=== PATIENT | female | born 1950 | race Caucasian/White ===

== ENCOUNTER 2020-12-02 18:45 | Emergency (ER) | payer MEDICARE, OTHER, SELFPAY ==
--- NOTE | 2020-12-02 18:49 | ED.MALEGU ---
HPI - Male Genitourinary General Chief complaint: Urogenital-Female Stated complaint: POS UTI/back pain Time Seen by Provider: 12/02/20 19:00 Source: patient and RN notes reviewed Mode of arrival: ambulatory Limitations: no limitations History of Present Illness HPI Narrative: 70-year-old female with history of breast cancer, pelvic reconstructive surgery, diverticulitis presents with concern for urinary tract infection. She reports since yesterday she has had left flank discomfort, left low groin/abdominal discomfort. She reports chronic pelvic discomfort from a past pelvic surgery, reports the discomfort has become more significant in the last 2 days. She denies fever, other abdominal pain, nausea, vomiting, body aches, chills, sweats, hematuria. Reports this week she has been dealing with a yeast infection for which she took Diflucan prescribed by her old primary care provider. Reports history of diverticulitis, reports history of nephrolithiasis. Reports symptoms with nephrolithiasis were different, more severe pain. Reports symptoms for diverticulitis were similar to her symptoms today, also reports symptoms of past urinary tract infections were similar to her symptoms today. MD Complaint: dysuria Related Data Home Medications Medication Instructions Recorded Confirmed Aspir-81 12/02/20 Benicar 12/02/20 Breo Ellipta 12/02/20 Janumet 12/02/20 Ventolin HFA 12/02/20 amlodipine [Norvasc] 12/02/20 glipizide 5 mg PO DAILY 12/02/20 12/02/20 rosuvastatin [Crestor] mg 12/02/20 Allergies Allergy/AdvReac Type Severity Reaction Status Date / Time erythromycin base Allergy Unknown ABD PAIN Verified 02/11/18 09:35 lidocaine Allergy Unknown Verified 12/02/20 18:58 Review of Systems Review of Systems: CONSTITUTIONAL: Denies malaise, chills, sweats, or fever. CARDIOVASCULAR: Denies chest pain, palpitations, or edema. RESPIRATORY: Denies cough or dyspnea. GASTROINTESTINAL: Reports left lower groin/abdominal pain. Denies nausea, vomiting, diarrhea, bloody, or mucous stools. GENITOURINARY: Denies dysuria or hematuria. Reports left flank pain SKIN: Reports general itching MUSCULOSKELETAL: Denies back pain or myalgia. All systems reviewed & are unremarkable except as noted in HPI and below PMFSH Comments At time of signature, agree with nursing past medical, surgical, social and family history. There is no relevant family history pertinent to the presenting complaint Exam Narrative: GENERAL: Well-appearing, well-nourished, and in no acute distress. HEAD: Normocephalic. EYES: PERRLA, conjunctivae clear. NECK: Supple. No lymphadenopathy CHEST: Clear to auscultation. No respiratory distress. HEART: Regular rate and rhythm. ABDOMEN: Soft, nontender upon palpation, nondistended, normal active bowel sounds, no palpable or pulsatile masses, no guarding. No CVA tenderness SKIN: Warm, dry, no rash. NEURO: Alert and oriented x3. PSYCH: Normal mood and affect Course Course Emergency Course: Dorie with patient possibility of symptoms not being caused by urinary tract infection, rather diverticulitis. Discussed inability to definitively diagnose diverticulitis in the setting. Patient just moved to the state and does not have a primary care provider that she is able to call for an appointment. Resources will be provided for patient to find a primary care provider. Was discussed with patient that Augmentin may also treat symptoms of diverticulitis, however she should follow-up with urine culture results to know how to further proceed with follow-up. Patient was given reasons to go the emergency room if symptoms worsen or do not improve. Patient is aware of diagnosis, understands and agrees to treatment plan. Anticipatory guidance given. Patient agrees to follow-up as directed and is aware of reasons to seek care at the emergency department. Portions of this record may have been created with voice recognition software [employer]
[2020-12-02 18:54] VITALS: BP 167/88; PULSE 78; RESP 16; TEMP 36.6; O2SAT 100
[2020-12-02 19:02] VITALS: BP 167/88; PULSE 78; RESP 16; TEMP 36.6; O2SAT 100
== END 2020-12-02 19:32 | disposition home or self-care (01) ==
PROVIDERS: Emergency Provider Nurse Practitioner
DX: R10.9 Unspecified abdominal pain (principal); R10.32 Left lower quadrant pain; I10 Essential (primary) hypertension; J45.909 Unspecified asthma, uncomplicated; E11.9 Type 2 diabetes mellitus without complications
CPT/HCPCS: 81003; 87086; 87088; 99213; G0463

== ENCOUNTER 2021-03-21 15:28 | Emergency (ER) | payer MEDICARE, OTHER, SELFPAY ==
[2021-03-21 15:38] VITALS: BP 178/83; PULSE 81; RESP 18; TEMP 36.9; O2SAT 98
--- NOTE | 2021-03-21 15:52 | ED.URI ---
HPI - URI/Sore Throat General Chief Complaint: Upper Respiratory Infection Stated Complaint: Fever,Congestion,Cough Source: patient and RN notes reviewed Limitations: no limitations History of Present Illness HPI Narrative: The boost vaccinated patient, a non-smoker/nondrinker with RAD, presents with 2-day history of cough, p.o. fever 101, associated scratchy throat. Symptoms are mild, unrelieved til she took Mucinex associated with possible wheezing. No loss of taste/smell, vomiting/diarrhea, CP, calf pain/edema, S OB; vital signs remarkable for BP 178/83 [she just took her blood pressure pills before arrival]. Related Data Home Medications Medication Instructions Recorded Confirmed albuterol sulfate 90 mcg/actuation 1 puff INHALATION Q4H PRN 01/02/21 03/21/21 aerosol inhaler amlodipine 10 mg tablet 10 mg PO DAILY 01/02/21 03/21/21 aspirin 81 mg chewable tablet 81 mg PO DAILY 01/02/21 03/21/21 fluticasone furoate 200 1 inh INHALATION DAILY PRN 01/02/21 03/21/21 mcg-vilanterol 25 mcg/dose inhalation powder fluticasone propionate 50 1 spray INTRANASAL DAILY PRN 01/02/21 03/21/21 mcg/actuation nasal spray,suspension glipizide 5 mg tablet, extended 5 mg PO DAILY 01/02/21 03/21/21 release 24 hr olmesartan 40 1 tablet PO DAILY 01/02/21 03/21/21 mg-hydrochlorothiazide 12.5 mg tablet rosuvastatin 20 mg tablet 20 mg PO DAILY 01/02/21 03/21/21 sitagliptin 50 mg-metformin 500 mg 1 tablet PO DAILY tablet 01/02/21 03/21/21 tablet Allergies Allergy/AdvReac Type Severity Reaction Status Date / Time acetaminophen [From Vicodin] Allergy Intermediate Hives or Verified 03/21/21 15:39 throat swelling after 4-6 days of use hydrocodone [From Vicodin] Allergy Intermediate Hives or Verified 03/21/21 15:39 throat swelling after 4-6 days of use loracarbef [From Lorabid] Allergy Intermediate Hives or Verified 03/21/21 15:39 throat swelling after 4-6 days of use cigarette smoke Allergy Unknown unknown Verified 03/21/21 15:39 diltiazem [From Cardizem] Allergy Unknown Hives, Verified 03/21/21 15:39 stomach ache doxycycline [From Doryx] Allergy Unknown Hives, Verified 03/21/21 15:39 stomach ache erythromycin base Allergy Unknown ABD PAIN Verified 03/21/21 15:39 formaldehyde Allergy Unknown unknown Verified 03/21/21 15:39 house dust mite Allergy Unknown unknown Verified 03/21/21 15:39 minocycline [From Dynacin] Allergy Unknown Hives, Verified 03/21/21 15:39 Stomach ache phenol Allergy Unknown unknown Verified 03/21/21 15:39 lidocaine Allergy Unknown Verified 03/21/21 15:39 acrylic Allergy Unknown unknown Uncoded 03/21/21 15:39 zara Allergy Unknown unknown Uncoded 03/21/21 15:39 chlorine Allergy Unknown unknown Uncoded 03/21/21 15:39 dust Allergy Unknown unknown Uncoded 03/21/21 15:39 ethanol Allergy Unknown unknown Uncoded 03/21/21 15:39 fireplace smoke Allergy Unknown unknown Uncoded 03/21/21 15:39 mountain cedar Allergy Unknown unknown Uncoded 03/21/21 15:39 msg Allergy Unknown unknown Uncoded 03/21/21 15:39 orris root Allergy Unknown unknown Uncoded 03/21/21 15:39 unleaded gas Allergy Unknown unknown Uncoded 03/21/21 15:39 Review of Systems Review of Systems: General/Constitutional: No weight loss, REPORTS fever Eyes: N0: Redness,discharge Ears/Nose/Throat: No: Epistaxis,ear discharge Respiratory: Denies: Hemoptysis Gastrointestinal: No Vomiting, Bleeding-rectal Skin: No Lumps, eruption Neurologic: No Focal Weakness,Sz Hematologic: Denies: Petechiae/Purpura Psychiatric: No: Suicida ideationl All Other Systems: Reviewed and Negative [facility] Past Medical History Medical History (Updated 03/21/21 @ 17:12 by Jarvis Barreto MD) Acid reflux Arthritis Asthma Breast cancer Endometriosis H/O nephrolithotomy with removal of calculi 1998 Pre-diabetes Vaginal delivery x2 Surgical History Surgical History
== END 2021-03-21 16:15 | disposition home or self-care (01) ==
PROVIDERS: Emergency Provider Emergency Medicine; PCP Internal Medicine
DX: J98.01 Acute bronchospasm (principal); J06.9 Acute upper respiratory infection, unspecified; Z20.822 Contact with and (suspected) exposure to COVID-19; K21.9 Gastro-esophageal reflux disease without esophagitis; M19.90 Unspecified osteoarthritis, unspecified site; J45.909 Unspecified asthma, uncomplicated; N80.9 Endometriosis, unspecified; Z85.3 Personal history of malignant neoplasm of breast; R73.03 Prediabetes; Z90.13 Acquired absence of bilateral breasts and nipples
CPT/HCPCS: 87426; 87804; 99213; C9803; G0463

== ENCOUNTER → 2021-05-11 12:29 | Outpatient (CLI) | payer MEDICARE, SELFPAY ==
--- NOTE | ~2021-05-11 | US_ITS ---
US soft tissue chest DATE: 05/11/2021 12:54 INDICATION: Chest wall lump inferior to left breast; status post bilateral mastectomy, saline implant s TECHNIQUE: Real-time imaging and color flow imaging targeted to area of clinical complaint and inferi or aspect of left breast COMPARISON: None FINDINGS: There is a parallel circumscribed mildly heterogeneous lesion in the lower mid breast subcu taneous tissues measuring 1.2 x 0.7 x 1.4 cm, with through transmission posterior enhancement. The so nographic features are suggestive but not pathognomonic a benign process such as complicated sebaceou s cyst versus fibroadenoma. Malignant breast mass or metastatic lymph node are considered less likely . Ultrasound-guided biopsy is recommended. IMPRESSION: BI-RADS Category 4A: Suspicious abnormality; biopsy should be considered Recommendation: Ultrasound-guided biopsy Reviewed, dictated and finalized at [facility] Reviewed, dictated and finalized at [facility] IMPRESSION: BI-RADS Category 4A: Suspicious abnormality; biopsy should be consi dered Recommendation: Ultrasound-guided biopsy
== END ==
DX: N63.0 Unspecified lump in unspecified breast (principal); R92.8 Other abnormal and inconclusive findings on diagnostic imaging of breast
CPT/HCPCS: 76604

== ENCOUNTER 2021-08-12 19:10 | Emergency (ER) | payer MEDICARE, SELFPAY ==
--- NOTE | 2021-08-12 19:15 | ED.EXTPRO ---
HPI - Extremity Problem General Chief complaint: Extremity Problem,Nontraumatic Stated complaint: Rt Foot Irritation and Pain Time Seen by Provider: 08/12/21 19:20 Source: patient Mode of arrival: ambulatory Limitations: no limitations History of Present Illness HPI Narrative: 71-year-old female presented for complaints of concern for numbness to the right great toe and second toe for a few hours prior to arrival today. Endorses a significant medical history, she has been taking gabapentin for urinary nerve pain, which caused her legs to swell. She discontinued the medication and notes she had been walking around [facility] today and did not have any issues with pain or numbness. However when she arrived home she endorses the bottom of her toes felt numb. Endorses this is slightly improving. Denies redness, swelling, pain, weakness or tingling of the foot. Related Data Home Medications Medication Instructions Recorded Confirmed albuterol sulfate 90 mcg/actuation 1 puff INHALATION Q4H PRN 01/02/21 03/21/21 aerosol inhaler amlodipine 10 mg tablet 10 mg PO DAILY 01/02/21 08/12/21 aspirin 81 mg chewable tablet 81 mg PO DAILY 01/02/21 08/12/21 fluticasone propionate 50 1 spray INTRANASAL DAILY PRN 01/02/21 03/21/21 mcg/actuation nasal spray,suspension glipizide 5 mg tablet, extended 5 mg PO DAILY 01/02/21 08/12/21 release 24 hr olmesartan 40 1 tablet PO DAILY 01/02/21 08/12/21 mg-hydrochlorothiazide 12.5 mg tablet rosuvastatin 20 mg tablet 20 mg PO DAILY 01/02/21 08/12/21 sitagliptin 50 mg-metformin 500 mg 1 tablet PO DAILY tablet 01/02/21 08/12/21 tablet gabapentin 100 mg PO TID 08/12/21 08/12/21 Allergies Allergy/AdvReac Type Severity Reaction Status Date / Time acetaminophen [From Vicodin] Allergy Intermediate Hives or Verified 08/12/21 19:13 throat swelling after 4-6 days of use hydrocodone [From Vicodin] Allergy Intermediate Hives or Verified 08/12/21 19:13 throat swelling after 4-6 days of use loracarbef [From Lorabid] Allergy Intermediate Hives or Verified 08/12/21 19:13 throat swelling after 4-6 days of use cigarette smoke Allergy Unknown unknown Verified 08/12/21 19:13 diltiazem [From Cardizem] Allergy Unknown Hives, Verified 08/12/21 19:13 stomach ache doxycycline [From Doryx] Allergy Unknown Hives, Verified 08/12/21 19:13 stomach ache erythromycin base Allergy Unknown ABD PAIN Verified 08/12/21 19:13 formaldehyde Allergy Unknown unknown Verified 08/12/21 19:13 house dust mite Allergy Unknown unknown Verified 08/12/21 19:13 minocycline [From Dynacin] Allergy Unknown Hives, Verified 08/12/21 19:13 Stomach ache phenol Allergy Unknown unknown Verified 08/12/21 19:13 lidocaine Allergy Unknown Verified 08/12/21 19:13 acrylic Allergy Unknown unknown Uncoded 08/12/21 19:13 zara Allergy Unknown unknown Uncoded 08/12/21 19:13 chlorine Allergy Unknown unknown Uncoded 08/12/21 19:13 dust Allergy Unknown unknown Uncoded 08/12/21 19:13 ethanol Allergy Unknown unknown Uncoded 08/12/21 19:13 fireplace smoke Allergy Unknown unknown Uncoded 08/12/21 19:13 mountain cedar Allergy Unknown unknown Uncoded 08/12/21 19:13 msg Allergy Unknown unknown Uncoded 08/12/21 19:13 orris root Allergy Unknown unknown Uncoded 08/12/21 19:13 unleaded gas Allergy Unknown unknown Uncoded 08/12/21 19:13 Review of Systems Review of Systems: CONSTITUTIONAL: Denies body aches, fever, chills, or sweats. EYES: Denies visual changes, redness, or discharge. ENT: Denies rhinorrhea, congestion, sore throat, or otalgia. CARDIOVASCULAR: Denies chest pain, palpitations, or edema. RESPIRATORY: Denies cough or dyspnea. GASTROINTESTINAL: Denies abdominal pain, nausea, vomiting, or diarrhea. GENITOURINARY: Denies dysuria or hematuria. SKIN: Denies rash, itching, or wounds. MUSCULOSKELETAL: Denies back pain, joint pain, or myalgia. NEUROLOGIC: Denies headac
[2021-08-12 19:22] VITALS: BP 171/81; PULSE 85; RESP 18; TEMP 36.7; O2SAT 98
[2021-08-12 19:40] VITALS: BP 146/97
== END 2021-08-12 19:40 | disposition home or self-care (01) ==
PROVIDERS: Emergency Provider Nurse Practitioner Family; PCP Internal Medicine
DX: R20.9 Unspecified disturbances of skin sensation (principal); K21.9 Gastro-esophageal reflux disease without esophagitis; M19.90 Unspecified osteoarthritis, unspecified site; J45.909 Unspecified asthma, uncomplicated; R73.03 Prediabetes; Z85.3 Personal history of malignant neoplasm of breast; Z90.13 Acquired absence of bilateral breasts and nipples
CPT/HCPCS: 99212; G0463

== ENCOUNTER 2021-09-18 08:19 | Inpatient (IN) | payer MEDICARE, SELFPAY ==
--- NOTE | ~2021-09-18 | CT_ITS ---
EXAMINATION: CT abdomen pelvis wo con DATE: 09/18/2021 09:15 INDICATION: Left flank pain. TECHNIQUE: Computed tomography (CT) of the abdomen and pelvis was performed without intravenous contr ast. Automated exposure control and iterative reconstruction technique were employed. The dose-length product was 1374.57 mGy-cm. COMPARISON: ultrasound 05/11/21 FINDINGS: The visualized portions of the lung bases demonstrate mild atelectasis on the left. No pleu ral effusion. There are bilateral breast implants. There is a 1.6 cm mass in the lower inner left génesis ast. The heart size is normal. No pericardial effusion. There is a 4.7 x 2.0 cm pericardial cyst on t he right. There is diffuse hepatic steatosis. The gallbladder, spleen, pancreas, and adrenal glands a re normal. There is cortical thinning of the kidneys. There are 5 stones in right kidney measuring up to 8 mm. There is a 1 mm stone in left kidney. There are multiple masses in left kidney measuring so ft tissue attenuation measuring up to 2.0 cm. There are scattered diverticula in the sigmoid colon. T here is fat stranding around sigmoid colon, consistent with diverticulitis. There are no dilated loop s of bowel. The appendix is normal. There is an umbilical hernia containing fat. There is a 3.0 cm gongora bcutaneous mass on the right posteriorly. There are no pathologically enlarged lymph nodes. There is no free intraperitoneal fluid. There is severe lumbar spondylosis. There is a hemangioma in L4 verte bral body. IMPRESSION: 1. Mild sigmoid diverticulitis. No perforation or abscess. 2. Bilateral nonobstructing kidney stones. 3. Left kidney masses measuring up to 2.0 cm, which may be benign or less likely malignant. Abdomen M RI without and with contrast is recommended. 4. 3.0 cm subcutaneous mass on the right posteriorly which may be benign or malignant. Ultrasound-ilia ded core needle biopsy is recommended. 5. 1.6 cm left breast mass. Ultrasound-guided core needle biopsy is recommended if not already perfor med as recommended on the ultrasound from 05/11/21. Reviewed, dictated and finalized at [facility]. IMPRESSION: 1. Mild sigmoid diverticulitis. No perforation or abscess. 2. Bilateral nonobstructing kidney stones. 3. Left kidney masses measuring up to 2.0 cm, which may be benign or less likel y malignant. Abdomen MRI without and with contrast is recommended. 4. 3.0 cm subcutaneous mass on the right posteriorly which may be benign or mal ignant. Ultrasound-guided core needle biopsy is recommended. 5. 1.6 cm left breast mass. Ultrasound-guided core needle biopsy is recommended if not already performed as recommended on the ultrasound from 05/11/21.
--- NOTE | ~2021-09-18 | XR_ITS ---
EXAMINATION: XR abdomen/kub 1V DATE: 09/18/2021 16:39 INDICATION: Kidney stones. TECHNIQUE: A supine view of the abdomen on 2 radiographs was obtained. COMPARISON: CT abdomen and pelvis 09/18/2021 FINDINGS: There are no dilated loops of bowel. There are 5 mm and 9 mm stones in right kidney. There are phleboliths in the pelvis. IMPRESSION: 1. Right kidney stones. Reviewed, dictated and finalized at location B. IMPRESSION: 1. Right kidney stones.
--- NOTE | ~2021-09-18 | CT_ITS ---
EXAMINATION: CT thoracic lumbar wo con DATE: 09/20/2021 12:12 INDICATION: Back pain . TECHNIQUE: Computed tomography (CT) of the thoracic spine was performed without intravenous contrast. Automated exposure control and iterative reconstruction technique were employed. The dose-length pro duct was 1973.44 mGy-cm. COMPARISON: None FINDINGS: Thoracic scoliosis. Vertebral bodies are aligned. Vertebral body heights are maintained. Pe dicles are intact. No acute fracture or traumatic malalignment. No lytic or blastic lesion. Severe le ft neural foraminal narrowing at T8-9. Multilevel moderate neural foraminal narrowing in the midthora cic spine. Multilevel disc space narrowing and marginal osteophytosis, with prominent right-sided andrea dging osteophytes at multiple levels. No severe central canal narrowing. Mild to moderate sclerosis a nd hypertrophy bilaterally at multiple levels. IMPRESSION: No acute finding in the thoracic spine. Severe bilateral neural foraminal narrowing at T8-9 with mode rate neural foraminal narrowing at multiple additional levels. No significant central canal narrowing . Multilevel degenerative disc and facet changes, described above. Reviewed, dictated and finalized at location K. IMPRESSION: No acute finding in the thoracic spine. Severe bilateral neural foraminal narro wing at T8-9 with moderate neural foraminal narrowing at multiple additional le vels. No significant central canal narrowing. Multilevel degenerative disc and facet changes, described above.
--- NOTE | ~2021-09-18 | MR_ITS ---
EXAMINATION: MR lumbar spine wo con DATE: 09/21/2021 12:19 INDICATION: Low back pain. TECHNIQUE: Magnetic resonance imaging (MRI) of the lumbar spine was performed without intravenous con trast. Sequences included sagittal T2-weighted FSE, sagittal T2-weighted FS FSE, sagittal T1-weighted FSE, and axial T2-weighted FSE. COMPARISON: CT 09/20/2021 FINDINGS: There is 20 degrees levoscoliosis of thoracolumbar spine. Vertebral body heights are normal . There is mildly decreased disc height at L3-L4 and severely decreased disc height at L4-L5 and L5-S 1. The distal spinal cord signal intensity is normal. The conus medullaris is at L1. There is a Tarlo v cysts at S2. The following disc levels are specifically discussed: L1-L2: The disc is bulging. There is mild bilateral facet joint osteoarthritis. There is mild bilater al neural foraminal stenosis. There is no central canal stenosis. L2-L3: The disc is bulging. There is moderate bilateral facet joint osteoarthritis. There is mild mehrdad ateral neural foraminal stenosis. There is mild central canal stenosis. L3-L4: The disc is bulging and has an annular fissure. There is severe right and moderate left facet joint osteoarthritis. There is mild bilateral neural foraminal stenosis. There is mild central canal stenosis. L4-L5: The disc is bulging and has an annular fissure. There is moderate bilateral facet joint osteoa rthritis. There is mild right and moderate left neural foraminal stenosis. There is mild central amber l stenosis. There is moderate stenosis of left lateral recess. L5-S1: The disc is bulging and has an annular fissure. There is mild bilateral facet joint osteoarthr itis. There is mild bilateral neural foraminal stenosis. There is mild central canal stenosis. IMPRESSION: 1. Severe lumbar spondylosis. 2. Thoracolumbar levoscoliosis. Reviewed, dictated and finalized at location A.
--- NOTE | ~2021-09-18 | CT_ITS ---
EXAMINATION: CT cervical spine wo con DATE: 09/20/2021 12:12 INDICATION: Back pain TECHNIQUE: Computed tomography (CT) of the cervical spine was performed without intravenous contrast. Automated exposure control and iterative reconstruction technique were employed. The dose-length pro duct was 510.10 mGy-cm. COMPARISON: None FINDINGS: Vertebral Body Alignment: Intact. Craniocervical and atlantoaxial alignment: Moderate degenerative change. Alignment intact. Osseous structures/fracture: No evidence of a lytic or blastic process in the visualized spine. No e vidence of acute fracture. Cervical soft tissues: The paraspinal soft tissues planes are maintained. Degenerative changes: Multilevel moderate degenerative disc disease. Severe bilateral neural foramina l narrowing at C3-4 and on the right at C4-5. Severe central canal narrowing at C5-6 and C6-7. Multil evel facet arthropathy. IMPRESSION: No acute fracture or traumatic malalignment in the cervical spine. Severe central canal narrowing at C5-6 and C6/7. Severe bilateral neural foraminal narrowing at C3-4 and on the right at C4-5. Reviewed, dictated and finalized at location K. IMPRESSION: No acute fracture or traumatic malalignment in the cervical spine. Severe centr al canal narrowing at C5-6 and C6/7. Severe bilateral neural foraminal narrowin g at C3-4 and on the right at C4-5.
--- NOTE | ~2021-09-18 | MR_ITS ---
EXAMINATION: MR thoracic spine wo con DATE: 09/21/2021 12:19 INDICATION: Thoracic back pain. TECHNIQUE: Magnetic resonance imaging (MRI) of the thoracic spine was performed without intravenous c ontrast. Sagittal localizer T1-weighted FSE of the cervical spine was obtained. Thoracic spine sequen donna included sagittal T2-weighted FSE, sagittal T1-weighted FSE, sagittal STIR FSE, and axial T2-weig hted FSE. COMPARISON: CT thoracic spine 09/20/2021 FINDINGS: There is 20 degrees dextroscoliosis of thoracic spine. Vertebral body heights are normal. T here is mildly decreased disc height at T1-T2 and moderately decreased disc height at T2-T3. There is mildly decreased disc height from T6-T7 through T9-T10. At T1-T2, disc is bulging with mild central canal stenosis and ventral indentation of the spinal cord. At T2-T3, the disc is bulging with mild ce ntral canal stenosis. At T6-T7, there is a central extrusion with mild central canal stenosis. At T7- T8, there is a left central extrusion with mild central canal stenosis. There is multilevel facet luis antonio nt osteoarthritis, severe at multiple levels bilaterally. On the right, there is mild neural foramina l stenosis at T1-T2, moderate neural foraminal stenosis at T2-T3, mild neural foraminal stenosis at T 3-T4 and T4-T5, moderate neural foraminal stenosis at T8-T9, and mild neural foraminal stenosis at T9 -T10. On the left, there is mild neural foraminal stenosis at T1-T2, moderate neural foraminal stenos is at T2-T3, and mild neural foraminal stenosis from T4-T5 through T10-T11. The spinal cord signal in tensity is normal. IMPRESSION: 1. Moderate thoracic spondylosis. 2. Thoracic dextroscoliosis. Reviewed, dictated and finalized at location A.
--- NOTE | ~2021-09-18 | MR_ITS ---
EXAMINATION: MR cervical spine wo con DATE: 09/21/2021 12:18 INDICATION: Central canal narrowing. TECHNIQUE: Magnetic resonance imaging (MRI) of the cervical spine was performed without intravenous c ontrast. Sequences included sagittal T2-weighted FSE, sagittal T2-weighted FS FSE, sagittal T1-weight ed FSE, axial MERGE, and axial T2-weighted FSE. COMPARISON: CT cervical spine 09/20/2021 FINDINGS: There is mild kyphosis of lower cervical spine. Vertebral body heights are normal. There is moderately decreased disc height at C4-C5 and C5-C6 and mildly decreased disc height at C6-C7. The s arnoldo cord signal intensity is normal. The following disc levels are specifically discussed: C2-C3: The disc does not extend beyond the endplate margin. There is no uncovertebral joint osteoarth ritis. There is severe bilateral facet joint osteoarthritis. There is mild right neural foraminal kiki nosis. There is no central canal stenosis. C3-C4: There is a central protrusion. There is mild right and moderate left uncovertebral joint osteo arthritis. There is severe bilateral facet joint osteoarthritis. There is mild bilateral neural della inal stenosis. There is no central canal stenosis. C4-C5: The disc is bulging. There is severe bilateral uncovertebral joint osteoarthritis. There is se kelley right and mild left facet joint osteoarthritis. There is moderate right and mild left neural for aminal stenosis. There is moderate central canal stenosis with ventral and dorsal indentation of the spinal cord. C5-C6: The disc is bulging. There is severe bilateral uncovertebral joint osteoarthritis. There is no facet joint osteoarthritis. There is mild bilateral neural foraminal stenosis. There is severe centr al canal stenosis with ventral and dorsal indentation of the spinal cord. C6-C7: The disc is bulging. There is moderate bilateral uncovertebral joint osteoarthritis. There is mild bilateral facet joint osteoarthritis. There is mild bilateral neural foraminal stenosis. There i s mild central canal stenosis. C7-T1: The disc does not extend beyond the endplate margin. There is no uncovertebral joint osteoarth ritis. There is mild bilateral facet joint osteoarthritis. There is no neural foraminal stenosis. The re is no central canal stenosis. IMPRESSION: 1. Severe cervical spondylosis. Reviewed, dictated and finalized at location A.
--- NOTE | ~2021-09-18 | MR_ITS ---
EXAMINATION: MR abdomen wo/w con DATE: 09/21/2021 12:57 INDICATION: Kidney mass on prior CT. TECHNIQUE: Magnetic resonance imaging (MRI) of the abdomen was performed without and with 20 mL Multi kody intravenous contrast. Sequences included coronal T2-weighted SS-FSE, coronal and axial FS 2D-F IESTA, axial STIR FSE, axial T2-weighted SS-FSE, axial T2-weighted FS SS-FSE, axial diffusion-weighte d SE, axial dual-echo T1-weighted FSPGR, and axial and coronal T1-weighted LAVA. Postcontrast axial T 1-weighted LAVA images were obtained in a time course. Postcontrast coronal T1-weighted LAVA images w ere obtained. COMPARISON: 09/18/2021 FINDINGS: Heart size is normal. No pericardial or pleural effusion. Bilateral breast implants. Diffuse hepatic steatosis. Gallbladder is distended to 4.6 cm maximal diameter but without evident wall thickening, p ericholecystic inflammatory stranding or cholelithiasis. No intrahepatic biliary ductal dilation. The common bile duct measures 5 mm in maximal diameter which is normal. Spleen, pancreas and bilateral a drenal glands are normal. There are multiple simple appearing bilateral T2 hyperintense renal cysts. At the lower pole of the left kidney there are also 4 complex T2 hypointense, T1 hyperintense nonenha ncing proteinaceous/hemorrhagic cysts, the largest measuring 1.8 cm maximal diameter visualized porti on of the bowels are normal. In the mid right kidney there is a 9 mm T1 hyperintense, saturating macr oscopic fat containing lesion consistent with an angiomyolipoma. No abnormally enhancing renal lesion s identified. Small region of cortical scarring at the lower pole of the left kidney. Small fat-conta ining umbilical hernia. No pathologically enlarged abdominal lymphadenopathy. 2.9 cm likely benign se ptated T2 hyperintense subdermal mass the right flank with no evident enhancing solid soft tissue com ponent postcontrast imaging. Similar 1.5 cm similar nonenhancing cystic subcutaneous mass at the inne r inferior left breast. IMPRESSION: 1. 9 mm right renal angiomyolipoma and multiple bilateral renal cysts including several complex nonen hancing proteinaceous/hemorrhagic cyst at the lower pole of the left kidney including the lesions of concern identified on prior CT. No concerning enhancing renal lesions identified. 2. Nonenhancing cystic subcutaneous lesions at the inferior medial left breast measuring 1.5 cm and a t the right flank measuring 2.9 cm most likely representing sebaceous/epidermoid cysts. 3. Small fat-containing umbilical hernia. Reviewed, dictated and finalized at location B. IMPRESSION: 1. 9 mm right renal angiomyolipoma and multiple bilateral renal cysts including several complex nonenhancing proteinaceous/hemorrhagic cyst at the lower pole of the left kidney including the lesions of concern identified on prior CT. No concerning enhancing renal lesions identified. 2. Nonenhancing cystic subcutaneous lesions at the inferior medial left breast measuring 1.5 cm and at the right flank measuring 2.9 cm most likely representi ng sebaceous/epidermoid cysts. 3. Small fat-containing umbilical hernia.
[2021-09-18 08:28] VITALS: PULSE 72; RESP 20; TEMP 36.3; O2SAT 100
--- NOTE | 2021-09-18 08:34 | ED.GENADULT ---
HPI - General Adult General Chief complaint: Back Pain/Injury Stated complaint: Possible Kidney Stone Time Seen by Provider: 09/18/21 08:28 Source: RN notes reviewed History of Present Illness HPI narrative: Patient presents emergency department from home for left flank pain. Patient states pain began suddenly approximately 7 AM this morning. The pain is located in the left flank radiates around the left side of the abdomen described as sharp and stabbing. States is associated with nausea. She denies any fevers or chills, chest pain, shortness of breath vomiting diarrhea or any other history. States she does have a history of kidney stones. States she took ibuprofen at home for the pain with minimal relief Related Data Home Medications Medication Instructions Recorded Confirmed albuterol sulfate 90 mcg/actuation 1 puff inhalation Q4H PRN 01/02/21 09/18/21 aerosol inhaler (Ventolin HFA) Shortness Of Breath Or Wheezing amlodipine 10 mg tablet (Norvasc) 10 mg PO DAILY 01/02/21 09/18/21 aspirin 81 mg chewable tablet 81 mg PO DAILY 01/02/21 09/18/21 fluticasone propionate 50 1 spray intranasal DAILY PRN 01/02/21 09/18/21 mcg/actuation nasal Shortness Of Breath Or Wheezing spray,suspension (Allergy Relief (fluticasone)) glipizide 5 mg tablet, extended 5 mg PO DAILY 01/02/21 09/18/21 release 24 hr olmesartan 40 1 tablet PO DAILY 01/02/21 09/18/21 mg-hydrochlorothiazide 12.5 mg tablet (Benicar HCT) rosuvastatin 20 mg tablet (Crestor) 20 mg PO DAILY 01/02/21 09/18/21 sitagliptin 50 mg-metformin 500 mg 1 tablet PO DAILY 01/02/21 09/18/21 tablet (Janumet) fluticasone furoate 200 1 inh inhalation DAILY PRN sob 09/18/21 09/18/21 mcg-vilanterol 25 mcg/dose inhalation powder (Breo Ellipta) Allergies Allergy/AdvReac Type Severity Reaction Status Date / Time acetaminophen [From Vicodin] Allergy Intermediate Hives or Verified 09/18/21 12:15 throat swelling after 4-6 days of use hydrocodone [From Vicodin] Allergy Intermediate Hives or Verified 09/18/21 12:15 throat swelling after 4-6 days of use loracarbef [From Lorabid] Allergy Intermediate Hives or Verified 09/18/21 12:15 throat swelling after 4-6 days of use cigarette smoke Allergy Unknown unknown Verified 09/18/21 12:15 diltiazem [From Cardizem] Allergy Unknown Hives, Verified 09/18/21 12:15 stomach ache doxycycline [From Doryx] Allergy Unknown Hives, Verified 09/18/21 12:15 stomach ache erythromycin base Allergy Unknown ABD PAIN Verified 09/18/21 12:15 formaldehyde Allergy Unknown unknown Verified 09/18/21 12:15 house dust mite Allergy Unknown unknown Verified 09/18/21 12:15 minocycline [From Dynacin] Allergy Unknown Hives, Verified 09/18/21 12:15 Stomach ache phenol Allergy Unknown unknown Verified 09/18/21 12:15 gabapentin Allergy Unknown Verified 09/18/21 12:41 lidocaine Allergy Unknown Verified 09/18/21 12:15 acrylic Allergy Unknown unknown Uncoded 08/12/21 19:13 zara Allergy Unknown unknown Uncoded 08/12/21 19:13 chlorine Allergy Unknown unknown Uncoded 08/12/21 19:13 dust Allergy Unknown unknown Uncoded 08/12/21 19:13 ethanol Allergy Unknown unknown Uncoded 08/12/21 19:13 fireplace smoke Allergy Unknown unknown Uncoded 08/12/21 19:13 mountain cedar Allergy Unknown unknown Uncoded 08/12/21 19:13 msg Allergy Unknown unknown Uncoded 08/12/21 19:13 orris root Allergy Unknown unknown Uncoded 08/12/21 19:13 unleaded gas Allergy Unknown unknown Uncoded 08/12/21 19:13 Review of Systems Review of Systems: Gen.: Denies fevers or chills ENT: Denies congestion Respiratory: Denies shortness of breath or cough CV: Denies chest pain or palpitations GI: See HPI denies burning, urgency, frequency or hematuria Musculoskeletal: Denies back pain or muscle pain Neuro: Denies numbness, tingling, weakness or focal weakness Skin: Denies rash Except as documented, all o
[2021-09-18] MEDS: MORPHINE SULFATE (*CRX) 4 MG/ML INJ IV PUSH ×2 (08:40→12:07)
[2021-09-18] MEDS: ONDANSETRON INJ 4 MG/2 ML VIAL IV PUSH ×3 (08:40→22:15)
[2021-09-18] MEDS: SODIUM CHLORIDE 0.9% IV 1,000 ML 999 ML IV CONT (08:43)
[2021-09-18 08:55] LABS: Basophils Absolute Auto 0.1 K/mm3 (0.0-0.1); Basophils Percent Auto 1.1 % (0.2-1.2); Eosinophils Absolute Auto 0.2 K/mm3 (0-0.3); Eosinophils Percent Auto 3.8 % (0-4.4); Hematocrit 44.8 % (37.0-47.0); Hemoglobin 14.5 g/dL (12.0-15.0); Immature Granulocyte Absolute 0.04 K/mm3 (0.00-0.031); Immature Granulocyte Percent A 0.6 % (0-0.5); Lymphocytes Absolute Auto 2.33 K/mm3 (0.9-3.2); Lymphocytes Percent Auto 37.1 % (18.3-44.2); Mean Corpuscular HGB Conc 32.4 g/dl (32-36); Mean Corpuscular Hemoglobin 30.3 pg (26-34); Mean Corpuscular Volume 93.7 fl (80-100); Mean Platelet Volume 9.7 fl (7.4-10.4); Monocytes Absolute Auto 0.6 K/mm3 (0.1-0.6); Monocytes Percent Auto 8.9 % (2.6-8.5); Neutrophils Percent Auto 48.5 % (45.5-73.1); Platelet Count Result 231 k/mm3 (150-375); Red Blood Count 4.78 M/mm3 (4.2-5.4); Red Cell Distribution Width 14.6 % (11.5-14.5); White Blood Count 6.3 K/mm3 (4.5-10.0)
[2021-09-18 09:08] LABS: Lactic Acid Reflex 2.7 mmol/L (0.7-2.0)
[2021-09-18 09:09] LABS: Alanine Aminotransferase 28 U/L (6-35); Albumin Level 4.5 g/dL (3.5-5.1); Alkaline Phosphatase 126 U/L (38-126); Anion Gap 8 mmol/L (8-16); Aspartate Amino Transferase 27 U/L (14-36); Bilirubin,Total 0.6 mg/dL (0.2-1.3); Blood Urea Nitrogen 11 mg/dL (7-17); Calcium 8.9 mg/dL (8.4-10.2); Carbon Dioxide 28 mmol/L (22-30); Chloride 103 mmol/L (98-107); Estimated Glomerular Filt Rate > 60; Glucose 192 mg/dL (65-110); Lipase 53 U/L (23-300); Potassium 3.7 mmol/L (3.4-5.0); Sodium 139 mmol/L (137-145)
[2021-09-18] MEDS: MORPHINE SULFATE (*CRX) 2 MG/ML INJ IV PUSH (09:38)
[2021-09-18 10:03] LABS: Add Urine Microscopic? NO; Appearance Urine Clear (Clear); Bilirubin Urine Negative (Negative); Blood Urine Negative (Negative); Color Urine Yellow (Yellow); Glucose Urine UA Negative (Negative); Ketones Urine Negative (Negative); Leukocyte Esterase Ur Negative LEU/UL (Negative); Nitrate Urine Negative (Negative); Protein Urine Negative (Negative); Urobilinogen Urine 0.2 mg/dL (<2.0); pH Urine 8.5 (5.0-9.0)
--- NOTE | 2021-09-18 10:08 | PC.NURSE ---
Patient continues to moan out loud in pain. Institutional Nutrition Consultant assisted patient onto bedpan, patient able to roll to her side and assist health technical writer with bedpan placement. Patient urinated in bedpan and health technical writer cleaned patient up and emptied bedpan.
[2021-09-18 10:10] LABS: Bacteria Urine Trace /hpf; RBC Urine 0-2 /hpf (0-2); Squamous Epithelial Cell Urine Rare /hpf (Few)
[2021-09-18 11:53] LABS: Reflex Lactic Acid Yes or No Add Lactic
[2021-09-18] MEDS: SODIUM CHLORIDE 0.9% IV 1,000 ML 100 ML IV CONT ×2 (12:07→22:16)
[2021-09-18 12:21] VITALS: BMI 40.9
--- NOTE | 2021-09-18 12:24 | ADMGEN ---
This patient, Erna Nance, was admitted to Medical Room 248-01. Patient/family oriented to hospital policies and general routines including ID bracelet, bed and alarms, visiting hours, pain management, procedures, bathroom and other care routines, personal items, smoking policy, room service/diet, and visiting hours. Information on how to activate the Rapid Response Team has been discussed. Patient/Family are encouraged to report perceived risks to care and to ask questions if they do not understand what they are told or what they should do.
[2021-09-18 12:28] LABS: Lactic Acid 1.4 mmol/L (0.7-2.0)
[2021-09-18 12:36] VITALS: BP 162/84; PULSE 77; RESP 20; TEMP 36.9; O2SAT 100
[2021-09-18 12:40] VITALS: BP 162/84; PULSE 77; TEMP 36.9
[2021-09-18] MEDS: HYDROmorphone HCL INJ (*CRX) 1 MG/ML SYR IV PUSH (13:17)
[2021-09-18 14:00] VITALS: BP 159/91; PULSE 93; RESP 20; TEMP 36.7; O2SAT 98
--- NOTE | 2021-09-18 14:58 | PM.IMHP ---
H&P: HPI History of Present Illness Date/Time: 09/18/21 14:58 Chief Complaint: Back pain radiating to the front of the left abdomen Narrative: Patient is a 71 year old female with a past medical history of asthma, acid reflux, pre-diabetes, and nephrolithotomy that presented to the ED with complaints of back pain. She stated that she started to have pain in the left part of the back that started at 0300. She stated that she figured that things were going wrong after she went for her bladder treatment. She stated that the treatment consisted of a tens unit that was placed on the right side of the abdomen. Since then she has been experiencing swelling of the that started on the right abdomen, for the last 3 days. It was so severe that it continued to progress up to her breast. After that she has been having some problems. She stated that the pain has been so severe that she needed to come in. She has been very nauseated, and has had about 5 episodes of vomiting. She stated that she really thought that this was a kidney stone, however, she stated that the ED told her that this is diverticulitis. She also stated that it is in the classic spot of when she had this before. She denies chest pain, shortness of breath, weakness, fatigue, dizziness, vision changes. She also is having problems with sweats, and fevers to the point that she has ice packs all over her body to help with temperature control. Currently her pain is a 7-8/10, and is located in the LLQ. Review of Systems Review of Systems: All systems reviewed & are unremarkable except as noted in HPI and below PMFSH Past Medical History Medical History Acid reflux Arthritis Asthma Breast cancer Endometriosis H/O nephrolithotomy with removal of calculi 1998 Pre-diabetes Vaginal delivery x2 Surgical History Surgical History History of back surgery 1988 History of breast reconstruction 1997, mehrdad saline inserts with nipple areola reconstruction History of breast surgery 11/2007, removal of lymph node in lt breast History of hysterectomy 1989 History of left mastectomy 03/1996 History of pelvic surgery 09/22/2000, reconstructive History of pelvic surgery 06/2005, cystocele repair History of pelvic surgery 02/15/11, posterior repair, e merocele repair, mehrdad uterosacral ligament suspension, synthetic pubovaginal sling, cysto-suprapubic catheter placement, ligament suspension History of right mastectomy 06/1996 History of thoracic surgery 06/2000, excision of benign lesion on chest wall History of tonsillectomy 09/1996 Previous back surgery 2010, cyst removal from back Family History Family History Father Asthma Diabetes mellitus Hypertension Heart problem Mother Hypertension Grandparent Brain cancer Social History Social History (Updated 09/18/21 @ 15:14 by BULMARO Ambrosio) Social History: Patient lives by herself, and she has a dog. Her daughter Meaghan Trevino is her surrogate. She wishes to be a full code at this time. 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
[2021-09-18] MEDS: METOCLOPRAMIDE HCL INJ 10 MG/2 ML VIAL IV PUSH (16:21)
[2021-09-18 17:41] LABS: Glucose Point of Care 190 mg/dl (65-105)
[2021-09-18 19:42] VITALS: BP 170/95; PULSE 99; RESP 20; TEMP 36.3; O2SAT 98
[2021-09-18] MEDS: KETOROLAC 15 MG/ML VIAL (*BKC) IV PUSH (22:29)
[2021-09-18 23:41] LABS: Glucose Point of Care 173 mg/dl (65-105)
[2021-09-19 04:46] LABS: Basophils Absolute Auto 0.1 K/mm3 (0.0-0.1); Basophils Percent Auto 0.6 % (0.2-1.2); Eosinophils Absolute Auto 0.1 K/mm3 (0-0.3); Eosinophils Percent Auto 1.2 % (0-4.4); Hematocrit 41.9 % (37.0-47.0); Immature Granulocyte Absolute 0.03 K/mm3 (0.00-0.031); Immature Granulocyte Percent A 0.3 % (0-0.5); Lymphocytes Absolute Auto 2.45 K/mm3 (0.9-3.2); Lymphocytes Percent Auto 27.7 % (18.3-44.2); Mean Corpuscular HGB Conc 33.4 g/dl (32-36); Mean Corpuscular Hemoglobin 30.5 pg (26-34); Mean Corpuscular Volume 91.3 fl (80-100); Mean Platelet Volume 9.2 fl (7.4-10.4); Monocytes Absolute Auto 0.7 K/mm3 (0.1-0.6); Neutrophils Absolute Auto 5.5 K/mm3 (1.3-6.7); Neutrophils Percent Auto 62.2 % (45.5-73.1); Platelet Count Result 235 k/mm3 (150-375); Red Blood Count 4.59 M/mm3 (4.2-5.4); Red Cell Distribution Width 14.4 % (11.5-14.5); White Blood Count 8.9 K/mm3 (4.5-10.0)
[2021-09-19] MEDS: KETOROLAC 30 MG/ML VIAL (*BKC) IV PUSH ×2 (04:49→20:40)
[2021-09-19] MEDS: ONDANSETRON INJ 4 MG/2 ML VIAL IV PUSH ×2 (04:52→10:50)
[2021-09-19 05:05] VITALS: BP 168/70; PULSE 87; RESP 20; TEMP 36.8; O2SAT 96
[2021-09-19 05:06] LABS: Alanine Aminotransferase 23 U/L (6-35); Albumin Level 3.7 g/dL (3.5-5.1); Alkaline Phosphatase 86 U/L (38-126); Anion Gap 6 mmol/L (8-16); Aspartate Amino Transferase 29 U/L (14-36); Bilirubin,Total 0.5 mg/dL (0.2-1.3); Blood Urea Nitrogen 7 mg/dL (7-17); Calcium 8.5 mg/dL (8.4-10.2); Carbon Dioxide 24 mmol/L (22-30); Chloride 106 mmol/L (98-107); Estimated CRCL calculation 112 ml/min; Estimated Glomerular Filt Rate > 60; Glucose 136 mg/dL (65-110); Potassium 3.5 mmol/L (3.4-5.0); Sodium 136 mmol/L (137-145)
[2021-09-19] MEDS: hydrALAZINE HCL 20 MG/ML VIAL 10 MG IV PUSH (05:19)
[2021-09-19 05:27] LABS: Glucose Point of Care 138 mg/dl (65-105)
[2021-09-19 06:27] VITALS: BP 164/71
[2021-09-19] MEDS: DOCUSATE SODIUM 100 MG CAPSULE PO (08:33)
[2021-09-19] MEDS: ENOXAPARIN 40 MG/0.4 ML SYRINGE SUB-Q (08:34)
[2021-09-19 08:42] LABS: Glucose Point of Care 143 mg/dl (65-105)
--- NOTE | 2021-09-19 09:45 | P.PNIM_ITS ---
Progress Note: A&P Assessment and Plan (1) Diverticulitis: Code(s): K57.92 - Diverticulitis of intestine, part unspecified, without perforation or abscess without bleeding Status: Acute Assessment and Plan: * Found on the CT mild sigmoid diverticulitis * IV antibiotics Zosyn day 2 * IV fluids 100ml/hr * Increase to clear liquids * Zofran and pain medications on board * Increase diet as indicated * Follow labs * Consider adding GI (2) Nephrolithiasis: Code(s): N20.0 - Calculus of kidney Status: Acute Assessment and Plan: * CT of the abdomen showed multiple kidney stones bilaterally * Talked with urology and will have her follow up with them outpatient * stone are not obstructing * Trend urine output * Pain medication on board * MRI ordered to further evaluate * Will have her strain her urine (3) Hypertension: Code(s): I10 - Essential (primary) hypertension Status: Acute Assessment and Plan: * Current blood pressure 164/71 * Hold oral medications while she is NPO * Restart home medications as indicated * Trend blood pressure * Hydralazine p.r.n. with parameters * Adjust therapy as indicated (4) Diabetes: Code(s): E11.9 - Type 2 diabetes mellitus without complications Status: Acute Assessment and Plan: * Accu-Cheks AC and HS * Current glucose 136 * Trend labs * Hypoglycemic protocol * High sliding scale * Adjust therapy as indicated (5) Asthma: Code(s): J45.909 - Unspecified asthma, uncomplicated Status: Acute Assessment and Plan: * Continue home Breo Ellipta and albuterol * Respiratory status seems stable * Trend respiratory status (6) Left kidney mass: Code(s): N28.89 - Other specified disorders of kidney and ureter Status: Acute Assessment and Plan: * Pt is aware * Will follow up outpatient with urology * MRI recommended and ordered (7) Left breast mass: Code(s): N63.20 - Unspecified lump in the left breast, unspecified quadrant Status: Acute Assessment and Plan: * Will need biopsy * Will have patient follow up outpatient * Seems to almost be a cyst that is on the very lower part of her breast * She stated that she has had this looked at in the past (8) Subcutaneous mass: Code(s): R22.9 - Localized swelling, mass and lump, unspecified Status: Acute Assessment and Plan: * Will need biopsy * Will have patient follow up outpatient * Looks to also be a cyst that she has had evaluated in the past as well Time Spent With Patient Time with patient: Greater than 35 minutes Subjective Date/time seen: 09/19/21 09:45 Interval history: 09/19/21944 Patient is doing better today. Talked to her about the CT findings. She stated that her pain is getting better but her back is getting sore, and overall rates her pain a 5 to 6/10. Patient stated that she feels like her kidneys been hurting all night however her pain does come across her ribs and comes almost her belly button. She did have some nausea vomiting yesterday however it has resolved after she took a pain pill with his nausea medicine. Patient also stated that she got nauseous with little bit of water and a medication today. However she
--- NOTE | 2021-09-19 09:45 | PM.IMPN ---
Progress Note: A&P Assessment and Plan (1) Diverticulitis: Code(s): K57.92 - Diverticulitis of intestine, part unspecified, without perforation or abscess without bleeding Status: Acute Assessment and Plan: Found on the CT mild sigmoid diverticulitis IV antibiotics Zosyn day 2 IV fluids 100ml/hr Increase to clear liquids Zofran and pain medications on board Increase diet as indicated Follow labs Consider adding GI (2) Nephrolithiasis: Code(s): N20.0 - Calculus of kidney Status: Acute Assessment and Plan: CT of the abdomen showed multiple kidney stones bilaterally Talked with urology and will have her follow up with them outpatient stone are not obstructing Trend urine output Pain medication on board MRI ordered to further evaluate Will have her strain her urine (3) Hypertension: Code(s): I10 - Essential (primary) hypertension Status: Acute Assessment and Plan: Current blood pressure 164/71 Hold oral medications while she is NPO Restart home medications as indicated Trend blood pressure Hydralazine p.r.n. with parameters Adjust therapy as indicated (4) Diabetes: Code(s): E11.9 - Type 2 diabetes mellitus without complications Status: Acute Assessment and Plan: Accu-Cheks AC and HS Current glucose 136 Trend labs Hypoglycemic protocol High sliding scale Adjust therapy as indicated (5) Asthma: Code(s): J45.909 - Unspecified asthma, uncomplicated Status: Acute Assessment and Plan: Continue home Breo Ellipta and albuterol Respiratory status seems stable Trend respiratory status (6) Left kidney mass: Code(s): N28.89 - Other specified disorders of kidney and ureter Status: Acute Assessment and Plan: Pt is aware Will follow up outpatient with urology MRI recommended and ordered (7) Left breast mass: Code(s): N63.20 - Unspecified lump in the left breast, unspecified quadrant Status: Acute Assessment and Plan: Will need biopsy Will have patient follow up outpatient Seems to almost be a cyst that is on the very lower part of her breast She stated that she has had this looked at in the past (8) Subcutaneous mass: Code(s): R22.9 - Localized swelling, mass and lump, unspecified Status: Acute Assessment and Plan: Will need biopsy Will have patient follow up outpatient Looks to also be a cyst that she has had evaluated in the past as well Time Spent With Patient Time with patient: Greater than 35 minutes Subjective Date/time seen: 09/19/21 09:45 Interval history: 09/19/2145 Patient is doing better today. Talked to her about the CT findings. She stated that her pain is getting better but her back is getting sore, and overall rates her pain a 5 to 6/10. Patient stated that she feels like her kidneys been hurting all night however her pain does come across her ribs and comes almost her belly button. She did have some nausea vomiting yesterday however it has resolved after she took a pain pill with his nausea medicine. Patient also stated that she got nauseous with little bit of water and a medication today. However she said it dissipated quite quickly. Will advance patient's diet to clear liquids. Explained patient that she does need to get up and move around she stated that she has been walking to the bathroom. 09/18/21? 14:58 Patient is a 71 year old female with a past medical history of asthma, acid reflux, pre-diabetes, and nephrolithotomy that presented to the ED with complaints of back pain.? She stated that she started to have pain in the left part of the back that started at 0300.? She stated that she figured that things were going wrong after she went for her bladder treatment.? She stated that the treatment consi
[2021-09-19] MEDS: SODIUM CHLORIDE 0.9% IV 1,000 ML 100 ML IV CONT ×2 (10:50→20:49)
[2021-09-19] MEDS: KETOROLAC 15 MG/ML VIAL (*BKC) IV PUSH (10:50)
[2021-09-19 12:12] LABS: Glucose Point of Care 133 mg/dl (65-105)
[2021-09-19 13:15] VITALS: BP 165/72; PULSE 75; RESP 16; TEMP 36.7; O2SAT 98
[2021-09-19] MEDS: ROSUVASTATIN 10 MG TABLET 20 MG PO (13:18)
[2021-09-19] MEDS: hydroCHLOROthiazide 12.5 MG CAPSULE PO (13:18)
[2021-09-19] MEDS: OLMESARTAN MEDOXOMIL 20 MG TABLET 40 MG PO (13:18)
[2021-09-19] MEDS: ASPIRIN 81 MG CHEWABLE TABLET PO (13:18)
[2021-09-19] MEDS: amLODIPine BESYLATE 5 MG TABLET 10 MG PO (13:18)
[2021-09-19] MEDS: TIZANIDINE HCL 2 MG TABLET PO ×2 (15:58→20:14)
[2021-09-19 16:36] LABS: Glucose Point of Care 166 mg/dl (65-105)
[2021-09-19 19:49] VITALS: BP 136/71; PULSE 63; RESP 20; TEMP 36.8; O2SAT 95
[2021-09-19 21:18] LABS: Glucose Point of Care 128 mg/dl (65-105)
[2021-09-19 22:10] VITALS: O2SAT 98
[2021-09-20] MEDS: KETOROLAC 30 MG/ML VIAL (*BKC) IV PUSH (04:12)
[2021-09-20 04:18] VITALS: BP 163/81; PULSE 79; RESP 20; TEMP 36.3; O2SAT 98
[2021-09-20] MEDS: TIZANIDINE HCL 2 MG TABLET PO ×2 (05:00→16:41)
[2021-09-20 05:22] LABS: Basophils Absolute Auto 0.1 K/mm3 (0.0-0.1); Basophils Percent Auto 0.9 % (0.2-1.2); Eosinophils Absolute Auto 0.2 K/mm3 (0-0.3); Eosinophils Percent Auto 2.2 % (0-4.4); Hematocrit 40.6 % (37.0-47.0); Hemoglobin 12.9 g/dL (12.0-15.0); Immature Granulocyte Absolute 0.01 K/mm3 (0.00-0.031); Immature Granulocyte Percent A 0.1 % (0-0.5); Lymphocytes Percent Auto 33.9 % (18.3-44.2); Mean Corpuscular HGB Conc 31.8 g/dl (32-36); Mean Corpuscular Hemoglobin 29.7 pg (26-34); Mean Corpuscular Volume 93.5 fl (80-100); Mean Platelet Volume 9.5 fl (7.4-10.4); Monocytes Absolute Auto 0.6 K/mm3 (0.1-0.6); Monocytes Percent Auto 9.4 % (2.6-8.5); Neutrophils Absolute Auto 3.6 K/mm3 (1.3-6.7); Neutrophils Percent Auto 53.5 % (45.5-73.1); Platelet Count Result 213 k/mm3 (150-375); Red Blood Count 4.34 M/mm3 (4.2-5.4); Red Cell Distribution Width 14.3 % (11.5-14.5); White Blood Count 6.8 K/mm3 (4.5-10.0)
[2021-09-20 05:28] LABS: Alanine Aminotransferase 24 U/L (6-35); Albumin Level 3.8 g/dL (3.5-5.1); Alkaline Phosphatase 84 U/L (38-126); Anion Gap 3 mmol/L (8-16); Aspartate Amino Transferase 29 U/L (14-36); Bilirubin,Total 0.7 mg/dL (0.2-1.3); Blood Urea Nitrogen 7 mg/dL (7-17); Calcium 8.3 mg/dL (8.4-10.2); Carbon Dioxide 26 mmol/L (22-30); Chloride 108 mmol/L (98-107); Estimated CRCL calculation 95 ml/min; Estimated Glomerular Filt Rate > 60; Glucose 133 mg/dL (65-110); Potassium 3.2 mmol/L (3.4-5.0); Sodium 137 mmol/L (137-145)
[2021-09-20 07:59] LABS: Glucose Point of Care 141 mg/dl (65-105)
[2021-09-20] MEDS: SODIUM CHLORIDE 0.9% IV 1,000 ML 100 ML IV CONT ×2 (09:35→22:37)
[2021-09-20 10:15] VITALS: BP 162/81
--- NOTE | 2021-09-20 10:30 | P.PNIM_ITS ---
Progress Note: A&P Assessment and Plan (1) Diverticulitis: Code(s): K57.92 - Diverticulitis of intestine, part unspecified, without perforation or abscess without bleeding Status: Acute Assessment and Plan: * Found on the CT mild sigmoid diverticulitis * IV antibiotics Zosyn day 3 * IV fluids 100ml/hr * Increase to full liquids * Zofran and pain medications on board * Increase diet as indicated * Follow labs * Consider adding GI (2) Nephrolithiasis: Code(s): N20.0 - Calculus of kidney Status: Acute Assessment and Plan: * CT of the abdomen showed multiple kidney stones bilaterally * Talked with urology and will have her follow up with them outpatient * stone are not obstructing * Trend urine output * Pain medication on board * MRI ordered and pending * Will have her strain her urine (3) Hypertension: Code(s): I10 - Essential (primary) hypertension Status: Acute Assessment and Plan: * Current blood pressure 163/81 * Hold oral medications while she is NPO * Restart home medications as indicated * Trend blood pressure * Hydralazine p.r.n. with parameters * Adjust therapy as indicated (4) Uncontrolled pain: Code(s): R52 - Pain, unspecified Status: Acute Assessment and Plan: * Reports abdominal and back pain * Dilaudid on the MAR * Oxycodone scheduled since allergic to hydrocodone * She is very particular of some medications * IV tylenol added * Toradol given * Tizanidine 2mg PO TID added * Continue to trend pain * Mobility could help this * PT/OT ordered (5) Diabetes: Code(s): E11.9 - Type 2 diabetes mellitus without complications Status: Acute Assessment and Plan: * Accu-Cheks AC and HS * Current glucose 133 * Trend labs * Hypoglycemic protocol * High sliding scale * Adjust therapy as indicated (6) Asthma: Code(s): J45.909 - Unspecified asthma, uncomplicated Status: Acute Assessment and Plan: * Continue home Breo Ellipta and albuterol * Respiratory status seems stable * Trend respiratory status (7) Left kidney mass: Code(s): N28.89 - Other specified disorders of kidney and ureter Status: Acute Assessment and Plan: * Pt is aware * Will follow up outpatient with urology * MRI recommended and ordered (8) Left breast mass: Code(s): N63.20 - Unspecified lump in the left breast, unspecified quadrant Status: Acute Assessment and Plan: * Will need biopsy * Will have patient follow up outpatient * Seems to almost be a cyst that is on the very lower part of her breast * She stated that she has had this looked at in the past (9) Subcutaneous mass: Code(s): R22.9 - Localized swelling, mass and lump, unspecified Status: Acute Assessment and Plan: * Will need biopsy * Will have patient follow up outpatient * Looks to also be a cyst that she has had evaluated in the past as well (10) Back pain: Code(s): M54.9 - Dorsalgia, unspecified Status: Acute Assessment and Plan: * Severe pain in the lumbar region * Pain medications adjusted * CT of the spine ordered * Consider MRI * PT/OT on board
--- NOTE | 2021-09-20 10:30 | PM.IMPN ---
Progress Note: A&P Assessment and Plan (1) Diverticulitis: Code(s): K57.92 - Diverticulitis of intestine, part unspecified, without perforation or abscess without bleeding Status: Acute Assessment and Plan: Found on the CT mild sigmoid diverticulitis IV antibiotics Zosyn day 3 IV fluids 100ml/hr Increase to full liquids Zofran and pain medications on board Increase diet as indicated Follow labs Consider adding GI (2) Nephrolithiasis: Code(s): N20.0 - Calculus of kidney Status: Acute Assessment and Plan: CT of the abdomen showed multiple kidney stones bilaterally Talked with urology and will have her follow up with them outpatient stone are not obstructing Trend urine output Pain medication on board MRI ordered and pending Will have her strain her urine (3) Hypertension: Code(s): I10 - Essential (primary) hypertension Status: Acute Assessment and Plan: Current blood pressure 163/81 Hold oral medications while she is NPO Restart home medications as indicated Trend blood pressure Hydralazine p.r.n. with parameters Adjust therapy as indicated (4) Uncontrolled pain: Code(s): R52 - Pain, unspecified Status: Acute Assessment and Plan: Reports abdominal and back pain Dilaudid on the MAR Oxycodone scheduled since allergic to hydrocodone She is very particular of some medications IV tylenol added Toradol given Tizanidine 2mg PO TID added Continue to trend pain Mobility could help this PT/OT ordered (5) Diabetes: Code(s): E11.9 - Type 2 diabetes mellitus without complications Status: Acute Assessment and Plan: Accu-Cheks AC and HS Current glucose 133 Trend labs Hypoglycemic protocol High sliding scale Adjust therapy as indicated (6) Asthma: Code(s): J45.909 - Unspecified asthma, uncomplicated Status: Acute Assessment and Plan: Continue home Breo Ellipta and albuterol Respiratory status seems stable Trend respiratory status (7) Left kidney mass: Code(s): N28.89 - Other specified disorders of kidney and ureter Status: Acute Assessment and Plan: Pt is aware Will follow up outpatient with urology MRI recommended and ordered (8) Left breast mass: Code(s): N63.20 - Unspecified lump in the left breast, unspecified quadrant Status: Acute Assessment and Plan: Will need biopsy Will have patient follow up outpatient Seems to almost be a cyst that is on the very lower part of her breast She stated that she has had this looked at in the past (9) Subcutaneous mass: Code(s): R22.9 - Localized swelling, mass and lump, unspecified Status: Acute Assessment and Plan: Will need biopsy Will have patient follow up outpatient Looks to also be a cyst that she has had evaluated in the past as well (10) Back pain: Code(s): M54.9 - Dorsalgia, unspecified Status: Acute Assessment and Plan: Severe pain in the lumbar region Pain medications adjusted CT of the spine ordered Consider MRI PT/OT on board (11) SHIRA (obstructive sleep apnea): Code(s): G47.33 - Obstructive sleep apnea (adult) (pediatric) Status: Acute Assessment and Plan: Daughter notes that patient has SHIRA, however does not wear a CPAP Apnea Link is ordered and pending at this time. Time Spent With Patient Time with patient: Greater than 35 minutes Subjective Date/time seen: 09/20/21 1030 Interval history: 09/20/21 1030 Patient is having excruciating pain. Patient stated that most of her pain comes from her left flank and wraps around. She is currently rating her pain an 8/10 however she is little reluctant to take some medications. Her daughter did come in and
[2021-09-20 11:25] LABS: Glucose Point of Care 119 mg/dl (65-105)
[2021-09-20] MEDS: amLODIPine BESYLATE 5 MG TABLET 10 MG PO (11:34)
[2021-09-20] MEDS: ASPIRIN 81 MG CHEWABLE TABLET PO (11:35)
[2021-09-20] MEDS: ROSUVASTATIN 10 MG TABLET 20 MG PO (11:35)
[2021-09-20] MEDS: OLMESARTAN MEDOXOMIL 20 MG TABLET 40 MG PO (11:35)
[2021-09-20] MEDS: hydroCHLOROthiazide 12.5 MG CAPSULE PO (11:35)
[2021-09-20] MEDS: DOCUSATE SODIUM 100 MG CAPSULE PO (11:35)
[2021-09-20] MEDS: POTASSIUM CHLORIDE 20 MEQ PACKET (FOR LIQUID) 40 MEQ PO (11:36)
[2021-09-20] MEDS: oxyCODONE HCL (*CRX) 5 MG TAB IR PO ×3 (11:43→23:07)
--- NOTE | 2021-09-20 12:48 | PC.NURSE ---
patient refused pain/nausea medications before CT scan because she wanted to get the scans over with. explained to patient that scan may be slightly uncomfortable due to already existing back/abdominal pain.
[2021-09-20] MEDS: ONDANSETRON INJ 4 MG/2 ML VIAL IV PUSH ×3 (13:02→23:09)
[2021-09-20 14:00] VITALS: BP 150/79; PULSE 83; RESP 20; TEMP 36.1; O2SAT 94
[2021-09-20 16:47] LABS: Glucose Point of Care 134 mg/dl (65-105)
[2021-09-20 19:51] VITALS: BP 173/70; PULSE 75; RESP 20; TEMP 36.6; O2SAT 95
[2021-09-20 20:00] VITALS: PULSE 75; RESP 20; O2SAT 96
[2021-09-20] MEDS: FLUTICASONE/SALMETEROL 230-21 MCG INHALER 1 PUFF 2 PUFF INHALATION (20:19)
[2021-09-20 20:20] VITALS: O2SAT 96
[2021-09-20 20:42] LABS: Glucose Point of Care 144 mg/dl (65-105)
--- NOTE | 2021-09-20 21:20 | PC.NURSE ---
PT STATES KCL POWDER IS MAKING HER NAUSEOUS THAT IS WHY SHE IS NOT DRINKING IT. PT STATES SHE DRANK ABOUT 3 SIPS BUT WAS AFRAID IT WOULD MAKE HER THROW UP AGAIN SO SHE COULD NOT FINISH IT. PT HAS HAD DRINK MIXTURE IN ROOM SINCE DAY SHIFT
[2021-09-21] VITALS (7 sets, daily range): BP systolic 121–167; BP diastolic 56–83; PULSE 73–79; RESP 16–20; TEMP 36.3–37.5; O2SAT 97–99
[2021-09-21] MEDS: ONDANSETRON INJ 4 MG/2 ML VIAL IV PUSH ×2 (05:55→13:00)
[2021-09-21] MEDS: oxyCODONE HCL (*CRX) 5 MG TAB IR PO ×4 (06:42→23:56)
[2021-09-21 07:43] LABS: Glucose Point of Care 129 mg/dl (65-105)
[2021-09-21 07:50] LABS: Basophils Absolute Auto 0.1 K/mm3 (0.0-0.1); Basophils Percent Auto 0.9 % (0.2-1.2); Eosinophils Absolute Auto 0.2 K/mm3 (0-0.3); Eosinophils Percent Auto 2.8 % (0-4.4); Hematocrit 39.3 % (37.0-47.0); Hemoglobin 13.2 g/dL (12.0-15.0); Immature Granulocyte Absolute 0.02 K/mm3 (0.00-0.031); Immature Granulocyte Percent A 0.3 % (0-0.5); Lymphocytes Absolute Auto 1.88 K/mm3 (0.9-3.2); Lymphocytes Percent Auto 29.3 % (18.3-44.2); Mean Corpuscular HGB Conc 33.6 g/dl (32-36); Mean Corpuscular Hemoglobin 30.4 pg (26-34); Mean Corpuscular Volume 90.6 fl (80-100); Mean Platelet Volume 9.2 fl (7.4-10.4); Monocytes Absolute Auto 0.5 K/mm3 (0.1-0.6); Monocytes Percent Auto 8.1 % (2.6-8.5); Neutrophils Absolute Auto 3.8 K/mm3 (1.3-6.7); Neutrophils Percent Auto 58.6 % (45.5-73.1); Platelet Count Result 208 k/mm3 (150-375); Red Blood Count 4.34 M/mm3 (4.2-5.4); Red Cell Distribution Width 14.2 % (11.5-14.5); White Blood Count 6.4 K/mm3 (4.5-10.0)
[2021-09-21] MEDS: FLUTICASONE/SALMETEROL 230-21 MCG INHALER 1 PUFF 2 PUFF INHALATION ×2 (07:58→20:22)
[2021-09-21 08:00] LABS: Alanine Aminotransferase 28 U/L (6-35); Alkaline Phosphatase 84 U/L (38-126); Anion Gap 5 mmol/L (8-16); Aspartate Amino Transferase 31 U/L (14-36); Bilirubin,Total 0.6 mg/dL (0.2-1.3); Blood Urea Nitrogen 5 mg/dL (7-17); Calcium 8.3 mg/dL (8.4-10.2); Carbon Dioxide 27 mmol/L (22-30); Chloride 105 mmol/L (98-107); Estimated CRCL calculation 95 ml/min; Estimated Glomerular Filt Rate > 60; Glucose 124 mg/dL (65-110); Potassium 3.3 mmol/L (3.4-5.0); Sodium 137 mmol/L (137-145)
[2021-09-21] MEDS: ASPIRIN 81 MG CHEWABLE TABLET PO (08:19)
[2021-09-21] MEDS: amLODIPine BESYLATE 5 MG TABLET 10 MG PO (08:19)
[2021-09-21] MEDS: ROSUVASTATIN 10 MG TABLET 20 MG PO (08:20)
[2021-09-21] MEDS: OLMESARTAN MEDOXOMIL 20 MG TABLET 40 MG PO (08:20)
[2021-09-21] MEDS: hydroCHLOROthiazide 12.5 MG CAPSULE PO (08:20)
[2021-09-21] MEDS: ENOXAPARIN 40 MG/0.4 ML SYRINGE SUB-Q (08:22)
[2021-09-21] MEDS: POTASSIUM CHLORIDE 20 MEQ TABLET 40 MEQ PO (10:11)
[2021-09-21] MEDS: SODIUM CHLORIDE 0.9% IV 1,000 ML 100 ML IV CONT (10:11)
--- NOTE | 2021-09-21 11:00 | PM.IMPN ---
Progress Note: A&P Assessment and Plan (1) Diverticulitis: Code(s): K57.92 - Diverticulitis of intestine, part unspecified, without perforation or abscess without bleeding Status: Acute Assessment and Plan: Found on the CT mild sigmoid diverticulitis IV antibiotics Zosyn day 4 IV fluids 100ml/hr, can probably be DCd at this time Increase to low fiber Zofran and pain medications on board Increase diet as indicated Follow labs (2) Nephrolithiasis: Code(s): N20.0 - Calculus of kidney Status: Acute Assessment and Plan: CT of the abdomen showed multiple kidney stones bilaterally Talked with urology and will have her follow up with them outpatient stone are not obstructing Trend urine output Pain medication on board MRI ordered and pending Will have her strain her urine (3) Back pain: Code(s): M54.9 - Dorsalgia, unspecified Status: Acute Assessment and Plan: Severe pain in the lumbar region Pain medications adjusted CT of the spine shows areas of narrowing MRI ordered PT/OT on board Concern for spinal cord compression (4) Hypertension: Code(s): I10 - Essential (primary) hypertension Status: Acute Assessment and Plan: Current blood pressure 156/80 Oral medications restarted Olmesartan 40mg PO daily, amlodipine 10mg PO Daily Trend blood pressure Hydralazine p.r.n. with parameters Adjust therapy as indicated (5) Uncontrolled pain: Code(s): R52 - Pain, unspecified Status: Acute Assessment and Plan: Reports abdominal and back pain Dilaudid on the MAR Oxycodone scheduled since allergic to hydrocodone She is very particular of some medications IV tylenol PRN Toradol PRN Tizanidine 2mg PO TID added Continue to trend pain Mobility could help this PT/OT ordered (6) Diabetes: Code(s): E11.9 - Type 2 diabetes mellitus without complications Status: Acute Assessment and Plan: Accu-Cheks AC and HS Current glucose Trend labs Hypoglycemic protocol High sliding scale Adjust therapy as indicated (7) Asthma: Code(s): J45.909 - Unspecified asthma, uncomplicated Status: Acute Assessment and Plan: Continue home Breo Ellipta and albuterol Respiratory status seems stable Trend respiratory status (8) Left kidney mass: Code(s): N28.89 - Other specified disorders of kidney and ureter Status: Acute Assessment and Plan: Pt is aware Will follow up outpatient with urology MRI recommended and ordered (9) Left breast mass: Code(s): N63.20 - Unspecified lump in the left breast, unspecified quadrant Status: Acute Assessment and Plan: Will need biopsy Will have patient follow up outpatient Seems to almost be a cyst that is on the very lower part of her breast She stated that she has had this looked at in the past (10) Subcutaneous mass: Code(s): R22.9 - Localized swelling, mass and lump, unspecified Status: Acute Assessment and Plan: Will need biopsy Will have patient follow up outpatient Looks to also be a cyst that she has had evaluated in the past as well (11) SHIRA (obstructive sleep apnea): Code(s): G47.33 - Obstructive sleep apnea (adult) (pediatric) Status: Acute Assessment and Plan: Daughter notes that patient has SHIRA, however does not wear a CPAP Apnea Link is ordered and pending at this time. Time Spent With Patient Time with patient: Greater than 35 minutes Subjective Date/time seen: 09/21/21 11:00 Interval history: 09/21/21 11:00 Patient is feeling better today. She stated that she would like to advance her diet again. She did state that her pain is better and is at a 3/10. She also stated that she would pref
--- NOTE | 2021-09-21 11:00 | P.PNIM_ITS ---
Progress Note: A&P Assessment and Plan (1) Diverticulitis: Code(s): K57.92 - Diverticulitis of intestine, part unspecified, without perforation or abscess without bleeding Status: Acute Assessment and Plan: * Found on the CT mild sigmoid diverticulitis * IV antibiotics Zosyn day 4 * IV fluids 100ml/hr, can probably be DCd at this time * Increase to low fiber * Zofran and pain medications on board * Increase diet as indicated * Follow labs (2) Nephrolithiasis: Code(s): N20.0 - Calculus of kidney Status: Acute Assessment and Plan: * CT of the abdomen showed multiple kidney stones bilaterally * Talked with urology and will have her follow up with them outpatient * stone are not obstructing * Trend urine output * Pain medication on board * MRI ordered and pending * Will have her strain her urine (3) Back pain: Code(s): M54.9 - Dorsalgia, unspecified Status: Acute Assessment and Plan: * Severe pain in the lumbar region * Pain medications adjusted * CT of the spine shows areas of narrowing * MRI ordered * PT/OT on board * Concern for spinal cord compression (4) Hypertension: Code(s): I10 - Essential (primary) hypertension Status: Acute Assessment and Plan: * Current blood pressure 156/80 * Oral medications restarted Olmesartan 40mg PO daily, amlodipine 10mg PO Daily * Trend blood pressure * Hydralazine p.r.n. with parameters * Adjust therapy as indicated (5) Uncontrolled pain: Code(s): R52 - Pain, unspecified Status: Acute Assessment and Plan: * Reports abdominal and back pain * Dilaudid on the MAR * Oxycodone scheduled since allergic to hydrocodone * She is very particular of some medications * IV tylenol PRN * Toradol PRN * Tizanidine 2mg PO TID added * Continue to trend pain * Mobility could help this * PT/OT ordered (6) Diabetes: Code(s): E11.9 - Type 2 diabetes mellitus without complications Status: Acute Assessment and Plan: * Accu-Cheks AC and HS * Current glucose * Trend labs * Hypoglycemic protocol * High sliding scale * Adjust therapy as indicated (7) Asthma: Code(s): J45.909 - Unspecified asthma, uncomplicated Status: Acute Assessment and Plan: * Continue home Breo Ellipta and albuterol * Respiratory status seems stable * Trend respiratory status (8) Left kidney mass: Code(s): N28.89 - Other specified disorders of kidney and ureter Status: Acute Assessment and Plan: * Pt is aware * Will follow up outpatient with urology * MRI recommended and ordered (9) Left breast mass: Code(s): N63.20 - Unspecified lump in the left breast, unspecified quadrant Status: Acute Assessment and Plan: * Will need biopsy * Will have patient follow up outpatient * Seems to almost be a cyst that is on the very lower part of her breast * She stated that she has had this looked at in the past (10) Subcutaneous mass: Code(s): R22.9 - Localized swelling, mass and lump, unspecified Status: Acute Assessment and Plan: * Will need biopsy * Will have patient follow up outpatient * Looks to
[2021-09-21] MEDS: TIZANIDINE HCL 2 MG TABLET PO (11:09)
[2021-09-21 13:02] LABS: Glucose Point of Care 143 mg/dl (65-105)
[2021-09-21 16:21] LABS: Glucose Point of Care 194 mg/dl (65-105)
[2021-09-21] MEDS: SENNOSIDES 8.6 MG TABLET PO (20:15)
[2021-09-21] MEDS: ACETAMINOPHEN 500 MG TABLET 1000 MG PO (20:16)
[2021-09-21 20:50] LABS: Glucose Point of Care 203 mg/dl (65-105)
[2021-09-22] MEDS: ACETAMINOPHEN 500 MG TABLET 1000 MG PO ×2 (02:55→22:17)
[2021-09-22 03:45] VITALS: BP 165/84; PULSE 74; RESP 16; TEMP 36.9; O2SAT 95
[2021-09-22] MEDS: oxyCODONE HCL (*CRX) 5 MG TAB IR PO ×2 (05:08→11:13)
[2021-09-22 05:13] LABS: Basophils Absolute Auto 0.1 K/mm3 (0.0-0.1); Basophils Percent Auto 0.8 % (0.2-1.2); Eosinophils Absolute Auto 0.2 K/mm3 (0-0.3); Eosinophils Percent Auto 2.9 % (0-4.4); Hematocrit 38.3 % (37.0-47.0); Hemoglobin 12.7 g/dL (12.0-15.0); Immature Granulocyte Absolute 0.01 K/mm3 (0.00-0.031); Immature Granulocyte Percent A 0.2 % (0-0.5); Lymphocytes Absolute Auto 2.16 K/mm3 (0.9-3.2); Mean Corpuscular HGB Conc 33.2 g/dl (32-36); Mean Corpuscular Hemoglobin 30.4 pg (26-34); Mean Corpuscular Volume 91.6 fl (80-100); Mean Platelet Volume 9.4 fl (7.4-10.4); Monocytes Absolute Auto 0.7 K/mm3 (0.1-0.6); Neutrophils Absolute Auto 3.1 K/mm3 (1.3-6.7); Neutrophils Percent Auto 50.1 % (45.5-73.1); Platelet Count Result 209 k/mm3 (150-375); Red Blood Count 4.18 M/mm3 (4.2-5.4); Red Cell Distribution Width 14.2 % (11.5-14.5); White Blood Count 6.2 K/mm3 (4.5-10.0)
[2021-09-22 05:24] LABS: Alanine Aminotransferase 25 U/L (6-35); Albumin Level 3.5 g/dL (3.5-5.1); Alkaline Phosphatase 75 U/L (38-126); Anion Gap 4 mmol/L (8-16); Aspartate Amino Transferase 26 U/L (14-36); Bilirubin,Total 0.4 mg/dL (0.2-1.3); Blood Urea Nitrogen 8 mg/dL (7-17); Calcium 8.5 mg/dL (8.4-10.2); Carbon Dioxide 29 mmol/L (22-30); Chloride 103 mmol/L (98-107); Estimated CRCL calculation 95 ml/min; Estimated Glomerular Filt Rate > 60; Glucose 191 mg/dL (65-110); Magnesium 2.1 mg/dL (1.6-2.3); Potassium 3.4 mmol/L (3.4-5.0); Sodium 136 mmol/L (137-145)
[2021-09-22 07:44] VITALS: BP 172/86; PULSE 76
[2021-09-22 07:48] LABS: Glucose Point of Care 153 mg/dl (65-105)
[2021-09-22 08:39] VITALS: O2SAT 96
[2021-09-22] MEDS: ENOXAPARIN 40 MG/0.4 ML SYRINGE SUB-Q (08:40)
[2021-09-22] MEDS: FLUTICASONE/SALMETEROL 230-21 MCG INHALER 1 PUFF 2 PUFF INHALATION ×2 (08:40→20:30)
[2021-09-22] MEDS: ROSUVASTATIN 10 MG TABLET 20 MG PO (08:41)
[2021-09-22] MEDS: OLMESARTAN MEDOXOMIL 20 MG TABLET 40 MG PO (08:41)
[2021-09-22] MEDS: hydroCHLOROthiazide 12.5 MG CAPSULE PO (08:41)
[2021-09-22] MEDS: ASPIRIN 81 MG CHEWABLE TABLET PO (08:41)
[2021-09-22] MEDS: amLODIPine BESYLATE 5 MG TABLET 10 MG PO (08:41)
[2021-09-22] MEDS: ONDANSETRON INJ 4 MG/2 ML VIAL IV PUSH (11:13)
[2021-09-22 11:32] LABS: Glucose Point of Care 197 mg/dl (65-105)
[2021-09-22] MEDS: TIZANIDINE HCL 2 MG TABLET PO (12:18)
--- NOTE | 2021-09-22 12:40 | PM.IMPN ---
Progress Note: A&P Assessment and Plan (1) Diverticulitis: Code(s): K57.92 - Diverticulitis of intestine, part unspecified, without perforation or abscess without bleeding Status: Acute Assessment and Plan: Seems to be resolved Found on the CT mild sigmoid diverticulitis IV antibiotics Zosyn day 5, DC'd at this time. IV fluids 100ml/hr, can probably be DCd at this time Increase to low fiber Zofran and pain medications on board Increase diet as indicated Follow labs (2) Nephrolithiasis: Code(s): N20.0 - Calculus of kidney Status: Acute Assessment and Plan: CT of the abdomen showed multiple kidney stones bilaterally Urology will have patient follow up, and has seen the patient stone are not obstructing Trend urine output Pain medication on board MRI found multiple cysts Will have her strain her urine (3) Back pain: Code(s): M54.9 - Dorsalgia, unspecified Status: Acute Assessment and Plan: Severe pain in the lumbar region Pain medications adjusted CT of the spine shows areas of narrowing MRI showed chronic findings PT/OT on board Concern for spinal cord compression Looks to be muscle pain (4) Hypertension: Code(s): I10 - Essential (primary) hypertension Status: Acute Assessment and Plan: Current blood pressure 122/56 Oral medications restarted Olmesartan 40mg PO daily, amlodipine 10mg PO Daily Trend blood pressure Hydralazine p.r.n. with parameters Adjust therapy as indicated (5) Uncontrolled pain: Code(s): R52 - Pain, unspecified Status: Acute Assessment and Plan: Reports abdominal and back pain Dilaudid on the MAR Oxycodone scheduled since allergic to hydrocodone She is very particular of some medications IV tylenol PRN Toradol PRN Tizanidine 2mg PO TID added, increase to 3mg Continue to trend pain Mobility could help this PT/OT ordered Seems to be more controlled medications have been adjusted (6) Diabetes: Code(s): E11.9 - Type 2 diabetes mellitus without complications Status: Acute Assessment and Plan: Accu-Cheks AC and HS Current glucose Trend labs Hypoglycemic protocol High sliding scale Adjust therapy as indicated (7) Asthma: Code(s): J45.909 - Unspecified asthma, uncomplicated Status: Acute Assessment and Plan: Continue home Breo Ellipta and albuterol Respiratory status seems stable Trend respiratory status (8) Left kidney mass: Code(s): N28.89 - Other specified disorders of kidney and ureter Status: Acute Assessment and Plan: Pt is aware Will follow up outpatient with urology MRI showed cysts and some other findings. Patient will follow up outpatient (9) Left breast mass: Code(s): N63.20 - Unspecified lump in the left breast, unspecified quadrant Status: Acute Assessment and Plan: Will need biopsy Will have patient follow up outpatient Seems to almost be a cyst that is on the very lower part of her breast She stated that she has had this looked at in the past (10) Subcutaneous mass: Code(s): R22.9 - Localized swelling, mass and lump, unspecified Status: Acute Assessment and Plan: Will need biopsy Will have patient follow up outpatient Looks to also be a cyst that she has had evaluated in the past as well (11) SHIRA (obstructive sleep apnea): Code(s): G47.33 - Obstructive sleep apnea (adult) (pediatric) Status: Acute Assessment and Plan: Daughter notes that patient has SHIRA, however does not wear a CPAP Apnea Link is ordered and pending at this time. Time Spent With Patient Time with patient: Greater than 35 minutes Subjective Date/time seen: 09/22/21 12:40 Interval histo
--- NOTE | 2021-09-22 12:40 | P.PNIM_ITS ---
Progress Note: A&P Assessment and Plan (1) Diverticulitis: Code(s): K57.92 - Diverticulitis of intestine, part unspecified, without perforation or abscess without bleeding Status: Acute Assessment and Plan: * Seems to be resolved * Found on the CT mild sigmoid diverticulitis * IV antibiotics Zosyn day 5, DC'd at this time. * IV fluids 100ml/hr, can probably be DCd at this time * Increase to low fiber * Zofran and pain medications on board * Increase diet as indicated * Follow labs (2) Nephrolithiasis: Code(s): N20.0 - Calculus of kidney Status: Acute Assessment and Plan: * CT of the abdomen showed multiple kidney stones bilaterally * Urology will have patient follow up, and has seen the patient * stone are not obstructing * Trend urine output * Pain medication on board * MRI found multiple cysts * Will have her strain her urine (3) Back pain: Code(s): M54.9 - Dorsalgia, unspecified Status: Acute Assessment and Plan: * Severe pain in the lumbar region * Pain medications adjusted * CT of the spine shows areas of narrowing * MRI showed chronic findings * PT/OT on board * Concern for spinal cord compression * Looks to be muscle pain (4) Hypertension: Code(s): I10 - Essential (primary) hypertension Status: Acute Assessment and Plan: * Current blood pressure 122/56 * Oral medications restarted Olmesartan 40mg PO daily, amlodipine 10mg PO Daily * Trend blood pressure * Hydralazine p.r.n. with parameters * Adjust therapy as indicated (5) Uncontrolled pain: Code(s): R52 - Pain, unspecified Status: Acute Assessment and Plan: * Reports abdominal and back pain * Dilaudid on the MAR * Oxycodone scheduled since allergic to hydrocodone * She is very particular of some medications * IV tylenol PRN * Toradol PRN * Tizanidine 2mg PO TID added, increase to 3mg * Continue to trend pain * Mobility could help this * PT/OT ordered * Seems to be more controlled medications have been adjusted (6) Diabetes: Code(s): E11.9 - Type 2 diabetes mellitus without complications Status: Acute Assessment and Plan: * Accu-Cheks AC and HS * Current glucose * Trend labs * Hypoglycemic protocol * High sliding scale * Adjust therapy as indicated (7) Asthma: Code(s): J45.909 - Unspecified asthma, uncomplicated Status: Acute Assessment and Plan: * Continue home Breo Ellipta and albuterol * Respiratory status seems stable * Trend respiratory status (8) Left kidney mass: Code(s): N28.89 - Other specified disorders of kidney and ureter Status: Acute Assessment and Plan: * Pt is aware * Will follow up outpatient with urology * MRI showed cysts and some other findings. Patient will follow up outpatient (9) Left breast mass: Code(s): N63.20 - Unspecified lump in the left breast, unspecified quadrant Status: Acute Assessment and Plan: * Will need biopsy * Will have patient follow up outpatient * Seems to almost be a cyst that is on the very lower part of her breast * She stated that she has had this looked at in the past (10) Subcutaneous mass:
[2021-09-22 14:00] VITALS: BP 122/56; PULSE 64; RESP 14; TEMP 36.8; O2SAT 94
--- NOTE | 2021-09-22 15:34 | WPDURCON ---
Assessment and Plan Assessment and plan (1) Back pain: Code(s): M54.9 - Dorsalgia, unspecified Status: Acute Assessment and Plan: Unrelated to any Urologic source. 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 No concerning enhancing renal lesions identified. Will plan to f/u with Dr. Reilly for a Cystoscopy and right ESWL. Will need a repeat MRI in 4 months. (3) Nephrolithiasis: Code(s): N20.0 - Calculus of kidney Status: Acute Assessment and Plan: Bilateral stones on CT, only right stones are present on KUB. 5 right renal stones measuring up to 8mm and 1-1mm stone in the left kidney. She wishes to f/u as an outpatient for a cystoscopy, right ESWL. (4) Hematuria: Code(s): R31.9 - Hematuria, unspecified Status: Acute Assessment and Plan: Unlikely that the stones are causing gross hematuria and her left renal masses are benign. Follow up for a cystoscopy as an outpatient. Urology Consult Note HPI Date Seen: 09/22/21 Time Seen: 12:30 Requesting Physician: Larry Osborn MD Primary Care Provider: Laura WatermanMD Consult Narrative Reason for consult: Left Flank Pain/Kidney Stones/Renal Cyst Narrative: Erna Nance is a 71 year old female who presented to the ER with left flank pain that radiates to the abdomen and she describes it as sharp, stabbing pain. She was found incidentally on CT scan to have bilateral renal stones, 5 stones in the right kidney measuring up to 8mm and a 1mm stone in the left kidney which are non obstructive. The CT also shows a left renal mass that was further examined by an MRI. The MRI determined that the mass was a cyst. She denies a history of chronic UTI's, but has had a urethral sling placed and she states that the mesh is exposed which causes gross hematuria intermittently which has been present for a year. She is from [place], [place] and had a Urologist there that did her Urogyn surgery. She states the flank pain has been present for almost two years off and on and is positional. Her creatinine is 0.60, WBC is normal at 6.4 and UA is negative. Review of Systems Cardiovascular: Cardiovascular: Denies chest pain Respiratory: Respiratory: Denies dyspnea Gastrointestinal: Gastrointestinal: Reports abdominal pain, Denies nausea and Denies vomiting Genitourinary: Genitourinary: Reports hematuria, Denies nocturia, Denies dysuria, Reports flank pain, Denies urinary hesitancy and Denies urinary urgency [facility] Past Medical History Medical History Acid reflux Arthritis Asthma Breast cancer Endometriosis H/O nephrolithotomy with removal of calculi 1998 Pre-diabetes Vaginal delivery x2 Surgical History Surgical History History of back surgery 1988 History of breast reconstruction 1997, mehrdad saline inserts with nipple areola reconstruction History of breast surgery 11/2007, removal of lymph node in lt breast History of hysterectomy 1989 History of left mastectomy 03/1996 History of pelvic surgery 09/22/2000, reconstructive History of pelvic surgery 06/2005, cystocele repair History of pelvic surgery 02/15/11, posterior repair, e merocele repair, mehrdad uterosacral ligament suspension, synthetic pubovaginal sling, cysto-suprapubic catheter placement, ligament suspension History of right mastectomy 06/1996 History of thoracic surgery 06/2000, excision of benign lesion on chest wall History of tonsillectomy 09/1996 Previous back surgery 2010, cyst removal from back Fa
[2021-09-22 16:31] LABS: Glucose Point of Care 153 mg/dl (65-105)
[2021-09-22] MEDS: IBUPROFEN 400 MG TABLET 800 MG PO (16:39)
[2021-09-22 20:35] VITALS: O2SAT 96
[2021-09-22 20:38] VITALS: BP 166/75; PULSE 70; RESP 16; TEMP 36.7; O2SAT 96
[2021-09-23] MEDS: TIZANIDINE HCL 2 MG TABLET PO ×2 (03:25→11:35)
[2021-09-23] MEDS: TIZANIDINE HCL 1 MG TABLET PO ×2 (03:25→11:35)
[2021-09-23] MEDS: IBUPROFEN 400 MG TABLET 800 MG PO (03:47)
[2021-09-23 04:22] VITALS: BP 152/65; PULSE 59; RESP 20; TEMP 36.4; O2SAT 98
[2021-09-23 05:09] LABS: Basophils Absolute Auto 0.1 K/mm3 (0.0-0.1); Basophils Percent Auto 0.9 % (0.2-1.2); Eosinophils Absolute Auto 0.2 K/mm3 (0-0.3); Eosinophils Percent Auto 4.1 % (0-4.4); Hematocrit 41.7 % (37.0-47.0); Hemoglobin 13.4 g/dL (12.0-15.0); Immature Granulocyte Absolute 0.01 K/mm3 (0.00-0.031); Immature Granulocyte Percent A 0.2 % (0-0.5); Lymphocytes Absolute Auto 2.07 K/mm3 (0.9-3.2); Lymphocytes Percent Auto 36.9 % (18.3-44.2); Mean Corpuscular HGB Conc 32.1 g/dl (32-36); Mean Corpuscular Hemoglobin 29.6 pg (26-34); Mean Corpuscular Volume 92.3 fl (80-100); Mean Platelet Volume 9.4 fl (7.4-10.4); Monocytes Absolute Auto 0.5 K/mm3 (0.1-0.6); Monocytes Percent Auto 9.3 % (2.6-8.5); Neutrophils Absolute Auto 2.7 K/mm3 (1.3-6.7); Neutrophils Percent Auto 48.6 % (45.5-73.1); Platelet Count Result 215 k/mm3 (150-375); Red Blood Count 4.52 M/mm3 (4.2-5.4); Red Cell Distribution Width 14.2 % (11.5-14.5); White Blood Count 5.6 K/mm3 (4.5-10.0)
[2021-09-23 05:24] LABS: Alanine Aminotransferase 27 U/L (6-35); Albumin Level 3.9 g/dL (3.5-5.1); Alkaline Phosphatase 98 U/L (38-126); Anion Gap 5 mmol/L (8-16); Aspartate Amino Transferase 26 U/L (14-36); Bilirubin,Total 0.6 mg/dL (0.2-1.3); Blood Urea Nitrogen 10 mg/dL (7-17); Calcium 8.8 mg/dL (8.4-10.2); Carbon Dioxide 27 mmol/L (22-30); Chloride 105 mmol/L (98-107); Estimated CRCL calculation 112 ml/min; Estimated Glomerular Filt Rate > 60; Glucose 190 mg/dL (65-110); Potassium 3.5 mmol/L (3.4-5.0); Sodium 137 mmol/L (137-145)
[2021-09-23 07:40] VITALS: BP 148/63; PULSE 60
[2021-09-23 07:42] LABS: Glucose Point of Care 187 mg/dl (65-105)
[2021-09-23] MEDS: FLUTICASONE/SALMETEROL 230-21 MCG INHALER 1 PUFF 2 PUFF INHALATION (07:47)
[2021-09-23 07:48] VITALS: O2SAT 96
[2021-09-23] MEDS: oxyCODONE HCL (*CRX) 5 MG TAB IR PO (07:51)
[2021-09-23] MEDS: ENOXAPARIN 40 MG/0.4 ML SYRINGE SUB-Q (07:55)
[2021-09-23] MEDS: OLMESARTAN MEDOXOMIL 20 MG TABLET 40 MG PO (07:55)
[2021-09-23] MEDS: amLODIPine BESYLATE 5 MG TABLET 10 MG PO (07:55)
[2021-09-23] MEDS: hydroCHLOROthiazide 12.5 MG CAPSULE PO (07:56)
[2021-09-23] MEDS: ASPIRIN 81 MG CHEWABLE TABLET PO (07:56)
[2021-09-23] MEDS: ROSUVASTATIN 10 MG TABLET 20 MG PO (07:56)
[2021-09-23 11:48] LABS: Glucose Point of Care 136 mg/dl (65-105)
--- NOTE | 2021-09-23 13:00 | P.DS_ITS ---
DS: Admitting Diagnosis Discharge Date 09/23/21 1300 Admitting Diagnosis diverticulitis, kidney stones, musculoskeletal pain DS: Discharge Diagnosis Discharge Diagnosis (1) Diverticulitis: Code(s): K57.92 - Diverticulitis of intestine, part unspecified, without perforation or abscess without bleeding Status: Acute Assessment and Plan: * Seems to be resolved * Found on the CT mild sigmoid diverticulitis * IV antibiotics Zosyn day 5, DC'd at this time. * IV fluids 100ml/hr, can probably be DCd at this time * Increase to low fiber * Zofran and pain medications on board * Increase diet as indicated * Follow labs (2) Nephrolithiasis: Code(s): N20.0 - Calculus of kidney Status: Acute Assessment and Plan: * CT of the abdomen showed multiple kidney stones bilaterally * Urology will have patient follow up, and has seen the patient * stone are not obstructing * Trend urine output * Pain medication on board * MRI found multiple cysts * Will have her strain her urine (3) Back pain: Code(s): M54.9 - Dorsalgia, unspecified Status: Acute Assessment and Plan: * Severe pain in the lumbar region * Pain medications adjusted * CT of the spine shows areas of narrowing * MRI showed chronic findings * PT/OT on board * Concern for spinal cord compression * Looks to be muscle pain (4) Hypertension: Code(s): I10 - Essential (primary) hypertension Status: Acute Assessment and Plan: * Current blood pressure 148/63 * Oral medications restarted Olmesartan 40mg PO daily, amlodipine 10mg PO Daily * Trend blood pressure * Hydralazine p.r.n. with parameters * Adjust therapy as indicated (5) Uncontrolled pain: Code(s): R52 - Pain, unspecified Status: Acute Assessment and Plan: * Reports abdominal and back pain * Dilaudid on the MAR * Oxycodone scheduled since allergic to hydrocodone * She is very particular of some medications * IV tylenol PRN * Toradol PRN * Tizanidine 2mg PO TID added, increase to 3mg * Continue to trend pain * Mobility could help this * PT/OT ordered * Seems to be more controlled medications have been adjusted (6) Diabetes: Code(s): E11.9 - Type 2 diabetes mellitus without complications Status: Acute Assessment and Plan: * Accu-Cheks AC and HS * Current glucose * Trend labs * Hypoglycemic protocol * High sliding scale * Adjust therapy as indicated (7) Asthma: Code(s): J45.909 - Unspecified asthma, uncomplicated Status: Acute Assessment and Plan: * Continue home Breo Ellipta and albuterol * Respiratory status seems stable * Trend respiratory status (8) Left kidney mass: Code(s): N28.89 - Other specified disorders of kidney and ureter Status: Acute Assessment and Plan: * Pt is aware * Will follow up outpatient with urology * MRI showed cysts and some other findings. Patient will follow up outpatient (9) Left breast mass: Code(s): N63.20 - Unspecified lump in the left breast, unspecified quadrant Status: Acute Assessment and Plan: * Will need biopsy * Will have patient follow up outpatient * Seems to almost be a cyst that is
--- NOTE | 2021-09-23 13:00 | PM.DS ---
DS: Admitting Diagnosis Discharge Date 09/23/21 1300 Admitting Diagnosis diverticulitis, kidney stones, musculoskeletal pain DS: Discharge Diagnosis Discharge Diagnosis (1) Diverticulitis: Code(s): K57.92 - Diverticulitis of intestine, part unspecified, without perforation or abscess without bleeding Status: Acute Assessment and Plan: Seems to be resolved Found on the CT mild sigmoid diverticulitis IV antibiotics Zosyn day 5, DC'd at this time. IV fluids 100ml/hr, can probably be DCd at this time Increase to low fiber Zofran and pain medications on board Increase diet as indicated Follow labs (2) Nephrolithiasis: Code(s): N20.0 - Calculus of kidney Status: Acute Assessment and Plan: CT of the abdomen showed multiple kidney stones bilaterally Urology will have patient follow up, and has seen the patient stone are not obstructing Trend urine output Pain medication on board MRI found multiple cysts Will have her strain her urine (3) Back pain: Code(s): M54.9 - Dorsalgia, unspecified Status: Acute Assessment and Plan: Severe pain in the lumbar region Pain medications adjusted CT of the spine shows areas of narrowing MRI showed chronic findings PT/OT on board Concern for spinal cord compression Looks to be muscle pain (4) Hypertension: Code(s): I10 - Essential (primary) hypertension Status: Acute Assessment and Plan: Current blood pressure 148/63 Oral medications restarted Olmesartan 40mg PO daily, amlodipine 10mg PO Daily Trend blood pressure Hydralazine p.r.n. with parameters Adjust therapy as indicated (5) Uncontrolled pain: Code(s): R52 - Pain, unspecified Status: Acute Assessment and Plan: Reports abdominal and back pain Dilaudid on the MAR Oxycodone scheduled since allergic to hydrocodone She is very particular of some medications IV tylenol PRN Toradol PRN Tizanidine 2mg PO TID added, increase to 3mg Continue to trend pain Mobility could help this PT/OT ordered Seems to be more controlled medications have been adjusted (6) Diabetes: Code(s): E11.9 - Type 2 diabetes mellitus without complications Status: Acute Assessment and Plan: Accu-Cheks AC and HS Current glucose Trend labs Hypoglycemic protocol High sliding scale Adjust therapy as indicated (7) Asthma: Code(s): J45.909 - Unspecified asthma, uncomplicated Status: Acute Assessment and Plan: Continue home Breo Ellipta and albuterol Respiratory status seems stable Trend respiratory status (8) Left kidney mass: Code(s): N28.89 - Other specified disorders of kidney and ureter Status: Acute Assessment and Plan: Pt is aware Will follow up outpatient with urology MRI showed cysts and some other findings. Patient will follow up outpatient (9) Left breast mass: Code(s): N63.20 - Unspecified lump in the left breast, unspecified quadrant Status: Acute Assessment and Plan: Will need biopsy Will have patient follow up outpatient Seems to almost be a cyst that is on the very lower part of her breast She stated that she has had this looked at in the past (10) Subcutaneous mass: Code(s): R22.9 - Localized swelling, mass and lump, unspecified Status: Acute Assessment and Plan: Will need biopsy Will have patient follow up outpatient Looks to also be a cyst that she has had evaluated in the past as well (11) SHIRA (obstructive sleep apnea): Code(s): G47.33 - Obstructive sleep apnea (adult) (pediatric) Status: Acute Assessment and Plan: Daughter notes that patient has SHIRA, however does not wear a CPAP Apnea Link is ordered and pending at this time.
--- NOTE | 2021-09-23 13:43 | PC.NURSE ---
Outpatient referral for initial DSMT and [facility].
--- NOTE | 2021-09-23 15:17 | PCNSR ---
On 09/23/21, the student, Tea Bee, provided care and completed [facility] documentation on this patient. I have reviewed the student's documentation and agree with the findings.
== END 2021-09-23 14:20 | disposition home or self-care (01) | DRG 392 ==
LOC: ANHED 09:04 → ANH2MED 10:38
PROVIDERS: Admitting Provider Internal Medicine; Emergency Provider Emergency Medicine; PCP Internal Medicine; Visit Provider Nurse Practitioner
DX: K57.32 Diverticulitis of large intestine without perforation or abscess without bleeding (principal); N20.0 Calculus of kidney; M79.18 Myalgia, other site; M43.00 Spondylolysis, site unspecified; M43.9 Deforming dorsopathy, unspecified; E11.9 Type 2 diabetes mellitus without complications; J45.909 Unspecified asthma, uncomplicated; N28.1 Cyst of kidney, acquired; N28.89 Other specified disorders of kidney and ureter; N63.20 Unspecified lump in the left breast, unspecified quadrant; R22.9 Localized swelling, mass and lump, unspecified; K21.9 Gastro-esophageal reflux disease without esophagitis; I10 Essential (primary) hypertension; G47.33 Obstructive sleep apnea (adult) (pediatric); R31.0 Gross hematuria; Z79.82 Long term (current) use of aspirin; Z79.84 Long term (current) use of oral hypoglycemic drugs; Z79.899 Other long term (current) drug therapy; Z85.3 Personal history of malignant neoplasm of breast; Z88.6 Allergy status to analgesic agent
CPT/HCPCS: 36415; 72125; 72128; 72131; 72141; 72146; 72148; 74018; 74176; 74183; 80053; 81003; 82948; 83605; 83690; 83735; 85025; 87040; 94640; 94762; 96361; 96365; 96366; 96375; 96376; 97162; 97165; 97535; 99285; A9270; A9577; G0378; J0131; J0360; J1170; J1650; J1885; J2270; J2405; J2543; J2765; J7030

== ENCOUNTER 2021-10-15 14:40 | Outpatient (CLI) | payer MEDICARE, SELFPAY ==
--- NOTE | ~2021-10-15 | XR_ITS ---
XR abdomen/kub 1V 10/15/2021 14:53 Indication: Kidney stones Procedure: KUB Comparison: 09/18/2021 Findings: Bowel gas pattern is nonobstructive. Bowel content obscures the kidneys limiting evaluation for renal stones. There are stones in the lower pole of the right kidney, largest measuring 11 mm. N o definite left renal stones. There is levoscoliosis. Impression: 1: Right nephrolithiasis. Reviewed, dictated and finalized at location A. Impression: 1: Right nephrolithiasis.
== END 2021-10-15 14:41 | disposition home or self-care (01) ==
LOC: ANHIMG 14:41
PROVIDERS: PCP Family Medicine; Visit Provider Nurse Practitioner Adult Health
DX: N20.0 Calculus of kidney (principal)
CPT/HCPCS: 74018

== ENCOUNTER 2021-10-19 13:34 | Outpatient (CLI) | payer MEDICARE, SELFPAY ==
--- NOTE | 2021-10-19 13:42 | ECG_ITS ---
Measurements Intervals [place] Rate: 72 P: 42 MT: 216 QRS: 59 QRSD: 144 T: 33 QT: 424 QTc: 465 Interpretive Statements SINUS RHYTHM WITH FIRST DEGREE AV BLOCK POSSIBLE LEFT ATRIAL ENLARGEMENT RIGHT BUNDLE BRANCH BLOCK MINIMAL Q WAVES- INFERIOR LEADS BASELINE ARTIFACT- I, II, III, AVR, AVL, AVF ABNORMAL ECG Electronically Signed On 10-19-2021 18:43:53 CDT by Blayne Aguero D.O.
== END 2021-10-19 13:35 | disposition home or self-care (01) ==
PROVIDERS: PCP Family Medicine; Visit Provider Urology
DX: N20.0 Calculus of kidney (principal); E11.9 Type 2 diabetes mellitus without complications; Z01.818 Encounter for other preprocedural examination; I44.0 Atrioventricular block, first degree; I45.10 Unspecified right bundle-branch block
CPT/HCPCS: 36415; 87086; 93005

== ENCOUNTER 2021-10-23 00:35 | Day surgery (SDC) | payer MEDICARE, SELFPAY ==
--- NOTE | 2021-10-19 07:21 | PM.HPGS ---
History of Present Illness History of Present Illness Consent: Risks, benefits, and alternatives have been discussed and questions answered. Patient agrees to proceed with procedure. Chief complaint: bilateral kidney stones Narrative: Erna Nance is a 71 year old female, who we were consulted to see during an inpatient admission in September 2021. At that time a CT scan demonstrated renal stones. Recent KUB imaging stones the propensity of stones in her right kidney with the largest measuring 11 mm. She continues to have intermittent right flank pain and after discussion she has elected for right ESWL. She is aware the risk including, but not limited to, perinephric hematoma, persistent stone fragments and need for additional procedures. Review of Systems Cardiovascular: Cardiovascular: Denies chest pain, Denies lightheadedness, Denies palpitations and Denies dyspnea Respiratory: Respiratory: Denies dyspnea Gastrointestinal: Gastrointestinal: Denies diarrhea, Denies nausea and Denies vomiting Genitourinary: Genitourinary: Denies hematuria and Denies dysuria Endocrine: Endocrine: Denies palpitations PMFSH Past Medical History Medical History Acid reflux Allergies Arthritis Asthma Benign skin lesion of multiple sites 2000- Excision lesion, single chest wall mass Breast cancer Chemical exposure 1991 Cystocele 2005 Endometriosis Fatty tumor Removed from chest/under arm 1997 H/O nephrolithotomy with removal of calculi 1998 Lymph node disorder Removed 2007 Pre-diabetes Vaginal delivery x2 Surgical History Surgical History History of back surgery 1988 History of breast reconstruction 1997, mehrdad saline inserts with nipple areola reconstruction History of breast surgery 11/2007, removal of lymph node in lt breast History of hysterectomy 1989 History of kidney surgery Kidney Stone Surgery 1996 History of left mastectomy 03/1996 History of pelvic surgery 09/22/2000, reconstructive History of pelvic surgery 06/2005, cystocele repair History of pelvic surgery 02/15/11, posterior repair, e merocele repair, mehrdad uterosacral ligament suspension, synthetic pubovaginal sling, cysto-suprapubic catheter placement, ligament suspension History of right mastectomy 06/1996 History of thoracic surgery 06/2000, excision of benign lesion on chest wall History of tonsillectomy 09/1996 Previous back surgery 2010, cyst removal from back Family History Family History Father Asthma Diabetes mellitus Hypertension Heart problem Mother Hypertension Grandparent Brain cancer Sibling Alcoholism Son Asthma Social History Social History Social History: Patient lives by herself, and she has a dog. Her daughter Meaghan Trevino is her surrogate. She wishes to be a full code at this time. 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 Gender identity (if verbalized by the patient): Female Sexual Orientation (if Verbalized by the Patient): Straight or Heterosexual Spiritual care concerns: No Agree to blood products: Yes Meds Home Medications and Allergies Home Medications Medication Instructions Recorded Confirmed Type albuterol sulfate 90 mcg/actuation 1 puff inhalation Q4H PRN 01/02/21 10/18/21 History aerosol inhaler (Ventolin HFA) Shortness Of Breath Or Wheezing amlodipine 10 mg tablet (Norvasc) 10 mg PO DAILY 01/02/21 10/18/21 History aspirin 81 mg chewable tablet 81 mg PO DAILY 01/02/21 10/18/21 History fluticasone propionate 50 1 spray intranasal DAILY PRN 01/02/21 10/18/21 History mcg/actuation nasal Shortness Of Breath Or Wheezing spr
[2021-10-19 12:20] VITALS: BMI 40.0
--- NOTE | 2021-10-19 12:46 | PC.NURSE ---
Report to the Outpatient Waiting Room, entrance under the green pavilion located off [facility], at time _0630_ on date _10/23/21_. OR Time: _0830_. - You and your visitor will be asked a series of questions to screen for COVID 19 for your protection. - Only one visitor is allowed at this time. - The patient visitor is requested to leave or wait in car when not with patient. - A mask is required within the hospital. Patients may have clear liquids (water, carbonated beverages, clear teas, apple juice) until 3 hours prior to surgery (0530 AM) with a maximum of 20 ounces. - No food from midnight until time of surgery Take the following medications with a SIP of water the morning of surgery: _AMLODIPINE, INHALERS AND PAIN MED IF NEEDED_ Medications to discontinue _ASPIRIN AND IBUPROFEN PER DR GUAJARDO'S INSTRUCTIONS_ Please no make-up, nail [place], hairspray, perfume, deodorant, or body powder the day of surgery. No jewelry (including any body piercings) or valuables the day of surgery, leave them at home. Please take a shower or bath the night before, or the morning of, surgery with an antibacterial soap. Wear comfortable, loose fitting clothing. - Jewelry must be removed prior to entering the operating room. Rings and piercings that are not removed may be cut off. - The hospital will not accept responsibility for valuables. - Please leave all valuables, including medications, at home the day of surgery. If you are going home after surgery, a licensed electric pile driver operator must drive you home. - NO public transportation without another adult. - We recommend that an adult stay with you for 24 hours following discharge. - We also recommend that you do not drive, make important decision, drink alcoholic beverages, or take any drugs that were not prescribed by your health care provider for at least 24 hours after your discharge time. Follow any additional instructions given to you from your surgeon. If you or anyone in your household have experienced Covid symptoms in the past week, please notify your surgeon or the nurse liaison at the phone number below for possible testing. Telephone instructions given to ____PT and asked if any additional questions and then verbalized understanding. Patient advised to call surgeon office or pre surgery nurse liaison [phone] if any additional questions.
--- NOTE | 2021-10-22 10:46 | WPDANESEPPF ---
Anes - Initial Pre Proc Eval Procedure: Operation Date: 10/23/21 08:30 Proposed Procedures p Right Extracorporeal Shock Wave Lithotripsy - Inocencio Reilly MD <Jesus Craven MD - Last Filed: 10/22/21 10:47> Date/Time: 10/22/21 10:46 <Jesus Craven MD - Last Filed: 10/22/21 10:47> Surgeon: Inocencio Reilly MD <Jesus Craven MD - Last Filed: 10/22/21 10:47> Pre Op Diagnosis: bilateral kidney stones <Jesus Craven MD - Last Filed: 10/22/21 10:47> Patient Data Age: 71 Gender: F Height: 1.66 m Weight: 110.9 kg <Jesus Craven MD - Last Filed: 10/22/21 10:47> Allergies Allergy/AdvReac Type Severity Reaction Status Date / Time acetaminophen [From Vicodin] Allergy Intermediate Hives or Verified 10/23/21 07:58 throat swelling after 4-6 days of use coffee (Coffea arabica) Allergy Intermediate Hives Verified 10/23/21 07:58 hydrocodone [From Vicodin] Allergy Intermediate Hives or Verified 10/23/21 07:58 throat swelling after 4-6 days of use loracarbef [From Lorabid] Allergy Intermediate Hives or Verified 10/23/21 07:58 throat swelling after 4-6 days of use cigarette smoke Allergy Unknown Hives Verified 10/23/21 07:58 diltiazem [From Cardizem] Allergy Unknown Hives, Verified 10/23/21 07:58 stomach ache doxycycline [From Doryx] Allergy Unknown Hives, Verified 10/23/21 07:58 stomach ache erythromycin base Allergy Unknown ABD PAIN Verified 10/23/21 07:58 formaldehyde Allergy Unknown Difficulty Verified 10/23/21 07:58 Breathing house dust mite Allergy Unknown Difficulty Verified 10/23/21 07:58 Breathing minocycline [From Dynacin] Allergy Unknown Hives, Verified 10/23/21 07:58 Stomach ache phenol Allergy Unknown STOMACH Verified 10/23/21 07:58 UPSET, SWELLING gabapentin Allergy STOMACH Verified 10/23/21 07:58 UPSET, SWELLING lidocaine Allergy DENTAL - Verified 10/23/21 07:58 DOESN'T WORK acrylic Allergy Unknown Difficulty Uncoded 10/23/21 07:58 Breathing zara Allergy Unknown Difficulty Uncoded 10/23/21 07:58 Breathing chlorine Allergy Unknown Difficulty Uncoded 10/23/21 07:58 Breathing dust Allergy Unknown Difficulty Uncoded 10/23/21 07:58 Breathing ethanol Allergy Unknown Difficulty Uncoded 10/23/21 07:58 Breathing fireplace smoke Allergy Unknown Difficulty Uncoded 10/23/21 07:58 Breathing mountain cedar Allergy Unknown Difficulty Uncoded 10/23/21 07:58 Breathing msg Allergy Unknown SKIN BREAK Uncoded 10/23/21 07:58 OUT TO WRISTS orris root Allergy Unknown Difficulty Uncoded 10/23/21 07:58 Breathing unleaded gas Allergy Unknown Difficulty Uncoded 10/23/21 07:58 Breathing <Wells Karla Craven MD - Last Filed: 10/22/21 10:47> Home Medications Medication Instructions Recorded Confirmed Type albuterol sulfate 90 mcg/actuation 1 puff inhalation Q4H PRN 01/02/21 10/23/21 History aerosol inhaler (Ventolin HFA) Shortness Of Breath Or Wheezing amlodipine 10 mg tablet (Norvasc) 10 mg PO QAM 01/02/21 10/23/21 History aspirin 81 mg chewable tablet 81 mg PO DAILY 01/02/21 10/23/21 History fluticasone propionate 50 1 spray intranasal DAILY PRN 01/02/21 10/23/21 History mcg/actuation nasal Shortness Of Breath Or Wheezing spray,suspension (Allergy Relief (fluticasone)) glipizide 5 mg tablet, extended 5 mg PO DAILY 01/02/21 10/23/21 History release 24 hr olmesartan 40 1 tablet PO DAILY 01/02/21 10/23/21 History mg-hydrochlorothiazide 12.5 mg tablet (Benicar HCT) rosuvastatin 20 mg tablet (Crestor) 20 mg PO DAILY 01/02/21 10/23/21 History sitagliptin 50 mg-metformin 500 mg 1 tablet PO DAILY 01/02/21 10/23/21 History tablet (Janumet) fluticasone furoate 200 1 inh inhalation DAILY PRN sob 09/18/21 10/23/21 History mcg-vilanterol 25 mcg/dose inhalatio
[2021-10-23] VITALS (8 sets, daily range): BP systolic 134–157; BP diastolic 66–89; PULSE 54–78; RESP 11–20; TEMP 36.6–36.9; O2SAT 97–100
--- NOTE | ~2021-10-23 | XR_ITS ---
EXAMINATION: XR abdomen/kub 1V DATE: 10/23/2021 06:56 INDICATION: Nephrolithiasis for planned shockwave lithotripsy. TECHNIQUE: A supine view of the abdomen on 3 radiographs was obtained. COMPARISON: 10/15/2021 FINDINGS: Unchanged 11 mm and 7 mm stones at the lower pole of the right kidney. No other urolithiasis. Normal bowel gas pattern. Lung bases are clear. Heart size is normal. Lumbar levoscoliosis with moderate spo ndylosis. IMPRESSION: 1. Unchanged right nephrolithiasis. Reviewed, dictated and finalized at location A.
[2021-10-23] MEDS: LACTATED RINGERS 1,000 ML 30 ML IV CONT (07:00)
--- NOTE | 2021-10-23 07:00 | WPDHPUPDATE1 ---
History and Physical Update Update Date/Time: 10/23/21 07:00 History and Physical has been reviewed, including an updated exam of the patient. There are NO changes in the patient's condition. Risks, benefits, and alternatives have been discussed and questions answered. Patient agrees to proceed with procedure.
[2021-10-23 07:53] LABS: Glucose Point of Care 158 mg/dl (65-105)
[2021-10-23 07:59] LABS: Prothrombin Time 13.1 Seconds (11.1-14.7)
[2021-10-23 08:00] LABS: Partial Thromboplastin Time 26.5 SECONDS (22.3-36.8)
[2021-10-23] MEDS: ceFAZolin 2 GM/D5W 50 ML 2 GM/50 ML BAG IVPB (08:43)
--- NOTE | 2021-10-23 08:56 | W.PM.PROC2 ---
Procedure Note - Detailed Date of Procedure 10/23/21 Pre-op Diagnosis Right kidney stones Post-op Diagnosis Same Procedure Performed Right ESWL Surgeon Inocencio Reilly MD Description of Procedure The patient was brought to the operative suite where she was placed in the supine position on the Dornier lithotripsy table. The focal point of the lithotripter was placed at a 10-11mm right lower pole calculus and a smaller contiguous calculus calculus. A total of 2500 shocks were delivered at a power setting of 4. There appeared to be good fragmentation of the stone. The patient tolerated the procedure well and was taken to the recovery room in good condition. Drains No Packing No Pathology None sent Complications No immediate complications
[2021-10-23 09:42] LABS: Glucose Point of Care 133 mg/dl (65-105)
[2021-10-23] MEDS: fentaNYL CITRATE INJ (*CRX) 100 MCG/2 ML VIAL 25 MCG IV PUSH ×4 (09:43→10:12)
[2021-10-23] MEDS: oxyCODONE HCL (*CRX) 5 MG TAB IR PO (10:48)
--- NOTE | 2021-10-23 11:37 | SUR.PHASEII ---
PER DR GUAJARDO PT CAN CONTINUE HER CIPRO IF SHE HAS ENOUGH FOR 3 DAYS PT SAID SHE DOES. IF NOT THEN SHE CAN TAKE THE ABX HE PRESCRIBED FOR 3 DAYS.
== END 2021-10-23 11:20 | disposition home or self-care (01) ==
PROVIDERS: PCP Family Medicine; Visit Provider Urology
PROC: (CPT 50590; principal; 2021-10-23 08:30)
DX: N20.0 Calculus of kidney (principal); J45.909 Unspecified asthma, uncomplicated; K21.9 Gastro-esophageal reflux disease without esophagitis; R73.03 Prediabetes; Z85.3 Personal history of malignant neoplasm of breast; Z79.51 Long term (current) use of inhaled steroids; Z79.82 Long term (current) use of aspirin; Z79.84 Long term (current) use of oral hypoglycemic drugs; Z79.1 Long term (current) use of non-steroidal anti-inflammatories (NSAID)
CPT/HCPCS: 50590; 36415; 74018; 82948; 85610; 85730; A9270; J0690; J1100; J2405; J2704; J3010; J7120

== ENCOUNTER 2021-11-09 13:53 | Outpatient (CLI) | payer MEDICARE, SELFPAY ==
--- NOTE | ~2021-11-09 | XR_ITS ---
EXAM: XR abdomen/kub 1V DATE: 11/09/2021 14:16 HISTORY: N20.0 - Calculus of kidney, RT SIDE. FOLLOW UP . COMPARISON: None available. FINDINGS: Clear lung bases. Normal bowel gas pattern. No organomegaly. No abnormal abdominal calcifi cation. Lumbar scoliosis and degenerative change. IMPRESSION: No radiographic evidence of urolithiasis. Reviewed, dictated and finalized at location K.
== END 2021-11-09 13:54 | disposition home or self-care (01) ==
PROVIDERS: PCP Family Medicine; Visit Provider Urology
DX: N20.0 Calculus of kidney (principal)
CPT/HCPCS: 74018

== ENCOUNTER 2022-01-10 18:49 | Emergency (ER) | payer MEDICARE, SELFPAY ==
--- NOTE | ~2022-01-10 | CT_ITS ---
EXAMINATION: CT diagnostic chest w con DATE: 01/10/2022 20:05 INDICATION: L breast abscess and pain, eval for implant involvement TECHNIQUE: Computed tomography (CT) of the chest was performed with 100 mL Omnipaque-350 intravenous contrast. Automated exposure control and iterative reconstruction technique were employed. The dose-l ength product was 494.15 mGy-cm. COMPARISON: CT abdomen and pelvis 09/18/2021. Breast ultrasound 05/11/2021. FINDINGS: CHEST: Thoracic aorta: No significant dilation or calcification. Lung parenchyma and airways: Lungs and airways are clear. Thoracic inlet, axillae and chest wall: No thyroid mass. No axillary lymphadenopathy. Bilateral breas t augmentation. 3.6 x 2.8 x 1.7 cm rim-enhancing fluid in the lower inner quadrant of the left breast , closely associated with the implant, increased in size. Small volume small volume fluid adjacent to the implant on the left, unchanged. Mediastinum: No mass or lymphadenopathy. Heart and pericardium: Normal heart size. No pericardial effusion. Coronary artery calcifications: Mild. Pleura: No effusion or mass. Upper abdomen: Steatosis. Thoracic bones: No acute osseous finding in the chest. IMPRESSION: 3.6 cm likely infected or inflamed subcutaneous cyst in the lower inner quadrant of the left breast. Implant involvement and/or malignancy cannot be excluded by this examination. Prior recommendation fo r ultrasound-guided biopsy following appropriate therapy is unchanged. Reviewed, dictated and finalized at location K. IMPRESSION: 3.6 cm likely infected or inflamed subcutaneous cyst in the lower inner quadran t of the left breast. Implant involvement and/or malignancy cannot be excluded by this examination. Prior recommendation for ultrasound-guided biopsy followin g appropriate therapy is unchanged.
[2022-01-10 18:52] VITALS: BP 175/82; PULSE 97; RESP 18; TEMP 36.8; O2SAT 99
--- NOTE | 2022-01-10 19:15 | ED.SKABFB ---
HPI - Skin/Abscess/Foreign Bdy General Chief complaint: Skin/Abscess/Foreign Body Stated complaint: spot on left breast Time Seen by Provider: 01/10/22 18:58 History of Present Illness HPI narrative: This is a 71-year-old female past medical history of breast cancer status post bilateral mastectomy, presenting the emergency department with a painful mass under the left breast now draining pus. She states the mass has been present for several months, though over the last week has become inflamed, and painful described as sharp, 8 out of 10 not radiating or associated with fevers or chills. She is tearful and fearful that the infection could potentially involve her implant. Related Data Home Medications Medication Instructions Recorded Confirmed albuterol sulfate 90 mcg/actuation 1 puff inhalation Q4H PRN 01/02/21 10/23/21 aerosol inhaler (Ventolin HFA) Shortness Of Breath Or Wheezing amlodipine 10 mg tablet (Norvasc) 10 mg PO QAM 01/02/21 10/23/21 aspirin 81 mg chewable tablet 81 mg PO DAILY 01/02/21 10/23/21 fluticasone propionate 50 1 spray intranasal DAILY PRN 01/02/21 10/23/21 mcg/actuation nasal Shortness Of Breath Or Wheezing spray,suspension (Allergy Relief (fluticasone)) glipizide 5 mg tablet, extended 5 mg PO DAILY 01/02/21 10/23/21 release 24 hr olmesartan 40 1 tablet PO DAILY 01/02/21 10/23/21 mg-hydrochlorothiazide 12.5 mg tablet (Benicar HCT) rosuvastatin 20 mg tablet (Crestor) 20 mg PO DAILY 01/02/21 10/23/21 fluticasone furoate 200 1 inh inhalation DAILY PRN sob 09/18/21 10/23/21 mcg-vilanterol 25 mcg/dose inhalation powder (Breo Ellipta) propylene glycol 0.6 % eye drops 1 drp EACH EYE TID PRN 01/06/22 (Systane Balance) Allergies Allergy/AdvReac Type Severity Reaction Status Date / Time acetaminophen [From Vicodin] Allergy Intermediate Hives or Verified 01/06/22 11:14 throat swelling after 4-6 days of use coffee (Coffea arabica) Allergy Intermediate Hives Verified 01/06/22 11:14 hydrocodone [From Vicodin] Allergy Intermediate Hives or Verified 01/06/22 11:14 throat swelling after 4-6 days of use loracarbef [From Lorabid] Allergy Intermediate Hives or Verified 01/06/22 11:14 throat swelling after 4-6 days of use milk Allergy Mild stomach Verified 01/06/22 11:14 upset cigarette smoke Allergy Unknown Hives Verified 01/06/22 11:14 diltiazem [From Cardizem] Allergy Unknown Hives, Verified 01/06/22 11:14 stomach ache doxycycline [From Doryx] Allergy Unknown Hives, Verified 01/06/22 11:14 stomach ache erythromycin base Allergy Unknown ABD PAIN Verified 01/06/22 11:14 formaldehyde Allergy Unknown Difficulty Verified 01/06/22 11:14 Breathing house dust mite Allergy Unknown Difficulty Verified 01/06/22 11:14 Breathing minocycline [From Dynacin] Allergy Unknown Hives, Verified 01/06/22 11:14 Stomach ache phenol Allergy Unknown STOMACH Verified 01/06/22 11:14 UPSET, SWELLING gabapentin Allergy STOMACH Verified 01/06/22 11:14 UPSET, SWELLING lidocaine Allergy DENTAL - Verified 01/06/22 11:14 DOESN'T WORK acrylic Allergy Unknown Difficulty Uncoded 01/06/22 11:14 Breathing zara Allergy Unknown Difficulty Uncoded 01/06/22 11:14 Breathing chlorine Allergy Unknown Difficulty Uncoded 01/06/22 11:14 Breathing dust Allergy Unknown Difficulty Uncoded 01/06/22 11:14 Breathing ethanol Allergy Unknown Difficulty Uncoded 01/06/22 11:14 Breathing fireplace smoke Allergy Unknown Difficulty Uncoded 01/06/22 11:14 Breathing mountain cedar Allergy Unknown Difficulty Uncoded 01/06/22 11:14 Breathing msg Allergy Unknown SKIN BREAK Uncoded 01/06/22 11:14 OUT TO WRISTS orris root Allergy Unknown Difficulty Uncoded 01/06/22 11:14 Breathing unleaded gas Allergy Unknown Difficulty Uncoded 01/06/22 11:14 Breathing
[2022-01-10] MEDS: KETOROLAC 15 MG/ML VIAL (*BKC) IV PUSH (19:24)
[2022-01-10 19:31] LABS: Basophils Absolute Auto 0.1 K/mm3 (0.0-0.1); Basophils Percent Auto 0.5 % (0.2-1.2); Eosinophils Absolute Auto 0.3 K/mm3 (0-0.3); Eosinophils Percent Auto 2.7 % (0-4.4); Hematocrit 41.4 % (37.0-47.0); Hemoglobin 13.6 g/dL (12.0-15.0); Immature Granulocyte Absolute 0.02 K/mm3 (0.00-0.031); Immature Granulocyte Percent A 0.2 % (0-0.5); Lymphocytes Absolute Auto 2.41 K/mm3 (0.9-3.2); Lymphocytes Percent Auto 25.8 % (18.3-44.2); Mean Corpuscular HGB Conc 32.9 g/dl (32-36); Mean Corpuscular Hemoglobin 31.3 pg (26-34); Mean Corpuscular Volume 95.4 fl (80-100); Mean Platelet Volume 8.9 fl (7.4-10.4); Monocytes Absolute Auto 0.7 K/mm3 (0.1-0.6); Monocytes Percent Auto 7.3 % (2.6-8.5); Neutrophils Absolute Auto 5.9 K/mm3 (1.3-6.7); Neutrophils Percent Auto 63.5 % (45.5-73.1); Platelet Count Result 245 k/mm3 (150-375); Red Blood Count 4.34 M/mm3 (4.2-5.4); Red Cell Distribution Width 17.7 % (11.5-14.5); White Blood Count 9.3 K/mm3 (4.5-10.0)
[2022-01-10 19:40] LABS: Alanine Aminotransferase 33 U/L (6-35); Albumin Level 4.5 g/dL (3.5-5.1); Alkaline Phosphatase 112 U/L (38-126); Anion Gap 12 mmol/L (8-16); Aspartate Amino Transferase 33 U/L (14-36); Bilirubin,Total 0.6 mg/dL (0.2-1.3); Blood Urea Nitrogen 21 mg/dL (7-17); Calcium 9.1 mg/dL (8.4-10.2); Carbon Dioxide 26 mmol/L (22-30); Chloride 100 mmol/L (98-107); Estimated CRCL calculation 52 ml/min; Estimated Glomerular Filt Rate 49; Glucose 132 mg/dL (65-110); Potassium 4.1 mmol/L (3.4-5.0); Sodium 138 mmol/L (137-145)
[2022-01-10] MEDS: SODIUM CHLORIDE 0.9% IV 500 ML 999 ML IV CONT (20:05)
[2022-01-10 20:23] VITALS: BP 157/80; PULSE 84; O2SAT 98
[2022-01-10] MEDS: CLINDAMYCIN 900 MG/D5W 50 ML 900 MG/50 ML PIGGYBACK 50 MG IVPB (21:18)
[2022-01-10 21:32] VITALS: BP 151/81; PULSE 90; RESP 16; O2SAT 99
== END 2022-01-10 22:20 | disposition home or self-care (01) ==
PROVIDERS: Emergency Provider Preventive Medicine Aerospace Medicine; PCP Family Medicine
DX: N61.1 Abscess of the breast and nipple (principal); J45.909 Unspecified asthma, uncomplicated; N80.9 Endometriosis, unspecified; R73.03 Prediabetes; K21.9 Gastro-esophageal reflux disease without esophagitis; M19.90 Unspecified osteoarthritis, unspecified site; Z90.710 Acquired absence of both cervix and uterus; Z90.13 Acquired absence of bilateral breasts and nipples; Z85.3 Personal history of malignant neoplasm of breast; Z87.442 Personal history of urinary calculi; Z79.82 Long term (current) use of aspirin; Z79.84 Long term (current) use of oral hypoglycemic drugs
CPT/HCPCS: 36415; 71260; 80053; 85025; 96361; 96365; 96375; 99284; J1885; J7040; Q9967

== ENCOUNTER 2022-01-18 08:02 | Outpatient (CLI) | payer MEDICARE, SELFPAY ==
--- NOTE | 2022-01-31 16:40 | WPDSLEEPSTUD ---
Sleep Study Date of Study: 01/18/22 Ordering Provider: Radha Jeffery DO Interpreting Physician: Meka Zhang MD Sleep Study Type: Split Polysomnogram Height: 1.65 m Weight: 109.769 kg Body Mass Index: 40.2 Neck Circumference (inches): 18 [place]: 0 Reason for Sleep Study Excessive daytime sleepiness, Recently having episodes of waking up trying to catch her breath. Sleep History Erna Nance is a 71-year-old woman who has a history of excessive daytime sleepiness. She was tested years ago and was on the border of having sleep apnea. In the last year she has had increased difficulty with mouth and eye dryness. 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 She states that she has never needed a lot of sleep and it runs in her family. She says that in the past she is going to on 3-4 hours a night for up to 6 months at a time. This has changed and at 1 point she needed 4-5 hours a night. She says she has never been a deep sleeper. She awakens easily with noises and smells. She has recently woken up the was not able to breathe. She felt that she could take a deep breath in. There is a history of difficult sleep in her family. Her father said that it was a good night of sleep if he can get 3-4 hours of sleep. She rarely awakens from sleep feeling short of breath, twice recently. She does not usually awaken with heartburn belching or coughing. This was a problem 5-6 years ago. She occasionally snores according to her children. She frequently has trouble sleeping in the recent past. She rarely wakes up gasping for breath at night. She does not have breathing problems at night reported to her by others. She occasionally sweats excessively at night. She does not notice her heart pounding or beating irregularly at night. She does not fall asleep during the day, does not fall asleep involuntarily or while driving. She does not have loss of muscle tone with strong emotion. She does not have daytime difficulties due to excessive sleepiness. She does not feel paralyzed on waking or falling asleep. She does not have vivid dreamlike scenes on waking or falling asleep. She does not feel afraid to go to sleep. She denies having nightmares. She rarely remembers her dreams. She occasionally has racing thoughts while she is trying to fall asleep and this makes it difficult for her to fall asleep. She does not feel sad, depressed or anxious. She denies having muscular tension. She does not notice parts of her body jerking. She does not kick at night. She does not have crawling and aching feelings in her legs. She does not have any kind of leg pain at night. She does not have morning jaw pain. She frequently grinds her teeth in the day as well as at night. She constantly is bothered by pain during the day. She has a mesh problem. She has an open wound under the left breast. She frequently is awakened by pain at night. She does not wake up feeling stiff in the morning with sore achy muscles. She rarely wakes up with pain in the neck and spine. she reports a weight loss of 7-8 lb in the last year. Normal bedtime is around 9:00 p.m. to 10:00 p.m.. She watches television at this time. Some days it takes her 30 minutes to fall asleep other times up to an hour. Occasionally it may take 3 or 4 hours for her to fall asleep. She wakes up during the night at least 3 or 4 times to use the bathroom, reposition herself. If she is not able to return to sleep within 30 minutes she gets up out of the bed. Her normal wake up time is between 3:00 a.m. and 4:00 a.m.. She estimates getting between 3 and 5 hours of sleep most nights. She is retired. Her weekend schedule is the same as for week day schedule. She never takes naps. She always wakes up refreshed and ready to go. She has noticed over the last 6 months that around 4 or 5:00 p.m. she feels like she is ready to slow
[2022-01-31 16:59] VITALS: BMI 40.2
--- NOTE | 2022-09-13 09:33 | SLEEP ---
PT DCD PAP THERAPY
== END 2022-01-19 05:33 | disposition home or self-care (01) ==
LOC: ANHCSM 08:03
PROVIDERS: PCP Family Medicine; Visit Provider Family Medicine
DX: G47.9 Sleep disorder, unspecified (principal); G47.33 Obstructive sleep apnea (adult) (pediatric)
CPT/HCPCS: 95811

== ENCOUNTER 2022-01-25 09:00 | Outpatient (RCR) | payer MEDICARE, SELFPAY | END 2022-03-05 14:31 | disposition home or self-care (01) | LOC: ANHDMC 09:00 | PROVIDERS: PCP Family Medicine; Visit Provider Family Medicine | DX: E11.65 Type 2 diabetes mellitus with hyperglycemia (principal); Z71.89 Other specified counseling | CPT/HCPCS: 99199; G0108 ==

== ENCOUNTER 2022-02-01 14:48 | Emergency (ER) | payer MEDICARE, SELFPAY ==
--- NOTE | ~2022-02-01 | US_ITS ---
EXAMINATION: US breast LT complete DATE: 02/01/2022 18:32 INDICATION: pain, swelling, wound . TECHNIQUE: Grayscale and Doppler ultrasound images of the left breast were obtained. COMPARISON: CT chest 01/10/2022. FINDINGS: At 6:00, 9 cm from the nipple and in the area of the superficial wound is an irregular hypo echoic area extending from the implant capsule into the dermis, with increased surrounding vascular f low. Learning Support Specialist reports tenderness in this area to transducer pressure. Simple cyst measuring 4 mm i n maximum diameter at 12:00, 9 cm from the nipple. IMPRESSION: Persistent but smaller dermal and subcutaneous fluid and/or phlegmonous collection in the area of the skin wound. Persistent or recurrent abscess and persistent or recurrent dermal cyst infection or inf lammation still remain possible. As previously noted, malignancy and implant involvement cannot be ex cluded. Multiple prior recommendations for ultrasound-guided biopsy remain unchanged. Breast MR may a lso be helpful for additional evaluation. Reviewed, dictated and finalized at location K. IMPRESSION: Persistent but smaller dermal and subcutaneous fluid and/or phlegmonous collect ion in the area of the skin wound. Persistent or recurrent abscess and persiste nt or recurrent dermal cyst infection or inflammation still remain possible. As previously noted, malignancy and implant involvement cannot be excluded. Multi ple prior recommendations for ultrasound-guided biopsy remain unchanged. Breast MR may also be helpful for additional evaluation.
--- NOTE | ~2022-02-01 | CT_ITS ---
EXAMINATION: CT abdomen pelvis w con DATE: 02/01/2022 19:31 INDICATION: low abd pain, fever TECHNIQUE: Computed tomography (CT) of the abdomen and pelvis was performed with 100 mL Omnipaque-350 intravenous contrast. Automated exposure control and iterative reconstruction technique were employe d. The dose-length product was 1354.79 mGy-cm. COMPARISON: 09/18/2021, MR abdomen 09/21/2021, CT chest 01/10/2022. FINDINGS: Lower thorax: Inflammatory change at the inferior left breast, please refer to the report on the [facility] breast [facility] for additional details. Bilateral breast augmentation. Pericardial cyst. Liver: Enlarged. Diffusely fatty infiltrated. Biliary/Gallbladder: Gallbladder is normal. No bile duct dilation. Pancreas: No mass or duct dilation. Spleen: Normal. Adrenals:No mass. Kidneys: Bilateral nonobstructing calculi. Right midpole angiomyolipoma. Multiple indeterminate densi ty left renal lesions, most likely represent proteinaceous or hemorrhagic cysts per findings in the p rior MRI. Multiple additional bilateral subcentimeter hypodensities that are too small to characteriz e. GI tract: No small or large bowel dilation. Normal appendix. Short segment distal sigmoid wall thicke day and surrounding inflammatory change, and background of diverticulosis. Mesentery/Peritoneum: No ascites, mass, or free air. Retroperitoneum: No mass. Pelvis: Absent uterus, remaining pelvic organs are within normal limits. Soft Tissues: Stable right posterior subcutaneous mass. Bones: No acute osseous finding. IMPRESSION: Acute uncomplicated sigmoid diverticulitis. Multiple chronic and incidental findings detailed above. Reviewed, dictated and finalized at location K. IMPRESSION: Acute uncomplicated sigmoid diverticulitis. Multiple chronic and incidental fin dings detailed above.
[2022-02-01 15:09] VITALS: BP 169/108; PULSE 91; RESP 18; TEMP 36.8; O2SAT 97
[2022-02-01 16:18] LABS: Basophils Absolute Auto 0.1 K/mm3 (0.0-0.1); Basophils Percent Auto 0.6 % (0.2-1.2); Eosinophils Absolute Auto 0.1 K/mm3 (0-0.3); Eosinophils Percent Auto 0.9 % (0-4.4); Hematocrit 43.3 % (37.0-47.0); Hemoglobin 14.4 g/dL (12.0-15.0); Immature Granulocyte Absolute 0.03 K/mm3 (0.00-0.031); Immature Granulocyte Percent A 0.2 % (0-0.5); Lymphocytes Absolute Auto 2.18 K/mm3 (0.9-3.2); Lymphocytes Percent Auto 17.6 % (18.3-44.2); Mean Corpuscular HGB Conc 33.3 g/dl (32-36); Mean Corpuscular Hemoglobin 31.7 pg (26-34); Mean Corpuscular Volume 95.4 fl (80-100); Mean Platelet Volume 8.9 fl (7.4-10.4); Monocytes Percent Auto 7.9 % (2.6-8.5); Neutrophils Percent Auto 72.8 % (45.5-73.1); Platelet Count Result 238 k/mm3 (150-375); Red Blood Count 4.54 M/mm3 (4.2-5.4); White Blood Count 12.4 K/mm3 (4.5-10.0)
[2022-02-01 16:28] LABS: Alanine Aminotransferase 33 U/L (6-35); Albumin Level 4.6 g/dL (3.5-5.1); Alkaline Phosphatase 109 U/L (38-126); Anion Gap 14 mmol/L (8-16); Aspartate Amino Transferase 33 U/L (14-36); Blood Urea Nitrogen 12 mg/dL (7-17); Calcium 8.9 mg/dL (8.4-10.2); Carbon Dioxide 27 mmol/L (22-30); Chloride 99 mmol/L (98-107); Estimated CRCL calculation 93 ml/min; Estimated Glomerular Filt Rate > 60; Glucose 161 mg/dL (65-110); Lipase 31 U/L (23-300); Sodium 140 mmol/L (137-145)
--- NOTE | 2022-02-01 17:47 | ED.GENADULT ---
HPI - General Adult General Chief complaint: Abdominal Pain Stated complaint: abd pain Time Seen by Provider: 02/01/22 17:35 Source: patient Mode of arrival: ambulatory Limitations: no limitations History of Present Illness HPI narrative: This is a 71 year old female that presents to the ER for low abdominal pain. Ongoing since last night. Reports fever. Also reports a wound on the left breast that is painful. Reports it was drained by Dermatology and she was supposed to have an US, but did not go because she was in pain. She is also supposed to follow up with a breast surgeon for this. Denies vomiting or diarrhea. Related Data Home Medications Medication Instructions Recorded Confirmed albuterol sulfate 90 mcg/actuation 1 puff inhalation Q4H PRN 01/02/21 02/01/22 aerosol inhaler (Ventolin HFA) Shortness Of Breath Or Wheezing amlodipine 10 mg tablet (Norvasc) 10 mg PO QAM 01/02/21 02/01/22 aspirin 81 mg chewable tablet 81 mg PO DAILY 01/02/21 02/01/22 fluticasone propionate 50 1 spray intranasal DAILY PRN 01/02/21 02/01/22 mcg/actuation nasal Shortness Of Breath Or Wheezing spray,suspension (Allergy Relief (fluticasone)) glipizide 5 mg tablet, extended 5 mg PO DAILY 01/02/21 02/01/22 release 24 hr olmesartan 40 1 tablet PO DAILY 01/02/21 02/01/22 mg-hydrochlorothiazide 12.5 mg tablet (Benicar HCT) rosuvastatin 20 mg tablet (Crestor) 20 mg PO DAILY 01/02/21 02/01/22 fluticasone furoate 200 1 inh inhalation DAILY PRN sob 09/18/21 02/01/22 mcg-vilanterol 25 mcg/dose inhalation powder (Breo Ellipta) propylene glycol 0.6 % eye drops 1 drp EACH EYE TID PRN 01/06/22 02/01/22 (Systane Balance) Allergies Allergy/AdvReac Type Severity Reaction Status Date / Time acetaminophen [From Vicodin] Allergy Intermediate Hives or Verified 02/01/22 13:49 throat swelling after 4-6 days of use coffee (Coffea arabica) Allergy Intermediate Hives Verified 02/01/22 13:49 hydrocodone [From Vicodin] Allergy Intermediate Hives or Verified 02/01/22 13:49 throat swelling after 4-6 days of use loracarbef [From Lorabid] Allergy Intermediate Hives or Verified 02/01/22 13:49 throat swelling after 4-6 days of use milk Allergy Mild stomach Verified 02/01/22 13:49 upset cigarette smoke Allergy Unknown Hives Verified 02/01/22 13:49 diltiazem [From Cardizem] Allergy Unknown Hives, Verified 02/01/22 13:49 stomach ache doxycycline [From Doryx] Allergy Unknown Hives, Verified 02/01/22 13:49 stomach ache erythromycin base Allergy Unknown ABD PAIN Verified 02/01/22 13:49 formaldehyde Allergy Unknown Difficulty Verified 02/01/22 13:49 Breathing house dust mite Allergy Unknown Difficulty Verified 02/01/22 13:49 Breathing minocycline [From Dynacin] Allergy Unknown Hives, Verified 02/01/22 13:49 Stomach ache phenol Allergy Unknown STOMACH Verified 02/01/22 13:49 UPSET, SWELLING gabapentin Allergy STOMACH Verified 02/01/22 13:49 UPSET, SWELLING lidocaine Allergy DENTAL - Verified 02/01/22 13:49 DOESN'T WORK acrylic Allergy Unknown Difficulty Uncoded 02/01/22 13:49 Breathing zara Allergy Unknown Difficulty Uncoded 02/01/22 13:49 Breathing chlorine Allergy Unknown Difficulty Uncoded 02/01/22 13:49 Breathing dust Allergy Unknown Difficulty Uncoded 02/01/22 13:49 Breathing ethanol Allergy Unknown Difficulty Uncoded 02/01/22 13:49 Breathing fireplace smoke Allergy Unknown Difficulty Uncoded 02/01/22 13:49 Breathing mountain cedar Allergy Unknown Difficulty Uncoded 02/01/22 13:49 Breathing msg Allergy Unknown SKIN BREAK Uncoded 02/01/22 13:49 OUT TO WRISTS orris root Allergy Unknown Difficulty Uncoded 02/01/22 13:49 Breathing unleaded gas Allergy Unknown Difficulty Uncoded 02/01/22 13:49 Breathing Review of Systems Review of Systems: CONSTITU
[2022-02-01 18:18] LABS: Erythrocyte Sedimentation Rate 48 mm/hr (0-20)
[2022-02-01 18:28] LABS: CRP 1.8 mg/dL (<1.0)
[2022-02-01 19:06] VITALS: PULSE 86; RESP 18; O2SAT 98
[2022-02-01 20:10] LABS: Appearance Urine Clear (Clear); Bilirubin Urine 1+ (Negative); Blood Urine Negative (Negative); Color Urine Yellow (Yellow); Glucose Urine UA Negative (Negative); Ketones Urine Negative (Negative); Leukocyte Esterase Ur Negative LEU/UL (Negative); Nitrate Urine Negative (Negative); Protein Urine Negative (Negative); Specific Grav Ur 1.015 (1.001-1.035); Urobilinogen Urine 0.2 mg/dL (<2.0)
[2022-02-01 20:23] LABS: Mucus Urine Rare /lpf; Squamous Epithelial Cell Urine Rare /hpf (Few)
[2022-02-01 20:27] LABS: Add Urine Microscopic? YES
[2022-02-01 21:08] VITALS: BP 162/85; PULSE 79; RESP 16; O2SAT 98
== END 2022-02-01 21:28 | disposition home or self-care (01) ==
PROVIDERS: Emergency Medicine; Physician Assistant; Emergency Provider Emergency Medicine; PCP Family Medicine
DX: K57.32 Diverticulitis of large intestine without perforation or abscess without bleeding (principal); N60.02 Solitary cyst of left breast; J45.909 Unspecified asthma, uncomplicated; R73.03 Prediabetes; M19.90 Unspecified osteoarthritis, unspecified site; Z85.3 Personal history of malignant neoplasm of breast; Z87.442 Personal history of urinary calculi; Z90.710 Acquired absence of both cervix and uterus; Z90.13 Acquired absence of bilateral breasts and nipples; Z79.82 Long term (current) use of aspirin; N20.0 Calculus of kidney; K76.0 Fatty (change of) liver, not elsewhere classified; Z79.84 Long term (current) use of oral hypoglycemic drugs
CPT/HCPCS: 36415; 74177; 76641; 80053; 81001; 83690; 85025; 85652; 86140; 96374; 99284; J0131; Q9967

== ENCOUNTER → 2022-03-01 13:40 | Outpatient (CLI) | payer MEDICARE, SELFPAY ==
--- NOTE | ~2022-03-01 | XR_ITS ---
XR chest 2V 03/01/2022 13:58 Indication: Shortness of breath Procedure: 2 view chest Comparison: No prior studies for comparison. Findings: There is left basilar atelectasis/scarring. Heart size normal. No focal pneumonia, edema or effusion. No acute osseous abnormality. Impression: 1: Left basilar atelectasis/scarring. Reviewed, dictated and finalized at location A. NDARY ENGLISH TEACHER Impression: 1: Left basilar atelectasis/scarring.
== END ==
PROVIDERS: PCP Clinical Nurse Specialist; Visit Provider Clinical Nurse Specialist
DX: R09.89 Other specified symptoms and signs involving the circulatory and respiratory systems (principal); R06.02 Shortness of breath; R91.8 Other nonspecific abnormal finding of lung field
CPT/HCPCS: 71046

== ENCOUNTER 2022-03-01 15:57 | Emergency (ER) | payer MEDICARE, SELFPAY ==
--- NOTE | 2022-03-01 17:23 | PC.NURSE ---
1ST CALL FOR TRIAGE [id number] 2ND CALL FOR TRIAGE [id number] NO ANSWER EITHER TIME
== END 2022-03-01 17:36 | disposition left against medical advice (07) ==
LOC: ANHED 17:29
PROVIDERS: PCP Clinical Nurse Specialist
DX: Z53.21 Procedure and treatment not carried out due to patient leaving prior to being seen by health care provider (principal)
CPT/HCPCS: 99199

== ENCOUNTER 2022-03-11 12:41 | Outpatient (CLI) | payer MEDICARE, SELFPAY ==
[2022-03-11 19:18] LABS: Basophils Absolute Auto 0.1 K/mm3 (0.0-0.1); Basophils Percent Auto 0.8 % (0.2-1.2); Eosinophils Absolute Auto 0.3 K/mm3 (0-0.3); Hematocrit 44.8 % (37.0-47.0); Hemoglobin 14.6 g/dL (12.0-15.0); Immature Granulocyte Absolute 0.03 K/mm3 (0.00-0.031); Immature Granulocyte Percent A 0.3 % (0-0.5); Lymphocytes Absolute Auto 2.83 K/mm3 (0.9-3.2); Lymphocytes Percent Auto 31.4 % (18.3-44.2); Mean Corpuscular HGB Conc 32.6 g/dl (32-36); Mean Corpuscular Volume 98.2 fl (80-100); Monocytes Absolute Auto 0.8 K/mm3 (0.1-0.6); Monocytes Percent Auto 8.6 % (2.6-8.5); Neutrophils Percent Auto 55.9 % (45.5-73.1); Platelet Count Result 311 k/mm3 (150-375); Red Blood Count 4.56 M/mm3 (4.2-5.4); Red Cell Distribution Width 14.3 % (11.5-14.5)
[2022-03-11 19:21] LABS: Alanine Aminotransferase 44 U/L (6-35); Albumin Level 4.4 g/dL (3.5-5.1); Alkaline Phosphatase 108 U/L (38-126); Anion Gap 8 mmol/L (8-16); Aspartate Amino Transferase 83 U/L (14-36); Bilirubin,Total 0.5 mg/dL (0.2-1.3); Blood Urea Nitrogen 14 mg/dL (7-17); Calcium 8.9 mg/dL (8.4-10.2); Carbon Dioxide 30 mmol/L (22-30); Chloride 99 mmol/L (98-107); Estimated Glomerular Filt Rate > 60; Glucose 99 mg/dL (65-110); Potassium 3.8 mmol/L (3.4-5.0); Sodium 137 mmol/L (137-145)
[2022-03-11 19:40] LABS: Appearance Urine Clear (Clear); Bilirubin Urine Negative (Negative); Blood Urine Negative (Negative); Color Urine Yellow (Yellow); Glucose Urine UA Negative (Negative); Ketones Urine Trace mg/dL (Negative); Leukocyte Esterase Ur Trace LEU/UL (NEGATIVE); Nitrate Urine Negative (Negative); Protein Urine Trace mg/dL (Negative); Specific Grav Ur >= 1.030 (1.001-1.035); Urobilinogen Urine 0.2 mg/dL (<2.0)
[2022-03-11 19:44] LABS: Bacteria Urine 2+ /hpf; Mucus Urine Moderate /lpf; Squamous Epithelial Cell Urine Moderate /hpf (Few)
[2022-03-11 19:45] LABS: Add Urine Microscopic? YES
== END 2022-03-11 12:42 | disposition home or self-care (01) ==
LOC: ANHGOSHLAB 12:43
PROVIDERS: PCP Family Medicine; Visit Provider Family Medicine
DX: R50.9 Fever, unspecified (principal)
CPT/HCPCS: 36415; 80053; 81001; 85025

== ENCOUNTER 2022-03-21 08:50 | Inpatient (IN) | payer MEDICARE, SELFPAY ==
[2022-03-21] VITALS (7 sets, daily range): BP systolic 123–195; BP diastolic 80–99; PULSE 71–96; RESP 17–26; TEMP 36.3–37.2; O2SAT 96–99
--- NOTE | ~2022-03-21 | CT_ITS ---
EXAMINATION: CT abdomen pelvis wo con DATE: 03/21/2022 09:32 INDICATION: Left flank pain TECHNIQUE: Computed tomography (CT) of the abdomen and pelvis was performed without intravenous contr ast. The dose-length product (DLP) was 1358.39 mGy-cm. Automated exposure control and iterative recon struction technique were employed. COMPARISON: 02/01/2022; MRI, 09/21/2021 FINDINGS: Minimal dependent atelectasis is present in the lung bases. The heart size is normal. Bilat eral breast implants are noted. The liver, spleen, pancreas, gallbladder, and adrenal glands are norm al. There are seven nonobstructing stones of the right kidney which measure up to 3 mm. There is a pu nctate nonobstructing stone of the left mid kidney. There is a 9 mm angiomyolipoma of the right mid k idney. Again noted are multiple soft tissue attenuation masses of the left kidney, characterized as h emorrhagic and proteinaceous cysts by MRI. There is a 3.0 x 2.3 cm subcutaneous mass of the right fla nk, suspected sebaceous/epidermoid cyst by MRI. There is calcified atherosclerosis of the aorta and m any of the other arteries. No pathologically enlarged abdominal or pelvic lymph nodes are identified. There is no free intraperitoneal gas or evidence of bowel obstruction. There is a fat-containing umb ilical hernia. Colonic diverticulosis is noted. There is subtle inflammatory change adjacent to the s igmoid colon. There is severe lumbar spondylosis. IMPRESSION: 1. Mild sigmoid diverticulitis. 2. Bilateral nonobstructing nephrolithiasis. Reviewed, dictated and finalized at location A. GER SERVICE DESK
[2022-03-21 08:58] LABS: Basophils Absolute Auto 0.1 K/mm3 (0.0-0.1); Eosinophils Absolute Auto 0.2 K/mm3 (0-0.3); Eosinophils Percent Auto 2.4 % (0-4.4); Hematocrit 41.9 % (37.0-47.0); Immature Granulocyte Absolute 0.02 K/mm3 (0.00-0.031); Immature Granulocyte Percent A 0.3 % (0-0.5); Lymphocytes Absolute Auto 1.49 K/mm3 (0.9-3.2); Lymphocytes Percent Auto 23.9 % (18.3-44.2); Mean Corpuscular HGB Conc 33.4 g/dl (32-36); Mean Corpuscular Hemoglobin 31.8 pg (26-34); Mean Corpuscular Volume 95.2 fl (80-100); Mean Platelet Volume 9.3 fl (7.4-10.4); Monocytes Absolute Auto 0.3 K/mm3 (0.1-0.6); Monocytes Percent Auto 5.1 % (2.6-8.5); Neutrophils Absolute Auto 4.2 K/mm3 (1.3-6.7); Neutrophils Percent Auto 67.3 % (45.5-73.1); Platelet Count Result 216 k/mm3 (150-375); Red Cell Distribution Width 13.8 % (11.5-14.5); White Blood Count 6.2 K/mm3 (4.5-10.0)
--- NOTE | 2022-03-21 09:04 | ED.GENADULT ---
HPI - General Adult General Chief complaint: Abdominal Pain Stated complaint: L flank pain Time Seen by Provider: 03/21/22 08:56 History of Present Illness HPI narrative: Patient is a 71-year-old female here via EMS with a history of kidney stones here for evaluation of left flank pain over the past day. Patient lists patient states the pain started as a soreness and she attributed to a pulled muscle. She states that since yesterday the pain is gotten more severe in nature and is now sharp and stabbing. Reports identical pain with previous kidney stones, and she had an ESWL with Dr. Reilly 6 months ago. Also notes 2 episodes of vomiting nonbloody/nonbilious emesis today. She denies any dysuria, hematuria, urgency, frequency, chest pain, shortness of breath. Patient received 4 of morphine and 4 of Zofran in route without relief of her pain but with relief of her nausea. Related Data Home Medications Medication Instructions Recorded Confirmed albuterol sulfate 90 mcg/actuation 1 puff inhalation Q4H PRN 01/02/21 03/11/22 aerosol inhaler (Ventolin HFA) Shortness Of Breath Or Wheezing aspirin 81 mg chewable tablet 81 mg PO DAILY 01/02/21 03/11/22 fluticasone propionate 50 1 spray intranasal DAILY PRN 01/02/21 03/11/22 mcg/actuation nasal Shortness Of Breath Or Wheezing spray,suspension (Allergy Relief (fluticasone)) propylene glycol 0.6 % eye drops 1 drp EACH EYE TID PRN 01/06/22 03/11/22 (Systane Balance) Allergies Allergy/AdvReac Type Severity Reaction Status Date / Time acetaminophen [From Vicodin] Allergy Intermediate Hives or Verified 03/11/22 12:09 throat swelling after 4-6 days of use coffee (Coffea arabica) Allergy Intermediate Hives Verified 03/11/22 12:09 hydrocodone [From Vicodin] Allergy Intermediate Hives or Verified 03/11/22 12:09 throat swelling after 4-6 days of use loracarbef [From Lorabid] Allergy Intermediate Hives or Verified 03/11/22 12:09 throat swelling after 4-6 days of use milk Allergy Mild stomach Verified 03/11/22 12:09 upset cigarette smoke Allergy Unknown Hives Verified 03/11/22 12:09 diltiazem [From Cardizem] Allergy Unknown Hives, Verified 03/11/22 12:09 stomach ache doxycycline [From Doryx] Allergy Unknown Hives, Verified 03/11/22 12:09 stomach ache erythromycin base Allergy Unknown ABD PAIN Verified 03/11/22 12:09 formaldehyde Allergy Unknown Difficulty Verified 03/11/22 12:09 Breathing house dust mite Allergy Unknown Difficulty Verified 03/11/22 12:09 Breathing minocycline [From Dynacin] Allergy Unknown Hives, Verified 03/11/22 12:09 Stomach ache phenol Allergy Unknown STOMACH Verified 03/11/22 12:09 UPSET, SWELLING gabapentin Allergy STOMACH Verified 03/11/22 12:09 UPSET, SWELLING lidocaine Allergy DENTAL - Verified 03/11/22 12:09 DOESN'T WORK acrylic Allergy Unknown Difficulty Uncoded 03/11/22 12:09 Breathing zara Allergy Unknown Difficulty Uncoded 03/11/22 12:09 Breathing chlorine Allergy Unknown Difficulty Uncoded 03/11/22 12:09 Breathing dust Allergy Unknown Difficulty Uncoded 03/11/22 12:09 Breathing ethanol Allergy Unknown Difficulty Uncoded 03/11/22 12:09 Breathing fireplace smoke Allergy Unknown Difficulty Uncoded 03/11/22 12:09 Breathing mountain cedar Allergy Unknown Difficulty Uncoded 03/11/22 12:09 Breathing msg Allergy Unknown SKIN BREAK Uncoded 03/11/22 12:09 OUT TO WRISTS orris root Allergy Unknown Difficulty Uncoded 03/11/22 12:09 Breathing unleaded gas Allergy Unknown Difficulty Uncoded 03/11/22 12:09 Breathing Review of Systems Review of Systems: Gen: Denies fevers or chills Eyes: Denies eye pain or visual change ENT: Denies congestion Respiratory: Denies shortness of breath or cough CV: Denies chest pain or palpitations GI: Reports nausea and vomiting.
[2022-03-21 09:08] LABS: Alanine Aminotransferase 41 U/L (6-35); Albumin Level 4.3 g/dL (3.5-5.1); Alkaline Phosphatase 109 U/L (38-126); Anion Gap 7 mmol/L (8-16); Aspartate Amino Transferase 44 U/L (14-36); Bilirubin,Total 0.9 mg/dL (0.2-1.3); Blood Urea Nitrogen 8 mg/dL (7-17); Calcium 8.5 mg/dL (8.4-10.2); Carbon Dioxide 24 mmol/L (22-30); Chloride 102 mmol/L (98-107); Estimated CRCL calculation 107 ml/min; Estimated Glomerular Filt Rate > 60; Glucose 161 mg/dL (65-110); Lipase 66 U/L (23-300); Potassium 3.6 mmol/L (3.4-5.0); Sodium 133 mmol/L (137-145)
--- NOTE | 2022-03-21 09:10 | PC.NURSE ---
Pt to CT scan via stretcher at this time.
[2022-03-21] MEDS: HYDROmorphone HCL INJ (*CRX) 1 MG/ML SYR 0.5 MG IV PUSH ×2 (09:26→10:28)
[2022-03-21 10:06] LABS: Add Urine Microscopic? NO; Appearance Urine Clear (Clear); Bilirubin Urine Negative (Negative); Blood Urine Negative (Negative); Color Urine Light Yellow (Yellow); Glucose Urine UA Negative (Negative); Ketones Urine Negative (Negative); Leukocyte Esterase Ur Negative LEU/UL (Negative); Nitrate Urine Negative (Negative); Protein Urine Negative (Negative); Urobilinogen Urine 0.2 mg/dL (<2.0)
[2022-03-21] MEDS: SODIUM CHLORIDE 0.9% IV 1,000 ML 999 ML IV CONT (10:29)
[2022-03-21 11:03] LABS: Influenza A QL RT-PCR Negative (Negative); Influenza B QL RT-PCR Negative (Negative); SARS-CoV-2 RNA PCR Negative
[2022-03-21 11:14] LABS: Erythrocyte Sedimentation Rate 16 mm/hr (0-20)
[2022-03-21] MEDS: ONDANSETRON INJ 4 MG/2 ML VIAL IV PUSH ×2 (11:14→19:47)
[2022-03-21] MEDS: metroNIDAZOLE 500 MG/ISO 100ML 500 MG/100 ML BAG 100 MG IVPB ×2 (11:15→22:37)
[2022-03-21 11:41] LABS: CRP < 0.5 mg/dL (<1.0)
[2022-03-21] MEDS: METOCLOPRAMIDE HCL INJ 10 MG/2 ML VIAL IV PUSH (12:44)
[2022-03-21] MEDS: SODIUM CHLORIDE 0.9% IV 1,000 ML 125 ML IV CONT ×2 (13:39→22:16)
--- NOTE | 2022-03-21 13:50 | PM.IMHP ---
H&P: HPI History of Present Illness Date/Time: 03/21/22 13:50 Chief Complaint: Left flank pain. Narrative: This is a 71-year-old female with history of diverticulitis, kidney stones, hypertension, diabetes, hyperlipidemia, and asthma who presented to the emergency department via EMS from home for evaluation of left flank pain. She noticed a mild soreness in the left mid to lower back and flank area last evening which she initially attributed to muscle pain. The pain intensified however and is now sharp and stabbing in nature without significant radiation. When the pain is especially bad she will have nausea and reports a couple of episodes of nonbloody, nonbilious emesis. Symptoms are similar to when she has had kidney stones in the past and she came in today for evaluation. She has not had a fever the last couple of days and denies cold and flu symptoms, chest pain, cough, shortness of breath, diarrhea, dysuria, and hematuria. She was afebrile on arrival to the ED with stable vital signs. White blood cell count was normal her urinalysis was unremarkable. CT of the abdomen/pelvis showed mild sigmoid diverticulitis and bilateral nonobstructing nephrolithiasis. Due to continued pain which has been difficult to control, she is being admitted for IV antibiotics and pain control. She is requesting oxycodone for the pain which she takes at home intermittently however she has Vicodin listed on her allergy list though she assures me that was many years ago and she has not had issues with oxycodone. Review of Systems Review of Systems: Twelve systems were reviewed and are negative except for as per HPI. 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 Obstructive sleep apnea Mild sleep apnea on sleep study in January 2022. Type 2 diabetes mellitus Vaginal delivery x2 Surgical History Surgical History (Updated 03/21/22 @ 15:32 by Ivana Gan PA-C) History of bilateral mastectomy For lobular carcinoma in-situ. History of breast reconstruction (1997) History of cervical spinal surgery History of hysterectomy (1989) For benign disease (endometriosis). History of lithotripsy History of nephrolithotomy with removal of calculi (1996) History of pelvic surgery Cystocele repair in June 2005. Posterior repair with pubovaginal sling with mesh in February 2011. History of removal of cyst Removal of benign cyst and lipoma from numerous sites. History of tonsillectomy (09/1996) Status post excision of lipoma Family History Family History (Updated 03/21/22 @ 15:32 by Ivana Gan PA-C) Father Asthma Diabetes mellitus Hypertension Heart problem Alzheimer's dementia Mother Hypertension Grandparent Brain cancer Sibling Alcoholism Son Asthma Social History Social History (Updated 03/21/22 @ 15:34 by Ivana Gan PA-C) Social History: The patient lives in her own home in [place] with a dog. 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 Lifelong nonsmoker. No alcohol or illicit substance abuse. Surrogate medical decision maker: Meaghan Trevnio, daughter. Code status: Full code. Lack of Transportation: No Lack of Food: Never True Current Housing: I Have Housing Concerned About Future Housing: No Difficulty Paying Gas/Electric Bills: No Difficulty Paying for Meds: No Currently Unemployed: No Education: Master's Degree or Higher Spiritual care concerns: No Agree to blood products: Yes Meds Home Medications and Allergies Home Medications Medication Instructions Recorded Confirmed Type albuterol sulfate 90 mcg/actuation 1 puff inhalation Q4H PRN 01/02/21 03/11/22 History aerosol inhaler (Ventolin HFA) Shortness
[2022-03-21] MEDS: oxyCODONE/ACETAMINOPHEN (*CRX) 5-325 MG TABLET 1 TABLET PO (15:58)
[2022-03-21 16:06] LABS: Glucose Point of Care 161 mg/dl (65-105)
[2022-03-21 17:54] LABS: Glucose Point of Care 159 mg/dl (65-105)
[2022-03-22] MEDS: ONDANSETRON INJ 4 MG/2 ML VIAL IV PUSH ×4 (00:45→23:02)
[2022-03-22] MEDS: oxyCODONE HCL (*CRX) 5 MG TAB IR PO ×3 (00:45→16:51)
[2022-03-22 06:00] VITALS: BP 175/94; PULSE 72; RESP 18; TEMP 36.7; O2SAT 99
[2022-03-22] MEDS: metroNIDAZOLE 500 MG/ISO 100ML 500 MG/100 ML BAG 100 MG IVPB ×3 (06:26→22:56)
[2022-03-22 06:41] LABS: Basophils Percent Auto 0.6 % (0.2-1.2); Eosinophils Absolute Auto 0.1 K/mm3 (0-0.3); Eosinophils Percent Auto 0.9 % (0-4.4); Hematocrit 40.2 % (37.0-47.0); Hemoglobin 13.6 g/dL (12.0-15.0); Immature Granulocyte Absolute 0.02 K/mm3 (0.00-0.031); Immature Granulocyte Percent A 0.3 % (0-0.5); Lymphocytes Absolute Auto 1.59 K/mm3 (0.9-3.2); Lymphocytes Percent Auto 22.9 % (18.3-44.2); Mean Corpuscular HGB Conc 33.8 g/dl (32-36); Mean Corpuscular Hemoglobin 31.3 pg (26-34); Mean Corpuscular Volume 92.6 fl (80-100); Mean Platelet Volume 9.3 fl (7.4-10.4); Monocytes Absolute Auto 0.5 K/mm3 (0.1-0.6); Monocytes Percent Auto 6.9 % (2.6-8.5); Neutrophils Absolute Auto 4.8 K/mm3 (1.3-6.7); Neutrophils Percent Auto 68.4 % (45.5-73.1); Platelet Count Result 208 k/mm3 (150-375); Red Blood Count 4.34 M/mm3 (4.2-5.4); Red Cell Distribution Width 13.5 % (11.5-14.5)
[2022-03-22 06:45] LABS: Alanine Aminotransferase 36 U/L (6-35); Albumin Level 4.1 g/dL (3.5-5.1); Alkaline Phosphatase 85 U/L (38-126); Anion Gap 6 mmol/L (8-16); Aspartate Amino Transferase 30 U/L (14-36); Bilirubin,Total 0.7 mg/dL (0.2-1.3); Blood Urea Nitrogen 6 mg/dL (7-17); Calcium 8.2 mg/dL (8.4-10.2); Carbon Dioxide 26 mmol/L (22-30); Chloride 101 mmol/L (98-107); Estimated CRCL calculation 107 ml/min; Estimated Glomerular Filt Rate > 60; Glucose 137 mg/dL (65-110); Potassium 3.2 mmol/L (3.4-5.0); Sodium 133 mmol/L (137-145)
[2022-03-22 07:21] LABS: Glucose Point of Care 141 mg/dl (65-105)
[2022-03-22] MEDS: ENOXAPARIN 40 MG/0.4 ML SYRINGE SUB-Q (09:22)
[2022-03-22] MEDS: ASPIRIN 81 MG CHEWABLE TABLET PO (09:22)
[2022-03-22] MEDS: amLODIPine BESYLATE 5 MG TABLET 10 MG PO (09:23)
[2022-03-22] MEDS: OLMESARTAN MEDOXOMIL 20 MG TABLET 40 MG PO (09:24)
[2022-03-22] MEDS: hydroCHLOROthiazide 12.5 MG CAPSULE PO (09:24)
[2022-03-22 09:27] LABS: Glucose Point of Care 147 mg/dl (65-105)
[2022-03-22 09:41] VITALS: PULSE 72; RESP 20
[2022-03-22 09:50] VITALS: PULSE 76; RESP 18
--- NOTE | 2022-03-22 11:10 | PM.IMPN ---
Progress Note: A&P Assessment and Plan (1) Diverticulitis: Code(s): K57.92 - Diverticulitis of intestine, part unspecified, without perforation or abscess without bleeding Status: Acute Assessment and Plan: Patient reports improvement of lower abdominal quadrant intake pain. She continues to have pain situated in the left flank which has not responded well to IV narcotics. Given her ongoing pain (8) she is being admitted for pain control and IV antibiotics. Patient will be allowed ice chips but will be NPO for bowel rest. Patient appears to display atypical pain syndromes, he may benefit from pain management as an outpatient. She has been evaluated by Pain Management previously with some success. She has not been evaluated by a neurologist. She was told that she had bulging discs in her spine. (2) Bilateral kidney stones: Code(s): N20.0 - Calculus of kidney Status: Acute Assessment and Plan: Bilateral nonobstructing stones noted on CT, not the cause of her pain. (3) Elevated LFTs: Code(s): R79.89 - Other specified abnormal findings of blood chemistry Status: Acute Assessment and Plan: Mild elevation in AST and ALT, down from previous labs. Can be monitored as an outpatient. (4) Hyponatremia: Code(s): E87.1 - Hypo-osmolality and hyponatremia Status: Acute Assessment and Plan: She has mild hyponatremia and will be given a liter of normal saline overnight. Hold hydrochlorothiazide. (5) Hypertension: Code(s): I10 - Essential (primary) hypertension Status: Acute Assessment and Plan: Uncomfortable hypertension likely secondary to pain. Current BP 166/86. Optimize pain management. B (6) Asthma: Code(s): J45.909 - Unspecified asthma, uncomplicated Status: Acute Assessment and Plan: No acute issues. Continue maintenance inhalers. (7) Type 2 diabetes mellitus: Code(s): E11.9 - Type 2 diabetes mellitus without complications Status: Acute Assessment and Plan: Recent hemoglobin was 7.4%. Initiate sliding scale insulin, Accu-Cheks, and hypoglycemic protocol. Time Spent With Patient Time with patient: 15 - 25 minutes Subjective Date/time seen: 03/22/22 11:10 Interval history: S: Patient was seen examined at the bedside. She reports improvement of midline lower abdominal pain. Left flank pain, without radiation persists. Review of Systems Review of Systems: Twelve systems were reviewed and are negative except for as per HPI. Exam Narrative: GENERAL: The patient is alert and oriented, in no apparent distress. She is pleasant and conversant in full sentences. HEENT: Pupils are equally round and reactive to light. Extraoccular muscles are intact. Oral mucous membranes are moist without lesions. NECK: The patient has no noted JVD. No cervical palpable lymphadenopathy. CHEST/LUNGS: Lungs are clear bilaterally without rhonchi, rales, or wheezes. There is no subcutaneous air appreciated. There is no tenderness to the chest wall. HEART: The patient has a regular rate and rhythm. No murmurs, rubs, or gallops are appreciated. Distal pulses are 2+. No carotid bruits appreciated. ABDOMEN: The patient?s abdomen is obese, soft, tender on the midline of the lower quadrants, and nondistended. Bowel sounds are positive. No organomegaly is appreciated. No masses are appreciated. There are no peritoneal signs. There is no Peters?s sign. EXTREMITIES: The patient has no peripheral edema. There is no focal long bone tenderness or deformity. Left flank pain increases with palpation. SKIN: The patient?s skin is warm and dry, without rashes or lesions. PSYCHIATRIC: The patient has normal mental status and has an appropriate affect. NEUROLOGIC: The patient has 5/5 strength to the upper and lower extremities bilaterally. Sensation is intact throughout. Gait is within normal limits. Deep tendon reflexe
[2022-03-22 11:30] LABS: Glucose Point of Care 138 mg/dl (65-105)
[2022-03-22 14:00] VITALS: BP 166/86; PULSE 91; RESP 16; TEMP 37.4; O2SAT 97
[2022-03-22 17:37] LABS: Glucose Point of Care 131 mg/dl (65-105)
[2022-03-22 21:02] VITALS: BP 170/76; PULSE 76; RESP 16; TEMP 36.3; O2SAT 96
[2022-03-22 21:28] LABS: Glucose Point of Care 124 mg/dl (65-105)
--- NOTE | 2022-03-22 23:35 | PCRCNOTE ---
not given called away missed tx ... pt was checked on but also sleeping
[2022-03-23] MEDS: metroNIDAZOLE 500 MG/ISO 100ML 500 MG/100 ML BAG 100 MG IVPB ×3 (05:22→20:28)
[2022-03-23] MEDS: oxyCODONE HCL (*CRX) 5 MG TAB IR PO ×2 (05:34→13:42)
[2022-03-23 05:41] VITALS: BP 152/77; PULSE 79; RESP 16; TEMP 36.2; O2SAT 98
[2022-03-23 08:09] LABS: Glucose Point of Care 123 mg/dl (65-105)
[2022-03-23] MEDS: OLMESARTAN MEDOXOMIL 20 MG TABLET 40 MG PO (09:31)
[2022-03-23] MEDS: ASPIRIN 81 MG CHEWABLE TABLET PO (09:31)
[2022-03-23] MEDS: hydroCHLOROthiazide 12.5 MG CAPSULE PO (09:31)
[2022-03-23] MEDS: amLODIPine BESYLATE 5 MG TABLET 10 MG PO (09:31)
[2022-03-23] MEDS: ENOXAPARIN 40 MG/0.4 ML SYRINGE SUB-Q (09:31)
[2022-03-23] MEDS: metFORMIN HCL 500 MG TABLET PO (09:31)
[2022-03-23] MEDS: glipiZIDE XL 5 MG TABCR PO (09:31)
[2022-03-23] MEDS: ROSUVASTATIN 10 MG TABLET 20 MG PO (09:32)
[2022-03-23] MEDS: FLUTICASONE/SALMETEROL 230-21 MCG INHALER 1 PUFF 2 PUFF INHALATION ×2 (10:09→20:39)
[2022-03-23 10:11] VITALS: PULSE 78; O2SAT 98
[2022-03-23] MEDS: traMADol HCL (*CRX) 50 MG TABLET PO ×2 (10:56→20:23)
--- NOTE | 2022-03-23 12:15 | PM.IMPN ---
Progress Note: A&P Assessment and Plan (1) Diverticulitis: Code(s): K57.92 - Diverticulitis of intestine, part unspecified, without perforation or abscess without bleeding Status: Acute Assessment and Plan: Patient reports improvement of lower abdominal quadrant intake pain. She continues to have pain situated in the left flank which has not responded well to IV narcotics. Given her ongoing pain (8) she is being admitted for pain control and IV antibiotics. Patient will be allowed ice chips but will be NPO for bowel rest. Patient appears to display atypical pain syndromes, he may benefit from pain management as an outpatient. She has been evaluated by Pain Management previously with some success. I think most of her pain is related to her back pain. (2) Bilateral kidney stones: Code(s): N20.0 - Calculus of kidney Status: Acute Assessment and Plan: Bilateral nonobstructing stones noted on CT, not the cause of her pain. (3) Elevated LFTs: Code(s): R79.89 - Other specified abnormal findings of blood chemistry Status: Acute Assessment and Plan: Mild elevation in AST and ALT, down from previous labs. Can be monitored as an outpatient. (4) Hyponatremia: Code(s): E87.1 - Hypo-osmolality and hyponatremia Status: Acute Assessment and Plan: She has mild hyponatremia and will be given a liter of normal saline overnight. Hold hydrochlorothiazide. (5) Hypertension: Code(s): I10 - Essential (primary) hypertension Status: Acute Assessment and Plan: Uncomfortable hypertension likely secondary to pain. Current BP 166/86. Optimize pain management. B (6) Asthma: Code(s): J45.909 - Unspecified asthma, uncomplicated Status: Acute Assessment and Plan: No acute issues. Continue maintenance inhalers. (7) Type 2 diabetes mellitus: Code(s): E11.9 - Type 2 diabetes mellitus without complications Status: Acute Assessment and Plan: Recent hemoglobin was 7.4%. Initiate sliding scale insulin, Accu-Cheks, and hypoglycemic protocol. Subjective Date/time seen: 03/23/22 12:15 Abdominal pain is improved. Still having some left-sided flank and back pain. Tolerating diet. Exam Narrative: GENERAL: The patient is alert and oriented, in no apparent distress. She is pleasant and conversant in full sentences. HEENT: Pupils are equally round and reactive to light. Extraoccular muscles are intact. Oral mucous membranes are moist without lesions. NECK: The patient has no noted JVD. No cervical palpable lymphadenopathy. CHEST/LUNGS: Lungs are clear bilaterally without rhonchi, rales, or wheezes. There is no subcutaneous air appreciated. There is no tenderness to the chest wall. HEART: The patient has a regular rate and rhythm. No murmurs, rubs, or gallops are appreciated. Distal pulses are 2+. No carotid bruits appreciated. ABDOMEN: The patient?s abdomen is obese, soft, tender on the midline of the lower quadrants, and nondistended. Bowel sounds are positive. No organomegaly is appreciated. No masses are appreciated. There are no peritoneal signs. There is no Peters?s sign. EXTREMITIES: The patient has no peripheral edema. There is no focal long bone tenderness or deformity. Left flank pain increases with palpation. SKIN: The patient?s skin is warm and dry, without rashes or lesions. PSYCHIATRIC: The patient has normal mental status and has an appropriate affect. NEUROLOGIC: The patient has 5/5 strength to the upper and lower extremities bilaterally. Sensation is intact throughout. Gait is within normal limits. Deep tendon reflexes are 2+ in all four extremities. There are no gross deficits to the cranial nerves. Objective Data Vital Signs Vital Signs: Vital Signs - 24 hr 03/22/22 14:00 03/22/22 21:02 03/22/22 20:00 Temperature 99.4 F 97.4 F L Pulse Rate 91 76 Respiratory Rate 16 16
[2022-03-23 12:47] LABS: Glucose Point of Care 125 mg/dl (65-105)
[2022-03-23 14:00] VITALS: BP 166/109; PULSE 82; RESP 18; TEMP 36.7; O2SAT 99
[2022-03-23 16:52] LABS: Glucose Point of Care 77 mg/dl (65-105)
[2022-03-23] MEDS: DOCUSATE SODIUM 100 MG CAPSULE PO (18:11)
[2022-03-23 20:42] VITALS: O2SAT 97
[2022-03-23 21:15] VITALS: BP 151/76; PULSE 84; RESP 16; TEMP 36.4; O2SAT 97
[2022-03-23 21:38] LABS: Glucose Point of Care 126 mg/dl (65-105)
[2022-03-24] MEDS: ACETAMINOPHEN 325 MG TABLET 650 MG PO ×2 (01:28→10:49)
[2022-03-24 05:32] VITALS: BP 149/74; PULSE 77; RESP 18; TEMP 36.6; O2SAT 99
[2022-03-24] MEDS: metroNIDAZOLE 500 MG/ISO 100ML 500 MG/100 ML BAG 100 MG IVPB ×2 (05:57→15:09)
[2022-03-24] MEDS: traMADol HCL (*CRX) 50 MG TABLET PO ×2 (07:52→15:15)
[2022-03-24] MEDS: DOCUSATE SODIUM 100 MG CAPSULE PO (07:52)
[2022-03-24] MEDS: ONDANSETRON INJ 4 MG/2 ML VIAL IV PUSH (08:28)
[2022-03-24 08:54] LABS: Glucose Point of Care 120 mg/dl (65-105)
[2022-03-24 09:18] VITALS: O2SAT 96
[2022-03-24 10:11] LABS: Anion Gap 6 mmol/L (8-16); Blood Urea Nitrogen 9 mg/dL (7-17); Calcium 8.5 mg/dL (8.4-10.2); Carbon Dioxide 28 mmol/L (22-30); Chloride 99 mmol/L (98-107); Estimated CRCL calculation 82 ml/min; Estimated Glomerular Filt Rate > 60; Glucose 117 mg/dL (65-110); Potassium 3.1 mmol/L (3.4-5.0); Sodium 133 mmol/L (137-145)
[2022-03-24] MEDS: FLUTICASONE/SALMETEROL 230-21 MCG INHALER 1 PUFF 2 PUFF INHALATION (10:27)
[2022-03-24] MEDS: amLODIPine BESYLATE 5 MG TABLET 10 MG PO (10:44)
[2022-03-24] MEDS: ASPIRIN 81 MG CHEWABLE TABLET PO (10:44)
[2022-03-24] MEDS: glipiZIDE XL 5 MG TABCR PO (10:45)
[2022-03-24] MEDS: ENOXAPARIN 40 MG/0.4 ML SYRINGE SUB-Q (10:45)
[2022-03-24] MEDS: ROSUVASTATIN 10 MG TABLET 20 MG PO (10:45)
[2022-03-24] MEDS: metFORMIN HCL 500 MG TABLET PO (10:45)
[2022-03-24] MEDS: OLMESARTAN MEDOXOMIL 20 MG TABLET 40 MG PO (10:45)
[2022-03-24] MEDS: hydroCHLOROthiazide 12.5 MG CAPSULE PO (10:45)
[2022-03-24 12:18] LABS: Glucose Point of Care 139 mg/dl (65-105)
[2022-03-24] MEDS: POTASSIUM CHLORIDE 20 MEQ TABLET 40 MEQ PO (12:52)
[2022-03-24 14:00] VITALS: BP 138/68; PULSE 80; RESP 18; TEMP 36.3; O2SAT 97
--- NOTE | 2022-03-24 15:04 | PM.DS ---
DS: Admitting Diagnosis Discharge Date 03/24/22 Admitting Diagnosis Abdominal pain DS: Discharge Diagnosis Discharge Diagnosis (1) Diverticulitis: Code(s): K57.92 - Diverticulitis of intestine, part unspecified, without perforation or abscess without bleeding Status: Acute (2) Bilateral kidney stones: Code(s): N20.0 - Calculus of kidney Status: Acute (3) Elevated LFTs: Code(s): R79.89 - Other specified abnormal findings of blood chemistry Status: Acute (4) Hyponatremia: Code(s): E87.1 - Hypo-osmolality and hyponatremia Status: Acute (5) Hypertension: Code(s): I10 - Essential (primary) hypertension Status: Acute (6) Asthma: Code(s): J45.909 - Unspecified asthma, uncomplicated Status: Acute (7) Type 2 diabetes mellitus: Code(s): E11.9 - Type 2 diabetes mellitus without complications Status: Acute DS: Summary Hospital Course Reason for hospitalization: Abdominal pain Hospital Course: patient presents with abdominal pain. CT the abdomen pelvis showing diverticulitis. It also showed nonobstructing kidney stones. She had intractable pain was admitted for this reason. She was started on IV antibiotics. LFTs are mildly elevated but are improved. She had some mild hyponatremia but this has been stable. This is probably related to hydrochlorothiazide. She had clinical improvement. Pain improved. She overall did well and was able to be discharged home on 03/24/2022. Status at Discharge Cognitive/behavioral status at discharge: stable Time Spent with Patient Time attestation: Total time spent providing and/or coordinating discharge services: 32 minutes Time spent: Greater than 30 minutes Exam Narrative: AF 97.9 149/74 77 18 99% ra Gen - NARD Chest - CTA bilaterally, nml RR CV - RRR S1/S2 Abd - minimal LLQ pain. Ext - No pedal edema Neuro - Alert and oriented. Nonfocal exam. Psych - Nml mood and affect Skin - Warm and dry DS: Data Data Completed and Pending Labs on day of discharge: Labs from last 24 hours 03/24/22 03/24/22 03/24/22 12:12 09:44 08:28 Sodium 133 L Potassium 3.1 L Chloride 99 Carbon Dioxide 28 Anion Gap 6 L BUN 9 Creatinine 0.60 L Estim Creat Clear Calc 82 Estimated GFR > 60 Glucose 117 H POC Capillary Glucose 139 H 120 H Calcium 8.5 03/23/22 03/23/22 21:16 16:42 Sodium Potassium Chloride Carbon Dioxide Anion Gap BUN Creatinine Estim Creat Clear Calc Estimated GFR Glucose POC Capillary Glucose 126 H 77 Calcium Discharge Plan Discharge Attending physician on discharge: Jeff Castaneda Discharging Clinician: Jeff Castaneda Anticipated Discharge Date/Time: 03/24/22 15:08 Patient Disposition: Home, Self-Care Activity: as tolerated Diet: diabetic Discharge Instructions: Please complete your antibiotic course even if you are starting to feel well. Take precautions to avoid falls. Rise slowly from a lying or sitting position. Pause before standing or walking. Contact your doctor or call 911 and come to the Emergency Room if you have increasing abdominal pain, fever or other worrisome symptoms. Follow-up with your primary care provider in 1-2 weeks. Please call for appointment. Thank you for using [facility] for your health care needs. Patient Instructions: Antibiotic Form Stand Alone Forms: General Discharge Information Follow-up/Referrals: Radha Jeffery DO [Primary Care Provider] - Call for Appointment Discharge Medications: New levofloxacin 750 mg tablet 750 mg PO DAILY Qty: 5 0RF metronidazole 500 mg tablet 500 mg PO Q8H Qty: 10 0RF Continued Janumet 50-500 mg tablet 1 tablet PO .qday Qty: 90 1RF aspirin 81 mg tablet,chewable 81 mg PO DAILY Hold Instructions: Resume on 10/26/21. fluticasone propionat
== END 2022-03-24 17:30 | disposition home or self-care (01) | DRG 392 ==
LOC: ANHED 11:04 → ANH3MEDSUR 16:15
PROVIDERS: Internal Medicine; Physician Assistant; Admitting Provider Internal Medicine; Emergency Provider Emergency Medicine; PCP Family Medicine; Visit Provider Internal Medicine
DX: K57.92 Diverticulitis of intestine, part unspecified, without perforation or abscess without bleeding (principal); E87.1 Hypo-osmolality and hyponatremia; K21.9 Gastro-esophageal reflux disease without esophagitis; I10 Essential (primary) hypertension; E11.9 Type 2 diabetes mellitus without complications; E78.5 Hyperlipidemia, unspecified; J45.909 Unspecified asthma, uncomplicated; M19.90 Unspecified osteoarthritis, unspecified site; N20.0 Calculus of kidney; R79.89 Other specified abnormal findings of blood chemistry; Z20.822 Contact with and (suspected) exposure to COVID-19; Z87.442 Personal history of urinary calculi; Z85.3 Personal history of malignant neoplasm of breast; Z79.82 Long term (current) use of aspirin; Z90.710 Acquired absence of both cervix and uterus
CPT/HCPCS: 36415; 74176; 80048; 80053; 81003; 82948; 83605; 83690; 83735; 85025; 85652; 86140; 87636; 94640; 96361; 96365; 96375; 96376; 99285; A9270; J0131; J1170; J1650; J1956; J2405; J2765; J7030

== ENCOUNTER 2022-04-07 13:53 | Outpatient (CLI) | payer MEDICARE, SELFPAY ==
[2022-04-07 18:21] LABS: Chloride 98 mmol/L (98-107)
[2022-04-07 18:36] LABS: Alanine Aminotransferase 35 U/L (6-35); Albumin Level 4.2 g/dL (3.5-5.1); Alkaline Phosphatase 104 U/L (38-126); Anion Gap 6 mmol/L (8-16); Aspartate Amino Transferase 39 U/L (14-36); Bilirubin,Total 0.5 mg/dL (0.2-1.3); Blood Urea Nitrogen 15 mg/dL (7-17); Calcium 9.3 mg/dL (8.4-10.2); Carbon Dioxide 32 mmol/L (22-30); Estimated Glomerular Filt Rate > 60; Glucose 126 mg/dL (65-110); Potassium 3.5 mmol/L (3.4-5.0); Sodium 136 mmol/L (137-145)
[2022-04-07 19:48] LABS: Basophils Absolute Auto 0.1 K/mm3 (0.0-0.1); Eosinophils Absolute Auto 0.3 K/mm3 (0-0.3); Eosinophils Percent Auto 3.2 % (0-4.4); Hematocrit 43.5 % (37.0-47.0); Hemoglobin 14.2 g/dL (12.0-15.0); Immature Granulocyte Absolute 0.03 K/mm3 (0.00-0.031); Immature Granulocyte Percent A 0.4 % (0-0.5); Lymphocytes Absolute Auto 2.37 K/mm3 (0.9-3.2); Lymphocytes Percent Auto 30.1 % (18.3-44.2); Mean Corpuscular HGB Conc 32.6 g/dl (32-36); Mean Corpuscular Hemoglobin 30.9 pg (26-34); Mean Corpuscular Volume 94.6 fl (80-100); Mean Platelet Volume 9.6 fl (7.4-10.4); Monocytes Absolute Auto 0.6 K/mm3 (0.1-0.6); Neutrophils Absolute Auto 4.5 K/mm3 (1.3-6.7); Neutrophils Percent Auto 57.3 % (45.5-73.1); Platelet Count Result 305 k/mm3 (150-375); Red Cell Distribution Width 14.1 % (11.5-14.5); White Blood Count 7.9 K/mm3 (4.5-10.0)
== END 2022-04-07 13:54 | disposition home or self-care (01) ==
LOC: ANHGOSHLAB 13:55
PROVIDERS: PCP Family Medicine; Visit Provider Nurse Practitioner
DX: E87.1 Hypo-osmolality and hyponatremia (principal); R79.89 Other specified abnormal findings of blood chemistry; Z13.29 Encounter for screening for other suspected endocrine disorder
CPT/HCPCS: 36415; 80053; 85025

== ENCOUNTER 2022-09-16 13:51 | Outpatient (CLI) | payer MEDICARE, SELFPAY ==
[2022-09-16 14:15] LABS: Basophils Absolute Auto 0.1 K/mm3 (0.0-0.1); Basophils Percent Auto 1.2 % (0.2-1.2); Eosinophils Absolute Auto 0.5 K/mm3 (0-0.3); Eosinophils Percent Auto 6.1 % (0-4.4); Hematocrit 39.8 % (37.0-47.0); Hemoglobin 13.1 g/dL (12.0-15.0); Immature Granulocyte Absolute 0.02 K/mm3 (0.00-0.031); Immature Granulocyte Percent A 0.3 % (0-0.5); Lymphocytes Absolute Auto 2.44 K/mm3 (0.9-3.2); Lymphocytes Percent Auto 32.1 % (18.3-44.2); Mean Corpuscular HGB Conc 32.9 g/dl (32-36); Mean Corpuscular Hemoglobin 34.6 pg (26-34); Monocytes Absolute Auto 0.6 K/mm3 (0.1-0.6); Monocytes Percent Auto 7.4 % (2.6-8.5); Neutrophils Percent Auto 52.9 % (45.5-73.1); Platelet Count Result 231 k/mm3 (150-375); Red Blood Count 3.79 M/mm3 (4.2-5.4); Red Cell Distribution Width 15.4 % (11.5-14.5); White Blood Count 7.6 K/mm3 (4.5-10.0)
[2022-09-19 17:00] LABS: ANA Cascade Screen Negative (Negative)
[2022-09-20 21:19] LABS: Immunoglobulin E 91 kU/L (<=114)
== END 2022-09-16 13:52 | disposition home or self-care (01) ==
LOC: ANHLAB 13:54
PROVIDERS: PCP Family Medicine; Visit Provider Internal Medicine Critical Care Medicine
DX: M35.9 Systemic involvement of connective tissue, unspecified (principal); J45.909 Unspecified asthma, uncomplicated
CPT/HCPCS: 36415; 82785; 85025; 86038

== ENCOUNTER 2022-09-27 09:00 | Outpatient (CLI) | payer MEDICARE, SELFPAY ==
--- NOTE | 2022-09-27 12:56 | WPDPFTINT ---
PFT Procedure Performed PFT Procedure Performed Spirometry with Pre/Post Bronchodilator Plethysmography (Lung Vol) Diffusing Cap (DLCO) Flow Vol Loop PFT Interpretation This is a pulmonary function test with pre and post-bronchodilator spirometry, plethysmography and diffusing capacity. The test was performed and results interpreted in accordance with the 2019 and 2005 ATS/ERS Task Force guidelines respectively using the Global Lung Function Initiative-2012 reference equations. Patient demonstrated good effort and cooperation. Reproducibility criteria were met. The quality of the pre bronchodilator spirometry maneuver was Grade A and post bronchodilator spirometry maneuver was Grade A. Findings: Spirometry: There is decreased maximal expiratory airflow at all lung volumes with concave expiratory flow tracing. The contour the inspiratory flow tracing is normal. The pre bronchodilator FVC is 2.55 L, 84% predicted. The pre bronchodilator FEV1 is 1.64 L, 70% predicted. The pre bronchodilator FEV1: FVC ratio 64%. The post bronchodilator FVC is 2.91 L, representing a 14% increase. The post bronchodilator FEV1 is 1.92 L, representing a 17% increase. The post bronchodilator FEV1: FVC ratio 66%. Plethysmography: The total lung capacity is 5.29 L, 98% predicted. The functional residual capacity is 2.95 L, 96% predicted. The residual volume is 2.50 L, 108% predicted. Diffusing capacity: The diffusing capacity unadjusted for hemoglobin and carboxyhemoglobin is 20.2, 95% predicted. The diffusing capacity adjusted for alveolar volume is 4.33, 104% predicted. Impression: There is a mild obstructive abnormality with significant improvement after inhaling a single dose of albuterol. The lung volumes are normal. The diffusing capacity is normal. There are no prior studies for comparison
== END 2022-09-27 09:01 | disposition home or self-care (01) ==
LOC: ANHPFT 09:01
PROVIDERS: PCP Family Medicine; Visit Provider Internal Medicine Critical Care Medicine
DX: J45.909 Unspecified asthma, uncomplicated (principal); R94.2 Abnormal results of pulmonary function studies
CPT/HCPCS: 94060; 94726; 94729

== ENCOUNTER → 2022-10-07 10:33 | Outpatient (CLI) | payer MEDICARE, SELFPAY ==
--- NOTE | ~2022-10-07 | XR_ITS ---
Bilateral Hands Technique: Bilateral PA, oblique, and lateral views, and ball-catcher's view were obtained. Clinical History: Pain Findings: No acute fracture or dislocation is seen. Osseous alignment is anatomic. Joint spaces are p reserved. Soft tissues are unremarkable. Impression: Unremarkable bilateral hand radiographs. Reviewed, dictated and finalized at location . Impression: Unremarkable bilateral hand radiographs.
--- NOTE | ~2022-10-07 | XR_ITS ---
Left wrist Technique: PA, oblique, lateral, and ulnar deviation views were obtained. Clinical History: Pain Findings: No acute fracture or dislocation is seen. Osseous alignment is anatomic. Joint spaces are p reserved. Soft tissues are unremarkable. Impression: Unremarkable left wrist radiographs. Reviewed, dictated and finalized at location . Impression: Unremarkable left wrist radiographs.
== END ==
PROVIDERS: PCP Family Medicine; Visit Provider Family Medicine
DX: M25.532 Pain in left wrist (principal)
CPT/HCPCS: 73110; 73130

== ENCOUNTER 2022-11-24 15:12 | Outpatient (CLI) | payer MEDICARE, SELFPAY ==
--- NOTE | ~2022-11-24 | XR_ITS ---
EXAMINATION: XR abdomen/kub 1V DATE: 11/24/2022 15:49 INDICATION: Bilateral nephrolithiasis with 2 weeks of right flank pain. TECHNIQUE: A supine view of the abdomen on 2 radiographs was obtained. COMPARISON: CT dated 03/21/2022 FINDINGS: No evident urolithiasis. No dilated gas-filled bowel to suggest obstruction. Lung bases are clear. He art size is normal. 15 degrees upper lumbar levoscoliosis. Mild to moderate thoracic and moderate to severe lower lumbar spondylosis. IMPRESSION: 1. No evident urolithiasis Reviewed, dictated and finalized at location A. IMPRESSION: 1. No evident urolithiasis
== END 2022-11-24 15:13 | disposition home or self-care (01) ==
PROVIDERS: PCP Family Medicine; Visit Provider Urology
DX: N20.0 Calculus of kidney (principal)
CPT/HCPCS: 74018

== ENCOUNTER 2022-11-25 11:59 | Outpatient (CLI) | payer MEDICARE, SELFPAY ==
--- NOTE | ~2022-11-25 | CT_ITS ---
EXAMINATION: CT abdomen pelvis wo con DATE: 11/25/2022 12:40 INDICATION: Right flank pain TECHNIQUE: Computed tomography (CT) of the abdomen and pelvis was performed without intravenous contr ast. The dose-length product (DLP) was 753.43 mGy-cm. Automated exposure control and iterative recons truction technique were employed. COMPARISON: 03/21/2024; MRI, 09/21/2021 FINDINGS: Minimal dependent atelectasis is present in the lung bases. The heart size is normal. Bilat eral breast implants are noted. The liver, spleen, pancreas, gallbladder, and adrenal glands are norm al. Nonobstructing stones of the right kidney measure up to 5 mm. There is a 2 mm nonobstructing ston e of the left kidney. 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 Cysts of the left kidney ar e again noted, previously characterized as hemorrhagic and proteinaceous cysts by MRI. No stones are identified in the ureters or bladder. No hydronephrosis or hydroureter. No pathologically enlarged ab dominal or pelvic lymph nodes are identified. No free intraperitoneal gas or evidence of bowel obstru ction. There is calcified atherosclerosis of the aorta and many of the other arteries. There is sever e lumbar spondylosis. Colonic diverticulosis is present without evidence of diverticulitis. There is been interval removal of the previously described subcutaneous mass of the right flank. IMPRESSION: 1. Bilateral nonobstructing nephrolithiasis. Reviewed, dictated and finalized at location A.
== END 2022-11-25 12:00 | disposition home or self-care (01) ==
PROVIDERS: PCP Family Medicine; Visit Provider Nurse Practitioner Adult Health
DX: N20.0 Calculus of kidney (principal); R10.9 Unspecified abdominal pain
CPT/HCPCS: 74176

== ENCOUNTER 2022-12-07 09:25 | Outpatient (CLI) | payer MEDICARE, SELFPAY ==
--- NOTE | 2022-12-07 10:00 | ECG_ITS ---
Measurements Intervals [place] Rate: 76 P: 37 UT: 211 QRS: 65 QRSD: 153 T: 37 QT: 437 QTc: 494 Interpretive Statements SINUS RHYTHM WITH FIRST DEGREE AV BLOCK POSSIBLE LEFT ATRIAL ENLARGEMENT RIGHT BUNDLE BRANCH BLOCK MINIMAL Q WAVES- INFERIOR LEADS BASELINE ARTIFACT- I, II, III, AVL, AVF ABNORMAL ECG COMPARED TO ECG 10/19/2021 14:03:28 NO SIGNIFICANT CHANGES Electronically Signed On 12-07-2022 10:07:58 CDT by Blayne Aguero D.O.
== END 2022-12-07 09:26 | disposition home or self-care (01) ==
PROVIDERS: PCP Family Medicine; Visit Provider Urology
DX: I10 Essential (primary) hypertension (principal); Z01.818 Encounter for other preprocedural examination; I44.0 Atrioventricular block, first degree; I45.10 Unspecified right bundle-branch block
CPT/HCPCS: 93005

== ENCOUNTER 2022-12-09 03:31 | Day surgery (SDC) | payer MEDICARE, SELFPAY ==
[2022-12-03 15:23] VITALS: BMI 39.4
--- NOTE | 2022-12-03 15:53 | PC.NURSE ---
Report to the Outpatient Waiting Room, entrance under the green pavilion located off [facility], at time __8:30am on date __12/09/22 . Planned Procedure Time: __10:30am . Time changes happen often and if your time is changed the preop area will call you the afternoon before. - You and your visitor will be asked to self-screen and do not enter if you have any COVID symptoms. - A mask is optional within the hospital at this time. Patients may have clear liquids (water, carbonated beverages, clear teas, apple juice) until 3 hours prior to surgery with a maximum of 20 ounces. - No food from midnight until time of surgery Take the following medications with a SIP of water the morning of surgery: ___AMLODIPINE, BREO ELLIPTA, ALBUTEROL INHALER NEEDED, HYDROCODONE NEEDED DO NOT STOP ANY OF YOUR OTHER PRESCRIPTION MEDICATIONS PRIOR TO SURGERY ?EXCEPT THE FOLLOWING Medications to discontinue per physician ___HOLD ASPIRIN 7 DAYS PRE-OP PER DR GUAJARDO(PER PATIENT)- LAST DOSE 12/02/22 HOLD ALL VITAMINS/SUPPLEMENTS 3 DAYS PRE-OP- LAST DOSE 12/05/22 Please no make-up, nail indonesian, hairspray, perfume, deodorant, or body powder the day of surgery. No jewelry (including any body piercings) or valuables the day of surgery, leave them at home. Please take a shower or bath the night before, or the morning of, surgery with an antibacterial soap. Wear comfortable, loose fitting clothing. Children are encouraged to wear pajamas. - Jewelry must be removed prior to entering the operating room. Rings and piercings that are not removed may be cut off. - The hospital will not accept responsibility for valuables. - Please leave all valuables, including medications, at home the day of surgery. If you are going home after surgery, a licensed buggy driver must drive you home. - NO public transportation without another adult if you receive anesthesia. - We recommend that an adult stay with you for 24 hours following discharge. - We also recommend that you do not drive, make important decision, drink alcoholic beverages, or take any drugs that were not prescribed by your health care provider for at least 24 hours after your discharge time. Follow any additional instructions given to you from your surgeon. If you or anyone in your household have experienced Covid symptoms in the past week, please notify your surgeon or the nurse liaison at the phone number below for possible testing. Telephone instructions given to _PATIENT and asked if any additional questions and then verbalized understanding. Patient advised to call surgeon office or pre surgery nurse liaison [phone] if any additional questions.
[2022-12-09] VITALS (10 sets, daily range): BP systolic 112–167; BP diastolic 59–130; PULSE 67–78; RESP 15–18; TEMP 36.2–36.4; O2SAT 94–100
--- NOTE | ~2022-12-09 | XR_ITS ---
EXAMINATION: XR retrograde pyelogram BI DATE: 12/09/2022 09:46 INDICATION: Right-sided ureteral stone extraction and bilateral retrograde milligrams. TECHNIQUE: 181 fluoroscopic images of the abdomen and pelvis were obtained during procedure performed by Dr. Reilly. Radiologist was not present for the imaging or procedure. The amount of fluoroscopy t bipin used during this procedure was 0.7 minutes. COMPARISON: CT dated 11/25/2022 FINDINGS: Manager Lan fluoroscopic image demonstrate no discernible urolithiasis. Retrograde contrast injection into the first the right ureter and subsequently the left ureter demonstrates normal bilateral renal colle cting systems and ureters with no hydronephrosis, strictures, filling defects or urothelial irregular ities. At the beginning of the right ureteral injection prior to opacification of the right renal col lecting system a small stone can be seen at the lower pole of the right kidney. Final images demonstr ate cannulation of the right ureter and retrograde advancement of a catheter into the right renal col lecting system. IMPRESSION: 1. Small stone at a lower pole calyx of the right kidney. Otherwise normal bilateral retrograde pyelo grams with no ureteral stones or strictures. See procedure note for further detail. Reviewed, dictated and finalized at location A. IMPRESSION: 1. Small stone at a lower pole calyx of the right kidney. Otherwise normal bila teral retrograde pyelograms with no ureteral stones or strictures. See procedur e note for further detail.
--- NOTE | 2022-12-09 06:51 | WPDHPUPDATE1 ---
History and Physical Update Update Date/Time: 12/09/22 06:51 History and Physical has been reviewed, including an updated exam of the patient. There are NO changes in the patient's condition. Risks, benefits, and alternatives have been discussed and questions answered. Patient agrees to proceed with procedure.
[2022-12-09 08:07] LABS: Glucose Point of Care 143 mg/dl (65-105)
--- NOTE | 2022-12-09 08:19 | WPDANESEPPF ---
Anes - Initial Pre Proc Eval Procedure: Operation Date: 12/09/22 09:30 Proposed Procedures p Cystoscopy, Right Ureteroscopy, Right Retrograde Pyelogram, Right Stone Extraction, Possible Right Stent Placement, Possible Holmium Laser - Inocencio Reilly MD Date/Time: 12/09/22 08:19 Surgeon: Inocencio Reilly MD Pre Op Diagnosis: Rt Kidney Stone Patient Data Age: 72 Gender: F Height: 1.68 m Weight: 110.8 kg Last Vital Signs Temp 36.2 C L 12/09/22 07:45 Pulse 77 12/09/22 07:45 Resp 18 12/09/22 07:45 BP 155/88 H 12/09/22 08:17 Pulse Ox 96 12/09/22 07:45 O2 Del Method Room Air 12/09/22 07:45 Allergies Allergy/AdvReac Type Severity Reaction Status Date / Time coffee (Coffea arabica) Allergy Intermediate SMELLING Verified 12/09/22 08:10 IT CAUSES Hives & VOMITING diltiazem [From Cardizem] Allergy Unknown Hives, Verified 12/09/22 08:10 stomach ache gabapentin Allergy STOMACH Verified 12/09/22 08:10 UPSET, RASH, CONFUSION meloxicam Allergy ITCHING, Verified 12/09/22 08:10 CONFUSION, NAUSEA montelukast Allergy Confusion Verified 12/09/22 08:10 erythromycin base AdvReac Unknown ABD PAIN, Verified 12/09/22 08:10 NAUSEA minocycline [From Dynacin] AdvReac Unknown Stomach Verified 12/09/22 08:10 ache scopolamine AdvReac N/V Verified 12/09/22 08:10 msg Allergy Unknown SKIN BREAK Uncoded 12/09/22 08:10 OUT AT WRISTS Home Medications Medication Instructions Recorded Confirmed Type propylene glycol 0.6 % eye drops 1 drp EACH EYE TID PRN Eye 01/06/22 12/09/22 History (Systane Balance) Irritation amlodipine 10 mg tablet (Norvasc) 10 mg PO QAM #90 tabs 05/31/22 12/09/22 Rx fluticasone propionate 50 1 spray intranasal DAILY PRN 05/31/22 12/09/22 Rx mcg/actuation nasal Shortness Of Breath Or Wheezing spray,suspension (Allergy Relief #16 grams (fluticasone)) rosuvastatin 20 mg tablet 20 mg PO DAILY #90 tabs 05/31/22 12/09/22 Rx CPAP Equipment #1 ea 06/02/22 12/09/22 Rx albuterol sulfate 1.25 mg/3 mL 1.25 mg (3 mL) inhalation Q4-6H 06/09/22 12/09/22 Rx solution for nebulization PRN shortness of breath or wheezing #90 mL hydrocodone 5 mg-acetaminophen 325 1 tablet PO Q6H PRN pain #30 tabs 11/30/22 12/09/22 Rx mg tablet albuterol sulfate 90 mcg/actuation 1 inh inhalation Q4H PRN Shortness 12/03/22 12/09/22 History aerosol inhaler (Ventolin HFA) Of Breath Or Wheezing aspirin 81 mg tablet,delayed 81 mg PO DAILY 12/03/22 12/09/22 History release fluticasone furoate 200 1 inh inhalation DAILY 12/03/22 12/09/22 History mcg-vilanterol 25 mcg/dose inhalation powder (Breo Ellipta) furosemide 20 mg tablet 20 mg PO QAM PRN SWELLING 12/03/22 12/09/22 History glipizide 5 mg tablet, extended 5 mg PO QAM 12/03/22 12/09/22 History release 24 hr zoyufkcp-flcile-ryyrc extract 5 1 cap PO DAILY 12/03/22 12/09/22 History mg-6 mg-150 mg capsule (Fruit and Vegetable Daily) multivitamin 1 tablet PO DAILY 12/03/22 12/09/22 History olmesartan 40 1 tablet PO QAM 12/03/22 12/09/22 History mg-hydrochlorothiazide 12.5 mg tablet sitagliptin phosphate 50 1 tablet PO QAM 12/03/22 12/09/22 History mg-metformin 500 mg tablet (Janumet) tizanidine 2 mg capsule 2 mg PO Q6-8H PRN Muscle Spasm 12/03/22 12/09/22 History Laboratory Tests 12/09/22 08:01 POC Capillary Glucose 143 H mg/dl (65-105) Patient hx anesthesia problems: post op nausea/vomiting Family hx anesthesia problems: other (early awakening) Results Review: All pre-operative results and documents have been reviewed as part of the pre-operative evaluation. [facility] Past Medical History Medical History Allergies Arthritis Asthma Degenerative disc disease Endometriosis Gastroesophageal reflux disease Hypertension Lobular carcinoma in situ of breast (1995) Status p
[2022-12-09] MEDS: ceFAZolin 2 GM/D5W 50 ML 2 GM/50 ML BAG IVPB (09:17)
[2022-12-09] MEDS: LACTATED RINGERS 1,000 ML 30 ML IV CONT ×2 (09:49→11:50)
[2022-12-09 10:15] LABS: Glucose Point of Care 116 mg/dl (65-105)
--- NOTE | 2022-12-09 10:25 | W.PM.PROC2 ---
Procedure Note - Detailed Date of Procedure 12/09/22 Pre-op Diagnosis Rt Kidney Stone Post-op Diagnosis Same Procedure Performed Cystoscopy, bilateral retrograde pyelography, right ureteroscopy with stone extraction Surgeon Inocencio Reilly MD Anesthesia General Findings 3 mm right renal stone in the lower pole calyx that may have been flushed from her ureter with irrigation Description of Procedure Patient is brought to the operative suite where she was prepped and draped in routine sterile fashion while in dorsal lithotomy position after the uneventful induction of a general anesthetic. Cystoscopy is undertaken with a 19 F rigid cystoscope. Bladder neck and urethra endoscopically normal. Bladder was normal without intravesical foreign body or neoplasm. Mucosa is without hyperemia. She has a single orthotopic ureteral orifice with clear efflux bilaterally. Using an 8 F bulb-tipped catheter obtain bilateral retrograde pyelograms. There were no obvious points of obstruction or filling defects. I did place a 0.035 in glidewire into her right pelvis under fluoroscopy. The distal ureter was dilated with an 8 F 10 F dilator and ureteroscopy was taken with a 7.5 F flexible ureteral scope. I saw no ureteral stones but this 3 mm calculus in her right lower pole calyx that may have been flushed from the ureter. There were no other significant stones in her kidney although there were some small Khoa's plaques that I did identify. I extracted the stone in the lower pole with a Zero tip basket with ease. Because of the ease of this procedure opted not to place ureteral stent. Scopes and wires were removed and she was taken to the recovery room in good condition Pathology Yes Condition Stable Disposition PACU
[2022-12-09] MEDS: oxyCODONE HCL (*CRX) 5 MG TAB IR PO (10:41)
[2022-12-09] MEDS: fentaNYL CITRATE INJ (*CRX) 100 MCG/2 ML VIAL 25 MCG IV PUSH ×2 (11:01→11:05)
[2022-12-09] MEDS: diazePAM INJ (*CRX) 10 MG/2 ML SYRINGE 2.5 MG IV PUSH (11:50)
[2022-12-09] MEDS: HYOSCYAMINE SULFATE 0.125 MG TABLET PO (11:50)
--- NOTE | 2022-12-09 12:09 | SUR.PHASEII ---
1205 - MD Reilly called. Pt. requests script for bladder spasms to d/c home with. See orders.
== END 2022-12-09 12:42 | disposition home or self-care (01) ==
PROVIDERS: PCP Family Medicine; Visit Provider Urology
PROC: (CPT 52352; principal; 2022-12-09 09:30)
DX: N20.0 Calculus of kidney (principal); N28.89 Other specified disorders of kidney and ureter; I10 Essential (primary) hypertension; K21.9 Gastro-esophageal reflux disease without esophagitis; J45.909 Unspecified asthma, uncomplicated; G47.33 Obstructive sleep apnea (adult) (pediatric); E11.9 Type 2 diabetes mellitus without complications; E66.9 Obesity, unspecified; Z68.39 Body mass index [BMI] 39.0-39.9, adult; Z79.82 Long term (current) use of aspirin; Z79.51 Long term (current) use of inhaled steroids; Z79.891 Long term (current) use of opiate analgesic; Z79.84 Long term (current) use of oral hypoglycemic drugs
CPT/HCPCS: 52352; 74420; 82365; 82948; 88300; A9270; C1758; C1769; J0690; J3010; J3360; J7120; Q9966

== ENCOUNTER 2023-02-03 08:22 | Outpatient (CLI) | payer MEDICARE, SELFPAY ==
--- NOTE | ~2023-02-03 | NM_ITS ---
EXAMINATION: NM gabino stress w perfusion DATE: 02/03/2023 12:44 INDICATION: Chest pain. TECHNIQUE: Rest images were obtained following intravenous administration of 10.8 mCi Tc99m tetrofosm in (Myoview). The patient was infused intravenously with Lexiscan (regadenoson). Then, 34.3 mCi Tc99m tetrofosmin (Myoview) was administered intravenously, and stress images were obtained. Data was leon nstructed into short axis and horizontal and vertical long axis SPECT images. Gated SPECT images were also obtained. COMPARISON: CT abdomen and pelvis 11/25/2022 FINDINGS: Breast attenuation artifact is noted. There is no definite reversible or fixed perfusion ab normality to suggest ischemia or infarction. There is no segmental wall motion abnormality. Left ve ntricular ejection fraction measures > 70%. IMPRESSION: 1. No definite ischemia or infarct. Breast attenuation artifact decreases sensitivity and specificity in the anterior wall. 2. Normal left ventricular ejection fraction measuring >70%. Reviewed, dictated and finalized at location E. IMPRESSION: 1. No definite ischemia or infarct. Breast attenuation artifact decreases sensi tivity and specificity in the anterior wall. 2. Normal left ventricular ejection fraction measuring >70%.
--- NOTE | 2023-02-03 08:46 | ECHO_ITS ---
Patient Info Name: Erna Nance Age: 72 years : 1950 Gender: Female Ht: 67 in Wt: 238 lbs BSA: 2.31 m2 HR: 76 bpm BP: 157 / 93 mmHg Heart Rhythm: Sinus Rhythm Technical Quality: Good Exam Date: 02/03/2023 8:56 AM Exam Location: Echo Lab Patient Status: Outpatient Admit Date: 02/03/2023 Staff Ordering Physician: Blayne Aguero DO Police [employer] Dispatcher: Marcin Morgan RDCS Attending Provider: Blayne Aguero DO Referring Physician: Laci RANDHAWA; Exam Type: CA echo doppler color flow Study Info Indications - PEPPER Complete two-dimensional, color flow and Doppler transthoracic echocardiogram is performed. Summary 1. Complete two-dimensional, color flow and Doppler transthoracic echocardiogram is performed. 2. Left ventricular chamber dimension is normal. 3. Basal inferior wall is thin and hypokinetic. 4. Left ventricular systolic function is normal, estimated at 60-65%. 5. The left ventricular diastolic function is grade I diastolic dysfunction. 6. E/e' 8 is minimally elevated. 7. There is mild aortic valve sclerosis. 8. The mitral valve has mildly calcified annulus. 9. There is trace mitral valve regurgitation. 10. There is trace tricuspid valve regurgitation. 11. No pulmonary hypertension, estimated pulmonary arterial systolic pressure is 13 mmHg. 12. There is trace pulmonic regurgitation. 13. The aortic root size at the sinus of Valsalva is borderline dilated at 4.0 cm. Left Ventricle E/e' 8 is minimally elevated. Basal inferior wall is thin and hypokinetic. Left ventricular chamber dimension is normal. Left ventricular systolic function is normal, estimated at 60-65%. The left ventricular diastolic function is grade I diastolic dysfunction. Right Ventricle Right ventricular systolic function is normal and with normal TAPSE 2.2 cm. Right ventricular chamber dimension is normal. Left Atria Left atrial chamber dimension is normal. Right Atria Right atrial chamber dimension is normal. Aortic Valve The aortic valve is trileaflet. There is mild aortic valve sclerosis. There is no aortic valve stenosis. There is no aortic valve regurgitation. Pulmonic Valve There is trace pulmonic regurgitation. Mitral Valve The mitral valve has mildly calcified annulus. There is no mitral valve stenosis. There is trace mitral valve regurgitation. Tricuspid Valve There is trace tricuspid valve regurgitation. No pulmonary hypertension, estimated pulmonary arterial systolic pressure is 13 mmHg. Pericardium/Pleural There is no pericardial effusion. Inferior Vena Cava Normal inferior vena cava with >50% collapse upon inspiration consistent with normal right atrial pressure, 5 mmHg. Aorta The aortic root size at the sinus of Valsalva is borderline dilated at 4.0 cm. Left Ventricular Outflow Tract Name Value Normal LVOT 2D LVOT Diameter 2.1 cm LVOT Doppler LVOT Peak Gradient 3 mmHg LVOT Mean Gradient 2 mmHg LVOT VTI 25 cm LVOT VTI/AV VTI Ratio 0.7 LVOT Stroke Volume 91 ml LVOT CO 5.4 l/min LVOT C
--- NOTE | 2023-02-03 10:24 | EST_ITS ---
Patient Info Name: Erna Nance Age: 72 years : 1950 Gender: Female Ht: 68 in Wt: 240 lbs BSA: 2.33 m2 HR: 68 bpm BP: 148 / 70 mmHg Heart Rhythm: Sinus Rhythm Exam Date: 02/03/2023 10:37 AM Exam Location: Echo Lab Patient Status: Outpatient Admit Date: 02/03/2023 Staff Ordering Physician: Blayne Aguero DO Attending Provider: Blayne Aguero DO Exercise Technologist: Shonna Albarran CT Exercise Physician: Blayne Aguero DO Exam Type: CA stress gabino w NM Study Info Indications R06.09 - Other forms of dyspnea A regadenoson stress test was performed. Summary 1. 1. Negative lexiscan stress test for ischemic ST changes by ECG criteria. 2. 2. Baseline hypertension. 3. 3. Nuclear scan to follow and will be reported separately. Please correlate with it. 4. 4. Patient informed of the above results. Protocol: Lexiscan Stress ECG Details Stage: REST Duration (min): 1 min : 0 sec HR (bpm): 68 SBP (mmHg): 148 DBP (mmHg): 78 Stage: REST Duration (min): 10 min : 24 sec HR (bpm): 65 SBP (mmHg): 148 DBP (mmHg): 78 Stage: STAGE 1 Duration (min): 0 min : 59 sec HR (bpm): 82 SBP (mmHg): 147 DBP (mmHg): 65 Stage: RECOVERY Duration (min): 1 min : 0 sec HR (bpm): 87 SBP (mmHg): 147 DBP (mmHg): 65 Stage: RECOVERY Duration (min): 2 min : 0 sec HR (bpm): 86 SBP (mmHg): 147 DBP (mmHg): 65 Stage: RECOVERY Duration (min): 3 min : 0 sec HR (bpm): 84 SBP (mmHg): 130 DBP (mmHg): 65 Stage: RECOVERY Duration (min): 4 min : 0 sec HR (bpm): 83 SBP (mmHg): 130 DBP (mmHg): 65 Stage: RECOVERY Duration (min): 4 min : 22 sec HR (bpm): 83 SBP (mmHg): 130 DBP (mmHg): 65 Rest HR: 65 bpm Peak HR: 87 bpm Rest Sys BP: 148 mmHg Peak Sys BP: 147 mmHg Max Pred HR: 149 bpm % Max Pred HR: 58 % Target HR: 127 bpm Max RPP: 12,789 bpm*mmHg Termination Reason: Completed protocol Cardiac Symptoms: Shortness of breath, Chest discomfort, Nausea Total Time: 1 min : 0 sec Rest Gama BP: 78 mmHg Peak Gama BP: 65 mmHg Total Dose: 0.4 mg Resting ECG Sinus rhythm, RBBB. Stress ECG No ST changes. Arrhythmias None. Report Signatures
== END 2023-02-03 08:23 | disposition home or self-care (01) ==
LOC: ANHCARD 08:24
PROVIDERS: PCP Family Medicine; Visit Provider Internal Medicine Cardiovascular Disease
DX: R07.9 Chest pain, unspecified (principal)
CPT/HCPCS: 78452; 93017; 93306; A9502; J2785

== ENCOUNTER 2023-07-29 13:39 | Outpatient (CLI) | payer MEDICARE, SELFPAY ==
--- NOTE | ~2023-07-29 | CT_ITS ---
EXAMINATION: CT abdomen pelvis wo con DATE: 07/29/2023 14:10 INDICATION: Bilateral flank pain. TECHNIQUE: Computed tomography (CT) of the abdomen and pelvis was performed without intravenous contr ast. Automated exposure control and iterative reconstruction technique were employed. The dose-length product was 1528.53 mGy-cm. COMPARISON: 11/25/2022 and MRI dated 09/21/2021 FINDINGS: Mild discoid atelectasis at the lingula. Heart size is normal. Atherosclerotic coronary artery calcif ication is. No pericardial effusion. Chronic 4.5 x 1.8 cm cyst abutting the right anterior pericardiu m which could represent either a pericardial cyst or foregut duplication cyst. Bilateral breast impla nts. Liver, gallbladder, spleen, pancreas and bilateral adrenal glands are normal. 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 Bilateral nonobstructing nephrolithiasis with 4 stones measur ing up to 2-3 mm the right kidney and 2 mm stone in the left kidney. There are multiple left renal cy sts several of which demonstrate typical fluid attenuation and a couple measuring up to 2.0 cm extens ric soft tissue density but are confirmed to be proteinaceous/hemorrhagic cysts on prior MRI dated . No ureteral stones or hydronephrosis. Small bowel and appendix are normal. Moderate diverticulosis with sigmoid predominance. There is wall thickening at the mid sigmoid colon with some associated inflammatory stranding suggestive of divert iculitis although differential would include malignancy. There are few mildly prominent but still sub centimeter round lymph nodes along the sigmoid mesentery as well as a mildly enlarged 16 x 12 mm lymp h node along the inferior mesenteric chain which could be either reactive or metastatic. Bladder is n ormal. The uterus is not identified and has likely been surgically resected. No free intraperitoneal gas or fluid. Thoracolumbar levoscoliosis with mild to moderate thoracic and upper lumbar and severe lower lumbar spondylosis. IMPRESSION: 1. Wall thickening and inflammatory stranding along the sigmoid colon where there are multiple divert icula suspicious for diverticulitis with some associated likely reactive lymphadenopathy along the si gmoid and inferior mesenteric lymph node chains. Differential would however include colon cancer with metastatic disease and would recommend further evaluation with colonoscopy when clinically appropria te. 2. Bilateral nonobstructing nephrolithiasis. Reviewed, dictated and finalized at location A. IMPRESSION: 1. Wall thickening and inflammatory stranding along the sigmoid colon where the re are multiple diverticula suspicious for diverticulitis with some associated likely reactive lymphadenopathy along the sigmoid and inferior mesenteric lymph node chains. Differential would however include colon cancer with metastatic d isease and would recommend further evaluation with colonoscopy when clinically appropriate. 2. Bilateral nonobstructing nephrolithiasis.
== END 2023-07-29 13:40 | disposition home or self-care (01) ==
PROVIDERS: PCP Internal Medicine; Visit Provider Physician Assistant
DX: N20.0 Calculus of kidney (principal)
CPT/HCPCS: 74176

== ENCOUNTER 2024-07-21 09:25 | Emergency (ER) | payer MEDICARE, SELFPAY ==
--- OUTSIDE RECORDS SUMMARY | 2024-07-21 09:26 | XMS_ITS | Clinical Summary ---
Author Organization [facility] Address [address] [place] [address] Phone Care Team Providers Care Electron Microprobe Operator Name Role Phone Tyler Larson MD Primary Care Provider [phone] Ryan Hurt MD Unavailable Aleksander Gonzales DO Unavailable [phone] Allergies Active Allergy Reactions Criticality Noted Date Comments Acrylate Copolymer Rash,Unknown Low 02/13/2021 Chlorine Rash,Unknown Low 08/07/2013 Coffee Flavoring Agent (Non-Screening) Other (see Comments) 09/03/2023 Diltiazem Hives,Other (see Comments) High 11/27/2008 DILTIAZEM HCL: HIVES/STOMACH ACHE ONLY IF SHE'S BEEN ON IT FOR MORE THAN 2 WKS - Converted from [employer] With prolonged use Doxycycline Hives,Other (see Comments) Medium 06/01/2013 With prolonged use Erythromycin Other (see Comments),Hives,Ra sh High 08/03/2007 ERYTHROMYCIN: - Converted from [employer] ERYTHROMYCIN: - Converted from [employer] ERYTHROMYCIN: - Converted from [employer] Ethanol Rash,Unknown Low 07/02/2021 Formaldehyde Hives,Rash,Unknown Medium 02/13/2021 Gabapentin Nausea,Vomiting,Ot her (see Comments),Rash,Unk nown High 08/06/2021 Difficulty breathing, confusion, vertigo, shaking , cold , feeling foggy Difficulty breathing, confusion, vertigo, shaking , cold , feeling foggy Difficulty breathing, confusion, vertigo, shaking , cold , feeling foggy Difficulty breathing, confusion, vertigo, shaking , cold , feeling foggy Lactose Other (see Comments) 09/03/2023 Lidocaine Rash,Unknown High 05/14/2013 In Dental applications, patient can not take Lidocaine LIDOCAINE: - Converted from [employer] Dental injection route only, other applications ok In Dental applications, patient can not take Lidocaine LIDOCAINE: - Converted from [employer] Meloxicam Nausea Low 02/19/2019 Metronidazole Hives Medium 08/08/2023 Morphine Other (see Comments) Low 04/01/2022 Pt states does NOT work Orris Rash,Unknown High 02/13/2021 In perfumes & lotions Phenol Rash,Unknown Medium 02/13/2021 Medications amLODIPine (NORVASC) 10 MG Tablet Take 1 Tablet by mouth daily. 1 Active rosuvastatin (CRESTOR) 20 MG Tablet Take 1 Tablet by mouth daily. 7 Active aspirin EC 81 MG Tablet Delayed Response Take 1 Tablet by mouth daily. Active glipiZIDE (GLUCOTROL) 5 MG Tablet Take 1 Tablet by mouth daily. 2 Active Janumet 50-500 MG Tablet Take 1 Tablet by mouth daily. 8 Active Restasis 0.05 % Emulsion Place 1 Drop in affected eye(s). 4 Active albuterol 108 (90 Base) MCG/ACT Aerosol Solution take 2 Puffs by inhalation. Active Cholecalcifero l (Vitamin D3) 125 mcg Capsule Take 125 mcg by mouth. Active Cyanocobalamin (VITAMIN B-12) 100 MCG Tablet Take 50 mcg by mouth. Active Fluticasone Furoate-Vilant cesia (BREO ELLIPTA) 200-25 MCG/ACT AEROSOL POWDER, BREATH ACTIVATED take 1 Puff by inhalation. 1 Active azelastine (ASTELIN) 0.1 % Solution 2 Sprays by Nasal route. 3 Active Multi Vitamin/Minera ls Tablet Take 1 Tablet by mouth daily. Active acetaminophen (TYLENOL) 500 MG Tablet Take 1,000 mg by mouth. 3 Active nystatin (MYCOSTATIN) 204407 UNIT/GM Ointment Use with the Triamcinolone ointment 0.1% to the vulvar skin 2-3 times a week, 4 Active triamcinolone (KENALOG) 0.1 % Ointment Use with the nystatin ointment to vulvar skin 2-3 times a week 4 Active lisinopril (PRINIVIL, ZESTRIL) 20 MG Tablet Take 20 mg by mouth daily. Active lisinopril-hyd roCHLOROthiazi de (PRINZIDE, ZESTORETIC) 20-12.5 MG Tablet Take 1 Tablet by mouth daily. Active Active Problems No known active problems Immunizations Immunization Administration Dates Next Due Covid-19, Mrna, Lnp-s, Pf, 1 00 Mcg Or 50 Mcg Dose (MODERNA) 09/04/2021,05/26/2020,04/24/2020 Influenza, Recombinant, Quadrivalent,injectable, Pf 12/24/2020 Influenza, high-dose, trivalent, PF 12/25/2019 Family History Medical History Relation Name Comments Cancer Brother 1 Asthma Brother 2 Alzheimer's Disease Father Dementia Father Diabetes Father Heart Attack Father Relation Name Status Comments Brother 1 Brother 2 Father Social History Tobacco Use Types Packs/Day Years Used Date Smoking Tobacco: Never Smokeless Tobacco: Never Tobacco Cessation:Counseling Given: Not Answered Alcohol Use Standard Drinks/Week Comments Not Currently 0 (1 standard drink = 0.6 oz pur e alcohol) Comments Unknown Sex and Gender Information Value Date Recorded Sex Assigned at Not on file Legal Sex Female 2:16 PM CDT Gender Identity Not on file Sexual Orientation Not on file Last Filed Vital Signs Vital Sign Reading Time Taken Comments Blood Pressure 120/76 03/13/2024 10:08 AM RPG PROGRAMMER Pulse 82 03/13/2024 10:08 AM RPG PROGRAMMER Temperature 36.7 C (98 F) 03/13/2024 10:08 AM RPG PROGRAMMER Respiratory Rate 18 03/13/2024 10:08 AM RPG PROGRAMMER Oxygen Saturation 97% 03/13/2024 10:08 AM RPG PROGRAMMER Inhaled Oxygen Concentration - - Weight 107 kg (236 lb) 03/13/2024 10:08 AM RPG PROGRAMMER Height 165.1 cm (5' 5 ) 03/13/2024 10:08 AM RPG PROGRAMMER Body Mass Index 39.27 03/13/2024 10:08 AM RPG PROGRAMMER Plan of Treatment Upcoming Encounters Date Type Department Care Team (Late st Contact Info) Description 09/04/2024 10:15 AM CDT Lab [facility] [address] [id number] Lab, Cc [facility] 09/04/2024 11:00 AM CDT Ancillary Procedure [facility] [address] [id number] 09/11/2024 10:30 AM CDT Office Visit [facility] [address] [phone] Aleksander Gonzales, DO [address] [place] [phone] Health Maintenance Due Date Last Done Comments Mammogram Unilateral 1950 TdaP Immunization 1950 Cologuard 2001 Immunochemical Fecal Occult Blood 2001 Zoster Immunization (1 of 2) 2001 Influenza Immunization (#1) 2023 092 05/2020, 12/25/2019, 12/19/2018, Additional history exists SARS-COV-2 Immunization ( season) 2023 09/04/2021, 03/12/2021, 05/26/2020, Additional history exists DEXA Bone Density 06/12/2025 06/13/2023, , 01/05/2019 Colonoscopy 11/23/2033 11/24/2023, 09/05/2023 Colorectal Cancer Screening 11/23/2033 11/24/2023, 09/05/2023 Hepatitis C Virus (HCV) Screening Completed 12/27/2017 Pneumococcal Immunization (50+ years) Completed 02/14/2024, 01/18/2018, 01/14/2018, Additional history exists Respiratory Syncytial Virus (RSV) Immunization (Adult) Completed 02/14/2024 Hepatitis B Immunization Aged Out No longer eligible based on patient's age to complete this topic Meningococcal Immunization (ACWY) Aged Out No longer eligible based on patient's age to complete this topic Rotavirus Immunization Aged Out No lo nger eligible based on patient's age to complete this topic Insurance MEDICARE [id number] MEDICARE Care Teams Electron Microprobe Operator Relationship Specialty Start Date End Date Tyler Larson MD [address] [place] [address] [address] [place] [address] PCP - General Internal Medicine 10/17/23 Ryan Hurt MD [address] [address] Referring Provider Internal Medicine 10/17/23 Aleksander Gonzales DO [address] [place] [phone] Consulting Physician Oncology 10/17/23
--- OUTSIDE RECORDS SUMMARY | 2024-07-21 09:26 | XMS_ITS ---
Author Organization [employer] [place] ([address]) Address [address] [place] [address] Care Team Providers Care Cytotechnologist/Cytology Supervisor Name Role Phone Radha Jeffery Primary Care Provider Unavaila Adore Andrea Unavailable [phone] [employer], Provider Unavailable Unavailab le Allergies Allergen (clinical drug ingredient) Drug/Non Drug Allergy documented on EMR Reaction Allergy Type Onset Date Status PHENOL TOPICAL (uncoded) other reaction Allergy Active erythromycin Erythromycin other reaction Drug Allergy [facility] Encounter Medications Medication SIG (Take, Route, Frequency, Duration) Notes Start Date End Date Status amLODIPine Besylate 10 MG 1 tab(s) orally once a day Active ALBUTEROL (EQV-PROVENTIL HFA) 90 MCG/INH 2 PUFF(S) INHALED Q4-6 HOURS, PRN AND PER THE ASTHMA ACTION PLAN for 30 DAY(S) *Please review for potential replacement for e-prescription and drug interaction check* Active Crestor 20 MG 1 tab(s) orally once a day Active Aspirin 81 MG 1 tab(s) orally once a day Active Janumet 50-500 MG 1 tab(s) orally 2 times a day Active Breo Ellipta 200 MCG-25 MCG/INH 1 PUFF(S) INHALED ONCE A DAY prn *Please review and pick correct strength-formulatio n from Median options. If intended option is not shown, discontinue and re-order from Quick Search* Active ASTELIN 137 MCG/INH 2 SPRAY(S), EACH NOSTRIL INTRANASALLY BID for 30 DAY(S) *Please review for potential replacement for e-prescription and drug interaction check* Active Olmesartan Medoxomil 40 MG 1 tab(s) orally once a day Active glipiZIDE 5 MG 1 tab(s) orally once a day Active Encounters Encounter Location Date Provider Diagnosis [address] [address] 09/17/2023 Provider Kobi Moderate persistent asthma, uncomplicated J45.40 Assessments Encounter Date Diagnosis (ICD Code) Assessment Notes Treatment Notes Treatment Clinical Notes Section Notes 09/17/2023 Moderate persistent asthma, uncomplicated (ICD-10 - J45.40) Plan Of Treatment Medication Medication Name Sig Start Date Stop Date Notes ALBUTEROL (EQV-PROVENTIL HFA) 90 MCG/INH 2 PUFF(S) INHALED Q4-6 HOURS, PRN AND PER THE ASTHMA ACTION PLAN for 30 DAY(S) *Please review for potential replacement for e-prescription and drug interaction check* Breo Ellipta 200 MCG-25 MCG/INH 1 PUFF(S) INHALED ONCE A DAY prn *Please review and pick correct [facility]. If intended option is not shown, discontinue and re-order from Quick Search* ASTELIN 137 MCG/INH 2 SPRAY(S), EACH NOSTRIL INTRANASALLY BID for 30 DAY(S) *Please review for potential replacement for e-prescription and drug interaction check* Progress Notes * Jose ManuelErna WDOB:1950 (74 yo F)Acc No.[id number]:09/17/2023 Patient: Erna TREVIZO W Provider: Marcia Epperson :1950 A ge:73 Y S ex:Female Date:09/17/2023 Address:[address] [place], [place] [address] Pcp:Radha Jeffery Subjective: * Chief Complaints: * 1 . [facility]. * Medical History: * Medications: T aking glipiZIDE 5 MG Tablet 1 tab(s) orally once a day , Taking Olmesartan Medoxomil 40 MG Tablet 1 tab(s) orally once a day , Taking Janumet 50-500 MG Tablet 1 tab(s) orally 2 times a day , Taking Aspirin 81 MG Tablet Delayed Release 1 tab(s) orally once a day , Taking Crestor 20 MG Tablet 1 tab(s) orally once a day , Taking amLODIPine Besylate 10 MG Tablet 1 tab(s) orally once a day * Allergies: P HENOL TOPICAL: other reaction, Erythromycin: other reaction. Objective: * Vitals: Assessment: * Assessment: 1. M oderate persistent asthma, uncomplicated - J45.40 (Primary) Plan: * Treatment: 2. O thers Continue ASTELIN SPRAY, 137 MCG/INH, 2 SPRAY(S), EACH NOSTRIL, INTRANASALLY, BID, 30 DAY(S), 1, Refills 3, Notes to Pharmacist: *Please review for potential replacement for e-prescription and drug interaction check*. * Billing Information: * Visit Code: * Procedure Codes: * Electronic signature of Mary MONTOYA-Migration on 07/21/2024 at 09:26 AM CDT Sign off status: Pending * Provider: Marcia mao Migration Date: 09/17/2023 Generated for Stephenie quezada/Ruby/Vladimir on: 07/21/2024 09:26 AM CDT
--- OUTSIDE RECORDS SUMMARY | 2024-07-21 09:26 | XMS_ITS | Encounter Summary ---
Author Organization [facility] Address [address] [facility] [place] [address] Care Team Providers Care Glove Former Name Role Phone Laura Waterman MD Primary Care Provider [phone] Tyler Larson MD Primary Care Provider [phone] Encounter Details Date Type Department Care Team (Late st Contact Info) Description 10/19/2022 Lab Requisition [facility] [address] [facility] [place] [address] Chata Gonzalez MD [address] [facility] [address] [place] [address] Social History Tobacco Use Types Packs/Day Years Used Date Smoking Tobacco: Never Smokeless Tobacco: Never Alcohol Use Standard Drinks/Week Comments Not Currently 0 (1 standard drink = 0.6 oz pur e alcohol) Comments No Sex and Gender Information Value Date Recorded Sex Assigned at Female 07/29/2021 10:25 AM CDT Legal Sex Female 2:27 PM SAP SD ANALYST Gender Identity Female 07/29/2021 10:25 AM CDT Sexual Orientation Straight 07/29/2021 10 :25 AM CDT documented as of this encounter Plan of Treatment Not on file documented as of this encounter Procedures Procedure Name Priority Date/Time Associated Diagnosis Comments DERMATOPATHOLOGY Routine 10/19/2022 1:33 PM CDT documented in this encounter Results * DERMATOPATHOLOGY (10/19/2022 1:33 PM CDT) Case Report Dermatopathology Report Case: [id number] Authorizing Provider: Chata Gonzalez MD Collected: 10/19/2022 01:33 PM Ordering Location: [facility] Received: 10/19/2022 04:15 PM Pathologist: Ty Bautista MD Specimen: Skin, left forehead 3 2:11 PM CDT DERMATOPATHOLOGY LABORATORY Final Diagnosis Specimen A. SKIN, left forehead: PIGMENTED SEBORRHEIC KERATOSIS (L82.1) 3 2:11 PM CDT DERMATOPATHOLOGY LABORATORY Clinical History BROWN MACULE R/O AK VS LENTIGO VS MM, IRREGULAR COLOR 3 2:11 PM CDT DERMATOPATHOLOGY LABORATORY Gross Description Specimen A: Received is one formalin filled container labeled with the patient's name and designated left forehead. The specimen consists of a shave biopsy measuring 3x2x1 mm. Jar 0. 3 2:11 PM CDT DERMATOPATHOLOGY LABORATORY Microscopic Description Specimen A. SKIN, left forehead: Sections show an acanthotic lesion composed of relatively uniform keratinocytes. There is hyperkeratosis and pseudo horn cysts. Pigment is present in the keratinocytes composing this tumor. 3 2:11 PM CDT DERMATOPATHOLOGY LABORATORY Disclaimer An external and internal positive and negative controls are appropriate for the histochemical, immunohistochemical and immunofluorescence stain(s) in this case (if any), except where stated explicitly. The performance characteristics of the stain(s) cited in this report were developed and its performance characteristic determined by the Dermatopathology Laboratory at [facility], directed by Dr. Zakia Bautista. These tests need not be, and therefore are not, approved by the [place] Food and Drug Administration. The tests are used for clinical purposes. Billing Codes Specimen Charges Stain Charges 45136 1 3 2:11 PM CDT DERMATOPATHOLOGY LABORATORY Embedded Images 3 2:11 PM CDT DERMATOPATHOLOGY LABORATORY Pathology/Cytolo gy TISSUE SPECIMEN FROM SKIN / Unknown 10/19/2022 1:33 PM CDT 10/19/2022 4:15 PM CDT Chata Gonzalez MD LAB - PATHOLOGY/CYTOLOGY ORD ERABLES Final Result DERMATOPATHOLOGY LABORATORY [facility] - Department of Dermatology [facility] [address] [place] [address], [address] [phone] documented in this encounter Visit Diagnoses Not on filedocumented in this encounter Care Teams Glove Former Relationship Specialty Start Date End Date Laura Waterman MD [address] [place] [phone] PCP - General Internal Medicine 07/02/21 08/07/23 Tyler Larson MD [address] [facility] [address] [place] [address] PCP - General Internal Medicine 08/08/23 documented as of this encounter
--- OUTSIDE RECORDS SUMMARY | 2024-07-21 09:27 | XMS_ITS | Patient Health Record ---
Author Organization [facility] [employer] ([address]) Address [address] [place] [address] Care Team Providers Care Supervisor Of Way Name Role Phone Radha Jeffery Primary Care Provider Unavaila Adore Andrea Unavailable [phone] [employer], Provider Unavailable Unavailab le Allergies Allergen (clinical drug ingredient) Drug/Non Drug Allergy documented on EMR Reaction Allergy Type Onset Date Status PHENOL TOPICAL (uncoded) other reaction Allergy Active erythromycin Erythromycin other reaction Drug Allergy Active Reason For Referral No Information Medications Medication SIG (Take, Route, Frequency, Duration) Notes Start Date End Date Status BREO ELLIPTA 200 mcg-25 mcg/inh 1 puff(s) inhaled once a day prn Active AMLODIPINE 10 mg 1 tab(s) orally once a day Active GLIPIZIDE 5 mg 1 tab(s) orally once a day Active ASTELIN 137 MCG/INH 2 SPRAY(S), EACH NOSTRIL INTRANASALLY BID for 30 DAY(S) *Please review for potential replacement for e-prescription and drug interaction check* Active amLODIPine Besylate 10 MG 1 tab(s) orally once a day Active ALBUTEROL (EQV-PROVENTIL HFA) 90 MCG/INH 2 PUFF(S) INHALED Q4-6 HOURS, PRN AND PER THE ASTHMA ACTION PLAN for 30 DAY(S) *Please review for potential replacement for e-prescription and drug interaction check* Active Crestor 20 MG 1 tab(s) orally once a day Active Breo Ellipta 200 MCG-25 MCG/INH 1 PUFF(S) INHALED ONCE A DAY prn *Please review and pick correct strength-formulatio n from [employer] options. If intended option is not shown, discontinue and re-order from Quick Search* Active Aspirin 81 MG 1 tab(s) orally once a day Active Janumet 50-500 MG 1 tab(s) orally 2 times a day Active ASPIRIN 81 mg 1 tab(s) orally once a day Active Olmesartan Medoxomil 40 MG 1 tab(s) orally once a day Active CRESTOR 20 mg 1 tab(s) orally once a day Active glipiZIDE 5 MG 1 tab(s) orally once a day Active OLMESARTAN 40 mg 1 tab(s) orally once a day Active JANUMET 500 mg-50 mg 1 tab(s) orally 2 times a day Active Social History Tobacco Use: Social History Observation Description Date Details (start date - stop date) Never Smoker NA - NA Smoking Smart Form: Question Answer Notes Are you a: never smoker Section Notes: recently moved to [facility] recently moved to [facility] recently moved to [facility] Problems Problem Type SNOMED Code ICD Code Onset Dates Problem Status W/U Status Risk Notes Problem Hyperlipidemia (81256328) Hyperlipidemia, unspecified (E78.5) Active confirmed Problem Chronic allergic conjunctivitis (66611719) Other chronic allergic conjunctivitis (H10.45) Active confirmed Problem Allergic rhinitis caused by pollen (disorder) (99544893) Allergic rhinitis due to pollen (J30.1) Active confirmed Problem Allergic rhinitis (58467610) Other allergic rhinitis (J30.89) Active confirmed Problem Chronic rhinitis (09988933) Chronic rhinitis (J31.0) Active confirmed Problem Uncomplicated mild persistent asthma (004140639) Mild persistent asthma, uncomplicated (J45.30) Active confirmed Problem Uncomplicated moderate persistent asthma (364401544) Moderate persistent asthma, uncomplicated (J45.40) Active confirmed Problem Uncomplicated severe persistent asthma (700462711) Severe persistent asthma, uncomplicated (J45.50) Active confirmed Problem Allergic rhinitis caused by animal hair and dander (205169244771661) Allergic rhinitis due to animal (cat) (dog) hair and dander (J30.81) Active confirmed Problem Obstructive sleep apnea syndrome (disorder) (41927440) Obstructive sleep apnea (adult) (pediatric) (G47.33) Active confirmed Problem Essential hypertension (30929368) Essential (primary) hypertension (I10) Active confirmed Problem COVID-19 (224242386) COVID-19 (U07.1) Active confirmed Encounters Encounter Location Date Provider Diagnosis [address] [place] [address] 09/17/2023 Provider Kobi Moderate persistent asthma, uncomplicated J45.40 Assessments Encounter Date Diagnosis (ICD Code) Assessment Notes Treatment Notes Treatment Clinical Notes Section Notes 09/17/2023 Moderate persistent asthma, uncomplicated (ICD-10 - J45.40) Plan Of Treatment No Information Insurance Providers Payer Name Payer Address Payer Phone Subscriber Number Group Number Insured Name Patient Relationship to Insured Coverage Start Date Coverage End Date [employer] (Medicare) Attention Claims [address] [place] [address] [id number] Erna Nance Self - patient is the insured [facility] [address] [place] [address] [id number] Erna Nance Self - patient is the insured Medical (General) History Medical History History ICD Code chemical exposure-hives Essential (primary) hypertension I10 Hyperlipidemia, unspecified E78.5 Surgical History Surgery Date(Month/Year) back surgery hysterectomy kidney stone reconstructive pelvic surgery cyctocele lymph node removal Left breast colonoscopy endoscopy Hospitalization History Reason Date(Month/Year) Kidney stones 03/2022 Diverticulitis 05/2022
--- OUTSIDE RECORDS SUMMARY | 2024-07-21 09:27 | XMS_ITS | Encounter Summary ---
Author Organization [facility] Address [address] [facility] [place] [address] Care Team Providers Care Wafer Line Worker Name Role Phone Tyler Larson MD Primary Care Provider [phone] Reason for Visit * Reason Onset Date Comments Med Question 03/22/2024 Encounter Details Date Type Department Care Team (Late st Contact Info) Description 03/22/2024 Telephone [facility] [address] [facility] [address] [place] [address] Ria Walton MD [address] [facility] [address] [place] [address] Med Question Social History Tobacco Use Types Packs/Day Years Used Date Smoking Tobacco: Never Passive Smoke Exposure: Never Smokeless Tobacco: Never Alcohol Use Standard Drinks/Week Comments Not Currently 0 (1 standard drink = 0.6 oz pur e alcohol) PHQ-2 Answer Date Recorded Patient Health Questionnaire-2 Score 0 10/26/2023 Comments No Sex and Gender Information Value Date Recorded Sex Assigned at Female 07/29/2021 10:25 AM CDT Legal Sex Female 2:27 PM MANAGER ANALYSIS Gender Identity Female 07/29/2021 10:25 AM CDT Sexual Orientation Straight 07/29/2021 10 :25 AM CDT documented as of this encounter Miscellaneous Notes * Telephone Encounter - Olivia Wallace RN - 03/22/2024 3:55 PM CST Returned patient's call. No answer. Left a message with return call back number. GER ANALYSIS * Telephone Encounter - Karoline Jospeh - 03/22/2024 3:50 PM CST Patient states she is experiencing vaginal pain and is going to the bathroom frequently and states this is unusual for her. Please call back at [phone] GER ANALYSIS documented in this encounter Plan of Treatment Not on file documented as of this encounter Visit Diagnoses Not on filedocumented in this encounter Care Teams Wafer Line Worker Relationship Specialty Start Date End Date Tyler Larson MD [address] [address] PCP - General Internal Medicine 08/08/23 documented as of this encounter
--- OUTSIDE RECORDS SUMMARY | 2024-07-21 09:27 | XMS_ITS | CCD ---
Author Name Interface, [address] Address [place] [address] [facility] Address [place] [address] Reason for Visit Functional Status Medications Social History
--- OUTSIDE RECORDS SUMMARY | 2024-07-21 09:27 | XMS_ITS | Clinical Summary ---
Author Organization [facility] Address [address] [place] [address] Care Team Providers Care Underwriter Mortgage Loan Name Role Phone Tyler Larson MD Primary Care Provider [phone] [facility],non-owned Affiliates and Associated Physician Practices is amultiple site organization consisting of ambulatory clinics and hospital sitesin [place], [place], [place] and [place]. This disclosure is being madepursuant to the Care Everywhere program and may not contain all information available regarding this patient. Last updated 17.[facility] Allergies Active Allergy Reactions Criticality Noted Date Comments Acrylate Copolymer Other,Rash,Unknown Medium Carbomer Unknown 07/02/2021 Diane Albicans Extract Unknown 07/02/2021 Diltiazem Urticaria Medium 07/02/2021 Chlorine Unknown 07/02/2021 Cigarette Smoke [Other] Unknown 02/13/2021 Received name: Cigarette Smoke Coffee Flavor Nausea and/or Vomiting,Other Low 09/03/2023 diesel [Other] Unknown 07/02/2021 Doxycycline Urticaria Medium 07/02/2021 Dust Mite Extract Unknown 07/02/2021 Minocycline Urticaria Medium 07/02/2021 Erythromycin GI Discomfort,Rash High 08/03/2007 ERYTHROMYCIN: - Converted from [facility] Ethanol Unknown 07/02/2021 Formaldehyde Rash,Unknown Medium 02/13/2021 Gabapentin Other High 08/06/2021 Difficulty breathing, confusion, vertigo, shaking , cold , feeling foggy [place] GI Discomfort 03/18/2014 Lidocaine Rash,Unknown High 05/14/2013 In Dental applications, patient can not take Lidocaine LIDOCAINE: - Converted from [facility] Metronidazole Urticaria Medium 08/08/2023 Plegisol GI Discomfort 07/02/2021 Molds & Smuts Unknown 07/02/2021 Orris Rash,Unknown Medium 02/13/2021 Phenol Rash,Unknown Medium 02/13/2021 Medications * Be aware that medications may not be up to date on this document. Alwaysverify current medications with the patient. amLODIPine (NORVASC) 10 MG tablet Take 1 (one) tablet by mouth once daily 2 Active rosuvastatin (CRESTOR) 20 MG tablet Take 1 (one) tablet by mouth once daily 2 Active aspirin EC (ECOTRIN) 81 MG tablet Take 1 (one) tablet by mouth once daily Active JANUMET 50-500 MG tablet Take 1 (one) tablet by mouth once daily 1 Active olmesartan-hyd roCHLOROthiazi de (BENICAR HCT) 40-12.5 MG tablet Take 1 (one) tablet by mouth once daily 1 Active glipiZIDE (GLUCOTROL) 5 MG tablet Take 1 (one) tablet by mouth once daily Active Multiple Vitamins-Hairspring Cutter als (WOMENS 50+ MULTI VITAMIN/MIN PO) Take 1 tablet by mouth once daily Active Zinc 50 MG tablet Take 1 (one) tablet by mouth once daily Active oxyCODONE, immediate release, (Roxicodone) 5 MG tablet Take 1 (one) tablet by mouth every 8 hours as needed 2 Active acetaminophen (Tylenol) 500 MG tablet Take 2 (two) tablets by mouth every 6 hours as needed 3 Active azelastine (Astelin) 0.1 % nasal spray [place] 2 (two) sprays into each nostril once daily as needed 3 Active triamcinolone acetonide (Kenalog) 0.1 % ointmentIndica tions:LSC (lichen simplex chronicus) Use with the nystatin ointment to vulvar skin 2-3 times a week 30 g 4 4 Active Additional Information Patient not taking.Reported on 06/06/2024 nystatin (Mycostatin) [id number] UNIT/GM ointmentIndica tions:History of candidiasis,LS C (lichen simplex chronicus),Fun gal infection Use with the Triamcinolone ointment 0.1% to the vulvar skin 2-3 times a week, 30 g 4 4 Active Additional Information Patient not taking.Reported on 06/06/2024 nystatin (Mycostatin) [id number] UNIT/GM powderIndicati ons:History of candidiasis,LS C (lichen simplex chronicus) Use to skin folds 2 times a day as needed 60 g 3 4 Active Additional Information Patient not taking.Reported on 06/06/2024 cyanocobalamin 100 MCG tablet Take 1 (one) tablet by mouth once daily Active fluticasone-vi lanterol (Breo Ellipta) 200-25 MCG/ACT inhaler 1 PUFF(S) INHALED ONCE A DAY Active lisinopril (Prinivil; Zestril) 20 MG tablet Take 1 (one) tablet by mouth once daily 4 Active Active Problems Problem Noted Date Diagnosed Date Asymptomatic menopausal state 02/09/2023 Fatigue 02/09/2023 02/09/2023 Nail abnormality 02/09/2023 02/09/2023 Chronic pain of both knees 02/09/202302/09 Pain in left knee 02/09/2023 02/09/2023 Right wrist pain 02/09/2023 02/09/2023 Mass of subcutaneous tissue of back 03/15/2022 02/09/2023 Overview (02/09/2023): Added automatically from request for surgery [id number] Bilateral breast cysts 03/14/2022 Diverticular disease 10/29/2021 02/09/2023 Essential (primary) hypertension 07/07/2021 Overview (07/07/2021): Converted from [facility]: Description - HYPERTENSION Fatty liver disease, nonalcoholic 07/07/2021 Gastro-esophageal reflux disease without esophag itis 07/07/2021 Overview (07/07/2021): Converted from [facility]: Description - GASTROESPOHAGEAL REFLUX DISEASE Mixed hyperlipidemia 07/07/2021 Overview (07/07/2021): Converted from [facility]: Description - DYSLIPIDEMIA Personal history of malignant neoplasm of breast 07/07/2021 Overview (07/07/2021): Converted from [employer] - Informáticacity: Description - BREAST CANCER Dyslipidemia 03/11/2021 02/09/2023 COPD (chronic obstructive pulmonary disease) 03/2021 Diverticulitis of intestine with abscess 021 Abdominal wall pain 01/24/2019 Overview (07/07/2021): Added automatically from request for surgery [id number] Obesity 12/25/2018 Mild intermittent asthma 03/14/2018 Complications due to genitou rinary device, implant, and graft 12/05/2017 02/09/2023 Menopausal syndrome 12/05/2017 02/09/2023 Type 2 diabetes mellitus without complications 0 12/02/2014 Overview (07/04/2024): Converted from [facility]: Description - DIABETES MELLITUS, TYPE II IMO 07/04/2024 Abnormal results of liver function studies 11/27 Overview (07/07/2021): Converted from [facility]: Description - LIVER FUNCTION TESTS, ABNORMAL Female genital symptoms 07/30/2013 Foreign body in vagina 07/30/2013 Other difficulties with micturition 01/24/2013 Overview (07/07/2021): Converted from [facility]: Description - SLOWING OF URINARY STREAM Urinary incontinence without sensory awareness 1 Overview (07/07/2021): Converted from [facility]: Description - INCONTINENCE WITHOUT SENSORY AWARENESS Pelvic and perineal pain 09/01/2012 Overview (07/07/2021): Converted from [facility]: Description - UNSPEC SYMPTOM ASSOC W/FEMALE GENITAL ORGANS Vitamin D deficiency 06/09/2009 Overview (07/07/2021): Converted from [facility]: Description - UNSPECIFIED VITAMIN D DEFICIENCY Encounters Date Type Department Care Team Description 06/27/2024 11:30 AM CDT Office Visit [facility] - GROUND OPERATIONS SUPERVISOR [address] [facility] [address] [place] [address] Ria Walton MD Abdominal wall pain (Primary Dx); 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 Travel 06/06/2024 10:30 AM MAINTENANCE TEAM MEMBER Office Visit [facility] - Plastic Surgery [address] [place] [id number] Valerio Jett MD Neuroma (Primary Dx); Abdominal wall pain 06/06/2024 Travel from Last 3 Months Family History Medical History Relation Name Comments CAD (Coronary Artery Disease) Father Dementia Father Diabetes - Type 2 Father Hyperlipidemia Father Hyperlipidemia Mother Hypertension Mother Relation Name Status Comments Father (Age 93) Maternal Grandfather Maternal Grandmother Mother Paternal Grandfather Paternal Grandmother Social History Tobacco Use Types Packs/Day Years Used Date Smoking Tobacco: Never Passive Smoke Exposure: Never Smokeless Tobacco: Never Tobacco Cessation:Counseling Given: Not Answered Alcohol Use Standard Drinks/Week Comments Not Currently 0 (1 standard drink = 0.6 oz pur e alcohol) PHQ-2 Answer Date Recorded Patient Health Questionnaire-2 Score 0 10/26/2023 Comments No Sex and Gender Information Value Date Recorded Sex Assigned at Female 07/29/2021 10:25 AM CDT Legal Sex Female 2:27 PM MAINTENANCE TEAM MEMBER Gender Identity Female 07/29/2021 10:25 AM CDT Sexual Orientation Straight 07/29/2021 10 :25 AM CDT Last Filed Vital Signs Vital Sign Reading Time Taken Comments Blood Pressure 142/82 06/27/2024 11:05 AM CDT Pulse 82 06/06/2024 10:17 AM MAINTENANCE TEAM MEMBER Temperature 36.4 C (97.5 F) 10/27/2023 8:10 AM CDT Respiratory Rate - - Oxygen Saturation 97% 06/06/2024 10:17 AM MAINTENANCE TEAM MEMBER Inhaled Oxygen Concentration - - Weight 108.9 kg (240 lb) 06/27/2024 11:05 AM CDT Height 170.2 cm (5' 7 ) 06/27/2024 11:05 AM CDT Body Mass Index 37.59 06/27/2024 11:05 AM CDT Plan of Treatment Health Maintenance Due Date Last Done Comments COLOGUARD (AGES 45-75) - COLON CA SCREENING [address] COLONOGRAPHY - COLON CA SCREENING 1950 FIT - COLON CA SCREENING 1950 FLEX SIG - COLON CA SCREENING 1950 MAMMOGRAM 1950 MEDICARE AWV 12 MONTHS 1950 DTAP/TDAP/TD VACCINES (1 - Tdap) 1970 PNEUMOCOCCAL VACCINE 50+ (1 of 2 - PCV) 1970 ZOSTER VACCINE (1 of 2) 2001 Respiratory Syncytial Virus (RSV) Vaccine Pt: or over 60 yrs (1 - Risk 60-74 years 1-dose series) 2011 DIABETES RETINOPATHY SCREENING 07/07/2021 DIABETES-FOOT EXAM WITH MONOFILAMENT 07/07/2021 COVID-19 VACCINE ( - season) 2023 09/04/2021, 03/12/2021, 05/26/2020, Additional history exists DIABETES-HGB A1C 03/03/2024 09/02/2023, , 04/15/2021, Additional history exists DEPRESSION SCREENING 04/04/2024 10/27/2023, 02/10/20 23 DIABETES - URINE PROTEIN SCREENING 04/04/2024 04/15/2021, 04/15/2021 INFLUENZA VACCINE (Season Ended) 2024 12/24/2020, 12/25/2019, 12/19/2018, Additional history exists DIABETES-SERUM CREATININE 03/17/20252023, 09/22/2023, 09/22/2023, Additional history exists COLONOSCOPY - COLON CA SCREENING 09/04/2033 09/05/2023 Colorectal Cancer Screening 09/04/2033 BONE DENSITY TESTING Completed 06/13/2023, 05/04/2021, 01/05/2019 HEPATITIS C SCREENING Completed 02/07/2024 , 02/07/2024, 12/27/2017 HEPATITIS B VACCINE Aged Out No longe r eligible based on patient's age to complete this topic HIB VACCINE Aged Out No longer eligi ble based on patient's age to complete this topic HPV VACCINE Aged Out No longer eligi ble based on patient's age to complete this topic MENINGOCOCCAL (Group B) VACCINE SHARED DECISION-MAKING Aged Out No longer eligible based on patient's age to complete this topic MENINGOCOCCAL GROUPS A/C/Y/W VACCINE Aged Out No longer eligible based on patient's age to complete this topic Procedures Procedure Name Priority Date/Time Associated Diagnosis Comments CREATININE - POCT INTERFACED Routine 07/20/2021 10:31 AM CDT from Last 3 Months or Most Recently Relevant to Health Maintenance Results * CREATININE - POCT INTERFACED (07/20/2021 10:31 AM CDT) [facility] Creatinine POCT 0.86 0.70 - 1.20 mg/dL 07/20/2021 10:42 AM CDT [facility] Blood BLOOD SPECIMEN / Unknown 07/20/2021 10:31 AM CDT 07/20/2021 10:42 AM CDT us Nishi Reese MD LAB - POINT OF CARE ORDERAB LES Final Result [facility] [address] [place] [address] from Last 3 Months or Most Recently Relevant to Health Maintenance Insurance MEDICARE [facility] MEDICARE MEDICARE Care Teams Underwriter Mortgage Loan Relationship Specialty Start Date End Date Tyler Larson MD [address] [place] [address] [address] [place] [id number] PCP - General Internal Medicine 08/08/23
--- OUTSIDE RECORDS SUMMARY | 2024-07-21 09:27 | XMS_ITS | Clinical Summary ---
Author Organization [facility] Address [facility] [place] [address] Care Team Providers Care Line Runner Name Role Phone Edwin Renee MD Primary Care Provider [phone] Allergies Active Allergy Reactions Criticality Noted Date Comments Acrylate Copolymer Rash Low 02/13/2021 Diane Albicans Extract Unknown 07/02/2021 Diltiazem Hives,Nausea and Vomiting 09/02/2023 With prolonged use Chlorine Rash Low 02/13/2021 Coffee Flavoring Agent (Non-Screening) Nausea and Vomiting 09/03/2023 Doxycycline Hives,Nausea and Vomiting 09/02/2023 With prolonged use Dust Mite Extract Nausea and Vomiting,Unknown Low 07/02/2021 Minocycline Hives,Nausea and Vomiting 09/02/2023 With prolonged use Erythromycin Rash High 02/13/2021 Ethanol Rash Low 09/02/2023 Formaldehyde Rash Low 02/13/2021 Gabapentin Rash Low 09/02/2023 Lactose GI Upset 09/03/2023 Lidocaine Rash Low 02/13/2021 Dental injection route only, other applications ok Loracarbef Hives 09/02/2023 After 4 to 6 days of use Metronidazole Hives 09/01/2023 Molds & Smuts Rash Low 09/02/2023 Morphine Other (see comment) Low 04/01/2022 Pt states does NOT work Orris Rash High 02/13/2021 In perfumes & lotions Phenol Rash Low 02/13/2021 Medications amLODIPine 10 MG tablet Take 1 tablet (10 mg total) by mouth daily. Active aspirin EC (ASPIRIN EC) 81 MG tablet Take 1 tablet (81 mg total) by mouth daily. Active fluticasone furoate-vilante rol (BREO ELLIPTA) 200-25 MCG/INH inhaler Inhale 1 puff into the lungs daily as needed for Other (allergies). Active glipiZIDE 5 MG tablet Take 1 tablet (5 mg total) by mouth daily with breakfast. Active SITagliptin-met FORMIN HCl (JANUMET) 50-500 MG Tab Janumet 50 mg-500 mg tablet Active rosuvastatin 20 MG tablet Take 1 tablet (20 mg total) by mouth daily. Active RESTASIS 0.05 % ophthalmic emulsion Place 1 drop into both eyes 2 (two) times daily. 4 Active fluticasone propionate (FLONASE) 50 MCG/ACT nasal spray 2 sprays by Nasal route daily as needed for Allergies (Last taken in fall 2022). Active Olmesartan Medoxomil-HCTZ (BENICAR HCT) 40-12.5 MG Tab Take 1 tablet by mouth daily. Active multi vitamin/mineral s (CENTRUM ADULTS) tablet Take 1 tablet by mouth daily. Active vitamin B-12 (CYANOCOBALAMIN ) 100 MCG tablet Take 1 tablet (100 mcg total) by mouth daily. Active vitamin D3, cholecalciferol , 125 mcg capsule Take 1 capsule (125 mcg total) by mouth daily. Active albuterol sulfate HFA 108 (90 Base) MCG/ACT inhaler Inhale 2 puffs into the lungs every 6 (six) hours as needed for Wheezing. Active montelukast (SINGULAIR) 10 MG tablet Take 1 tablet (10 mg total) by mouth daily as needed (Allergies). Active folic acid (FOLVITE) 1 MG tabletIndicatio ns:IBD (inflammatory bowel disease) Take 1 tablet (1 mg total) by mouth daily. 90 tablet 3 4 12/19/19 25 Active mesalamine EC (LIALDA) 1.2 g Tab EC tabletIndicatio ns:Colitis Take 2 tablets (2.4 g total) by mouth daily. Start with 1 tab daily for two weeks then increase to 2 tabs if tolerated 60 tablet 2 4 Active lisinopril (PRINIVIL) 20 MG tablet Take 1 tablet (20 mg total) by mouth daily. 4 Active lisinopril-hydr oCHLOROthiazide (ZESTORETIC) 20-12.5 MG tablet Take 1 tablet by mouth daily. 4 Active benzonatate (TESSALON) 200 MG capsule 4 Active azithromycin (ZITHROMAX) 250 MG tablet 4 Active Active Problems Problem Noted Date Diagnosed Date Abdominal pain 09/01/2023 Diarrhea 09/01/2023 Encounters Date Type Department Care Team Description 07/03/2024 [facility] [address] [place] [phone] Radha Hurt MD Results 07/02/2024 6:52 AM CDT - 07/02/2024 11:59 PM CDT Hospital Encounter [facility] [place] [address] Radha Hurt MD Discharge Disposition: Home or Self Care (Routine Discharge) 07/02/2024 Travel 06/26/2024 [facility]phone [facility] [address] [place] [address] Radha Hurt MD Question 06/01/2024 [facility]phone [facility] [address] [place] [address] Radha Hurt MD Results 05/30/2024 7:08 AM COMPOSITION MIXER - 05/30/2024 11:59 PM COMPOSITION MIXER Hospital Encounter [facility] [place] [address] Edwin Renee MD Discharge Disposition: Home or Self Care (Routine Discharge) 05/30/2024 Travel 05/18/2024 2:20 PM COMPOSITION MIXER Office Visit [facility] [address] [address] Radha Hurt MD Follow Up (Follow up and having new issues) 05/18/2024 Travel 04/25/2024 3:00 PM COMPOSITION MIXER Office Visit [facility] [address] [address] Nico Hernandez PA Follow Up (BL Knees ) 04/25/2024 Travel from Last 3 Months Family History Medical History Relation Comments Alzheimers Father Hypertension Mother Relation Status Comments Father Mother Social History Tobacco Use Types Packs/Day Years Used Date Smoking Tobacco: Never Passive Smoke Exposure: Never Smokeless Tobacco: Never Tobacco Cessation:Counseling Given: No Alcohol Use Standard Drinks/Week Comments Not Currently 0 (1 standard drink = 0.6 oz pur e alcohol) [facility] Utilities Answer Date Recorded In the past 12 months has e Lighting by LED, gas, oil, or water [employer] threatened to shut off services in your home? No 09/02/2023 Humiliation, Afraid, Rape, and Kick questionnair e Answer Date Recorded Within the last year, have y ou been afraid of your partner or ex-partner? No 09/02/2023 Within the last year, have y ou been humiliated or emotionally abused in other ways by your partner or ex-partner? No Within the last year, have y ou been kicked, hit, slapped, or otherwise physically hurt by your partner or ex-partner? No 09/02/2023 Within the last year, have y ou been raped or forced to have any kind of sexual activity by your partner or ex-partner? No 09/02/2023 Overall Financial Resource Strain (CARDIA) Answe r Date Recorded How hard is it for you to pa y for the very basics like food, housing, medical care, and heating? Not hard at all 09/02/2023 PHQ-2 Answer Date Recorded Patient Health Questionnaire-2 Score 0 05/18/2024 Hunger Vital Sign Answer Date Recorded Within the past 12 months, y ou worried that your food would run out before you got the money to buy more. Never true 09/02/19 24 Within the past 12 months, t he food you bought just didn't last and you didn't have money to get more. Never true 09/02/2023 PRAPARE - Transportation Answer Date Re corded In the past 12 months, has l ack of transportation kept you from medical appointments or from getting medications? No 08/04 In the past 12 months, has l ack of transportation kept you from meetings, work, or from getting things needed for daily living? No 09/02/2023 Housing Stability Vital Sign Answer Wade e Recorded In the last 12 months, was t here a time when you were not able to pay the mortgage or rent on time? No 09/02/2023 In the past 12 months, how m any times have you moved where you were living? 1 09/02/2023 At any time in the past [address] [facility], were you homeless or living in a correction (including now)? No 09/02/2023 Comments No Sex and Gender Information Value Date Recorded Sex Assigned at Female 05/10/2024 8:49 AM COMPOSITION MIXER Legal Sex Female 3:23 PM COMPOSITION MIXER Gender Identity Female 04/27/2021 11:54 AM COMPOSITION MIXER Sexual Orientation Straight 04/27/2021 11 :54 AM COMPOSITION MIXER Last Filed Vital Signs Vital Sign Reading Time Taken Comments Blood Pressure 132/72 05/18/2024 1:57 PM COMPOSITION MIXER Pulse 65 05/18/2024 1:57 PM COMPOSITION MIXER Temperature 36.4 C (97.6 F) 05/18/2024 1:57 PM COMPOSITION MIXER Respiratory Rate 16 02/28/2024 3:34 PM COMPOSITION MIXER Oxygen Saturation 97% 05/18/2024 1:57 PM COMPOSITION MIXER Inhaled Oxygen Concentration - - Weight 111.1 kg (245 lb) 05/18/2024 1:57 PM COMPOSITION MIXER Height 167.6 cm (5' 6 ) 05/18/2024 1:57 PM COMPOSITION MIXER Body Mass Index 39.54 05/18/2024 1:57 PM COMPOSITION MIXER Plan of Treatment Upcoming Encounters Date Type Department Care Team (Late st Contact Info) Description 07/25/2024 1:00 PM CDT Office Visit [facility] - [facility] [address] [facility] [address] [place] [phone] Radha Hurt MD [address] [facility] [address] [place] [address] Health Maintenance Due Date Last Done Comments Zoster Vaccines (1 of 2) 2001 DTaP, Tdap and Td Vaccines (1 - Tdap) 09/13/2012 09/12/2012, 11/13/2002 Annual Medicare Wellness Visit 2016 COVID-19 Vaccine ( season) 2023 09/04/2021, 03/12/2021, 05/26/2020, Additional history exists RSV Immunization or 60+ Years (1 - 1-dose 75+ series) 2026 Colorectal Cancer Screening Colonoscopy (10 Years) 11/23/2033 11/24/2023, 11/24/2023, 09/05/2023 Pneumococcal Vaccine: 50+ Years Completed 01/18/2018, 01/05/2017 Dexa Scan (General) Completed 06/13/2023, 06/13/2023, 05/04/2021, Additional history exists Hepatitis C Completed 02/07/2024, 08/2023, 12/27/2017 PHQ-2 (Physician [place]) Completed 05/18/2024 Meningococcal B Vaccine Aged Out No l onger eligible based on patient's age to complete this topic Meningococcal Vaccine Aged Out No juliet raj eligible based on patient's age to complete this topic RSV Immunizations Under 20 Months Aged Out No longer eligible based on patient's age to complete this topic Goals Goal Patient Goal Type Associated Problems Recent Progress Patient-Stated? 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 Procedure Name Priority Date/Time Associated Diagnosis Comments NM HEPATOBILIARY SCAN W/GB EJECTION FRACTION Routine 07/02/2024 9:12 AM CDT Fibromyalgia RUQ pain US ABD LIMITED Routine 05/30/2024 7:57 AM COMPOSITION MIXER Upper abdominal pain, unspecified OUS GUIDE NEEDLE PLCMT ORTHO Routine 04/25/2024 3:13 PM COMPOSITION MIXER Pain in both knees, unspecified chronicity COLONOSCOPY Routine 11/24/2023 6:42 AM CDT BONE DENSITY/DEXA Routine 05/04/2021 10: 28 AM COMPOSITION MIXER Asymptomatic menopausal state from Last 3 Months or Most Recently Relevant to Health Maintenance Results * NM HEPATOBILIARY SCAN W/GB EJECTION FRACTION (07/02/2024 9:12 AM CDT) Anatomical Region Laterality Modality Abdomen Nuclear Medicine 07/02/2024 9:25 AM CDT Impressions 07/02/2024 9:28 AM CDT IMPRESSION: 1. Normal contractile response of the gallbladder to sincalide infusion. 2. Enterogastric reflux. 3. Initially delayed biliary to bowel transit which is nonspecific but can be a normal finding in up to 20% of individuals. Ordered By: RADHA HURT Interpreted By: Chloe Grace MD, 07/02/2024 9:25 AM Narrative 07/02/2024 9:28 AM CDT [address] [address] EXAMINATION: HEPATOBILIARY SCINTIGRAPHY (WITH GALLBLADDER EJECTION FRACTION) DATE OF STUDY: 07/02/2024 6:59 AM RADIOPHARMACEUTICAL: 5.5 mCi Tc-99m mebrofenin i.v. and 2.2 mcg sincalide i.v. HISTORY: Right upper quadrant pain radiating to the back and right upper chest for 3 months. Prior nuclear medicine studies used for comparison: none Other radiographic comparisons: Limited abdominal ultrasound 05/30/2024 FINDINGS: Following intravenous administration of tracer, sequential abdominal images were obtained. There is prompt, uniform accumulation of the tracer by the liver. There is normal filling of the intrahepatic ducts, common bile duct and gallbladder. Biliary to bowel transit is not definitively seen in the first 60 minutes of imaging. In order to evaluate the contractile response of the gallbladder in response to cholecystokinin, sincalide (0.02 mcg /kg) was administered by slow intravenous infusion over 30 minutes, starting approximately 60 minutes after the administration of the radiopharmaceutical. Sequential imaging was continued for 30 minutes after the start of the sincalide infusion. These images demonstrate prompt biliary to bowel transit excluding a significant common bile duct obstruction. There is good contraction of the gallbladder. The calculated gallbladder ejection fraction is 70% (normal greater than 35%). Enterogastric reflux is noted. Patient reported mild right upper quadrant pressure during CCK infusion. Procedure Note Chloe Grace MD - 07/02/[address] [address] EXAMINATION: HEPATOBILIARY SCINTIGRAPHY (WITH GALLBLADDER EJECTIONFRACTION) DATE OF STUDY: 07/02/2024 6:59 AM RADIOPHARMACEUTICAL: 5.5 mCi Tc-99m mebrofenin i.v. and 2.2 mcg sincalidei.v. HISTORY: Right upper quadrant pain radiating to the back and right upperchest for 3 months. Prior nuclear medicine studies used for comparison: none Other radiographic comparisons: Limited abdominal ultrasound 05/30/2024 FINDINGS: Following intravenous administration of tracer, sequentialabdominal images were obtained. There is prompt, uniform accumulation ofthe tracer by the liver. There is normal filling of the intrahepaticducts, common bile duct and gallbladder. Biliary to bowel transit is notdefinitively seen in the first 60 minutes of imaging. In order to evaluate the contractile response of the gallbladder inresponse to cholecystokinin, sincalide (0.02 mcg /kg) was administered byslow intravenous infusion over 30 minutes, starting approximately 60minutes after the administration of the radiopharmaceutical. Sequentialimaging was continued for 30 minutes after the start of the sincalideinfusion. These images demonstrate prompt biliary to bowel transitexcluding a significant common bile duct obstruction. There is goodcontraction of the gallbladder. The calculated gallbladder ejectionfraction is 70% (normal greater than 35%). Enterogastric reflux isnoted. Patient reported mild right upper quadrant pressure during CCK infusion. IMPRESSION: 1. Normal contractile response of the gallbladder to sincalideinfusion. 2. Enterogastric reflux. 3. Initially delayed biliary to bowel transit which is nonspecific but canbe a normal finding in up to 20% of individuals. Ordered By: RADHA HURT Interpreted By: Chloe Grace MD, 07/02/2024 9:25 AM Radha Hurt MD [facility] Final Result * US ABD LIMITED (05/30/2024 7:57 AM COMPOSITION MIXER) Anatomical Region Laterality Modality Abdomen Ultrasound 05/30/2024 8:19 AM COMPOSITION MIXER Impressions 05/30/2024 8:36 AM COMPOSITION MIXER IMPRESSION: 1. Tenderness when scanning over the region of the gallbladder and epigastric region. However, no sonographic evidence of cholecystitis or biliary ductal dilation. 2. Generally echogenic liver suggesting mild diffuse fatty infiltration. 3. Partially obscured pancreas. Ordered By: EDWIN RENEE Interpreted By: Andrew Gray, 05/30/2024 8:19 AM Narrative 05/30/2024 8:36 AM COMPOSITION MIXER [address] [address] IMAGING STUDIES: US ABD LIMITED DATE: 05/30/2024 7:12 AM HISTORY: Abdominal pain 74-year-old female. Abdominal pain for 3 months. Right shoulder pain. Epigastric pain. Gastroenterology clinical note of 05/18/2024. History of breast cancer diagnosed in the mid and underwent bilateral mastectomy and reconstruction in 1995. Medical history includes Sjogren's disease and urinary tract calcifications. Patient is reportedly 5 feet 6 inches and 245 pounds on 05/18/2024. COMPARISON: CT abdomen pelvis with contrast 03/17/2024. DISCUSSION: Generally echogenic liver suggesting mild diffuse fatty infiltration. Liver length of 19.2 cm (on 2023 CT, hepatic craniocaudal length of 19 cm). No focal hepatic mass or intrahepatic biliary ductal dilatation. Color doppler imaging of the hepatic veins, inferior vena cava and portal vein and pulse Doppler imaging of the portal vein. Appropriate flow direction in the portal vein and normal color Doppler imaging of the interrogated venous system. Adequately distended gallbladder. No apparent gallstones or gallbladder sludge. Gallbladder wall is normal at 1.8 mm thickness. Technologist reports patient was very tender when scanning over the gallbladder and epigastric region consistent with positive sonographic Peters's sign. Common bile duct is normal at 4.9 mm diameter. Bowel gas obscures the pancreatic tail and portions of the pancreatic head and distal body. No appreciable acute abnormality of the visualized pancreas. Right kidney 11.1 x 5.2 x 4.5 cm. No hydronephrosis. No apparent renal mass on current study but 1.1 cm fat density lesion in the mid kidney suggesting angiomyolipoma and 1.3 cm cyst in the upper pole with additional subcentimeter cysts on 03/17/2024 CT. No appreciable renal calcification on current study although a 2 mm nonobstructing calcification in the lower pole on 2023 CT. Normal color Doppler signal within the right kidney. Procedure Note Andrew Gray MD - 05/30/[address] [address] IMAGING STUDIES: US ABD LIMITEDDATE: 05/30/2024 7:12 AM HISTORY: Abdominal pain 74-year-old female. Abdominal pain for 3months. Right shoulder pain. Epigastric pain. Gastroenterology clinicalnote of 05/18/2024. History of breast cancer diagnosed in the mid andunderwent bilateral mastectomy and reconstruction in 1995. Medical historyincludes Sjogren's disease and urinary tract calcifications. Patient isreportedly 5 feet 6 inches and 245 pounds on 05/18/2024. COMPARISON: CT abdomen pelvis with contrast 03/17/2024. DISCUSSION: Generally echogenic liver suggesting mild diffuse fatty infiltration.Liver length of 19.2 cm (on 2023 CT, hepatic craniocaudal length of 19cm). No focal hepatic mass or intrahepatic biliary ductal dilatation. Color doppler imaging of the hepatic veins, inferior vena cava and portalvein and pulse Doppler imaging of the portal vein. Appropriate flowdirection in the portal vein and normal color Doppler imaging of theinterrogated venous system. Adequately distended gallbladder. No apparent gallstones or gallbladdersludge. Gallbladder wall is normal at 1.8 mm thickness. Technologistreports patient was very tender when scanning over the gallbladder andepigastric region consistent with positive sonographic Peters's sign. Common bile duct is normal at 4.9 mm diameter. Bowel gas obscures the pancreatic tail and portions of the pancreatic headand distal body. No appreciable acute abnormality of the visualizedpancreas. Right kidney 11.1 x 5.2 x 4.5 cm. No hydronephrosis. No apparent renalmass on current study but 1.1 cm fat density lesion in the mid kidneysuggesting angiomyolipoma and 1.3 cm cyst in the upper pole withadditional subcentimeter cysts on 03/17/2024 CT. No appreciable renalcalcification on current study although a 2 mm nonobstructingcalcification in the lower pole on 2023 CT. Normal color Doppler signalwithin the right kidney. IMPRESSION: 1. Tenderness when scanning over the region of the gallbladder andepigastric region. However, no sonographic evidence of cholecystitis orbiliary ductal dilation. 2. Generally echogenic liver suggesting mild diffuse fatty infiltration. 3. Partially obscured pancreas. Ordered By: EDWIN RENEE Interpreted By: Andrew Gray, 05/30/2024 8:19 AM us Edwin Renee MD ULTRASOUND Final Result * OUS GUIDE NEEDLE PLCMT ORTHO (04/25/2024 3:13 PM COMPOSITION MIXER) Anatomical Region Laterality Modality Ultrasound 04/25/2024 3:28 PM COMPOSITION MIXER Narrative 04/25/2024 3:28 PM COMPOSITION MIXER This report does not contain a radiologist's interpretation. Please review associated procedure and/or operative report. Procedure Note Vj Kimball, - 04/26/2024 This report does not contain a radiologist's interpretation. Please review associated procedure and/or operative report. Nico BERKOWITZ ULTRASOUND Final Result * BONE DENSITY/DEXA (05/04/2021 10:28 AM COMPOSITION MIXER) Anatomical Region Laterality Modality Bone Mammography 05/04/2021 12:4 7 PM COMPOSITION MIXER Impressions 05/04/2021 12:48 PM COMPOSITION MIXER =====IMPRESSION:===== Lumbar spine bone density: Normal Bilateral femoral necks bone density: Normal Bilateral total proximal femurs bone density: Normal Ordered By: NATALY PENA Interpreted By: Ronan Levin MD, 05/04/2021 12:47 PM Narrative 05/04/2021 12:48 PM COMPOSITION MIXER Examination: Bone Density Axial Exam date/time: 05/04/2021 9:52 AM Reason For Exam: Postmenopausal Comparison: None Findings: DEXA bone densitometry The bone mineral density (BMD) was determined by dual-energy x-ray absorptiometry, the results are as follows: AP Lumbar Spine L2 through L4: BMD Patient (GM/SQCM): 1.227 T-Score (Standard deviations from young adult peak bone density): 1.3 Bilateral femoral neck: BMD Patient (GM/SQCM): 0.772 T-Score (Standard deviations from young adult peak bone density): -0.7 Bilateral total proximal femurs: BMD Patient (GM/SQCM): 0.852 T-Score (Standard deviations from young adult peak bone density): -0.7 Procedure Note Ronan Levin MD - 05/04/2021 Examination: Bone Density Axial Exam date/time: 05/04/2021 9:52 AM Reason For Exam: Postmenopausal Comparison: None Findings: DEXA bone densitometry The bone mineral density (BMD) was determined bydual-energy x-ray absorptiometry, the results are as follows: AP Lumbar Spine L2 through L4: BMD Patient (GM/SQCM): 1.227 T-Score (Standard deviations from young adult peak bonedensity): 1.3 Bilateral femoral neck: BMD Patient (GM/SQCM): 0.772 T-Score (Standard deviations from young adult peak bonedensity): -0.7 Bilateral total proximal femurs: BMD Patient (GM/SQCM): 0.852 T-Score (Standard deviations from young adult peak bonedensity): -0.7 =====IMPRESSION:===== Lumbar spine bone density: Normal Bilateral femoral necks bone density: Normal Bilateral total proximal femurs bone density: Normal Ordered By: NATALY PENA Interpreted By: Ronan Levin MD, 05/04/2021 12:47 PM Nataly Pena PA-C DEXA Final Resu lt from Last 3 Months or Most Recently Relevant to Health Maintenance Insurance MEDICARE [facility] Advance Directives * Full Code (Latest Code Status on File) Date Activated Date Inactivated Comments 09/02/2023 12:00 AM 09/06/2023 4:39 PM Care Teams Line Runner Relationship Specialty Start Date End Date Edwin Renee MD [address] [place] [address] PCP - General INTERNAL MEDICINE 09/02/23
--- OUTSIDE RECORDS SUMMARY | 2024-07-21 09:27 | XMS_ITS | Data Portability ---
Author Organization [facility], [employer] Address [address] [place] [address] Care Team Providers Care Mash Tub Cooker Operator Name Role Phone CHAPIN SANTOS Ironer Sock UZIEL MORAN Aeronautical Engineering Professor NISHI REESE Urogynecologist [phone] [facility] Pain Management DARCIE QUINONES Command And Control Officer Assessment Encounter Date Assessment Date Assessment LastModified by Organization Details LastModified Time 01/10/2024 01/10/2024 Patient presente d for follow up. Studies ordered as below. Discussed plan with patient/caregiver , who expressed understanding. Follow up as noted below. Not available 01/10/2024 13:32:40 02/02/2024 02/02/2024 Patient presente d for follow up. Studies ordered as below. Discussed plan with patient/caregiver , who expressed understanding. Follow up as noted below. Not available 02/02/2024 16:45:49 03/05/2024 03/05/2024 Patient presente d for follow up. Studies ordered as below. Discussed plan with patient/caregiver , who expressed understanding. Follow up as noted below. Not available 03/05/2024 16:50:29 04/16/2024 04/16/2024 Patient presente d to office today for their Medicare Annual Wellness Visit. Education was provided on healthy nutrition, including a diet rich in fruits and vegetables, minimizing simple carbohydrates, salt, and saturated fats. Encouraged regular cardiovascular exercise such as walking at least 30 minutes daily, 5 times per week. Emphasized preventive health measures and educated pt on fall prevention and community-based lifestyle interventions to help reduce health risks and promote healthy living. Not available 04/16/2024 17:19:55 Plan of Treatment Reminders Order Date Submit Date Provider Last Modified By Organization Details Last Modified Time Details Appointments None recorded. Lab lipid panel, serum 2024 025 [facility], [address], [address], 5 06:10:20 microalbum in/creatin ine, mass ratio, urine 2024 025 [facility], [address] [facility] [address], [place], [address], 5 06:10:22 HbA1c (hemoglobi n A1c), blood 2024 025 [facility], [address], [address], 5 06:10:24 CMP, serum or plasma 2024 025 [facility], [address], [address], 5 06:10:23 Referral gastroente rologist referral 2024 025 PATTIE Hurt MD, [address], [place], [address], 5 16:16:56 diabetic ophthalmol ogy referral 2024 025 devin Santos MD, [address] [facility] , [place] [address], [place], [address], 5 17:27:31 gastroente rologist referral 2024 025 ERNESTINE Hurt MD, [address], [place], [address], 5 17:45:28 Procedures nebulizer treatment (PROC) 2023 [facility], [address], [place], [address], 4 13:01:25 Surgeries None recorded. Imaging US, gallbladde r 2024 dc1 [facility], [address] [facility], [place], [address], 5 11:48:01 XR, shoulder, 2 or more view 2024 [facility], [address] [facility], [place], [address], 5 08:19:25 US, knee - Non-vascul ar u/s to evaluate for Popliteal cyst. Thanks. 2023 024 [facility], [address] [facility], [place], [address], 4 08:11:09 XR, knee, 3 view 2023 [facility], [address] [facility], [place], [address], 4 08:11:09 Medication Orders valacyclov ir 1 gram tablet 2024 [id number], [address] [facility], [place], [address], 5 14:11:16 Zithromax Z-Rhett 250 mg tablet 2023 [facility]32914, [address], [place], [id number], 4 15:21:08 Medrol (Rhett) 4 mg tablets in a dose pack 2023 [facility] #54997, [address], [place], [id number], 5 19:15:11 benzonatat e 200 mg capsule 2023 [facility] #99901, [address], [place], [id number], 5 19:13:56 codeine 10 mg-guaifen esin 100 mg/5 mL oral liquid 2023 [facility] #32284, [address], [place], [id number], 5 19:12:47 albuterol sulfate 2.5 mg/3 mL (0.083 %) solution for nebulizati on 2023 [facility] Not available 18:35:16 Medrol (Rhett) 4 mg tablets in a dose pack [address] [facility] 368, [address] [place], [address], 5 19:14:34 duloxetine 60 mg capsule,de layed release 2023 [facility] #74820, [address], [place], [id number], 16:55:08 albuterol sulfate 2.5 mg/3 mL (0.083 %) solution for nebulizati on 2023 [facility] Not available 14:37:06 duloxetine 30 mg capsule,de layed release [address] [facility]11733, [address] [place], [place], [id number], 16:45:39 duloxetine 60 mg capsule,de layed release 2023 024 [facility]09438, [address] [facility], [place], [place], [id number], 14:19:38 Patient TargetsNo targets recorded. Patient Instructions Encounter Date Encounter Id Patient Instructions Last Modified By Organization Details Last Modified Time 02/02/2024 [id number] spirometry testing* PATTIE Not available 02/06/2024 17:43:10 pre/post bronchodilator spirometry* PATTIE Not available 02/02/2024 18:04:16 04/16/2024 [id number] medicare preventive services guide Not available 04/16/2024 17:23:49 advance care planning: care instructions [facility] Not available 04/16/2024 17:23:49 hepatitis C viru s tests: about these tests [email or web address] Not available 04/16/2024 17:23:49 advised to lose weight Not available 04/16/2024 17:23:49 Discussed and explained advance directives such as standard forms to the {{patient caregive r patient and caregiver}}. Face to face discussion lasted for a duration of ___ minutes. Not available 04/16/2024 16:44:54 Reason for Referral Loop Sewer Referral for Crohn's disease Referring Physician: Tyler Renee, Internal Medicine, Encounter Date: 04/16/2024 Diabetic Ophthalmology Refer ral for Type 2 diabetes mellitus without complication Referring Physician: Tyler Renee, Internal Medicine, Encounter Date: 04/16/2024 Loop Sewer Referral for Increased belching Referring Physician: Tyler Renee, Internal Medicine, Encounter Date: 05/09/2024 Results Created Date Observation Date Name Description Value Unit Range Abnormal Flag Note LastModifiedBy Organization Detail LastModifiedTime 02/06/20 24 02/06/2024 vinay metry testi ng* Spirometry Not Available [facility], [facility] [address], [place], [address], 02/02/2024 16:42:54 03/12/20 24 03/14/2024 URINA LYSIS , COMPL ETE W/REF NATALY TO CULTU RE color YELLOW yellow normal Not Available [address], [address], 03/14/2024 04:40:51 03/12/20 24 03/14/2024 URINA LYSIS , COMPL ETE W/REF NATALY TO CULTU RE appearance CLEAR clear normal Not Available [address], [address], 03/14/2024 04:40:51 03/12/20 24 03/14/2024 URINA LYSIS , COMPL ETE W/REF NATALY TO CULTU RE specific gravity 1.021 1.001- 1.035 normal Not Available [address], [address], 03/14/2024 04:40:51 03/12/20 24 03/14/2024 URINA LYSIS , COMPL ETE W/REF NATALY TO CULTU RE pH < OR = 5.0 5.0-8. 0 normal Not Available [address], [address], 03/14/2024 04:40:51 03/12/20 24 03/14/2024 URINA LYSIS , COMPL ETE W/REF NATALY TO CULTU RE glucose NEGATI VE negati ve normal Not Available [address], [address], 03/14/2024 04:40:51 03/12/20 24 03/14/2024 URINA LYSIS , COMPL ETE W/REF NATALY TO CULTU RE bilirubin NEGATI VE negati ve normal Not Available [address], [address], 03/14/2024 04:40:51 03/12/20 24 03/14/2024 URINA LYSIS , COMPL ETE W/REF NATALY TO CULTU RE ketones NEGATI VE negati ve normal Not Available [address], [address], 03/14/2024 04:40:51 03/12/20 24 03/14/2024 URINA LYSIS , COMPL ETE W/REF NATALY TO CULTU RE occult blood 3+ negati ve abnormal Not Available [address], [address], 03/14/2024 04:40:51 03/12/20 24 03/14/2024 URINA LYSIS , COMPL ETE W/REF NATALY TO CULTU RE protein 3+ negati ve abnormal Not Available [address], [address], 03/14/2024 04:40:51 03/12/20 24 03/14/2024 URINA LYSIS , COMPL ETE W/REF NATALY TO CULTU RE nitrite POSITI VE negati ve abnormal Not Available [address], [address], 03/14/2024 04:40:51 03/12/20 24 03/14/2024 URINA LYSIS , COMPL ETE W/REF NATALY TO CULTU RE leukocyte esterase 1+ negati ve abnormal Not Available [address], [address], 03/14/2024 04:40:51 03/12/20 24 03/14/2024 URINA LYSIS , COMPL ETE W/REF NATALY TO CULTU RE WBC PACKED /hpf < or = 5 abnormal Not Available [address], [address], 03/14/2024 04:40:51 03/12/20 24 03/14/2024 URINA LYSIS , COMPL ETE W/REF NATALY TO CULTU RE RBC 40-60 /hpf < or = 2 abnormal Not Available [address] [place], [address], 03/14/2024 04:40:51 03/12/20 24 03/14/2024 URINA LYSIS , COMPL ETE W/REF NATALY TO CULTU RE squamous epithelial cells 0-5 /hpf < or = 5 Not Available [address], [address], 03/14/2024 04:40:51 03/12/20 24 03/14/2024 URINA LYSIS , COMPL ETE W/REF NATALY TO CULTU RE bacteria MANY /hpf none seen abnormal Not Available [address], [address], 03/14/2024 04:40:51 03/12/20 24 03/14/2024 URINA LYSIS , COMPL ETE W/REF NATALY TO CULTU RE calcium oxalate crystals MODERA TE /hpf none or few abnormal Not Available [address], [address], 03/14/2024 04:40:51 03/12/20 24 03/14/2024 URINA LYSIS , COMPL ETE W/REF NATALY TO CULTU RE hyaline cast NONE SEEN /lpf none seen normal Not Available [address], [address], 03/14/2024 04:40:51 03/12/20 24 03/14/2024 URINA LYSIS , COMPL ETE W/REF NATALY TO CULTU RE yeast MODERA TE /hpf none seen abnormal Not Available [address], [address], 03/14/2024 04:40:51 03/12/20 24 03/14/2024 URINA LYSIS , COMPL ETE W/REF NATALY TO CULTU RE note This urine was haven zed for the prese nce of WBC, RBC, bacte archie, casts , and other forme d eleme nts. Only those eleme nts seen were repor joshua. Not Available [facility] [address] [address] [place], [address], 03/14/2024 04:40:51 03/12/20 24 03/14/2024 REFLE XIVE URINE CULTU RE reflexive urine culture CULTU RE INDIC ATED - RESUL TS TO FOLLO W Not Available [facility] [address] [address] [place], [address], 03/14/2024 04:40:53 03/12/20 24 03/14/2024 CULTU RE, URINE , ROUTI NE culture, urine, routine SEE NOTE CULTU RE, URINE , ROUTI NE Micro Numbe r: [id number] Test Statu s: Final Speci men Sourc e: Urine Speci men Quali ty: Adequ ate Resul t: Mixed genit al radha isola joshua. These super ficia l bacte archie are not indic ative of a urina ry tract infec tion. No furth er organ ism ident ifica tion is warra nted on this speci men. If clini angelica indic ated, recol lect clean -catc h, mid-s tream urine and trans gosia immed iatel y to Urine Cultu re Trans port Tube. Not Available [facility] [address] [address] [address] , [place], [address], 03/14/2024 16:54:18 03/17/20 24 03/21/2024 POC CREAT ININE POC creatinine 0.8 mg/dL 0.60-1 .10 Not Available [facility] (Lab) [address] [facility], [place], [address], 03/21/2024 08:31:55 04/25/19 25 04/26/2024 LIPID PANEL , STAND KYLAH cholesterol, total 164 mg/dL <200 normal Not Available [facility] [address] [address] [place], [address], 04/26/2024 06:10:20 04/25/19 25 04/26/2024 LIPID PANEL , STAND KYLAH HDL cholesterol 65 mg/dL > or = 50 normal Not Available [facility] [address] [address] [place], [address], 04/26/2024 06:10:20 04/25/19 25 04/26/2024 LIPID PANEL , STAND KYLAH triglyceride s 113 mg/dL <150 normal Not Available [facility] [address] [address] [place], [address], 04/26/2024 06:10:20 04/25/19 25 04/26/2024 LIPID PANEL , STAND KYLAH LDL-choleste rol 79 mg/dL _(barry c) normal Refer ence range : <100 Dariana able range <100 mg/dL for prima ry preve ntion ; <70 mg/dL for patie nts with CHD or diabe tic patie nts with > or = 2 CHD risk facto rs. LDL-C is now calcu lated using the Amee maya-[facility] wendy hector n, which is a valid ated novel mileo d wes chaudharite r accur acy than the Fried trudy equat ion in the estim ation of LDL-C . Amee maya SS et al. MAKI. 2013; 310(1 9): 2061- 2068 (http ://ed ucati on.Qu [employer]e [employer]. com/f aq/FA Q164) Not Available [facility] [address] [address] [place], [address], 04/26/2024 06:10:20 04/25/19 25 04/26/2024 LIPID PANEL , STAND KYLAH chol/HDLC ratio 2.5 (calc ) <5.0 normal Not Available [facility] [address] [address] [place], [address], 04/26/2024 06:10:20 04/25/19 25 04/26/2024 LIPID PANEL , STAND KYLAH non HDL cholesterol 99 mg/dL _(barry c) <130 normal For patie nts with diabe alexander plus 1 major ASCVD risk facto r, treat ing to a non-H DL-C goal of <100 mg/dL (LDL- C of <70 mg/dL ) is consi dered a thera fifi c optio n. Not Available [address], [address], 04/26/2024 06:10:20 04/25/19 25 04/26/2024 ALBUM IN, RANDO M URINE W/CRE ATINI NE creatinine, random urine 85 mg/dL 20-275 normal Not Available [address] [address] [place], [address], 04/26/2024 06:10:22 04/25/19 25 04/26/2024 ALBUM IN, RANDO M URINE W/CRE ATINI NE albumin, urine 1.0 mg/dL see note: normal Refer ence Range : Refer ence Range Not estab lishe d Not Available [address], [address], 04/26/2024 06:10:22 04/25/19 25 04/26/2024 ALBUM IN, RANDO M URINE W/CRE ATINI NE albumin/crea tinine ratio, random urine 12 mg/g_ creat <30 normal The ADA defin es abnor malit ies in album in excre tion as follo ws: Album inuri a Categ ory Resul t (mg/g creat inine ) Amada l to Mildl y incre ased <30 Moder ately incre ased 30-29 9 Sever maddie incre ased > OR = 300 The ADA recom mends that at least two of three speci mens colle cted withi n a 3-6 month perio d be abnor mal befor e consi shoshana g a patie nt to be withi n a diagn ostic categ ory. Not Available [address], [address], 04/26/2024 06:10:22 04/25/19 25 04/26/2024 COMPR EHENS ANDREA METAB OLIC PANEL glucose 120 mg/dL 65-99 high Fasti ng refer ence inter brina For someo ne witho ut known diabe alexander, a gluco se value betwe en 100 and 125 mg/dL is consi stent with predi abete s and shoul d be confi rmed with a follo w-up test. Not Available [address] [address] [place], [address], 04/26/2024 06:10:04/25/1904/26/2024 COMPR EHENS ANDREA METAB OLIC PANEL urea nitrogen (BUN) 15 mg/dL 7-25 normal Not Available [facility] [address] [address] [place], [address], 04/26/2024 06:10:04/25/1904/26/2024 COMPR EHENS ANDREA METAB OLIC PANEL creatinine 0.69 mg/dL 0.60-1 .00 normal Not Available [address] [address] [place], [address], 04/26/2024 06:10:04/25/19 25 04/26/2024 COMPR EHENS ANDREA METAB OLIC PANEL eGFR 92 mL/mi n/1.7 3m2 > or = 60 normal Not Available [address] [address] [place], [address], 04/26/2024 06:10:04/25/1904/26/2024 COMPR EHENS ANDREA METAB OLIC PANEL BUN/creatini ne ratio SEE NOTE: (calc ) 6-22 Not Repor joshua: BUN and Creat inine are withi n refer ence range . Not Available [facility] [address] [address] [place], [address], 04/26/2024 06:10:04/25/19 25 04/26/2024 COMPR EHENS ANDREA METAB OLIC PANEL sodium 140 mmol/ L 135-14 6 normal Not Available [facility] [address] [address] [place], [address], 04/26/2024 06:10:04/25/19 25 04/26/2024 COMPR EHENS ANDREA METAB OLIC PANEL potassium 3.8 mmol/ L 3.5-5. 3 normal Not Available [address], [address], 04/26/2024 06:10:04/25/19 25 04/26/2024 COMPR EHENS ANDREA METAB OLIC PANEL chloride 102 mmol/ L 98-110 normal Not Available [address], [address], 04/26/2024 06:10:04/25/19 25 04/26/2024 COMPR EHENS ANDREA METAB OLIC PANEL carbon dioxide 29 mmol/ L 20-32 normal Not Available [address], [address], 04/26/2024 06:10:04/25/19 25 04/26/2024 COMPR EHENS ANDREA METAB OLIC PANEL calcium 9.3 mg/dL 8.6-10 .4 normal Not Available [address], [address], 04/26/2024 06:10:04/25/19 25 04/26/2024 COMPR EHENS ANDREA METAB OLIC PANEL protein, total 7.1 g/dL 6.1-8. 1 normal Not Available [address], [address], 04/26/2024 06:10:04/25/19 25 04/26/2024 COMPR EHENS ANDREA METAB OLIC PANEL albumin 4.4 g/dL 3.6-5. 1 normal Not Available [address], [address], 04/26/2024 06:10:04/25/19 25 04/26/2024 COMPR EHENS ANDREA METAB OLIC PANEL globulin 2.7 g/dL_ (calc ) 1.9-3. 7 normal Not Available [address] [address] [place], [address], 04/26/2024 06:10:23 04/25/19 25 04/26/2024 COMPR EHENS ANDREA METAB OLIC PANEL albumin/glob ulin ratio 1.6 (calc ) 1.0-2. 5 normal Not Available [address], [address], 04/26/2024 06:10:23 04/25/19 25 04/26/2024 COMPR EHENS ANDREA METAB OLIC PANEL bilirubin, total 0.5 mg/dL 0.2-1. 2 normal Not Available [address], [address], 04/26/2024 06:10:23 04/25/19 25 04/26/2024 COMPR EHENS ANDREA METAB OLIC PANEL alkaline phosphatase 113 U/L 37-153 normal Not Available [address], [address], 04/26/2024 06:10:23 04/25/19 25 04/26/2024 COMPR EHENS ANDREA METAB OLIC PANEL AST 18 U/L 10-35 normal Not Available [address], [address], 04/26/2024 06:10:23 04/25/19 25 04/26/2024 COMPR EHENS ANDREA METAB OLIC PANEL ALT 24 U/L 6-29 normal Not Available [address], [address], 04/26/2024 06:10:23 04/25/19 25 04/26/2024 HEMOG LOBIN A1C hemoglobin A1C 7.2 %_of_ total _HGB <5.7 high For someo ne witho ut known diabe alexander, a hemog lobin A1c value of 6.5% or great er indic ates that they may have diabe alexander and this shoul d be confi rmed with a follo w-up test. For someo ne with known diabe alexander, a value <7% indic ates that their diabe alexander is well contr olled and a value great er than or equal to 7% indic ates subop timal contr ol. A1c targe ts shoul d be indiv idual ized based on durat ion of diabe alexander, age, comor bid condi tions , and other consi derat ions. Curre ntly, no conse nsus exist s layo antunez use of hemog lobin A1c for diagn osis of diabe alexander for child jose luis. Your reque st to have a vendome 1699e copy faxed has been alcon thorne ed. [place]elaya to: [phone] Not Available [facility] [address] [place], [address], 04/26/2024 06:10:24 12/21/19 xr chest Pa+la t [facility] ONE [facility] [address] [id number] Orderi ng Provid er: TYLER RENEE [facility] [place] [address] [facility] [address] [place], [place] [id number] JENNIFER BUTLER S: XR CHEST PA+LAT DATE: 10:52 AM HISTOR Y: Acute Bronch itis 73-yea r-old female . Patien t report s fever for 7 days and a cough for 2 days. Hot and cold flashe s. Report ed breath ing treatm ents earlie r today. Histor y of pneumo tommie. Histor y of multip le pulmon jhon nodule s. Histor y of breast cancer report edly diagno sed in the mid with bilate ral mastec sharyn and recons tructi on/imp lants. COMPAR RANGEL: PET/CT 11/08/[address] chest . Chest portab le . DISCUS FAHAD: Uprigh t AP and latera l views. Mild leftwa rd rotati on on AP view. Heart size within normal limits . No acute pulmon jhon vascul ar conges tion. Aortic athero sclero tic calcif icatio n. Mild peribr onchia l thicke day and accent uated in the right parahi lar region due to rotati on. Mild bilate ral lung parenc hymal and pleura l scarri ng. No apprec iable focal pulmon jhon infilt rate, pulmon jhon consol idatio n, pleura l effusi on, or pneumo thorax . Bilate ral pulmon jhon nodule s of 2 mm-5 [address] desc[address] bed on CT chest are not eviden t on radiog raph. Spinal curvat ure and degene rative change s. Degene rative change s of the visual ized bilate ral should ers. IMPRES FAHAD: Mild peribr onchia l thicke day. No apprec iable focal pulmon jhon infilt rate or consol idatio n. Ordere d By: TYLER RENEE Electr onical ly Signed By: Gerardo Gray on 11:34 AM Interp reted By: Gerardo Gray , 11:[address] [facility], [place], [address], 12/25/2023 23:38:28 02/02/20 24 02/02/2024 pre/p ost bronc hodil ator vinay metry * No observ ation record ed. [facility], [facility] [address], [place], [address], 02/06/2024 17:43:25 02/15/20 24 US low ext nonva sc ltd lt [facility] [address] [facility] [place] [address] Orderi ng Provid er: TYLER RENEE [facility] [place] [address] [facility] [address] [place], [place] [id number] Examin ation: US LOW EXT NONVAS C LTD LT Exam time: 10:17 AM Clinic al histor y: Pt with c/o left knee pain and interm ittent swelli ng for 3 months . Eval for pop. cyst Compar rangel: No compar rangel. Techni que: Graysc gino and color Dopple r sonogr aphic images were obtain ed. Findin gs: No distin ct abnorm ality is identi fied in the area of concer n. No poplit eal cyst is identi fied. No mass or fluid collec tion. IMPRES FAHAD: No sonogr aphic abnorm ality identi fied in the area of concer n. Referr ed By: TYLER RENEE Electr onical ly Signed By: Sandra Cannon MD on 2023 5:20 AM Interp reted By: Sandra Cannon MD, 2023 5:[address] 1 [place], [address], 02/19/2024 14:52:51 03/17/[address] ABD+p el W con [facility] [place] [address] Orderi ng Provid er: TYLER RENEE [facility] [address] [facility] [place] [address] EXAMIN ATION: CT ABDOME N/PELV IS WITH CONTRA ST INDICA TION: Orderi ng indica tion states unspe cified abdomi nal pain . Techno logist histor y states abdomi nal pain betwee n the pubic symphy sis and umbili cus. Histor y of divert iculit is. Histor y of mastec sharyn, kidney stones , and bladde r sling/ suspen fahad surger y. COMPAR RANGEL: TECHNI QUE: Comput ed tomogr aphy of the abdome n, and pelvis was perfor med after admini strati on of intrav enous contra st, 100 mL of Isovue -370, withou t immedi ate compli cation , accord ing to routin e protoc ol. Radiat ion dose reduct ion techni que(s) were used FINDIN GS: Lower Chest: Lung bases are clear. No cardio megaly or perica rdial effusi on. Upper abdomi nal organs : The liver, spleen , pancre as, gallbl adder, biliar y tree, and adrena l glands are unrema rkable . There are multif ocal low densit y renal lesion s bilate rally. Many of these are too small to techni angelica charac terize there is a single lesion in the midpol e of the left kidney which is indete rminat e based on [employer] unit charac terist ics. There is also probab ly a angiom yolipo ma involv ing the mid right kidney . This only measur es about 1.2 cm. There is no hydron ephros is though there is asymme tric enhanc ement of the left ureter throug hout its course . No signif icant periur eteral inflam matory strand ing. Vascul ar: The abdomi nal aorta is normal in calibe r. Lymph nodes: No retrop eriton eal, mesent chapin, or inguin al lympha denopa thy. Gastro intest inal: No bowel struct ure. There is coloni c divert iculos is. There is mild nonspe cific thicke day of the sigmoi d colon, which is less promin ent compar ed to the prior examin ation. No discre te inflam ed divert iculum . The append ix is normal . Miscel laneou s: No free intrap eriton eal air or ascite s. Pelvis : No free pelvic fluid. The urinar y bladde r is decomp ressed . The uterus is surgic ally absent . No eviden ce of adnexa l mass. MSK: There is a stable lytic focus in the L4 verteb ral body, largel y unchan ged from 024. This did not appear to be hyperm etabol ic on prior PET/CT . Perium bilica l hernia contai day only fat. IMPRES FAHAD: 1. Asymme tric enhanc ement of the left ureter withou t signif icant periur eteral inflam matory strand ing. This is nonspe cific though correl ation with urinal ysis to exclud e ascend ing urinar y tract infect ion is recomm ended. No hydron ephros is or CT eviden ce of pyelon ephrit is. 2. Mild nonspe cific thicke day of the sigmoi d colon, less promin ent compar ed to examin ation from September of this year. No focal inflam ed divert iculum or signif icant jonatan lonic inflam matory strand ing. This could repres ent sequel ae of prior episod es of divert iculit is though very early coliti s or divert iculit is cannot be entire ly exclud ed. 3. Multif ocal renal lesion s, as descri bed above. A single indete rminat e lesion in the midpol e of the left kidney is largel y unchan ged from 6 months ago and favore d benign . CT or MRI renal protoc ol would be needed for more defini tive charac teriza tion if clinic josiah lewis. Referr ed By: TYLER Vences onical ly Signed By: Saul no MD on 2023 11:55 AM Interp reted By: Saul no MD, 2023 11:[address], [place], [address], 04/16/2024 17:19:47 03/27/20 24 MRI knee lt wo con [facility] [place] [address] Orderi ng Provid er: MAYKEL DAWKINS N [facility] [place] [address] [facility] [address] [place], [place] [id number] Examin ation: MR left knee withou t: Access ion: [id number] Exam Date/T bipin: 2023 10:28 AM Clinic al indica tion: 73 female bilate ral knee pain, worse in the left foot, lockin g, poppin g giving abdome n limite d range of motion . No specif ic injury report ed Techni que: Multip lanar, multis equenc e MR imagin g of the left knee perfor med withou t contra st. 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 Probab ly a radial compon ent. Marked thinni ng and unders urface frayin g of the carbon electrodes supervisor ior horn as well as well as a medial extrus ion of the body Latera l menisc us: Intact . LIGAME NTS: Crucia te ligame nts: Intact . No tear. Crucia te ligame nt is thicke markie with increa sed signal repres enting a sprain increa sed signal of the anteri or crucia te ligame nt also sugges ting perhap s early mucoid degene ration . Medial collat eral ligame nt: Superf icial and deep compon ents grossl y intact . Subtle grade 1 strain patter n of perili gament ous edema with medial bowing relate d to mass effect from osteop hytes. Latera l collat eral ligame nt: Intact . Concrete Conveyor Operator olater al corner struct ures: Intact . Concrete Conveyor Operator omedia l corner struct ures: Intact . EXTENS OR MECHAN ISM: The distal delroy ceps and patell ar tendon s are intact . The patell a is normal ly positi oned within the femora l groove . There is no retina cular disrup tion. No concer day of metast atic pulmon jhon edema. FLUID: Joint effusi on: Small knee joint effusi on Heck cyst/g anglio n cyst: No Heck or gangli on cysts. OSSEOU S/PRAKASH CULAR STRUCT URES: Bones: No fractu re, stress reacti on. Large joint margin al hypert rophic osteop hytes partic ularly Lobula joshua cyst T2 hyperi ntense lesion of the distal diaphy sis corres pondin g with are sclero tic lesion with popcor n calcif icatio n on the prior radiog raphs as in the appear ance of nonagg ressiv e benign lesion such as enchon droma measur ing up to 4.1 cm in length . No other focal lesion on her concer day marrow signal abnorm ality. Patell ofemor al compar tment: Medial patell ar facet partia l-thic kness cartil age loss.. No focal defect s or subcho ndral edema. No trochl ear cartil age defect . Medial compar tment: 4 articu lar cartil age loss over the entire centra l weight bearin g aspect of the medial femora l condyl e and the anteri or medial weight bearin g aspect of the tibia. . No marrow signal change . Latera l compar tment: Predom inantl y cartil age signal slight hetero geneit y repres enting grade I chondr omalac ia. No focal or partia l full-t hickne ss loss.. Intra- articu lar fragme nts: None. OTHER: Medial and latera l gastro cnemiu s muscle s are unrema rkable . No other concer day muscle edema or atroph y. IMPRES FAHAD: 1. Medial compar tment senior insight manager international al garett hernandez, with grade 2 and grade III chondr omalac ia, comple te loss in partic ular cartil age of the centra l weight bearin g medial femora l condyl e and leon medial tibial platea u, with a comple x tear of the medial menisc al carbon electrodes supervisor ior horn involv ing (suspe cted radial tear): Thinni ng and unders urface frayin g of the carbon electrodes supervisor ior horn itself as well as medial extrus ion of the body. 2. Concrete Conveyor Operator ior crucia te ligame nt sprain and anteri or crucia te ligame nt probab le early mucoid degene ration . 3. Small joint effusi on. 4. Medial patell ar facet grade 2 and 3 and grade 1 sprain The grade 1 sprain patter n of medial collat eral ligame nt. 5. Medial collat eral ligame nt grade 1 sprain patter n of prior ligame ntous edema right ureter mass effect and medial bowing . 6. Distal femora l diaphy sis of suspec joshua enchon droma measur ing up to 4 cm corres pondin g with the prior radiog raphic study. 7. Please see report body for detail . Maxine Rowe: MAYKEL ZIDEBRA Ry Electr onical ly Signed By: Luann Beal MD on 2023 12:08 PM Interp reted By: Luann Beal MD, 2023 11:48 AM Bilate ral knee pain, worse in L knee with pain, lockin g, poppin g, giving out and limite d rom all around knee with no known injury . [address] 1 [facility], [place], [address], 04/16/2024 17:19:46 03/27/20 24 03/27/2024 MRI, knee, w/o contr ast No observ ation record ed. [address] 1 [facility], [place], [address], 04/16/2024 17:19:46 05/30/19 25 US, abdom en, limit ed [facility] [place] [address] Orderi ng Provid er: TYLER RENEE [facility] [place] [address] [facility] [address] [place], [place] [id number] JENNIFER G LUKE S: US ABD LIMITE D DATE: 7:12 AM HISTOR Y: Abdomi nal pain 74-yea r-old female . Abdomi nal pain for 3 months . Right should er pain. Epigas tric pain. Gastro entero logy clinic al note of . Histor y of breast cancer diagno sed in the mid and underw ent bilate ral mastec sharyn and recons tructi on in 1995. 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 Patien t is report edly 5 feet 6 inches and 245 pounds on . COMPAR RANGEL: CT abdome n pelvis with contra st 2023. DISCUS FAHAD: Genera lly echoge laith liver sugges ting mild diffus e fatty infilt ration . Liver length of 19.2 cm (on 2023 CT, hepati c cranio caudal length of 19 cm). No focal hepati c mass or intrah epatic biliar y ductal dilata tion. Color dopple r imagin g of the hepati c veins, inferi or vena cava and portal vein and pulse Dopple r imagin g of the portal vein. Approp riate flow direct ion in the portal vein and normal color Dopple r imagin g of the interr ogated venous system . Adequa tely disten ded gallbl adder. No appare nt gallst ones or gallbl adder sludge . Gallbl adder wall is normal at 1.8 mm thickn ess. Techno logist report s patien t was very tender when scanni ng over the gallbl adder and epigas tric region consis tent with positi ve sonogr aphic Peters 's sign. Common bile duct is normal at 4.9 mm diamet er. Bowel gas obscur es the pancre atic tail and portio ns of the pancre atic head and distal body. No apprec iable acute abnorm ality of the visual ized pancre as. Right kidney 11.1 x 5.2 x 4.5 cm. No hydron ephros is. No appare nt renal mass on curren t study but 1.1 cm fat densit y lesion in the mid kidney sugges ting angiom yolipo ma and 1.3 cm cyst in the upper pole with additi onal subcen timete r cysts on 2023 CT. No apprec iable renal calcif icatio n on curren t study althou gh a 2 mm nonobs tructi ng calcif icatio n in the lower pole on 2023 CT. Normal color Dopple r signal within the right kidney . IMPRES FAHAD: 1. Tender ness when scanni ng over the region of the gallbl adder and epigas tric region . Howeve r, no sonogr aphic eviden ce of cholec ystiti s or biliar y ductal dilati on. 2. Genera lly echoge laith liver sugges ting mild diffus e fatty infilt ration . 3. Partia lly obscur ed pancre as. Ordere d By: TYLER RENEE Electr onical ly Signed By: Gerardo Gray on 8:36 AM Interp reted By: Gerardo Gray , 8:19 AM [facility] [address], [place], [address], 06/04/2024 00:03:29 07/03/19 25 nm hepat obili jhon scan w/GB eject ion fract ion [facility] [address] [facility] [address] [place] [id number] Orderi ng Provid er: RADHA HURT [facility] [place] [address] [facility] [address] [place], [place] [id number] EXAMIN ATION: HEPATO BILIAR Y SCINTI GRAPHY (WITH GALLBL ADDER EJECTI ON FRACTI ON) DATE OF STUDY: 6:59 AM RADIOP HARMAC EUTICA L: 5.5 mCi Tc-99m mebrof enin i.v. and 2.2 mcg sincal rohit i.v. HISTOR Y: Right upper quadra nt pain radiat ing to the back and right upper chest for 3 months . Prior nuclea r medici ne studie s used for compar rangel: none Other radiog raphic compar isons: Limite d abdomi nal ultras ound FINDIN GS: Follow ing intrav enous admini strati on of tracer , sequen tial abdomi nal images were obtain ed. There is prompt , unifor m accumu lation of the tracer by the liver. There is normal fillin g of the intrah epatic ducts, common bile duct and gallbl adder. Biliar y to bowel transi t is not defini tively seen in the first 60 minute s of imagin g. In order to evalua te the contra ctile respon se of the gallbl adder in respon se to cholec ystoki rose mary, sincal rohit (0.02 mcg /kg) was admini stered by slow intrav enous infusi on over 30 minute s, starti ng approx imatel y 60 minute s after the admini strati on of the radiop harmac eutica l. Sequen tial imagin g was contin ued for 30 minute s after the start of the sincal rohit infusi on. These images demons trate prompt biliar y to bowel transi t exclud ing a signif icant common bile duct obstru ction. There is good contra ction of the gallbl adder. The calcul ated gallbl adder ejecti on fracti on is 70% (amada l greate r than 35%). Entero gastri c reflux is noted. Patien t report ed mild right upper quadra nt pressu re during CCK infusi on. IMPRES FAHAD: 1. Normal contra ctile respon se of the gallbl adder to sincal rohit infusi on. 2. Entero gastri c reflux . 3. Initia lly delaye d biliar y to bowel transi t which is nonspe cific but can be a normal findin g in up to 20% of indivi duals. Ordere d By: RADHA Vences onical ly Signed By: Dominga Grace MD on 025 9:28 AM Interp reted By: Dominga Grace MD, 025 9:[address], [address], 07/07/2024 22:30:03 Result Notes None recorded. Procedures Surgical History Date Name Laterality Status Provider Name and Address Organization Details Recorded Time 05/05/19 22 Date [facility] 16:06:58 04/04/19 11 [facility] 15:58:08 09/22/18 99 Reconstructive Surgery completed Tyler Renee MD [address] [place] [address] [address], [place], [address], [facility] 06/07/2023 13:54:28 09/02/18 [address] [facility]/11/2023 16:02:03 04/04/18 97 kidney stone analysis completed [facility] 05/11/2023 16:03:48 03/04/19 96 Bilateral Mastectomy completed [facility] 05/11/2023 16:01:24 06/02/18 96 Bilateral Mastectomy completed [facility] 05/11/2023 16:01:37 04/04/18 96 bilateral reconstruction of breasts completed Tyler Renee MD [address], [place], [address], [facility] 07/30/2023 21:10:30 04/04/18 92 chemical/poison screening completed [facility] 05/11/2023 15:59:51 04/04/18 90 Total Hysterectomy completed [facility] 05/11/2023 15:59:11 04/04/18 89 Back Surgery completed [facility] 05/11/2023 15:57:05 Imaging Results Imaging Date Name Status LastModified by Organization Details LastModified Time 12/21/2023 xr chest Pa+lat completed [address], [address], 12/25/2023 23:38:28 02/02/2024 pre/post bronchodilator spirometry* completed [facility], [facility] [address], [place], [address], 02/06/2024 17:43:25 02/15/2024 US low ext nonvasc ltd lt completed [address], [address], 02/19/2024 14:52:51 03/17/2024 CT ABD+pel W con completed [address], [address], 04/16/2024 17:19:47 03/27/2024 MRI knee lt wo con completed [address], [place], [address], 04/16/2024 17:19:46 03/27/2024 MRI, knee, w/o contrast completed [address], [place], [address], 04/16/2024 17:19:46 05/30/2024 US, abdomen, limited completed [address], [place], [address], 06/04/2024 00:03:29 07/02/2024 nm hepatobiliary scan w/GB ejection fraction completed [address], [place], [address], 07/07/2024 22:30:03 Procedure Notes None recorded. Medical Equipment None Reported. Allergies Allergen ID Allergen Name Allergen Category Reaction Reaction Severity Criticality Documentation Date Start Date Code Code System Note Provider Name and Address Organization Details Recorded Time 66560 lidocaine medicatio n other Not available Not available 05/11/2023 6387 RxNorm on the body is ok but injec table at the [facility] st does not last as amada l and she can feel every thing Not Available Not Available Not Available 64693 erythromy zeyad medicatio n hives Not available Not available 05/11/2023 4053 RxNorm hives and stoma ch ache Not Available Not Available Not Available 23857 gabapenti n medicatio n hives Not available Not available 05/11/2023 22371 RxNorm hives and stoma ch ache Not Available Not Available Not Available 58589 Lorabid medicatio n hives Not available Not available 05/11/2023 94019 4 RxNorm can take for 4 to 6 days and after that she gets hives and somet imes her throa t swell s Not Available Not Available Not Available 75193 acetamino phen / hydrocodo ne medicatio n hives Not available Not available 05/11/2023 01351 2 RxNorm can take for 4 to 6 days but after that she will get hives and somet imes her throa t swell s Not Available Not Available Not Available 79479 phenol medicatio n Not available Not available Not available 05/11/2023 33877 RxNorm Not Available Not Available Not Available 40520 formaldeh yde environme nt,medica tion Not available Not available Not available 05/11/2023 4530 RxNorm Not Available Not Available Not Available 14195 cigarette smoke environme nt Not available Not available Not available 05/11/2023 27298 UNK Not Available Not Available Not Available 64037 acrylic acid Not available Not available Not available Not available 05/11/2023 27632 26 RxNorm Not Available Not Available Not Available 98879 house dust allergeni c extract environme nt,medica tion Not available Not available Not available 05/11/2023 59962 9 RxNorm Not Available Not Available Not Available 65467 house dust mite environme nt Not available Not available Not available 05/11/2023 32748 UNK Not Available Not Available Not Available 44295 mold extract environme nt Not available Not available Not available 05/11/2023 83626 8 RxNorm terps /smut s/rhi zopus /spor obolo myces /drec hsler a/mon wing sito/ clad. fluvu m/pin e terp/ tree terp/ grass terp/ ragwe ek terp/ mesqu ite terp/ angelica terp/ clad herba rum/c urvul aria spec/ strep tomyc es phaeo sphae archie/a sperg illus mix Not Available Not Available Not Available 14258 melon extract food Not available Not available Not available 05/11/2023 23117 10 RxNorm anyth ing in melon famil y Not Available Not Available Not Available 82042 pepper extract Not available Not available Not available Not available 05/11/2023 28782 85 RxNorm or chili famil y Not Available Not Available Not Available 87817 cow milk allergeni c extract food,medi cation Not available Not available Not available 05/11/2023 10059 5 RxNorm lacto se intol erant but some arredondo d/pro cesse d produ cts-- ok Not Available Not Available Not Available 84034 Cardizem medicatio n Not available Not available Not available 05/11/2023 04265 4 RxNorm with prolo nged use Not Available Not Available Not Available 43509 Dynacin medicatio n Not available Not available Not available 05/11/2023 59003 4 RxNorm with prolo nged use Not Available Not Available Not Available 48057 Doryx medicatio n Not available Not available Not available 05/11/2023 65259 7 RxNorm with prolo nged use Not Available Not Available Not Available 57569 Adoxa medicatio n hives Not available Not available 05/11/2023 17367 5 RxNorm also makes her stoma ch hurt Not Available Not Available Not Available 76012 metronida zole medicatio n Not available Not available Not available 08/10/2023 6922 RxNorm she gets whelp s Not Available Not Available Not Available Medications Name Sig Start Date Stop Date Status Note LastModified by Organization Details LastModified Time sulfasala zine 500 mg tablet 03/13 completed Not Available Not Available Not Available albuterol sulfate 2.5 mg/3 mL (0.083 %) solution for nebulizat ion 1 treatent 2023 active Not Available Not Available Not Avai lable lisinopri l 20 mg-hydroc hlorothia zide 12.5 mg tablet TAKE 1 TABLET BY MOUTH ONCE DAILY WITH 20MG LISINOPR IL TABLET active Not Available Not Available No t Available nystatin 100,000 unit/gram topical ointment 12/20 completed Not Available Not Available Not Available fluconazo le 150 mg tablet TAKE 1 TABLET BY MOUTH EVERY OTHER DAY FOR 4 DAYS active Not Available Not Available No t Available benzonata te 200 mg capsule 1 pill once, up to 3 times day as needed; can cause drowsine ss 05/06 completed Not Available Not Available Not Available valacyclo vir 1 gram tablet Take 1 tablet every 8 hours by oral route. active Not Available Not Available No t Available albuterol sulfate 1.25 mg/3 mL solution for nebulizat ion USE 1 VIAL VIA NEBULIZE R EVERY 4 TO 6 HOURS NEEDED FOR SHORTNES S OF BREATH OR WHEEZING 05/08 completed Not Available Not Available Not Available hydrocodo ne 5 mg-acetam inophen 325 mg tablet TAKE 1 TO 2 TABLETS BY MOUTH EVERY 6 HOURS NEEDED 05/08 completed Not Available Not Available Not Available lisinopri l 20 mg tablet TAKE ONE TABLET BY MOUTH ONCE DAILY active Not Available Not Available No t Available ondansetr on HCl 4 mg tablet TAKE 1 TABLET BY MOUTH THREE TIMES DAILY NEEDED 09/25 completed Not Available Not Available Not Available prednison e 20 mg tablet TAKE 1 TABLET BY MOUTH DAILY 05/08 completed Not Available Not Available Not Available glipizide ER 5 mg tablet, extended release 24 hr TAKE ONE TABLET BY MOUTH EVERY MORNING 05/06 completed -- on Aprumet now Not Available Not Available Not Available Zithromax Z-Rhett 250 mg tablet TAKE 2 TABLETS (500 MG) BY ORAL ROUTE ONCE DAILY FOR 1 DAY THEN 1 TABLET (250 MG) BY ORAL ROUTE ONCE DAILY FOR 4 DAYS 03/13 completed Not Available Not Available Not Available cyanocoba lisa (vit B-12) 1,000 mcg tablet Take 1 tablet every day by oral route. 2023 active Not Available Not Available Not Avai lable metronida zole 500 mg tablet Take 1 tablet every 8 hours by oral route. 09/14 completed Not Available Not Available Not Available ciproflox acin 500 mg tablet Take 1 tablet every 12 hours by oral route. 12/20 completed Not Available Not Available Not Available sulfameth oxazole 800 mg-trimet hoprim 160 mg tablet TAKE 1 TABLET BY MOUTH EVERY 12 HOURS 05/06 completed Not Available Not Available Not Available aspirin 81 mg tablet,de layed release Take 1 tablet every day by oral route. active Not Available Not Available No t Available meloxicam 7.5 mg tablet TAKE 1 TABLET BY MOUTH DAILY 05/08 completed Not Available Not Available Not Available prednisol one acetate 1 % eye drops,liang pension INSTILL 1 DROP IN BOTH EYES TWICE DAILY FOR 7 DAYS THEN EVERY DAY FOR 7 DAYS active Not Available Not Available No t Available amlodipin e 10 mg tablet TAKE ONE TABLET BY MOUTH EVERY MORNING active Not Available Not Available No t Available cephalexi n 500 mg capsule TAKE 1 CAPSULE BY MOUTH TWICE DAILY FOR 10 DAYS 05/08 completed Not Available Not Available Not Available neomycin- polymyxin -dexameth 3.5 mg/mL-10, 000 unit/mL-0 .1% eye drops SHAKE LIQUID AND INSTILL 1 DROP IN LEFT EYE THREE TIMES DAILY FOR 1 WEEK 05/10 completed -- duplicat e Not Available Not Available Not Available triamcino lone acetonide 0.1 % topical ointment 05/06 completed -- pt has not filled since 10/27/23 Not Available Not Available Not Available monteluka st 10 mg tablet TAKE 1 TABLET BY MOUTH EVERY DAY AT BEDTIME FOR ASTHMA OR RHINITIS 01/09 completed Not Available Not Available Not Available codeine 10 mg-guaife nesin 100 mg/5 mL oral liquid TAKE 10 ML BY MOUTH UP TO THREE TIMES DAILY NEEDED 05/06 completed Not Available Not Available Not Available bisacodyl 5 mg tablet,de layed release TAKE 4 TABLETS BY MOUTH DIRECTED 05/06 completed -- pt has not filled since 08/09/23 Not Available Not Available Not Available furosemid e 20 mg tablet TAKE 1 TABLET BY MOUTH EVERY MORNING NEEDED FOR LEG SWELLING . NO MORE THAN 3 DAYS IN A ROW 05/08 completed Not Available Not Available Not Available nystatin 100,000 unit/gram topical powder APPLY TOPICALL Y TO THE AFFECTED AREA THREE TIMES DAILY 05/06 completed Not Available Not Available Not Available azelastin e 137 mcg (0.1 %) nasal spray USE 2 SPRAYS IN EACH NOSTRIL TWICE DAILY 05/06 completed -- pt has not filled since 06/19/22 Not Available Not Available Not Available budesonid e DR - ER 3 mg capsule,d elayed,ex tended release active Not Available Not Available Not Available methylpre dnisolone 4 mg tablets in a dose pack FOLLOW PACKAGE DIRECTIO NS 05/06 completed Not Available Not Available Not Available albuterol sulfate HFA 90 mcg/actua tion aerosol inhaler INHALE 1 PUFF BY MOUTH EVERY 4 HOURS NEEDED FOR SHORTNES S OF BREATH active Not Available Not Available No t Available oxybutyni n chloride 5 mg tablet TAKE 1 TABLET BY MOUTH EVERY 8 HOURS NEEDED FOR BLADDER SPASMS 01/09 completed Not Available Not Available Not Available ipratropi um bromide 21 mcg (0.03 %) nasal spray USE 2 SPRAYS IN EACH NOSTRIL TWICE DAILY 05/08 completed Not Available Not Available Not Available amoxicill in 875 mg-potass ium clavulana te 125 mg tablet Take 1 tablet every 12 hours by oral route. 01/09 completed Not Available Not Available Not Available clindamyc in phosphate 1 % topical solution APPLY TO RIGHT CHEEK TWICE DAILY 05/08 completed Not Available Not Available Not Available neomycin 3.5 mg/g-poly myxin B 10,000 unit/g-de xameth 0.1 % eye oint APPLY OINTMENT ON THE AFFECTED UPPER EYELID TWICE DAILY 09/14 completed Not Available Not Available Not Available Restasis 0.05 % eye drops in a dropperet te INSTILL 1 DROP IN BOTH EYES TWICE DAILY active Not Available Not Available No t Available moxifloxa zeyad 0.5 % eye drops 05/08 completed Not Available Not Available Not Available olmesarta n 40 mg-hydroc hlorothia zide 12.5 mg tablet 12/20 completed -- changed to Lisinopr il-hctz due to GI sx Not Available Not Available Not Available rosuvasta tin 20 mg tablet TAKE ONE TABLET BY MOUTH ONCE DAILY active Not Available Not Available No t Available nitrofura ntoin monohydra te/macroc rystals 100 mg capsule TAKE 1 CAPSULE BY MOUTH EVERY 12 HOURS FOR 5 DAYS 05/08 completed Not Available Not Available Not Available duloxetin e 30 mg capsule,d elayed release TAKE ONE CAPSULE BY MOUTH EVERY DAY FOR 10 DAYS AND THEN TWICE DAILY UNTIL ALL TAKEN 03/05 completed -- on 60 mg now Not Available Not Available Not Available duloxetin e 60 mg capsule,d elayed release Take 1 capsule every day by oral route. active Not Available Not Available No t Available Gas Relief Extra Strength 125 mg chewable tablet 01/09 completed Not Available Not Available Not Available mesalamin e 1.2 gram tablet,de layed release active Not Available Not Available Not Available Janumet 50 mg-500 mg tablet TAKE ONE TABLET BY MOUTH EVERY MORNING 2024 active Not Available Not Available Not Avai lable GaviLyte- G 236 gram-22.7 4 gram-6.74 gram-5.86 gram oral solution 12/20 completed Not Available Not Available Not Available Breo Ellipta 200 mcg-25 mcg/dose powder for inhalatio n 05/06 completed -- pt has not filled since 03/21/23 Not Available Not Available Not Available naloxone 4 mg/actuat ion nasal spray CALL 911. SPR CONTENTS OF ONE SPRAYER (0.1ML) INTO ONE NOSTRIL. REPEAT IN 2-3 MIN IF SYMPTOMS OF OPIOID EMERGENC Y PERSIST, ALTERNAT E NOSTRILS 05/08 completed Not Available Not Available Not Available Cequa 0.09 % eye drops in a dropperet te active Not Available Not Available Not Available Vitals Date Recorded Body height Heart rate Respiratory rate Body temperature Body mass index (BMI) Body weight Provider Name and Address Organization Details Last Updated DateTime 165.1 cm 85 /min 16 /min 97.9 [degF] 38.9 kg/m2 887573. 61 g [facility] 13:18:21 Date Recorded Systolic blood pressure Diastolic blood pressure Provider Name and Address Organization Details Last Updated DateTime 01/10/2024 144 mm[Hg] 80 mm[Hg] Tyler Renee MD [address] [place] [address] [address], [place], [address], [facility] 01/10/2024 13:40:42 Date Recorded Body height Heart rate Respiratory rate Body temperature Body weight Body mass index (BMI) Systolic blood pressure Diastolic blood pressure Provider Name and Address Organization Details Last Updated DateTime 4 165.1 cm 92 /min 16 /min 97.5 [degF] 161826. 58 g 39.8 kg/m2 128 mm[Hg] 82 mm[Hg] [facility] 15:[facility]:58 Date Recorded Body height Heart rate Respiratory rate Body temperature Body weight Body mass index (BMI) Systolic blood pressure Diastolic blood pressure Provider Name and Address Organization Details Last Updated DateTime 4 165.1 cm 91 /min 16 /min 97.4 [degF] 732956. 8 g 39.3 kg/m2 125 mm[Hg] 77 mm[Hg] Janiya Pruitt [facility] 4 16:06:01 Date Recorded Body height Heart rate Respiratory rate Body temperature Body mass index (BMI) Body weight Systolic blood pressure Diastolic blood pressure Provider Name and Address Organization Details Last Updated DateTime 5 165.1 cm 83 /min 16 /min 97.3 [degF] 39.6 kg/m2 019281. 98 g 121 mm[Hg] 77 mm[Hg] Janiya Pruitt [facility] 5 15:41:34 Date Recorded Body height Heart rate Respiratory rate Body temperature Body mass index (BMI) Body weight Systolic blood pressure Diastolic blood pressure Provider Name and Address Organization Details Last Updated DateTime 5 165.1 cm 80 /min 16 /min 97.5 [degF] 40.8 kg/m2 891933. 13 g 153 mm[Hg] 72 mm[Hg] Janiya Pruitt [facility] 5 13:42:51 Social History Question Answer Notes LastModified by Organizat ion Details LastModified Time Tobacco Smoking Status Never Smoker Janiya Pruitt [facility] 05/10/2023 14:46:25 Do You Have An Advance Directive? Yes Information not available 05/10/2023 What Is Your Level Of Alcohol Consumption? None Information not available 05/10/2023 Do You Wear A Helmet When Biking? No Information not available 05/10/2023 Are You Blind Or Do You Have Difficulty Seeing? Yes Seeing Dr. Santos//and Wears Glasses Information not available 05/10/2023 Is Blood Transfusion Acceptable In An Emergency? Yes Information not available 05/10/2023 What Is Your Level Of Caffeine Consumption? Heavy Information not available 05/10/2023 What Type Of Senior Analysis Specialist Do You Use? None Information not available 05/10/2023 What Is Your Code Status? Full Code Information not available 05/10/2023 In The 14 Days Before Symptom Onset, Have You Had Close Contact With A Laboratory-johanai ed COVID-19 While That Case Was Ill? No Information not available 05/10/2023 In The 14 Days Before Symptom Onset, Have You Had Close Contact With A Person Who Is Under Investigation For COVID-19 While That Person Was Ill? No Information not available 05/10/2023 Have You Been To An Area Known To Be High Risk For COVID-19? No Information not available 05/10/2023 Are You Currently Employed? 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 Has Checks Coming In From [employer] [place] And Has Land In [place] As Well Information not available 05/10/2023 Are You Deaf Or Do You Have Serious Difficulty Hearing? Yes Depending On The Sound Around Her She May Have To Ask What Was Said Information not available 05/10/2023 What Type Of Diet Are You Following? REGULAR Cooks From Scratch And Bakes From Scratch Information not available 05/10/2023 Have You Processed Blood Or Body Fluids From An Ebola Virus Disease Patient Without Appropriate PPE? No Information not available 05/10/2023 Do You Reside In Or Have You Traveled To An Area Where Ebola Virus Transmission Is Active? No Information not available 05/10/2023 What Is The Highest Grade Or Level Of School You Have Completed Or The Highest Degree You Have Received? WA01775-3 BA In Education K-12 BA In Special Ed Information not available 05/10/2023 Have There Been Any Changes To Your Family Or Social Situation? Yes 1 1/2 Years Ago Moved From [place] Information not available 05/10/2023 What Is The Fluoride Status Of Your Home? Non-fluorid ated Information not available 05/10/2023 Are There Any Guns Present In Your Home? Yes Information not available 05/10/2023 Do You Use Insect Repellent Routinely? No Information not available 05/10/2023 What Was The Date Of Your Most Recent Tobacco Screening? 05/09/2024 Information not available 05/09/2024 How Many Children Do You Have? 2 Information not available 05/10/2023 Do You Have Any Pets? Yes Information not available 05/10/2023 What Is Your Relationship Status? Information not available 05/10/2023 Do You Use Your Seat Belt Or Car Seat Routinely? Yes Information not available 05/10/2023 Are You Sexually Active? No Information not available 05/10/2023 Do You Have Smoke And Carbon Monoxide Detectors In Your Home? Yes Information not available 05/10/2023 Are You Passively Exposed To Smoke? No Information not available 05/10/2023 What Types Of Sporting Activities Do You Participate In? No Information not available 05/10/2023 Do You Feel Stressed (tense, Restless, Nervous, Or Anxious, Or Unable To Sleep At Night)? [id number] Information not available 05/10/2023 Do You Use Any Illicit Or Recreational Drugs? No Information not available 05/10/2023 Do You Use Sunscreen Routinely? No Information not available 05/10/2023 Do You Or Have You Ever Used Any Other Forms Of Tobacco Or Nicotine? No Information not available 05/10/2023 Sex: Unknown Functional Status Question Answer Note LastModified by Organizat ion Details LastModified Time Do you have difficulty walking or climbing stairs? Yes walking/uses walker//has bladder issues Information not available 05/10/2023 Do you have transportation difficulties? No Information not available 05/10/2023 Do you have difficulty doing errands alone? No Information not available 05/10/2023 Are you able to care for yourself? Yes Information n ot available 05/10/2023 Do you have difficulty dressing or bathing? Yes having trouble getting her arms up high//ball and sockets on both shoulders are hurting Information not available 05/10/2023 What is your exercise level? None Information not available 05/10/2023 Mental Status Question Answer Note LastModified by Organization D etails LastModified Time Do you have difficulty concentrating, remembering or making decisions? No Information no t available 05/10/2023 Family History Relationship Description Onset Age of this Age Resolved Age Notes LastModified by Organization Details LastModified Time Maternal Grandfather Arthritis mbenfer Not available 09/2023 14:40:25 Maternal Grandmother Arthritis mbenfer Not available 09/2023 14:40:37 Maternal Grandmother Disorder of brain brain cancer mbenfer Not available 05/10/2023 14:42:01 Paternal Grandfather Arthritis mbenfer Not available 09/2023 14:40:41 Paternal Grandfather Heart disease mbenfer Not available 2023 14:43:00 Paternal Grandmother Arthritis mbenfer Not available 09/2023 14:40:48 Father Arthritis mbenfer Not available 05/10/2023 14:40:55 Father Diabetes mellitus mbenfer Not available 2023 14:42:30 Father Heart disease mbenfer Not available 2023 14:43:00 Father Obesity mbenfer Not available 0 05/10/2023 14:55:21 Mother Arthritis mbenfer Not available 05/10/2023 14:40:59 Mother Alcohol abuse mbenfer Not available 2023 14:45:49 Mother Diabetes mellitus mbenfer Not available 2023 14:54:57 Mother Obesity mbenfer Not available 0 05/10/2023 14:55:21 Brother Arthritis 2 brothe rs mbenfer Not available 05/10/2023 14:41:16 Medical History Condition Response Diabetes Y Muscle, Joint, or Bone Problems Y Arthritis Y Kidney Stones Y Cancer Y Diverticulitis Y Asthma Y High Cholesterol Y Hypertension Y Gynecological History Statement/Question Response Date of Last Mammogram 05/05/2021 Obstetrics History GPAL:G 2 P 0 0 0 0 Immunizations Vaccine Type Date Status Note Provider Nam e and Address Organization Details Recorded Time Influenza, high-dose, trivalent, PF 4 completed Tyler Renee MD [address], [place], [address], [place] [facility] 02/02/2024 16:43:50 RSV, recombinant, protein subunit RSVpreF, adjuvant reconstituted, 0.5 mL, PF 4 completed yTler Renee MD [address], [place], [address], [place] [facility] 04/16/2024 16:47:30 Pneumococcal conjugate PCV20, polysaccharide VBO205 conjugate, adjuvant, PF 4 completed Tyler Renee MD [address], [place], [address], [facility] 04/16/2024 16:47:49 Past Encounters Encounter ID Performer Location Encounter Start Date Encounter Closed Date Diagnosis/Indication Diagnosis SNOMED-CT Code Diagnosis ICD10 Code Diagnosis Note [id number] Tyler Renee MD [facility], [facility] [address] [place] [address] 05/10/2023 14:07:31 05/10/2023 16:55:46 Type 2 diabetes mellitus without complication 027434710 E11.9 Abdominal pain 50304312 R10.9 (h/o diverticul itis 2019, and bilateral ureteric stone in 1996 & 2022) Essential hypertension 00505510 I10 Hyperlipidemia 50078242 E78.5 Dyspnea on exertion 6084 5006 R06.09 Dry eyes 346552519 H04.1 23 -- dx'd w/ Sj gren's by Ophthalmol ogist/Opto metrist Dr Godfrey at [facility] ; Fax Urinary incontinence 165 303390 R32 Xeroderma 77299698 E50.8 -- likely from Sjogren's Syndrome Musculoskeletal pain 279 338095 M79.10 (lower back, muscle aches & joint aches) Body mass index 40+ - severely obese 840258801 Z68.41 HIV screening 196253731 Z11.4 CDC recommends that everyone between the ages of 13 and 64 get tested for HIV at least once as part of routine health care. 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 Asthma 855772289 J45.90 9 Screening for osteoporosis 060427445 Z13.820 [id number] Tyler Renee MD [facility] [address] [place] [address] 06/07/2023 11:49:56 06/07/2023 14:21:47 Abdominal pain 80327280 R10.9 (h/o diverticul itis 2018, and bilateral ureteric stone in 1996 & 2022) - -- since mesh placement at [facility]; pt has chronic pelvic pain w/o relief (just above the pubic bone); pain persisted in spite of removing the mesh.-- no change since then (pt takes Hydrocodon e occasional ly).-- pain worsened since pt tried the ten's unit from Urogynecol ogist-- recheck lab(s) on 11/08/23 Type 2 jaciel betes mellitus without complication 853247699 E11.9 -- recheck lab(s) on 11/08/23 Essential hypertension 02990557 I10 -- controlled -- recheck lab(s) on 11/08/23 Hyperlipidemia 95032413 E78.5 -- excellent control-- recheck lab(s) on 11/08/23 Dyspnea on exertion 6084 5006 R06.09 -- recheck lab(s) on 11/08/23 Dry eyes 139818342 H04.1 23 -- dx'd w/ Sj gren's by Ophthalmol ogist/Opto metrist Dr Godfrey at [facility] ; Fax Urinary incontinence 165 593965 R32 -- UA complete w/ micro was not revealing except for trace Leukocyte esterace (05/11/23) Asthma 735774089 J45.90 9 -- no flares (have not used inhalers in the last 6 months) Xeroderma 73497805 E50.8 -- likely from Sjogren's Syndrome-- normal TFTs on 05/11/23 Musculoskeletal pain 279 330203 M79.10 (lower back, muscle aches & joint aches) Body mass index 40+ - severely obese 373762622 Z68.41 -- will advise weight loss-- pt's BMI today is 39.9 (ideal is between 20-25) Screening for osteoporosis 280825009 Z13.820 HIV screening 485905252 Z11.4 -- tested negative for HIV on 05/11/23 Active or passive immunization 851463869 Z23 -- had Tdap 2022 and High dose Flu shot at [facility] Dec 2022 Screening for malignant neoplasm of colon 457154664 Z12.11 -- last colonoscop y was in [place]-- pt is currently following w/ GI Dr Radha Spencer at [facility] Screening for malignant neoplasm of breast 462242001 Z12.31 -- pt had double prophylact ic Mastectomy for Lobular carcinoma in situ Gynecologi c examination 29966228 Z01.419 -- last saw Urogynecol ogist Dr Nishi reese around end of Mar 2023 who referred pt for pelvic pain. Hepatitis C screening 41 3585117 Z11.59 [id number] Dayday Goyal MD [facility] [address] [place] [address] 08/05/2023 08:41:41 08/05/2023 10:39:41 Localized eruption of skin 376541303 R21 ?? allergic reaction to metronidaz ole Colitis 77892936 K52.9 Nausea and vomiting 1693 1999 R11.2 [id number] Tyler Renee MD [facility] [address] [place] [address] 08/10/2023 09:44:13 08/10/2023 12:32:30 Localized eruption of skin 561726180 R21 -- markedly better-- see photo Diverticul itis of colon 747281472 K57.32 Thickening of mid Sigmoid colon w/ inflammato ry stranding suggestive of diverticul itis -- Inform pt to start on Augmentin (has welps to Metronidaz ole) and Radiologis t recommends she followup with Gastroente rologist to rule out colon cancer. Macrocytosis 664814583 D 75.89 1. ^MCV (macrocyto tis) -- normal RBC folate & TFTs (05/11/23) 2. Low normal Vit B12 -- start over-the-c ounter sublingual Vit B12 1,000 mcg) 1 tab every Morning (under tongue for 5 min then swallow). Desirable Vit B12 level is over 500 pg/ml Osteopenia 727905183 M85 .80 Type 2 jaciel betes mellitus without complication 478305007 E11.9 -- A1c level of 6.3 (05/11/23)-- recheck lab(s) on 11/08/23 [id number] Tyler Renee MD [facility], [facility] [address] [place] [address] 09/01/2023 13:57:40 09/01/2023 15:48:46 Abdominal pain 55212318 R10.9 -- abd swelling that started 3 days ago (Tuesday08/28/23) Hematochezia 357149561 K 92.1 -- pt advised to go to the Emergency Room now. Pt declines EMS transport but will want to drive home and have her daughter take her to [facility] where her GI Dr Dr Spencer works at. [id number] Tyler Renee MD [facility] [employer] [address] [place] [address] 09/15/2023 14:35:03 09/15/2023 17:10:59 Abdominal pain 07791283 R10.9 -- dx'd w/ colitis; stool study showed Sapovirus- - pt was treated w/ Zosyn IV ABx-- pt feeling much better Diarrhea 16727215 R19.7 -- normal soft formed BMs now CT of abdo men abnormal 9996152336 6350523 R93.5 [id number] Tyler Renee MD [facility] [employer] [facility] [employer], [facility] [address] [place] [address] 09/26/2023 14:02:51 09/26/2023 15:51:44 Sigmoiditis 946193850 K52.9 (8 cm length) -- unchanged from CT on 07/29/23-- pt was issued Cipro & Metronidaz ole on 08/01/23, pt had welps w/ 1 dose of Metronidaz ole, this was subsequent ly changed to Augmentin 875 BI on 08/05/23.-- pt had colonoscop y w/ Dr Radha Hurt on 09/05/23-- pt has appt w/ Dr Radha Hurt on 10/11/23 at [place] [facility] Retroperit jewell lymphadenopathy 224206755 R59.0 (1.2 cm) Adenomatou s polyp of colon 621879310 D12.6 -- on colonoscop y done on 09/05/[address] Radha Hurt Solitary n odule of lung 241693536 R91.1 (3 mm RML nodule) -- repeat chest [facility] at [facility] 3 months from 09/22/23 Asthma 156147716 J45.90 9 -- no flares (have not used inhalers in the last 6 months) Type 2 jaciel betes mellitus without complication 679710000 E11.9 -- A1c level of 6.3 (05/11/23)-- recheck lab(s) on 11/08/23 Essential hypertension 74098649 I10 -- controlled -- recheck lab(s) on 11/08/23 Hyperlipidemia 89336719 E78.5 -- excellent controlCur rent ASCVD risk calculatio n is 26.0% (09/26/23) -- pt TC was 139, HDL 51, & LDL of 69 on 05/11/23; BP of 104/67 (09/26/23)- - recheck lab(s) on 11/08/23 Active or passive immunization 765757213 Z23 -- had Tdap 2022 and High dose Flu shot at [facility] Dec 2022 Advance di rective discussed with patient 107781066 Z71.89 [id number] Tyler Renee MD [facility] [address] [place] [address] 11/16/2023 15:32:31 11/16/2023 18:16:39 Multiple nodules of lung 979305656 R91.8 w/ retroperit jewell lymphadeno mike CT of abdo men abnormal 1144471403 0938066 R93.5 -- pt saw Gastroente rologist Dr Radha Hurt (10/11/23); pt reports that Dr Hurt wants her to f/u w/ Dr Violeta Hale-- pt also saw Oncologist Dr Aleksander Gonzales yesterday 11/16/23; & scheduled f/u appt w/ Dr Gonzales on 12/13/23 Gynecologi c examination 32346906 Z01.419 -- last saw Urogynecol ogist Dr Nishi Reese around end of Mar [address] Ria Walton for eval of pelvic pain. Multiple joint pain 3567 8005 M25.50 -- pt reported that her spine has also been hurting a lot lately-- pt was told she has Sjogren by 2 different optometris t but labs ordered by Pulmonolog ist for Sjogrens came back normal [id number] Tyler Renee MD [facility] [employer] [employer], [facility] [address] [place] [address] 12/21/2023 09:06:27 12/21/2023 10:34:22 Upper respiratory infection 86640264 J06.9 Acute bronchitis 5768295 2 J20.9 Exacerbati on of intermittent asthma 385405651 J45.21 Essential hypertension 01716576 I10 -- controlled after changing Olmesartan -hctz 40/12.5 --> Lisinopril 20 mg + Lisinopril -hctz 20/12.5 [id number] Tyler Renee MD [facility], [facility] [address] [place] [address] 01/10/2024 11:36:48 01/10/2024 13:50:17 Upper respiratory infection 24732485 J06.9 -- resolved Exacerbati on of intermittent asthma 018426561 J45.21 Essential hypertension 72264987 I10 -- controlled after changing Olmesartan -hctz 40/12.5 --> Lisinopril 20 mg + Lisinopril -hctz 20/12.5 Low back pain 307902100 M54.50 [id number] Tyler Renee MD [facility] [employer] [facility] [employer], [facility] [address] [place] [address] 02/02/2024 14:58:05 02/02/2024 17:51:43 Cough 63331173 R05.9 Active or passive immunization 126689764 Z23 -- had Tdap 2022 and High dose Flu shot at [facility] Dec 2022 Essential hypertension 82972407 I10 -- controlled Exacerbati on of intermittent asthma 970624495 J45.21 -- pt have not been using her rescue inhaler recently as she has no SOB-- pt counseled Low back pain 090696759 M54.50 Pain of le ft knee joint 0697018105 58524 M25.562 (posterior ) [id number] Tyler Renee MD [facility] [employer] [employer] [address] [place] [address] 03/05/2024 15:16:39 03/05/2024 16:54:47 Acute exacerbation of chronic asthmatic bronchitis 418299018 J44.1 Colitis 72257648 K52.9 -- pt reported that GI Dr Radha Hurt told her she does not have Crohn's but have colitis [id number] Tyler Renee MD [facility] [address] [place] [address] 04/16/2024 14:40:07 04/16/2024 17:27:31 Crohn's disease 21909060 K50.90 -- GI Dr Radha Hurt issued pt Budesonide 3 mg capsules which pt will be starting today Type 2 jaciel betes mellitus without complication 550903924 E11.9 -- A1c level of 6.3 (05/11/23)-- recheck lab(s) within 7 days from 04/16/24 Adult [facility] examination 000252782 Z00.00 Asthma 036499756 J45.90 9 -- no flares (have not used inhalers in the last 6 months) Essential hypertension 16724191 I10 -- controlled Low back pain 552391227 M54.50 Multiple n odules of lung 518344606 R91.8 w/ retroperit jewell lymphadeno mike Hyperlipidemia 60404638 E78.5 -- excellent controlCur rent ASCVD risk calculatio n is 26.0% (09/26/23) -- pt TC was 139, HDL 51, & LDL of 69 on 05/11/23; BP of 104/67 (09/26/23)- - recheck lab(s) on 11/08/23 Body mass index 30+ - obesity 226389074 Z68.39 -- advised weight loss; pt gained 2 # since her last visit-- pt's BMI today is 39.6 (ideal is between 20-25) Hepatitis C screening 41 2466440 Z11.59 Active or passive immunization 870822103 Z23 -- had Tdap 2022 and High dose Flu shot at [facility] Dec 2022 Screening for malignant neoplasm of colon 907524456 Z12.11 -- last colonoscop y was in [place]-- pt had colonoscop y w/ Dr Radha Hurt by 09/2023-- later pt had repeat colonoscop y by Dr Swapna Hale 12/09/23 Screening for malignant neoplasm of breast 791420835 Z12.31 -- pt had double prophylact ic Mastectomy for Lobular carcinoma in situ Gynecologi c examination 10506881 Z01.419 -- last saw Urogynecol ogist Dr Nishi Reese around end of Mar 2023 who referred pt to Dr Ria Walton for eval of pelvic pain.-- pt has appt w/ Dr Ria Walton on 04/25/24 at 11 am Osteopenia 682798669 M85 .80 10 year risk for major osteoporot ic Fx is 17%; 10 year risk for a Hip Fx is 2.2% Osteopenia -- start Citracal 600 mg 1 pill twice a day -- if she is not already on daily vit D, take otc vit D 2,000 units daily (in addition to the vit D in Citracal). -- weight bearing exercise (like walking, dancing, low-impact aerobics, elliptical training machines, & stair climbing). -- repeat Bone density in 2 years. [id number] Tyler Renee MD [facility], [facility] [address] [facility] [address] [place] [address] 05/09/2024 12:29:27 05/09/2024 14:13:09 Shoulder pain 74335950 M25.519 (Rt shoulder, Rt chest -- radiates to Rt scapula)-- Gallstone vs shoulder origin vs zoster sine herpete Upper abdominal pain 831 40507 R10.10 Increased belching 37056 005 R14.2 Health Concerns Section Related Observation LastModified by Organization Detai ls LastModified Time None Recorded Concern Status LastModified by Organization Details LastModified Time None Recorded Advance Directives Directive Y: Payers Encounter Date Sequence Insurance Name Policy Number Policy Marshall Covered Member ID Marshall Member ID Guarantor Name 01/10/2024 1 [place] Ernafawad Nance [id number] Erna Nance 01/10/2024 2 [place] [id number] Erna Nance [id number] Erna Nance 02/02/2024 1 [place] Er[place] Nance [id number] 22 Erna Nance 02/02/2024 2 [place] [id number] Erna Nance [id number] Erna Nance 03/05/2024 1 [place] Er[place] Nance [id number] 22 Erna Nance 03/05/2024 2 [place] [id number] Erna Nance [id number] Erna Nance 04/16/2024 1 [place] Er[place] Nance [id number] 22 Erna Nance 04/16/2024 2 [place] [id number] Erna Nance [id number] Erna Nance 05/09/2024 1 [place] Er[place] Nance [id number] 2 [id number] 22 Erna Nance 05/09/2024 2 [place] [id number] Erna Nance [id number] Erna Nance Notes Date Note Type Note Provider Name and Address Organization Details Recorded Time 01/10/2024 text/html Pt comes in for f/u of HTN, Asthma, LBP and intermittent abdominal pain. No f/c, BRBPR/melena, constipation or diarrhea. Pt feels well and has no c/o. Pt has no new sx and no increasing sx. Patient denies any jaw or neck discomfort, left arm pain/left arm discomfort, chest discomfort/pain, diaphoresis, breathing symptoms/chest tightness, indigestion sx, n/v, any angina equivalent symptoms, etc. Tyler Renee MD [address] [place] [address] [address], [place], [address], [facility] - [facility] 01/10/2024 13:51:07 02/02/2024 text/html Pt comes in for incessant dry cough, and bilateral knee pain. Pt also requesting refill of Duloxetine for her LBP. Pt has no f/c, n/v, diarrhea, generalized bodyaches, increasing weakness, confusion, CP/chest discomfort, PEPPER/SOB, or wheezing. Tyler Renee MD [address] [facility] [address], [place], [address], [facility] 02/02/2024 17:07:38 03/05/2024 text/html 1 week ago, pt w as working in the cold outside. The next day, pt had f/c, and increase coughing. Initially cough dry but now, she has green phlegm. Pt request refill:Benzonatate 200mg cap and Guaifenisn---Wants this to go to [facility] in [place] Dr. Isabel Vanegas prescribed Budesonide 3mg 3x a day butDr. Hurt said to take 1 pill per day for 60 days then go back to see him for f/u. Also her daughter just had a heartattack this morning (Zoe) -- very stressed. Tyler Renee MD [address] [facility] [address], [place], [address], [facility] 03/05/2024 16:55:38 04/16/2024 text/html Medicare Annual Wellness VisitReported bypatient.Diet and Nutrition:healthy diet; discussed vitamin and supplement use; discussed portion control; discussed maintaining calcium balance; discussed diet improvement Fracture Risk:no history of fractures; no recent explained fracture; no sudden unexplained fractures; no previous musculoskeletal injuries Physical Activity:discussed weightbearing activities; discussed exercise habits Depression Risk:never feels sad, empty, or tearful; no loss of interest in activities; no significant changes in weight; no sleep disturbances or insomnia; no agitation; no loss of energy; no feelings of worthlessness or guilt; no thoughts of suicide; no history of depression; no history of mood disorders Orientation:no disorientation to time; no disorientation to date; no disorientation to place Concentration and Memory:no decreased concentrating ability; no memory lapses or loss; does not forget words Speech/Motor difficulties:no speech difficulties; no difficulty expressing formulated concepts; no difficulty with fine manipulative tasks; no difficulty writing/copying; no slowed reaction time; does not knock things over when trying to pick them up Hearing:no loss of hearing Vision:no vision problems (if she wears her bifocal glasses) Activities of Daily Living:able to bathe with limited or no assistance; able to contol urination and bowels; able to dress with limited or no assistance; able to feed self with limited or no assistance; able to get out of chair or bed with limited or no assistance; able to groom with limited or no assistance; able to toilet with limited or no assistance Instrumental Activities of Daily Living:able to do house work with limited or no assistance; able to grocery shop with limited or no assistance; able to manage medications with limited or no assistance; able to manage money with limited or no assistance; able to prepare meals with limited or no assistance; able to use the phone with limited or no assistance Falls Risk Assessment:no frequent falls while walking; no fall in the past year; no fall since last visit; no dizziness/vertigo Home Safety:no unsafe alma hazzards; no unsafe stairs; no unsafe gas appliances; working smoke/CO detectors; use of seatbelts; no vision or hearing loss while driving; has hand bars in the bathroom/shower; good lighting in the home;fire arms Pt comes in for f/u of her severe cough -- which has now gone. She has not been using her Asthma rescue inhaler in the last 2 weeks. Pt also here for f/u of DM, HTN, HLD, Asthma (quiescent), lung nodules, and new diagnosis of Crohn's. Pt feels well and has no c/o. Pt has no new sx and no increasing sx. Patient denies any jaw or neck discomfort, left arm pain/left arm discomfort, chest discomfort/pain, diaphoresis, breathing symptoms/chest tightness, indigestion sx, n/v, any angina equivalent symptoms, etc. Tyler Renee MD [address], [place], [address], [facility] 04/16/2024 17:25:16 05/09/2024 text/html Pt p/w bilateral upper abdominal pain (R>L); Rt shoulder pain and increased belching. No PEPPER/SOB, leg pain/swelling, weakness, diaphoresis. Pt feels well other and has no c/o. Pt has no new sx and no increasing sx. Patient denies any jaw or neck discomfort, left arm pain/left arm discomfort, chest discomfort/pain, diaphoresis, breathing symptoms/chest tightness, indigestion sx, n/v, any angina equivalent symptoms, etc. Tyler Renee MD [address] [place] [address] [address], [place], [address], [facility] 05/09/2024 14:13:00 OBGyn Episode No OBEpisode recorded.
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
--- OUTSIDE RECORDS SUMMARY | 2024-07-21 09:27 | XMS_ITS | Patient Health Record ---
Author Organization [facility] Address [address] [place] [address] Care Team Providers Care Customer Service Voice Name Role Phone Neo OCHOA, Eric Primary Care Provider Matthew STEEL NP, ILAN [employer] Allergen (clinical drug ingredient) Drug/Non Drug Allergy documented on EMR Reaction Allergy Type Onset Date Status Ethyl Alcohol hives Drug Allergy Act ric Magnesium Salicylate hives Drug Allergy Active diltiazem Diltiazem hives Drug Allergy Active doxycycline Doxycycline hives Drug Allergy Act ric erythromycin Erythromycin hives Drug Allergy A ctive gabapentin Gabapentin SOB Drug Allergy Activ e meloxicam Meloxicam nausea and vomiting Drug Allergy Active minocycline Minocycline hives Drug Allergy Act ric Substance with sulfonamide structure and antibacterial mechanism of action (substance) Sulfa Antibiotics anaphylaxis Drug Allergy Active REASON FOR REFERRAL No Information Encounters Encounter Location Date Provider Diagnosis [facility] [address] [place] [address] 08/12/2023 ILAN STEEL PLAN OF TREATMENT No Information Insurance Providers Payer Name Payer Address Payer Phone Subscriber Number Group Number Insured Name Patient Relationship to Insured Coverage Start Date Coverage End Date Medicare-[place] Medicare [address] [place], [place] [id number] Erna Nance Self - patient is the insured [facility] Medicare Supplement [address] [place], [place] [id number] Erna Nance Self - patient is the insured MEDICAL (GENERAL) HISTORY Medical History History ICD Code Arthritis asthma hypertension kidney stones sleep apnea breast cancer chronic obstructive pulmonary disease (C OPD) fatty liver gastroesophageal reflux disease (GERD) hyperlipidemia type II diabetes Surgical History Surgery Date(Month/Year) kidney stone abscess drainage from diverticulitis cystocele repair tonsillectomy mastectomy left hysterectomy back surgery
--- OUTSIDE RECORDS SUMMARY | 2024-07-21 09:27 | XMS_ITS ---
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, DEBRA [employer] Allergen (clinical drug ingredient) Drug/Non [...] Antibiotics anaphylaxis Drug Allergy Active REASON FOR VISIT diverticulitis Encounters Encounter Location Date Provider Diagnosis [facility] [address] [place] [address] 08/12/2023 DEBRA STEEL PLAN OF TREATMENT No Information Progress Notes * Erna NANCEDOB:1950 ( 74 yo F)Acc No.[id number]:08/12/2023 Progress Notes Patient: Erna NANCE Appointment Provider: Debra Steel CNP :1950 Age:73 Y Sex:Female Date:08/12/2023 Address:[address] [place], [place] [id number] Pcp:Eric Larson MD Subjective: * Chief Complaints: * 1. Diverticulitis. * HPI: Constitutional: Previous testin CT scan showed wall thickening and inflammatory stranding along the sigmoid colon where there are multiple diverticula suspicious for diverticulitis with some associated, likely reactive lymphadenopathy along the sigmoid and inferior mesenteric lymph node chains. Bilateral nonobstructing nephrolithiasis. Colonoscopy Smith showed stricture in the recto-sigmoid colon, one 5mm colon polyp at the ileocecal valve, one 5mm polyp in the ascending colon, one 4mm polyp in the transverse colon, diverticulosis in the recto-sigmoid colon and in the sigmoid colon. Internal hemorrhoids. * Medical History: Arthritis, Asthma, Hypertension, Kidney stones, Sleep apnea, Breast cancer, chronic obstructive pulmonary disease (COPD), Fatty liver, gastroesophageal reflux disease (GERD), Hyperlipidemia, type II diabetes. * Surgical History: kidney stone , abscess drainage from diverticulitis , cystocele repair , tonsillectomy , mastectomy left , hysterectomy , back surgery . * Family History: Father: , DM, HD,. Mother: , HD. brother passed of lymphoma. * Social History: Tobacco Use: Do you smoke?: Never. Drugs/Alcohol: Do you drink alcohol?: No. * Allergies: Diltiazem: hives, Erythromycin: hives, Gabapentin: SOB, Minocycline: hives, Sulfa Antibiotics: anaphylaxis, Doxycycline: hives, Magnesium Salicylate: hives, Meloxicam: nausea and vomiting, Ethyl Alcohol: hives. Objective: Assessment: Plan: * Treatment: * Images: * Sign off status: Pending * Appointment Provider: Debra Steel CNP Date: 08/12/2023 History and Physical Notes * HPI (History of Present Illness) Category Sub-Category Detail Notes Category Not es Constitutional Previous testin07/29/23 CT scan showed wall thickening and inflammatory stranding along the sigmoid colon where there are multiple diverticula suspicious for diverticulitis with some associated, likely reactive lymphadenopathy along the sigmoid and inferior mesenteric lymph node chains. Bilateral nonobstructing nephrolithiasis. 06/12/2019 Colonoscopy Smith showed stricture in the recto-sigmoid colon, one 5mm colon polyp at the ileocecal valve, one 5mm polyp in the ascending colon, one 4mm polyp in the transverse colon, diverticulosis in the recto-sigmoid colon and in the sigmoid colon. Internal hemorrhoids.
--- OUTSIDE RECORDS SUMMARY | 2024-07-21 09:27 | XMS_ITS | Clinical Summary ---
Author Organization [employer] [facility] Address [address] [facility] [place] [address] Care Team Providers Care Line Tender Flakeboard Name Role Phone Laura Waterman MD Primary Care Provider [phone] Allergies Active Allergy Reactions Criticality Noted Date Comments Acrylic Acid Unknown 02/13/2021 Diane Albicans Allergenic Extract Nausea and Vomiting Low 07/02/2021 Chlorine Unknown 02/13/2021 Cigarette Smoke Unknown 02/13/2021 Erythromycin Hives High 02/13/2021 Ethyl Alcohol Nausea and Vomiting Low 07/02/2021 Formaldehyde Unknown 02/13/2021 Gabapentin Other (See Comments),Nausea and Vomiting High 08/06/2021 Difficulty breathing, confusion, vertigo, shaking , cold , feeling foggy Difficulty breathing, confusion, vertigo, shaking , cold , feeling foggy Lidocaine Unknown 02/13/2021 Mite Extract Nausea and Vomiting Low 07/02/2021 Mold Nausea and Vomiting Low 07/02/2021 Orris Root Unknown 02/13/2021 Phenol Unknown 02/13/2021 Unclassified Drug Unknown 02/13/2021 Gas/ Diesel Medications Lactobac no.41/Bifidoba ct no.7 (PROBIOTIC-10 ORAL) Take by mouth. Activ e amLODIPine (NORVASC) 10 mg tablet Take 10 mg by mouth daily. Active rosuvastatin (CRESTOR) 20 mg tablet Take 20 mg by mouth daily. Active aspirin (ECOTRIN EC) 81 mg Tablet, Delayed Release (E.C.) Take 81 mg by mouth daily. Active sitaGLIPtin-me tFORMIN (Janumet) 50-500 mg tablet Take by mouth. Activ e OLMESARTAN-HYD ROCHLOROTHIAZI DE ORAL Take 40 mg by mouth. Active glipiZIDE (GLUCOTROL) 5 mg tablet Take 5 mg by mouth daily with breakfast. Active fluticasone propionate (Aller-Amari) 50 mcg/spray [place], Suspension nasal inhaler Administer 2 Sprays in each nostril daily. Active fluticasone furoate-vilant Chano (Breo Ellipta) 200-25 mcg/dose Disk with Device Take 1 Puff by inhalation daily. Active albuterol sulfate (VENTOLIN HFA INHALATION) Take by inhalation. Active ondansetron (Zofran) 4 mg Tablet Take 1 tablet (4mg) by mouth 1 hour prior to starting colonoscopy prep. May repeat dose x 1 if needed. 4 Tablet 2 Active [id number] pfm-YvTt-QJi-a sb-C (MOVIPREP) 100-7.5-2.691 gram solution Take 1 Each by mouth see administration instructions. 1 Each 2 Active Active Problems Problem Noted Date Diagnosed Date Diverticular disease 10/29/2021 Essential (primary) hypertension 07/07/2021 Overview (01/19/2022): Converted from [employer]: Description - HYPERTENSION Converted from [employer]: Description - HYPERTENSION Fatty liver disease, nonalcoholic 07/07/2021 Gastro-esophageal reflux disease without esophag itis 07/07/2021 Overview (01/19/2022): Converted from [employer]: Description - GASTROESPOHAGEAL REFLUX DISEASE Converted from [employer]: Description - GASTROESPOHAGEAL REFLUX DISEASE Mixed hyperlipidemia 07/07/2021 Overview (01/19/2022): Converted from [employer]: Description - DYSLIPIDEMIA Converted from Cent[employer]: Description - DYSLIPIDEMIA COPD (chronic obstructive pulmonary disease) 03/2021 Diverticulitis of intestine with abscess 021 Abdominal wall pain 01/24/2019 Overview (01/19/2022): Added automatically from request for surgery [id number] Added automatically from request for surgery [id number] Obesity 12/25/2018 Mild intermittent asthma 03/14/2018 Menopausal syndrome 12/05/2017 Type 2 diabetes mellitus without complications 0 12/02/2014 Overview (01/19/2022): Converted from [employer]: Description - DIABETES MELLITUS, TYPE II Converted from Cent[employer]: Description - DIABETES MELLITUS, TYPE II Abnormal results of liver function studies 11/27 Overview (01/19/2022): Converted from Cent[employer]: Description - LIVER FUNCTION TESTS, ABNORMAL Converted from Centricity: Description - LIVER FUNCTION TESTS, ABNORMAL Female genital symptoms 07/30/2013 Foreign body in vagina 07/30/2013 Other difficulties with micturition 01/24/2013 Overview (01/19/2022): Converted from Cent[employer]: Description - SLOWING OF URINARY STREAM Converted from Centricity: Description - SLOWING OF URINARY STREAM Urinary incontinence without sensory awareness 1 Overview (01/19/2022): Converted from Centric[employer]: Description - INCONTINENCE WITHOUT SENSORY AWARENESS Converted from Centricity: Description - INCONTINENCE WITHOUT SENSORY AWARENESS Pelvic and perineal pain 09/01/2012 Overview (01/19/2022): Converted from Cent[employer]: Description - UNSPEC SYMPTOM ASSOC W/FEMALE GENITAL ORGANS Converted from Centricity: Description - UNSPEC SYMPTOM ASSOC W/FEMALE GENITAL ORGANS Vitamin D deficiency 06/09/2009 Overview (01/19/2022): Converted from Centricity: Description - UNSPECIFIED VITAMIN D DEFICIENCY Converted from Centricity: Description - UNSPECIFIED VITAMIN D DEFICIENCY Encounters Date Type Department Care Team Description 06/26/2024 External Device Data [facility] ABSTRACTION Provider, Abstract 06/09/2024 External Device Data [facility] ABSTRACTION Provider, Abstract 06/08/2024 External Device Data [facility] ABSTRACTION Provider, Abstract 06/05/2024 External Device Data [facility] ABSTRACTION Provider, Abstract from Last 3 Months Immunizations Immunization Administration Dates Next Due (PNEUMOVAX 23)(50 YRS UP) PN EUMOCOCCAL POLYSACCHARIDE (PPV23) 0.5 ML, IM 01/14/2018 (PREVNAR 13)(6 WKS UP) PNEUM OCOCCAL CONJUGATE (PCV13) 0.5 ML, IM 01/05/2017 (SPIKEVAX) (12 YRS UP PRIMAR Y SERIES) COVID-19 VACCINE - MRNA-1273(PF) 100 MCG/0.5 ML IM SUSP 04/25/2020 INFLUENZA VACCINE QUADRIVALE NT 6 MOS UP PF IM 01/14/2018,01/06/2016,11/27/2014,01/01 Influenza Vaccine High Dose 65+ Yrs IM 0 Influenza Vaccine Tri Adjuva nted 65+ PF IM 12/19/2018 Influenza, Unspecified Formulation 01/01,12/17/2011,12/23/2010,01/28,02/14/2008 Td(adult) Unspecified Formulation 09/12/2012,03/2003 Family History Medical History Relation Name Comments Other Brother cancer in lymph glands Diabetes Father Heart Disease Father Brain Cancer Maternal Grandmother Heart Disease Mother Relation Name Status Comments Brother Alive Father Maternal Grandmother Mother Social History Tobacco Use Types Packs/Day Years Used Date Smoking Tobacco: Never Smokeless Tobacco: Never Tobacco Cessation:Counseling Given: Not Answered Alcohol Use Standard Drinks/Week Comments Never 0 (1 standard drink = 0.6 oz pur e alcohol) Comments No Sex and Gender Information Value Date Recorded Sex Assigned at Not on file Legal Sex Female 12:14 PM CDT Gender Identity Not on file Sexual Orientation Not on file Last Filed Vital Signs Vital Sign Reading Time Taken Comments Blood Pressure 128/78 01/19/2022 11:20 AM CDT Pulse 74 01/19/2022 11:20 AM CDT Temperature 36.1 C (97 F) 01/19/2022 11:20 AM CDT Respiratory Rate - - Oxygen Saturation 97% 01/19/2022 11:20 AM CDT Inhaled Oxygen Concentration - - Weight 113.9 kg (251 lb) 01/19/2022 11:20 AM CDT Height 166.4 cm (5' 5.5 ) 01/19/2022 11:20 AM CD T Body Mass Index 41.13 01/19/2022 11:20 AM CDT Plan of Treatment Health Maintenance Due Date Last Done Comments DIABETES ANNUAL RETINAL EXAM 1969 DIABETES MICROALBUMIN ANNUAL SCREEN 1969 LDL CHOLESTEROL ANNUAL 1969 BREAST CANCER SCREENING 1991 FIT-DNA Q 3 years 1996 FIT/FOBT Q 1 year 1996 Flex Sig/CT Colonography Q 5 years 1996 ZOSTER VACCINE (1 of 2) 2001 RSV VACCINE (60+ or ) (1 - Risk 60-74 years 1-dose series) 2011 DTAP/TDAP/TD VACCINES (1 - Tdap) 09/13/2012 09/13/19 13, 11/13/2002 DIABETES ANNUAL FOOT EXAM 11/19/2020 11/20/2019 INFLUENZA VACCINE (#1) 2023 0, 12/19/2018, 01/14/2018, Additional history exists COVID-19 Vaccine (2023-2 5 season) 2023 04/25/2020 DIABETES HBA1C Q 6 MONTHS 03/03/2024 09/02/2023, 02/2020 COLORECTAL SCREENING 09/04/2033 09/05/2023 Colorectal Cancer Screening 09/04/2033 PNEUMOCOCCAL VACCINE 50+ YEARS Completed 01/14/2018 , 01/05/2017 OSTEOPOROSIS SCREENING Completed , 06/13/2023, 05/04/2021, Additional history exists Insurance MEDICARE PART A AND B BCBS SUPP Care Teams Line Tender Flakeboard Relationship Specialty Start Date End Date Laura Waterman MD [address] [place] [id number] PCP - General Family Practice 02/13/21
--- OUTSIDE RECORDS SUMMARY | 2024-07-21 09:27 | XMS_ITS | Encounter Summary ---
Author Organization [facility] Address [address] [place] [address] Care Team Providers Care Medical Claims Representative Name Role Phone Tyler Larson MD Primary Care Provider [phone] Reason for Visit * Reason Onset Date Comments Reschedule Appointment 04/20/2024 Encounter Details Date Type Department Care Team (Late st Contact Info) Description 04/20/2024 Telephone [facility] - S[facility]IOR TRAINING [facility] DEVELOPMENT REP [address] [place] [address] Ria Walotn MD [address] [place] [address] Reschedule Appointment Social History Tobacco Use Types Packs/Day Years [...] AM CDT Legal Sex Female 2:27 PM GENERAL PURCHASING AGENT Gender Identity Female 07/29/2021 10:25 AM CDT Sexual Orientation Straight 07/29/2021 10 :25 AM CDT documented as of this encounter Miscellaneous Notes * Telephone Encounter - Susan Rivera - 04/20/2024 2:11 PM CST Pt called stating she has an appt Tuesday and wants to know if they can just give her a call states she can't make it. RAL PURCHASING AGENT documented in this encounter Plan of Treatment Not on file documented as of this encounter Visit Diagnoses Not on filedocumented in this encounter Care Teams Medical Claims Representative Relationship Specialty Start Date End Date Tyler Larson MD [address] [facility] [address] [place] [address] PCP - General Internal Medicine 08/08/23 documented as of this encounter
--- OUTSIDE RECORDS SUMMARY | 2024-07-21 09:27 | XMS_ITS | Referral Summary ---
Author Organization [facility] Address [facility] [address] [place] [address] Care Team Providers Care Pega Developer Name Role Phone Tyler Larson MD Primary Care Provider [phone] Allergies Active Allergy Reactions Criticality Noted Date [...] (03/15/2022): Added automatically from request for surgery [id number] Social History Tobacco Use Types Packs/Day Years [...] CDT Respiratory Rate 15 04/22/2022 8:[address] [facility] Oxygen Saturation 96% 02/02/2024 8:34 AM CDT Inhaled Oxygen Concentration - - Weight 107.5 kg (237 lb) 02/02/2024 8:34 AM CDT Height 167.6 cm (5' 6 ) 02/02/2024 8:34 AM CDT Body Mass Index 38.25 02/02/2024 8:34 AM CDT Plan of Treatment Not on file Procedures Procedure Name Priority Date/Time Associated Diagnosis [...] of: encounter for screening for osteoporosis Postmenopausal Top Closer/Model: Advitech A (S/N [id number]) CLINICAL INFORMATION: Current height: 66 inches Maximum [...] Angel Morton M.D. MF: WESLY Report ID: [id number] Reading Location: [id number] Procedure Note Angel Morton MD - 06/13/2023 EXAM DESCRIPTION: DEXA AXIAL SKELETON BONE DENSITY 1 OR MORE SITES REASON FOR STUDY: 73 y/o year old F with given history of: encounterfor screening for osteoporosis Postmenopausal Top Closer/Model: Hologic Horizon A (S/N [id number]) CLINICAL INFORMATION: Current height: 66 inches Maximum [...] see below follow up recommendations. Medical evaluation forsecondary causes of low bone mineral density may [...] Angel Morton M.D. MF: WESLY Report ID: [id number] Reading Location: [place] [address] Tyler Larson MD IMJose DXA PROCEDURES Final Result from Last 3 Months or Most Recently Relevant to Health Maintenance Insurance MEDICARE [facility] MEDICARE SUPPLEMENT MEDICARE [facility] MEDICARE SUPPLEMENT Care Teams Pega Developer Relationship Specialty Start Date End Date Tyler Larson MD [address] [facility] [address] [place] [address] PCP - General Internal Medicine 05/11/23
--- OUTSIDE RECORDS SUMMARY | 2024-07-21 09:29 | XMS_ITS | CCD ---
Author Name Interface, [address] Address [address] [place] [address] [facility] Address [address] [address] Reason for Visit Functional Status Medications Social History
--- OUTSIDE RECORDS SUMMARY | 2024-07-21 09:29 | XMS_ITS | CCD ---
Author Name Interface, [address] Address [address] [place] [address] [facility] Address [address] [address] Reason for Visit Functional Status Medications Social History
[2024-07-21 09:34] VITALS: BP 154/84; PULSE 80; RESP 17; TEMP 36.2; O2SAT 99
--- NOTE | 2024-07-21 09:53 | ED_ITS ---
HPI - URI/Sore Throat General Chief Complaint: Ear Stated Complaint: ear pain Source: patient Mode of arrival: ambulatory Limitations: no limitations History of Present Illness HPI Narrative: 74-year-old female presents to [facility] with complaints of left ear pain, left-sided throat pain and nonproductive cough for the past 4-5 days. Patient reports that she had started with low-grade fevers up to 100 yesterday. Patient reports that she has been taking qywy-hqe-qjhpojf cold medication and Tylenol with little relief. Patient denies sick contacts. Patient denies recent travel. Patient reports that she does have history of seasonal allergies but the symptoms feel different. MD elicited complaint: fever, cough and sore throat Onset (ago): day(s) (4-5) Able to tolerate fluids by mouth: Yes Exacerbating factors: swallowing Treatments prior to arrival: acetaminophen and cold medicine Related Data Home Medications ?Medication ?Instructions ?Recorded ?Confirmed ?Last Taken ?Type propylene glycol 0.6 % eye drops 1 drp EACH EYE TID PRN Eye 01/06/22 02/20/24 Unknown History (Systane Balance) Irritation albuterol sulfate 90 mcg/actuation 1 inh inhalation Q4H PRN Shortness 12/03/22 02/20/24 Unknown History aerosol inhaler (Ventolin HFA) Of Breath Or Wheezing aspirin 81 mg tablet,delayed 81 mg PO DAILY 12/03/22 02/20/24 Unknown History release fluticasone furoate 200 1 inh inhalation DAILY 12/03/22 02/20/24 Unknown History mcg-vilanterol 25 mcg/dose inhalation powder (Breo Ellipta) xlgifjtu-zcxrub-iihba extract 5 1 cap PO DAILY 12/03/22 02/20/24 Unknown History mg-6 mg-150 mg capsule (Fruit and Vegetable Daily) multivitamin 1 tablet PO DAILY 12/03/22 02/20/24 Unknown History cyclosporine 0.05 % eye drops in a 1 drp EACH EYE Q12H 03/16/23 02/20/24 Unknown History dropperette (Restasis) artificial tears(hypromellose) 0.3 1 drp EACH EYE QID PRN 04/07/23 02/20/24 Unknown History % eye gel (Systane Gel) loteprednol etabonate 0.38 % eye 1 drp EACH EYE TID 04/07/23 02/20/24 Unknown History gel drops moxifloxacin 0.5 % viscous eye 1 drp EACH EYE BID 04/07/23 02/20/24 Unknown History drops propylene glycol 0.6 % eye drops 1 drp EACH EYE DAILY PRN 04/07/23 02/20/24 Unknown History (Systane Balance) lisinopril 20 mg tablet 20 mg PO DAILY 01/09/24 02/20/24 Unknown History lisinopril 20 1 tablet PO DAILY 01/09/24 02/20/24 Unknown History mg-hydrochlorothiazide 12.5 mg tablet Allergies Allergy/AdvReac Type Severity Reaction Status Date / Time coffee (Coffea arabica) Allergy Intermediate SMELLING Verified 07/21/24 09:30 IT CAUSES Hives & VOMITING diltiazem (From Cardizem) Allergy Unknown Hives, Verified 07/21/24 09:30 stomach ache gabapentin Allergy STOMACH Verified 07/21/24 09:30 UPSET, RASH, CONFUSION meloxicam Allergy ITCHING, Verified 07/21/24 09:30 CONFUSION, NAUSEA montelukast Allergy Confusion Verified 07/21/24 09:30 erythromycin base AdvReac Unknown ABD PAIN, Verified 07/21/24 09:30 NAUSEA minocycline (From Dynacin) AdvReac Unknown Stomach Verified 07/21/24 09:30 ache metronidazole AdvReac Hives Verified 07/21/24 09:30 scopolamine AdvReac N/V Verified 07/21/24 09:30 msg Allergy Unknown SKIN BREAK Uncoded 07/21/24 09:30 OUT AT WRISTS orris root AdvReac Hives Uncoded 07/21/24 09:30 Review of Systems Constitutional: Constitutional: Reports chills, Reports fatigue, Reports fever(s) and Denies weakness ENT: Denies dysphagia, Denies vertigo, Denies dizziness, Denies epistaxis, Denies nasal congestion and Reports sore throat Comments: Left ear pain Respiratory: Respiratory: Reports cough, Denies dyspnea and Denies wheezing Gastrointestinal: Gastrointestinal: Denies diarrhea, Denies nausea and Denies vomiting Integumentary/Breasts: Skin/Breast: Denies rash PMFSH Past Medical History Medical History Sjogrens syndrome Type 2 diabetes mellitus Degenerative disc disease 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 Obstructive sleep apnea Mild sleep apnea on sleep study in January 2022. Gastroesophageal reflux disease Allergies Asthma Hypertension Arthritis Vaginal delivery x2 Endometriosis Surgical History Surgical History Status post excision of lipoma History of lithotripsy History of removal of cyst Removal of benign cyst and lipoma from numerous sites. History of bilateral mastectomy June 1995. For lobular carcinoma in-situ. History of cervical spinal surgery History of nephrolithotomy with removal of calculi (1996) History of pelvic surgery Cystocele repair in June 2005. Posterior repair with pubovaginal sling with mesh in February 2011. History of breast reconstruction (1997) History of tonsillectomy (09/1996) History of hysterectomy (1989) For benign disease (endometriosis). Family History Family History Father Asthma Diabetes mellitus Hypertension Heart problem Alzheimer's dementia Mother Hypertension Grandparent Brain cancer Sibling Alcoholism Son Asthma Social History Social History Social History: The patient lives in her own home in [place] with a dog. 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 Lifelong nonsmoker. No alcohol or illicit substance abuse. Surrogate medical decision maker: Meaghan Trevino, daughter. Code status: Full code. Smoking status: Never smoker Alcohol intake: never Substance use: never Do You Feel Safe in your Home?: Yes Lack of Transportation: No Lack of Food: Never True Current Housing: I Have Housing Concerned About Future Housing: No Difficulty Paying Gas/Electric Bills: No Difficulty Paying for Meds: No Currently Unemployed: No Education: Bachelor's Degree Difficulty w/ Childcare or Family Care: No Living arrangements: alone Occupation/Education: occupation Spiritual care concerns: No Agree to blood products: Yes Comments At time of signature, I agree with nursing past medical, surgical, social and family history. There is no relevant family history pertinent to the presenting complaint. Exam Const: General: healthy appearing and no acute distress Nutritional Appearance: well nourished Orientation/consciousness: patient oriented x3 Limitations: no limitations HENMT: Head: normal to inspection Ears: external ears normal and TM abnormal dull on the left and erythematous on the left Face/Nose/Sinus: Normal external nose present Mouth: Yes Normal oral and palatal mucosa present and Yes moist mucous membranes Throat: uvula midline Other: Mild erythema noted to posterior pharynx; no tonsils noted Eyes: Conjunctivae: conjunctivae normal Neck: Neck: normal visual inspection Resp: Effort & Inspection: normal respiratory effort and not labored Auscultation: clear to auscultation bilaterally, no crackles, no rales, no rhonchi and no wheezes Cardio: Rate: regular rate Rhythm: regular rhythm Heart sounds: no murmurs Skin: General skin exam: normal color Rashes: no rashes Neuro: General: patient oriented x3 and moves all extremities Speech: normal speech Gait exam (Neuro): Normal gait present Psych: Affect: normal affect Attitude: cooperative Course Course Level of Care: Express Care Visit Vital Signs Vital signs: Vital Signs Temperature 36.2 C L 07/21/24 09:34 Pulse Rate 80 07/21/24 09:34 Respiratory Rate 17 07/21/24 09:34 Blood Pressure 154/84 H 07/21/24 09:34 Pulse Oximetry 99 07/21/24 09:34 Oxygen Delivery Room Air 07/21/24 09:34 Temperature 36.2 C L 07/21/24 09:34 Pulse Rate 80 07/21/24 09:34 Respiratory Rate 17 07/21/24 09:34 Blood Pressure 154/84 H 07/21/24 09:34 Pulse Oximetry 99 07/21/24 09:34 Oxygen Delivery Room Air 07/21/24 09:34 MDM - URI/Sore Throat MDM Narrative Medical decision making narrative: Discussed lab results with patient. Patient agrees to take medication as prescribed. Encouraged patient to take orwb-exd-[id number] medication as needed for symptom relief. Encourage patient to proceed to the emergency room if symptoms worsen Differential Diagnosis Differential diagnosis: Likely sinusitis, viral infection and bronchitis Critical Care Time Critical Care Time Critical Care Time: No Discharge Plan Discharge Clinical Impression: Acute left otitis media Patient Disposition: Home Condition: Stable Instructions: Antibiotic Form, Ear Infection (ED) Patient Language: Iranian Prescriptions: New amoxicillin 875 mg tablet 875 mg PO Q12H 10 Days Qty: 20 0RF No Action cyclosporine [Restasis] 0.05 % dropperette 1 drp EACH EYE Q12H moxifloxacin 0.5 % drops, viscous 1 drp EACH EYE BID loteprednol etabonate 0.38 % drops,gel 1 drp EACH EYE TID Systane Gel 0.3 % gel 1 drp EACH EYE QID PRN Systane Balance 0.6 % drops 1 drp EACH EYE DAILY PRN Systane Balance 0.6 % drops 1 drp EACH EYE TID PRN (Reason: Eye Irritation) lisinopril-hydrochlorothiazide 20-12.5 mg tablet 1 tablet PO DAILY lisinopril 20 mg tablet 20 mg PO DAILY multivitamin Tablet 1 tablet PO DAILY aspirin 81 mg Tablet,Delayed Release (Dr/Ec) 81 mg PO DAILY fluticasone furoate-vilanterol [Breo Ellipta] 200-25 mcg/dose Blister With Device 1 inh INHALATION DAILY albuterol sulfate [Ventolin HFA] 90 mcg/actuation HFA aerosol inhaler 1 inh inhalation Q4H PRN (Reason: Shortness Of Breath Or Wheezing) Fruit and Vegetable Daily 5-6-150 mg Capsule 1 cap PO DAILY hydrocodone-acetaminophen 5-325 mg tablet 1 - 2 tablet PO Q6H PRN (Reason: pain) Qty: 12 0RF fluticasone propionate [Allergy Relief (fluticasone)] 50 mcg/actuation spray,suspension 1 spray intranasal DAILY PRN (Reason: Shortness Of Breath Or Wheezing) Qty: 16 0RF Rx Instructions: administer into each nostril albuterol sulfate 1.25 mg/3 mL solution for nebulization 1.25 mg inhalation Q4-6H PRN (Reason: shortness of breath or wheezing) Qty: 90 1RF nystatin 100,000 unit/gram powder 1 applic topical TID Qty: 60 0RF amlodipine [Norvasc] 10 mg tablet 10 mg PO QAM Qty: 90 1RF rosuvastatin 20 mg tablet 20 mg PO DAILY Qty: 90 1RF Janumet 50-500 mg tablet 1 tablet PO QAM Qty: 90 1RF glipizide 5 mg tablet extended release 24hr 5 mg PO QAM Qty: 90 1RF Follow-up/Referrals: Neo,MD Reyes (Khengwai) [Primary Care Provider] - Time of Disposition: 10:14
[2024-07-21 10:10] LABS: EDSTREPNEGPOS1 Negative (Negative)
[2024-07-21 10:14] LABS: EDCOVIDSCREEN Negative (Negative); EDINFLUASCREEN Negative (Negative); EDINFLUBSCREEN Negative (Negative)
== END 2024-07-21 10:19 | disposition home or self-care (01) ==
PROVIDERS: Emergency Provider Nurse Practitioner Family; PCP Internal Medicine
DX: H66.92 Otitis media, unspecified, left ear (principal); Z20.822 Contact with and (suspected) exposure to COVID-19; E11.9 Type 2 diabetes mellitus without complications; Z79.84 Long term (current) use of oral hypoglycemic drugs; I10 Essential (primary) hypertension; K21.9 Gastro-esophageal reflux disease without esophagitis; J45.909 Unspecified asthma, uncomplicated; M19.90 Unspecified osteoarthritis, unspecified site; N80.9 Endometriosis, unspecified; M35.00 Sjogren syndrome, unspecified; Z86.000 Personal history of in-situ neoplasm of breast; Z90.13 Acquired absence of bilateral breasts and nipples
CPT/HCPCS: 87081; 87426; 87804; 87880; 99213; G0463

== ENCOUNTER 2024-07-27 16:10 | Emergency (ER) | payer MEDICARE, SELFPAY ==
--- NOTE | ~2024-07-27 | XR_ITS ---
XR ankle LT min 3V Ordering provider: Alek Iqbal APRN History: . pain, injury 1 day ago . Comparison: None. FINDINGS: BONES: No acute fracture or dislocation. JOINT SPACES: The ankle mortise is normal. SOFT TISSUES: Soft tissue swelling over the medial and lateral malleoli. Calcaneus spur. Ossification of the insertion of the tendo Achilles. IMPRESSION: No acute osseous abnormality left ankle. Reviewed, dictated and finalized at location A.
--- NOTE | ~2024-07-27 | XR_ITS ---
XR foot LT min 3V Ordering provider: Alek Iqbal APRN History: . pain, injury 1 day ago . Comparison: None. FINDINGS: BONES: No acute fracture or dislocation. JOINT SPACES: Narrowing of the proximal and distal interphalangeal joints with osteophytes. Osteoarth ritic changes of the first metatarsophalangeal joint. Narrowing of the second tarsometatarsal joint. No tarsal coalition. SOFT TISSUES: Normal. Calcaneus spur. IMPRESSION: No acute osseous abnormality left foot. Polyarticular osteoarthritic changes. Reviewed, dictated and finalized at location A.
--- OUTSIDE RECORDS SUMMARY | 2024-07-27 16:14 | XMS_ITS | CCD ---
Author Name Interface, [id number] Address [address] [place] [address] Organization [facility] Address [address] [address] Reason for Visit Functional Status Date Name Score 05/26/2008 Karnofsky performance status 100 Medications Date Name Route Dose Frequency Instructions Start Date End Date Status 009 Diphenhydramine -Acetaminophen Oral 25 mg-500 mg PO 1.0 TABLET (S) daily 009 active 009 Fluticasone-Gilberto meterol Inhaler 100 mcg-50 mcg/Dose By inhalation 1.0 PUFF PRN 009 active 009 Amlodipine Oral PO 1.0 TABLET (S) daily 009 active 009 Lansoprazole Oral PO 30.0 MG daily 009 active 009 Mometasone Nasal [place] 50 mcg/actuation By inhalation MCG as directed 009 active 009 Olmesartan Oral PO 1.0 TABLET (S) daily 009 active Social History Date Name Value Sex Female
--- OUTSIDE RECORDS SUMMARY | 2024-07-27 16:14 | XMS_ITS | Referral Summary ---
Author Organization [facility] Address [facility] [place] [address] Care Team Providers Care Veterinary Radiologist Name Role Phone Tyler Larson MD Primary Care Provider [phone] Allergies Active Allergy Reactions Criticality Noted Date [...] (03/15/2022): Added automatically from request for surgery [id number] Social History Tobacco Use Types Packs/Day Years [...] CDT Respiratory Rate 15 04/22/2022 8:50 AM SURVEYOR HYDROGRAPHIC Oxygen Saturation 96% 02/02/2024 8:34 AM CDT [...] of: encounter for screening for osteoporosis Postmenopausal Electronic Plotting System Operator/Model: CodeEval A (S/N [id number]) CLINICAL INFORMATION: Current height: 66 inches Maximum [...] Angel Morton M.D. MF: WESLY Report ID: [id number] Reading Location: [id number] Procedure Note Angel Morton MD - 06/13/2023 EXAM DESCRIPTION: DEXA AXIAL SKELETON BONE DENSITY 1 OR MORE SITES REASON FOR STUDY: 73 y/o year old F with given history of: encounterfor screening for osteoporosis Postmenopausal Electronic Plotting System Operator/Model: Hologic Horizon A (S/N [id number]) CLINICAL INFORMATION: Current height: 66 inches Maximum [...] Angel Morton M.D. MF: WESLY Report ID: [id number] Reading Location: [place] [address] Tyler Larson MD IMJose DXA PROCEDURES Final Result from Last 3 Months or Most Recently Relevant to Health Maintenance Insurance MEDICARE [facility] MEDICARE SUPPLEMENT MEDICARE [facility] MEDICARE SUPPLEMENT Care Teams Veterinary Radiologist Relationship Specialty Start Date End Date Tyler Larson MD [address] [facility] [address] [place] [address] PCP - General Internal Medicine 05/11/23
--- OUTSIDE RECORDS SUMMARY | 2024-07-27 16:14 | XMS_ITS | Encounter Summary ---
Author Organization [facility] Address [address] [place] [address] Care Team Providers Care Newspaper Editor Managing Name Role Phone Tyler Larson MD Primary Care Provider [phone] Reason for Visit * Reason Onset Date Comments Reschedule Appointment 04/20/2024 Encounter Details Date Type Department Care Team (Late st Contact Info) Description 04/20/2024 Telephone [facility] - LOAN INSPECTOR [address] [place] [address] Ria Walton MD [address] [address] [place] [address] Reschedule Appointment Social History Tobacco [...] AM CDT Legal Sex Female 2:27 PM DIRECTOR RETAIL BRAND DEVELOPMENT Gender Identity Female 07/29/2021 10:25 AM CDT Sexual Orientation Straight 07/29/2021 10 :25 AM CDT documented as of this encounter Miscellaneous Notes * Telephone Encounter - Susan Rivera - 04/20/2024 2:11 PM CST Pt called stating she has an appt Tuesday and wants to know if they can just give her a call states she can't make it. CTOR RETAIL BRAND DEVELOPMENT documented in this encounter Plan of Treatment Not on file documented as of this encounter Visit Diagnoses Not on filedocumented in this encounter Care Teams Newspaper Editor Managing Relationship Specialty Start Date End Date Tyler Larson MD [address] [facility] [address] [place] [address] PCP - General Internal Medicine 08/08/23 documented as of this encounter
--- OUTSIDE RECORDS SUMMARY | 2024-07-27 16:14 | XMS_ITS | Clinical Summary ---
Author Organization [facility] Address [facility] [place] [address] Care Team Providers Care Client Support Representative Name Role Phone Edwin Renee MD Primary Care Provider [phone] Allergies Active Allergy Reactions Criticality Noted Date [...] Encounters Date Type Department Care Team Description 07/25/2024 1:00 PM CDT Office Visit [facility] - [address] [place] [address] Radha Hurt MD Follow Up (Discuss results ) 07/25/2024 Travel 07/03/2024 Telephone [facility] - [address] [place] [address] Radha Hurt MD Results 07/02/2024 6:52 AM CDT - 07/02/2024 11:59 PM CDT Hospital Encounter [facility] [place] [address] Radha Hurt MD Discharge Disposition: Home or Self Care (Routine Discharge) 07/02/2024 Travel 06/26/2024 Telephone [facility] [address] [facility] [place] [address] Radha Hurt MD Question 06/01/2024 Telephone [facility] - [address] [place] [address] Radha Hurt MD Results 05/30/2024 7:08 AM ROPE TOW OPERATOR - 05/30/2024 11:59 PM ROPE TOW OPERATOR Hospital Encounter [facility] [address] [place] [address] Edwin Renee MD Discharge Disposition: Home or Self Care (Routine Discharge) 05/30/2024 Travel 05/18/2024 2:20 PM ROPE TOW OPERATOR Office Visit [facility] [address] [address] Radha Hurt MD Follow Up (Follow up and having new issues) 05/18/2024 Travel from Last 3 Months Family History Medical History Relation Comments Alzheimers Father Hypertension Mother Relation Status Comments Father Mother Social History Tobacco Use Types Packs/Day Years Used Date Smoking Tobacco: Never Passive Smoke Exposure: Never Smokeless Tobacco: Never Tobacco Cessation:Counseling Given: No Alcohol Use Standard Drinks/Week Comments Not Currently 0 (1 standard drink = 0.6 oz pur e alcohol) [facility] Utilities Answer Date Recorded In the past 12 months has e [employer], gas, oil, or water [employer] threatened to shut off services in your [...] Date Recorded Patient Health Questionnaire-2 Score 0 07/25/2024 Hunger Vital Sign Answer Date Recorded Within [...] any time in the past 12 m [facility], were you homeless or living in a fpc (including now)? No 09/02/2023 Comments No Sex and Gender Information Value Date Recorded Sex Assigned at Female 05/10/2024 8:49 AM ROPE TOW OPERATOR Legal Sex Female 3:23 PM ROPE TOW OPERATOR Gender Identity Female 04/27/2021 11:54 AM ROPE TOW OPERATOR Sexual Orientation Straight 04/27/2021 11 :54 AM ROPE TOW OPERATOR Last Filed Vital Signs Vital Sign Reading Time Taken Comments Blood Pressure 136/68 07/25/2024 12:57 PM CDT Pulse 83 07/25/2024 12:57 PM CDT Temperature 36.6 C (97.9 F) 07/25/2024 12:57 PM CDT Respiratory Rate 16 02/28/2024 3:34 PM ROPE TOW OPERATOR Oxygen Saturation 97% 07/25/2024 12:57 PM CDT Inhaled Oxygen Concentration - - Weight 115.2 kg (254 lb) 07/25/2024 12:57 PM CDT Height 167.6 cm (5' 6 ) 07/25/2024 12:57 PM CDT Body Mass Index 41 07/25/2024 12:57 PM CDT Plan of Treatment Health Maintenance Due Date Last Done Comments Zoster Vaccines (1 of 2) 2001 RSV Immunization or 60+ Years (1 - Risk 60-74 years 1-dose series) 2011 DTaP, Tdap and Td Vaccines (1 - Tdap) 09/13/2012 09/12/2012, 11/13/2002 Annual Medicare Wellness Visit 2016 COVID-19 Vaccine ( season) 2023 09/04/2021, 03/12/2021, 05/26/2020, Additional history exists Colorectal Cancer Screening Colonoscopy (10 Years) 11/23/2033 11/24/2023, 11/24/2023, 09/05/2023 Pneumococcal Vaccine: 50+ Years Completed 01/18/2018, 01/05/2017 Dexa Scan (General) Completed 06/13/2023, 06/13/2023, 05/04/2021, Additional history exists Hepatitis C Completed 02/07/2024, 08/2023, 12/27/2017 PHQ-2 (Physician Adah) Completed 07/25/2024 Meningococcal B Vaccine Aged Out No l [...] perform ADLs independently Lifestyle No 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 Procedure Note Chloe Graec MD - 07/02/2024 [facility] 1 [place], [place] [address] EXAMINATION: HEPATOBILIARY SCINTIGRAPHY (WITH GALLBLADDER EJECTIONFRACTION) DATE [...] By: Chloe Grace MD, 07/02/2024 9:25 AM us Radha Hurt MD NUC MED Final Result * US ABD LIMITED (05/30/2024 7:57 AM ROPE TOW OPERATOR) Anatomical Region Laterality Modality Abdomen Ultrasound 05/30/2024 8:19 AM ROPE TOW OPERATOR Impressions 05/30/2024 8:36 AM ROPE TOW OPERATOR IMPRESSION: 1. Tenderness when scanning over the region of the gallbladder and epigastric region. However, no sonographic evidence of cholecystitis or biliary ductal dilation. 2. Generally echogenic liver suggesting mild diffuse fatty infiltration. 3. Partially obscured pancreas. Ordered By: EDWIN RENEE Interpreted By: Andrew Gray, 05/30/2024 8:19 AM Narrative 05/30/2024 8:36 AM ROPE TOW OPERATOR [address] [address] IMAGING STUDIES: US ABD LIMITED DATE: 05/30/2024 [...] Procedure Note Andrew Gray MD - 05/30/2024 [facility] [address] [place], [place] [address] IMAGING STUDIES: US ABD LIMITEDDATE: 05/30/2024 7:12 [...] Edwin Renee MD ULTRASOUND Final Result * BONE DENSITY/DEXA (05/04/2021 10:28 AM ROPE TOW OPERATOR) Anatomical Region Laterality Modality Bone Mammography 05/04/2021 12:4 7 PM ROPE TOW OPERATOR Impressions 05/04/2021 12:48 PM ROPE TOW OPERATOR =====IMPRESSION:===== Lumbar spine bone density: Normal Bilateral femoral necks bone density: Normal Bilateral total proximal femurs bone density: Normal Ordered By: NATALY PENA Interpreted By: Ronan Levin MD, 05/04/2021 12:47 PM Narrative 05/04/2021 12:48 PM ROPE TOW OPERATOR Examination: Bone Density Axial Exam date/time: 05/04/2021 [...] Normal Ordered By: NATALY PENA Interpreted By: Rnoan Levin MD, 05/04/2021 12:47 PM us Nataly Pena PA-C DEXA Final Resu lt from Last 3 Months or Most Recently Relevant to Health Maintenance Insurance MEDICARE [facility] Advance Directives * Full Code (Latest Code Status on File) Date Activated Date Inactivated Comments 09/02/2023 12:00 AM 09/06/2023 4:39 PM Care Teams Client Support Representative Relationship Specialty Start Date End Date Edwin Renee MD 1 [place] [address] PCP - General INTERNAL MEDICINE 09/02/23
--- OUTSIDE RECORDS SUMMARY | 2024-07-27 16:14 | XMS_ITS | Clinical Summary ---
Author Organization [facility] Address [address] [place] [address] Care Team Providers Care Emergency Preparedness Coordinator Name Role Phone Tyler Larson MD Primary Care Provider [phone] Allergies Active Allergy Reactions Criticality Noted Date [...] (03/15/2022): Added automatically from request for surgery [id number] Surgical History Surgery Date Site/Laterality Comments MASTECTOMY [...] CDT Respiratory Rate 15 04/22/2022 8:50 AM PRODUCE LABORER Oxygen Saturation 96% 02/02/2024 8:34 AM CDT [...] of: encounter for screening for osteoporosis Postmenopausal Tongue Trimmer/Model: HoloCentrl A (S/N [id number]) CLINICAL INFORMATION: Current height: 66 inches Maximum [...] WESLY Gordon: 06/13/2023 6:25 PM Report ID: [id number] Reading Location: [place] [address] Procedure Note Angel Morton MD - 06/13/2023 EXAM DESCRIPTION: DEXA AXIAL SKELETON BONE DENSITY 1 OR MORE SITES REASON FOR STUDY: 73 y/o year old F with given history of: encounterfor screening for osteoporosis Postmenopausal Tongue Trimmer/Model: Trupanion A (S/N [id number]) CLINICAL INFORMATION: Current height: 66 inches Maximum [...] see below follow up recommendations. [facility] low bone mineral density [...] Angel Morton M.D. MF: WESLY Report ID: [id number] Reading Location: [place] [address] Tyler Larson MD IMG DXA PROCEDURES Final Result from Last 3 Months or Most Recently Relevant to Health Maintenance Insurance MEDICARE [facility] MEDICARE SUPPLEMENT MEDICARE [facility] MEDICARE SUPPLEMENT Care Teams Emergency Preparedness Coordinator Relationship Specialty Start Date End Date Tyler Larson MD [address] [facility] [address] [place] [address] PCP - General Internal Medicine 05/11/23
--- OUTSIDE RECORDS SUMMARY | 2024-07-27 16:14 | XMS_ITS | Clinical Summary ---
Author Organization [employer] [facility] Address [address] [facility] [place] [address] Care Team Providers Care Senior Analysis Specialist Name Role Phone Laura Waterman MD Primary Care Provider [phone] Allergies Active Allergy Reactions Criticality Noted Date [...] breakfast. Active fluticasone propionate (Aller-Amari) 50 mcg/spray [place], Suspension nasal inhaler Administer 2 Sprays in [...] 1 if needed. 4 Tablet 2 Active [id number] rwi-JlCv-CNr-a sb-C (MOVIPREP) 100-7.5-2.691 gram solution Take 1 [...] (01/19/2022): Added automatically from request for surgery [id number] Added automatically from request for surgery [id number] Obesity 12/25/2018 Mild intermittent asthma 03/14/2018 Menopausal [...] HBA1C Q 6 MONTHS 03/03/2024 09/02/2023, 02/2020 OSTEOPOROSIS SCREENING 06/12/2028 , 06/13/2023, 05/04/2021, Additional history exists COLORECTAL SCREENING 09/04/2033 09/05/2023 Colorectal Cancer Screening 09/04/2033 PNEUMOCOCCAL VACCINE 50+ YEARS Completed 01/14/2018 , 01/05/2017 Insurance MEDICARE PART A AND B BCBS SUPP Care Teams Senior Analysis Specialist Relationship Specialty Start Date End Date Laura Waterman MD [address] [place] [address] PCP - General Family Practice 02/13/21
--- OUTSIDE RECORDS SUMMARY | 2024-07-27 16:14 | XMS_ITS | Encounter Summary ---
Author Organization [facility] Address [address] [facility] [place] [address] Care Team Providers Care Compliance Technician Name Role Phone Laura Waterman MD Primary Care Provider Tyler Larson MD Primary Care Provider [phone] Encounter Details Date Type Department Care Team (Late st Contact Info) Description 10/19/2022 Lab Requisition [facility] - DermPath Lab [address] [facility] [facility] [place] [address] Chata Gonzalez MD [address] [facility] [address] [place] [address] Social History Tobacco Use Types Packs/Day Years Used Date Smoking Tobacco: Never Smokeless Tobacco: Never Alcohol Use Standard Drinks/Week Comments Not Currently 0 (1 standard drink = 0.6 oz pur e alcohol) Comments No Sex and Gender Information Value Date Recorded Sex Assigned at Female 07/29/2021 10:25 AM CDT Legal Sex Female 2:27 PM PARTITION SETTER Gender Identity Female 07/29/2021 10:25 AM CDT Sexual Orientation Straight 07/29/2021 10 :25 AM CDT documented as of this encounter Plan of Treatment Not on file documented as of this encounter Procedures Procedure Name Priority Date/Time Associated Diagnosis Comments DERMATOPATHOLOGY Routine 10/19/2022 1:33 PM CDT documented in this encounter Results * DERMATOPATHOLOGY (10/19/2022 1:33 PM CDT) Case Report Dermatopathology Report Case: [id number] Authorizing Provider: Chata Gonzalez MD Collected: 10/19/2022 01:33 PM Ordering Location: [facility] DermPath Lab Received: 10/19/2022 04:15 PM Pathologist: [...] characteristic determined by the Dermatopathology Laboratory at [facility], directed by Dr. Zakia Bautista. These tests need not be, and therefore are not, approved by the [place] Food and Drug Administration. The tests are used for clinical purposes. Billing Codes Specimen Charges Stain Charges 75315 1 3 2:11 PM CDT DERMATOPATHOLOGY LABORATORY Embedded Images 3 2:11 PM CDT DERMATOPATHOLOGY LABORATORY Pathology/Cytolo gy TISSUE SPECIMEN FROM SKIN / Unknown 10/19/2022 1:33 PM CDT 10/19/2022 4:15 PM CDT Chata Gonzalez MD LAB - PATHOLOGY/CYTOLOGY ORD ERABLES Final Result DERMATOPATHOLOGY LABORATORY [facility] - Department of Dermatology [facility] Medicine [address] [place] [address], [address] [phone] documented in this encounter Visit Diagnoses Not on filedocumented in this encounter Care Teams Compliance Technician Relationship Specialty Start Date End Date Laura Waterman MD 4 [place] [phone] PCP - General Internal Medicine 07/02/21 08/07/23 Tyler Larson MD [address] [facility] [address] [place] [address] PCP - General Internal Medicine 08/08/23 documented as of this encounter
--- OUTSIDE RECORDS SUMMARY | 2024-07-27 16:14 | XMS_ITS | Clinical Summary ---
Author Organization [facility] Address [address] [place] [address] Phone Care Team Providers Care Plant Changer Name Role Phone Tyler Larson MD Primary Care Provider [phone] Ryan Hurt MD Unavailable Aleksander Gonzales DO Unavailable [phone] Allergies Active Allergy Reactions Criticality Noted [...] mg by mouth. 3 Active nystatin (MYCOSTATIN) 737430 UNIT/GM Ointment Use with the Triamcinolone ointment [...] Comments Blood Pressure 120/76 03/13/2024 10:08 AM CHURCH OFFICIAL Pulse 82 03/13/2024 10:08 AM CHURCH OFFICIAL Temperature 36.7 C (98 F) 03/13/2024 10:08 AM CHURCH OFFICIAL Respiratory Rate 18 03/13/2024 10:08 AM CHURCH OFFICIAL Oxygen Saturation 97% 03/13/2024 10:08 AM CHURCH OFFICIAL Inhaled Oxygen Concentration - - Weight 107 kg (236 lb) 03/13/2024 10:08 AM CHURCH OFFICIAL Height 165.1 cm (5' 5 ) 03/13/2024 10:08 AM CHURCH OFFICIAL Body Mass Index 39.27 03/13/2024 10:08 AM CHURCH OFFICIAL Plan of Treatment Upcoming Encounters Date Type Department Care Team (Late st Contact Info) Description 09/04/2024 10:15 AM CDT Lab [facility] [address] [address] Lab, [facility] 09/04/2024 11:00 AM CDT Ancillary Procedure [facility] [address] [address] 09/11/2024 10:30 AM CDT Office Visit [facility] [address] [address] Aleksander Gonzales, DO [address] [place] [address] Health Maintenance Due Date Last Done [...] age to complete this topic Insurance MEDICARE [facility] MEDICARE Care Teams Plant Changer Relationship Specialty Start Date End Date Tyler Larson MD [address] [place] [address] [address] [place] [address] PCP - General Internal Medicine 10/17/23 Ryan Hurt MD [address] [address] Referring Provider Internal Medicine 10/17/23 Aleksander Gonzales DO [address] [place] [address] Consulting Physician Oncology 10/17/23
--- OUTSIDE RECORDS SUMMARY | 2024-07-27 16:14 | XMS_ITS ---
Author Organization [facility] Address [address] [place] [address] Care Team Providers Care Gas Plant Specialist Name Role Phone Neo OCHOA, Eric Primary Care Provider Matthew STEEL INSPECTOR [employer], DEBRA Alejo ALLERGIES Allergen (clinical drug ingredient) [...] diverticulitis Encounters Encounter Location Date Provider Diagnosis [facility] [address] [place] [address] 08/12/2023 DEBRA STEEL PLAN OF TREATMENT No Information Progress Notes * Erna NANCEDOB:1950 ( 74 yo F)Acc No.[id number]:08/12/2023 Progress Notes Patient: Erna NANCE Appointment Provider: Debra Steel CNP :1950 Age:73 Y Sex:Female Date:08/12/2023 Address:[address] [place], [place] [phone] Pcp:Eric Larson MD Subjective: * Chief Complaints: [...]
--- OUTSIDE RECORDS SUMMARY | 2024-07-27 16:14 | XMS_ITS ---
Author Organization [employer] [place] ([address]) Address [address] [place] [address] Care Team Providers Care Project Engineer Chemicals Name Role Phone Radha Jeffery Primary Care Provider Unavaila Adore Andrea Unavailable [phone] [employer], Provider Unavailable Unavailab le Allergies Allergen (clinical drug ingredient) Drug/Non Drug Allergy documented on EMR Reaction Allergy Type Onset Date Status PHENOL TOPICAL (uncoded) other reaction Allergy Active erythromycin Erythromycin other reaction Drug Allergy [facility] Encounter Medications Medication SIG (Take, [...] Active Encounters Encounter Location Date Provider Diagnosis [address] [address] 09/17/2023 Provider Kobi Moderate persistent asthma, uncomplicated [...] *Please review and pick correct strength-formulation [facility]. If intended option is not shown, discontinue and re-order from Quick Search* ASTELIN 137 MCG/INH 2 SPRAY(S), EACH NOSTRIL INTRANASALLY BID for 30 DAY(S) *Please review for potential replacement for e-prescription and drug interaction check* Progress Notes * Jose ManuelErna WDOB:1950 (74 yo F)Acc No.[id number]:09/17/2023 Patient: Erna TREVIZO W Provider: Marcia Epperson :1950 A ge:73 Y S ex:Female Date:09/17/2023 Address:[address] [place], [place] [address] Pcp:Radha Jeffery Subjective: * Chief Complaints: * 1 . [facility] Encounter. * Medical History: * Medications: [...] * Electronic signature of Mary MONTOYA-Migration on 07/27/2024 at 04:13 PM CDT Sign off status: Pending * Provider: Marcia mao Migration Date: 09/17/2023 Generated for Stephenie quezada/Ruby/Vladimir on: 07/27/2024 04:13 PM CDT
--- OUTSIDE RECORDS SUMMARY | 2024-07-27 16:14 | XMS_ITS | Data Portability ---
Author Organization [facility], [employer] Address [address] [place] [address] Care Team Providers Care Refrigerating Machine Operator Name Role Phone CHAPIN SANTOS Combat Systems Engineer UZIEL MORAN Delivery Driver/Customer Service NISHI REESE Urogynecologist [phone] [facility] Pain Management DARCIE QUINONES Performance Improvement Analyst Assessment Encounter Date Assessment Date Assessment LastModified [...] recorded. Lab lipid panel, serum 2024 025 PATTIEArriveBefore Diagnostics [facility], [address], [address], 5 06:10:20 microalbum in/creatin ine, mass ratio, urine 2024 025 [facility]riveBefore Diagn[facility], [address] [facility] [address], [place], [address], 5 06:10:22 HbA1c (hemoglobi n A1c), blood 2024 025 PATTIETweet Category [facility], [address], [address], 5 06:10:24 CMP, serum or plasma 2024 025 PATTIETweet Category [facility], [address], [address], 5 06:10:23 Referral gastroente rologist referral 2024 025 PATTIE Hurt MD, [address], [place], [address], 5 16:16:56 diabetic ophthalmol ogy referral 2024 025 devin Santos MD, [address] [facility] , [place] [address], [place], [address], 5 17:27:31 gastroente rologist referral 2024 025 ERNESTINE Hurt MD, [address], [place], [address], 5 17:45:28 Procedures nebulizer treatment (PROC) 2023 [facility], [address], [place], [address], 4 13:01:25 Surgeries None recorded. Imaging US, gallbladde r 2024 dc1 [facility], [address] [facility], [place], [address], 5 11:48:01 XR, shoulder, 2 or more view 2024 [facility], [address] [facility], [place], [address], 5 08:19:25 US, knee - Non-vascul ar u/s to evaluate for Popliteal cyst. Thanks. 2023 024 [facility], [address] [facility], [place], [address], 4 08:11:09 XR, knee, 3 view 2023 [facility], [address] [facility], [place], [address], 4 08:11:09 Medication Orders valacyclov ir 1 gram tablet 2024 [facility], [address] [facility], [place], [address], 5 14:11:16 Zithromax Z-Rhett 250 mg tablet 2023 [facility]65755, [address], [place], [id number], 4 15:21:08 Medrol (Rhett) 4 mg tablets in a dose pack 2023 [facility] #82982, [address], [place], [id number], 5 19:15:11 benzonatat e 200 mg capsule 2023 [facility] #49063, [address], [place], [id number], 5 19:13:56 codeine 10 mg-guaifen esin 100 mg/5 mL oral liquid 2023 [facility] #47165, [address], [place], [id number], 5 19:12:47 albuterol sulfate 2.5 mg/3 mL (0.083 %) solution for nebulizati on 2023 mbenfer Not available 18:35:16 Medrol (Rhett) 4 mg tablets in a dose pack [address] [facility], [address] [place], [address], 5 19:14:34 duloxetine 60 mg capsule,de layed release 2023 [facility] #31399, [address], [place], [id number], 16:55:08 albuterol sulfate 2.5 mg/3 mL (0.083 %) solution for nebulizati on 2023 [facility] Not available 14:37:06 duloxetine 30 mg capsule,de layed release [address] [facility]24220, [address], [place], [id number], 16:45:39 duloxetine 60 mg capsule,de layed release 2023 024 [facility], [address] [facility], [place], [place], [id number], 14:19:38 Patient TargetsNo targets recorded. Patient Instructions Encounter Date Encounter Id Patient Instructions Last Modified By Organization Details Last Modified Time 02/02/2024 [id number] spirometry testing* PATTIE Not available 02/06/2024 17:43:10 pre/post bronchodilator spirometry* PATTIE Not available 02/02/2024 18:04:16 04/16/2024 [id number] medicare preventive services guide Not available 04/16/2024 17:23:49 advance care planning: care instructions [facility] Not available 04/16/2024 17:23:49 hepatitis C viru s tests: about these tests pc1 Not available 04/16/2024 17:23:49 advised to lose weight Not available 04/16/2024 17:23:49 Discussed and explained advance directives such as standard forms to the {{patient caregive r patient and caregiver}}. Face to face discussion lasted for a duration of ___ minutes. Not available 04/16/2024 16:44:54 Reason for Referral Tax Auditor Referral for Crohn's disease Referring Physician: Tyler Renee, Internal Medicine, Encounter Date: 04/16/2024 Diabetic Ophthalmology Refer ral for Type 2 diabetes mellitus without complication Referring Physician: Tyler Renee, Internal Medicine, Encounter Date: 04/16/2024 Tax Auditor Referral for Increased belching Referring Physician: Tyler Renee, Internal Medicine, Encounter Date: 05/09/2024 Results Created Date Observation Date Name Description Value Unit Range Abnormal Flag Note LastModifiedBy Organization Detail LastModifiedTime 02/06/20 24 02/06/2024 vinay metry testi ng* Spirometry Not Available [facility], [facility] [address], [place], [address], 02/02/2024 16:42:54 03/12/20 24 03/14/2024 URINA LYSIS , COMPL ETE W/REF NATALY TO CULTU RE color YELLOW yellow normal Not Available [address], [address], 03/14/2024 04:40:51 03/12/20 24 03/14/2024 URINA LYSIS , COMPL ETE W/REF NATALY TO CULTU RE appearance CLEAR clear normal Not Available [address], [address], 03/14/2024 04:40:51 03/12/20 24 03/14/2024 URINA LYSIS , COMPL ETE W/REF NATALY TO CULTU RE specific gravity 1.021 1.001- 1.035 normal Not Available [address], [address], 03/14/2024 04:40:51 03/12/20 24 03/14/2024 URINA LYSIS , COMPL ETE W/REF NATALY TO CULTU RE pH < OR = 5.0 5.0-8. 0 normal Not Available [address], [address], 03/14/2024 04:40:51 03/12/20 24 03/14/2024 URINA LYSIS , COMPL ETE W/REF NATALY TO CULTU RE glucose NEGATI VE negati ve normal Not Available [address], [address], 03/14/2024 04:40:51 03/12/20 24 03/14/2024 URINA LYSIS , COMPL ETE W/REF NATALY TO CULTU RE bilirubin NEGATI VE negati ve normal Not Available [address], [address], 03/14/2024 04:40:51 03/12/20 24 03/14/2024 URINA LYSIS , COMPL ETE W/REF NATALY TO CULTU RE ketones NEGATI VE negati ve normal Not Available [address], [address], 03/14/2024 04:40:51 03/12/20 24 03/14/2024 URINA LYSIS , COMPL ETE W/REF NATALY TO CULTU RE occult blood 3+ negati ve abnormal Not Available [address], [address], 03/14/2024 04:40:51 03/12/20 24 03/14/2024 URINA LYSIS , COMPL ETE W/REF NATALY TO CULTU RE protein 3+ negati ve abnormal Not Available [address], [address], 03/14/2024 04:40:51 03/12/20 24 03/14/2024 URINA LYSIS , COMPL ETE W/REF NATALY TO CULTU RE nitrite POSITI VE negati ve abnormal Not Available [address], [address], 03/14/2024 04:40:51 03/12/20 24 03/14/2024 URINA LYSIS , COMPL ETE W/REF NATALY TO CULTU RE leukocyte esterase 1+ negati ve abnormal Not Available [address], [address], 03/14/2024 04:40:51 03/12/20 24 03/14/2024 URINA LYSIS , COMPL ETE W/REF NATALY TO CULTU RE WBC PACKED /hpf < or = 5 abnormal Not Available [address], [address], 03/14/2024 04:40:51 03/12/20 24 03/14/2024 URINA LYSIS , COMPL ETE W/REF NATALY TO CULTU RE RBC 40-60 /hpf < or = 2 abnormal Not Available [address] [place], [address], 03/14/2024 04:40:51 03/12/20 24 03/14/2024 URINA LYSIS , COMPL ETE W/REF NATALY TO CULTU RE squamous epithelial cells 0-5 /hpf < or = 5 Not Available [address], [address], 03/14/2024 04:40:51 03/12/20 24 03/14/2024 URINA LYSIS , COMPL ETE W/REF NATALY TO CULTU RE bacteria MANY /hpf none seen abnormal Not Available [address], [address], 03/14/2024 04:40:51 03/12/20 24 03/14/2024 URINA LYSIS , COMPL ETE W/REF NATALY TO CULTU RE calcium oxalate crystals MODERA TE /hpf none or few abnormal Not Available [address], [address], 03/14/2024 04:40:51 03/12/20 24 03/14/2024 URINA LYSIS , COMPL ETE W/REF NATALY TO CULTU RE hyaline cast NONE SEEN /lpf none seen normal Not Available [address], [address], 03/14/2024 04:40:51 03/12/20 24 03/14/2024 URINA LYSIS , COMPL ETE W/REF NATALY TO CULTU RE yeast MODERA TE /hpf none seen abnormal Not Available [address], [address], 03/14/2024 04:40:51 03/12/20 24 03/14/2024 URINA LYSIS , COMPL ETE W/REF NATALY TO CULTU RE note This urine was haven zed for the prese nce of WBC, RBC, bacte archie, casts , and other forme d eleme nts. Only those eleme nts seen were repor joshua. Not Available [facility] [address] [address] [place], [address], 03/14/2024 04:40:51 03/12/20 24 03/14/2024 REFLE XIVE URINE CULTU RE reflexive urine culture CULTU RE INDIC ATED - RESUL TS TO FOLLO W Not Available [facility] [address] [address] [place], [address], 03/14/2024 04:40:53 03/12/20 24 03/14/2024 CULTU RE, URINE , ROUTI NE culture, urine, routine SEE NOTE CULTU RE, URINE , ROUTI NE Micro Numbe r: [id number] Test Statu s: Final Speci men [...] Cultu re Trans port Tube. Not Available [facility] [address] [address] [address] , [place], [address], 03/14/2024 16:54:18 03/17/20 24 03/21/2024 POC CREAT ININE POC creatinine 0.8 mg/dL 0.60-1 .10 Not Available [facility] [address] [facility], [place], [address], 03/21/2024 08:31:55 04/25/19 25 04/26/2024 LIPID PANEL , STAND KYLAH cholesterol, total 164 mg/dL <200 normal Not Available [facility] [address] [address] [place], [address], 04/26/2024 06:10:20 04/25/19 25 04/26/2024 LIPID PANEL , STAND KYLAH HDL cholesterol 65 mg/dL > or = 50 normal Not Available [facility] [place] [address] [place], [address], 04/26/2024 06:10:20 04/25/19 25 04/26/2024 LIPID PANEL , STAND KYLAH triglyceride s 113 mg/dL <150 normal Not Available [facility] [place] [address] [place], [address], 04/26/2024 06:10:20 04/25/19 25 04/26/2024 LIPID PANEL , STAND KYLAH LDL-choleste rol 79 mg/dL _(barry c) normal Refer ence range : <100 Dariana able range <100 mg/dL for prima ry preve ntion ; <70 mg/dL for patie nts with CHD or diabe tic patie nts with > or = 2 CHD risk facto rs. LDL-C is now calcu lated using the Amee maya-[facility] wendy hector n, which is a valid ated novel mileo d wes chaudharite r accur acy than the Fried trudy equat ion in the estim ation of LDL-C . Amee maya SS et al. MAKI. 2013; 310(1 9): 2061- 2068 (http ://ed ucati on.Qu Kaye Hello Universe. com/f aq/FA Q164) Not Available [facility] [place] [address] [place], [address], 04/26/2024 06:10:20 04/25/19 25 04/26/2024 LIPID PANEL , STAND KYLAH chol/HDLC ratio 2.5 (calc ) <5.0 normal Not Available [facility] [place] [address] [place], [address], 04/26/2024 06:10:20 04/25/19 25 04/26/2024 LIPID PANEL , STAND KYLAH non HDL cholesterol 99 mg/dL _(barry c) <130 normal For patie nts with diabe alexander plus 1 major ASCVD risk facto r, treat ing to a non-H DL-C goal of <100 mg/dL (LDL- C of <70 mg/dL ) is consi dered a thera fifi c optio n. Not Available [address], [address], 04/26/2024 06:10:20 04/25/19 25 04/26/2024 ALBUM IN, RANDO M URINE W/CRE ATINI NE creatinine, random urine 85 mg/dL 20-275 normal Not Available [address] [address] [place], [address], 04/26/2024 06:10:22 04/25/19 25 04/26/2024 ALBUM IN, RANDO M URINE W/CRE ATINI NE albumin, urine 1.0 mg/dL see note: normal Refer ence Range : Refer ence Range Not estab lishe d Not Available [address], [address], 04/26/2024 06:10:22 04/25/19 25 04/26/2024 ALBUM IN, [...] a diagn ostic categ ory. Not Available [address], [address], 04/26/2024 06:10:22 04/25/19 25 04/26/2024 COMPR EHENS ANDREA METAB OLIC PANEL glucose 120 mg/dL 65-99 high Fasti ng refer ence inter brina For someo ne witho ut known diabe alexander, a gluco se value betwe en 100 and 125 mg/dL is consi stent with predi abete s and shoul d be confi rmed with a follo w-up test. Not Available [address] [address] [place], [address], 04/26/2024 06:10:04/25/1904/26/2024 COMPR EHENS ANDREA METAB OLIC PANEL urea nitrogen (BUN) 15 mg/dL 7-25 normal Not Available [facility] [address] [address] [place], [address], 04/26/2024 06:10:04/25/1904/26/2024 COMPR EHENS ANDREA METAB OLIC PANEL creatinine 0.69 mg/dL 0.60-1 .00 normal Not Available [address] [address] [place], [address], 04/26/2024 06:10:04/25/19 25 04/26/2024 COMPR EHENS ANDREA METAB OLIC PANEL eGFR 92 mL/mi n/1.7 3m2 > or = 60 normal Not Available [address] [address] [place], [address], 04/26/2024 06:10:04/25/1904/26/2024 COMPR EHENS ANDREA METAB OLIC PANEL BUN/creatini ne ratio SEE NOTE: (calc ) 6-22 Not Repor joshua: BUN and Creat inine are withi n refer ence range . Not Available [facility] [address] [address] [place], [address], 04/26/2024 06:10:04/25/19 25 04/26/2024 COMPR EHENS ANDREA METAB OLIC PANEL sodium 140 mmol/ L 135-14 6 normal Not Available [facility] [place] [address] [place], [address], 04/26/2024 06:10:04/25/19 25 04/26/2024 COMPR EHENS ANDREA METAB OLIC PANEL potassium 3.8 mmol/ L 3.5-5. 3 normal Not Available [address], [address], 04/26/2024 06:10:04/25/19 25 04/26/2024 COMPR EHENS ANDREA METAB OLIC PANEL chloride 102 mmol/ L 98-110 normal Not Available [address], [address], 04/26/2024 06:10:04/25/19 25 04/26/2024 COMPR EHENS ANDREA METAB OLIC PANEL carbon dioxide 29 mmol/ L 20-32 normal Not Available [address], [address], 04/26/2024 06:10:04/25/19 25 04/26/2024 COMPR EHENS ANDREA METAB OLIC PANEL calcium 9.3 mg/dL 8.6-10 .4 normal Not Available [address], [address], 04/26/2024 06:10:04/25/19 25 04/26/2024 COMPR EHENS ANDREA METAB OLIC PANEL protein, total 7.1 g/dL 6.1-8. 1 normal Not Available [address], [address], 04/26/2024 06:10:04/25/19 25 04/26/2024 COMPR EHENS ANDREA METAB OLIC PANEL albumin 4.4 g/dL 3.6-5. 1 normal Not Available [address], [address], 04/26/2024 06:10:04/25/19 25 04/26/2024 COMPR EHENS ANDREA METAB OLIC PANEL globulin 2.7 g/dL_ (calc ) 1.9-3. 7 normal Not Available [address] [address] [place], [address], 04/26/2024 06:10:23 04/25/19 25 04/26/2024 COMPR EHENS ANDREA METAB OLIC PANEL albumin/glob ulin ratio 1.6 (calc ) 1.0-2. 5 normal Not Available [address], [address], 04/26/2024 06:10:23 04/25/19 25 04/26/2024 COMPR EHENS ANDREA METAB OLIC PANEL bilirubin, total 0.5 mg/dL 0.2-1. 2 normal Not Available [address], [address], 04/26/2024 06:10:23 04/25/19 25 04/26/2024 COMPR EHENS ANDREA METAB OLIC PANEL alkaline phosphatase 113 U/L 37-153 normal Not Available [address], [address], 04/26/2024 06:10:23 04/25/19 25 04/26/2024 COMPR EHENS ANDREA METAB OLIC PANEL AST 18 U/L 10-35 normal Not Available [address], [address], 04/26/2024 06:10:23 04/25/19 25 04/26/2024 COMPR EHENS ANDREA METAB OLIC PANEL ALT 24 U/L 6-29 normal Not Available [address], [address], 04/26/2024 06:10:23 04/25/19 25 04/26/2024 HEMOG LOBIN [...] luis. Your reque st to have a Purer Sk[employer] copy faxed has been alcon [place] [phone] Not Available [facility] [address] [place], [address], 04/26/2024 06:10:24 12/21/19 xr chest Pa+la t [facility] ONE [facility] [place] [address] Orderi ng Provid er: TYLER RENEE [facility] [place] [address] [facility] [address] [place], [place] [id number] JENNIFER BUTLER S: XR CHEST PA+LAT DATE: [...] reted By: Gerardo Gray , 11:[address] [facility], [place], [address], 12/25/2023 23:38:28 02/02/20 24 02/02/2024 pre/p ost bronc hodil ator vinay metry * No observ ation record ed. angel [facility], [facility] [address], [place], [address], 02/06/2024 17:43:25 02/15/20 24 US low ext nonva sc ltd lt [facility] [place] [place] [address] Orderi ng Provid er: TYLER RENEE [facility] [place] [address] [facility] [address] [place], [place] [id number] Examin ation: US LOW EXT NONVAS C [...] By: Sandra Cannon MD, 2023 5:[address] 1 [place], [address], 02/19/2024 14:52:51 03/17/[address] ABD+p el W con [facility] [place] [address] Orderi ng Provid er: TYLER RENEE [facility] [address] [facility] [place] [address] EXAMIN ATION: CT ABDOME N/PELV IS WITH [...] By: Saul no MD, 2023 11:[address], [place], [address], 04/16/2024 17:19:47 03/27/20 24 MRI knee lt wo con [facility] ONE [facility] [place] [address] Orderi ng Provid er: MAYKEL DAWKINS N [facility] [place] [address] [facility] [address] [place] [phone] Examin ation: MR left knee withou t: Access ion: [id number] Exam Date/T bipin: 2023 10:28 AM Clinic [...] Findin gs: MENISC I: Medial menisc us: Template Cutter ior horn tear extend ing to the signal mechanic ior horn root attach ment. Probab ly a radial compon ent. Marked thinni ng and unders urface frayin g of the signal mechanic ior horn as well as well as [...] l collat eral ligame nt: Intact . Template Cutter olater al corner struct ures: Intact . Template Cutter omedia l corner struct ures: Intact . [...] y. IMPRES FAHAD: 1. 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 2. Template Cutter ior crucia te ligame nt sprain and [...] around knee with no known injury . [address] [facility], [place], [address], 04/16/2024 17:19:46 03/27/20 24 03/27/2024 MRI, knee, w/o contr ast No observ ation record ed. [address] [facility], [place], [address], 04/16/2024 17:19:46 05/30/19 25 US, abdom en, limit ed [facility] [place] [address] Orderi ng Provid er: TYLER RENEE [facility] [place] 1 [facility] [address] [place] [phone] JENNIFER G LUKE S: US ABD LIMITE [...] reted By: Gerardo Gray , 8:19 AM [facility] [address], [place], [address], 06/04/2024 00:03:29 07/03/19 25 nm hepat obili jhon scan w/GB eject ion fract ion [facility] ONE [facility] [place] [address] Orderi ng Provid er: RADHA HURT [facility] [place] 1 [facility] [address] [place] [phone] EXAMIN ATION: HEPATO BILIAR Y SCINTI GRAPHY [...] By: Dominga Grace MD, 025 9:[address], [address], 07/07/2024 22:30:03 Result Notes None recorded. Procedures Surgical History Date Name Laterality Status Provider Name and Address Organization Details Recorded Time 05/05/19 22 Date of [facility] 16:06:58 04/04/19 11 [facility] 05[facility]11[facility]2023 15:58:08 09/22/18 99 Reconstructive Surgery completed Tyler Renee MD [address] [place] [address] [address], [place], [address], [facility] 06/07/2023 13:54:28 09/02/18 97 [facility] 05/11/2023 16:02:03 04/04/18 97 kidney stone analysis completed [facility] 05/11/2023 16:03:48 03/04/19 96 Bilateral Mastectomy completed [facility] 05/11/2023 16:01:24 06/02/18 96 Bilateral Mastectomy completed [facility] 05/11/2023 16:01:37 04/04/18 96 bilateral reconstruction of breasts completed Tyler Renee MD [address], [place], [address], [facility] 07/30/2023 21:10:30 04/04/18 92 chemical/poison screening completed [facility] 05/11/2023 15:59:51 04/04/18 90 Total Hysterectomy completed [facility] 05/11/2023 15:59:11 04/04/18 89 Back Surgery completed [facility] 05/11/2023 15:57:05 Imaging Results Imaging Date Name Status LastModified by Organization Details LastModified Time 12/21/2023 xr chest Pa+lat completed [address], [address], 12/25/2023 23:38:28 02/02/2024 pre/post bronchodilator spirometry* completed angel [facility], [facility] [address], [place], [address], 02/06/2024 17:43:25 02/15/2024 US low ext nonvasc ltd lt completed [address], [address], 02/19/2024 14:52:51 03/17/2024 CT ABD+pel W con completed [address], [address], 04/16/2024 17:19:47 03/27/2024 MRI knee lt wo con completed [address], [place], [address], 04/16/2024 17:19:46 03/27/2024 MRI, knee, w/o contrast completed [address], [place], [address], 04/16/2024 17:19:46 05/30/2024 US, abdomen, limited completed [address], [place], [address], 06/04/2024 00:03:29 07/02/2024 nm hepatobiliary scan w/GB ejection fraction completed [address], [place], [address], 07/07/2024 22:30:03 Procedure Notes None recorded. Medical Equipment None Reported. Allergies Allergen ID Allergen Name Allergen Category Reaction Reaction Severity Criticality Documentation Date Start Date Code Code System Note Provider Name and Address Organization Details Recorded Time 88915 lidocaine medicatio n other Not available Not available 05/11/2023 6387 RxNorm on the body is ok but injec table at the [facility] st does not last as amada l and she can feel every thing Not Available Not Available Not Available 28777 erythromy zeyad medicatio n hives Not available Not available 05/11/2023 4053 RxNorm hives and stoma ch ache Not Available Not Available Not Available 72583 gabapenti n medicatio n hives Not available Not available 05/11/2023 03359 RxNorm hives and stoma ch ache Not Available Not Available Not Available 74336 Lorabid medicatio n hives Not available Not available 05/11/2023 88145 4 RxNorm can take for 4 to 6 days and after that she gets hives and somet imes her throa t swell s Not Available Not Available Not Available 26703 acetamino phen / hydrocodo ne medicatio n hives Not available Not available 05/11/2023 18995 2 RxNorm can take for 4 to 6 days but after that she will get hives and somet imes her throa t swell s Not Available Not Available Not Available 44604 phenol medicatio n Not available Not available Not available 05/11/2023 63259 RxNorm Not Available Not Available Not Available 86233 formaldeh yde environme nt,medica tion Not available Not available Not available 05/11/2023 4530 RxNorm Not Available Not Available Not Available 65299 cigarette smoke environme nt Not available Not available Not available 05/11/2023 81527 UNK Not Available Not Available Not Available 55855 acrylic acid Not available Not available Not available Not available 05/11/2023 71748 26 RxNorm Not Available Not Available Not Available 68738 house dust allergeni c extract environme nt,medica tion Not available Not available Not available 05/11/2023 48297 9 RxNorm Not Available Not Available Not Available 07628 house dust mite environme nt Not available Not available Not available 05/11/2023 01658 UNK Not Available Not Available Not Available 59861 mold extract environme nt Not available Not available Not available 05/11/2023 78736 8 RxNorm terps /smut s/rhi zopus /spor obolo myces /drec hsler a/mon wing sito/ clad. fluvu m/pin e terp/ tree terp/ grass terp/ ragwe ek terp/ mesqu ite terp/ angelica terp/ clad herba rum/c urvul aria spec/ strep tomyc es phaeo sphae archie/a sperg illus mix Not Available Not Available Not Available 09939 melon extract food Not available Not available Not available 05/11/2023 21609 10 RxNorm anyth ing in melon famil y Not Available Not Available Not Available 78475 pepper extract Not available Not available Not available Not available 05/11/2023 39089 85 RxNorm or chili famil y Not Available Not Available Not Available 86885 cow milk allergeni c extract food,medi cation Not available Not available Not available 05/11/2023 23138 5 RxNorm lacto se intol erant but some arredondo d/pro cesse d produ cts-- ok Not Available Not Available Not Available 37306 Cardizem medicatio n Not available Not available Not available 05/11/2023 56982 4 RxNorm with prolo nged use Not Available Not Available Not Available 68356 Dynacin medicatio n Not available Not available Not available 05/11/2023 55538 4 RxNorm with prolo nged use Not Available Not Available Not Available 18089 Doryx medicatio n Not available Not available Not available 05/11/2023 83451 7 RxNorm with prolo nged use Not Available Not Available Not Available 14266 Adoxa medicatio n hives Not available Not available 05/11/2023 11506 5 RxNorm also makes her stoma ch hurt Not Available Not Available Not Available 43241 metronida zole medicatio n Not available Not available Not available 08/10/2023 6922 RxNorm she gets whelp s Not Available Not Available Not Available 56928 diltiazem Not available hives Not available Not available 07/25/20242023 3443 RxNorm With prolo nged use unrec ogniz ed react ion (text : Nause a and Vomit ing, code: 79739 000) (from exter nal sourc e) Not Available Not Available Not Available 25440 doxycycli ne Not available hives Not available Not available 07/25/20242023 3640 RxNorm With prolo nged use unrec ogniz ed react ion (text : Nause a and Vomit ing, code: 92685 000) (from exter nal sourc e) Not Available Not Available Not Available 41826 minocycli ne hydrochlo ride medicatio n hives Not available Not available 07/25/20242023 6979 RxNorm With prolo nged use unrec ogniz ed react ion (text : Nause a and Vomit ing, code: 13220 000) (from exter nal sourc e) Not Available Not Available Not Available 91607 ethanol food,medi cation rash Not available low 07/25/20242023 448 RxNorm Not Available Not Available Not Available 09724 lactose food,medi cation Not available Not available Not available 07/25/20242023 6211 RxNorm unrec ognisweta ed react ion (text : GI Upset , code: 74399 5008) (from exter [facility]) Not Available Not Available Not Available 12294 morphine medicatio n other Not available low 07/25/20242021 7052 RxNorm Pt state s does NOT work Not Available Not Available Not Available 67913 4-cresyl acetate medicatio n rash Not available low 07/25/20242020 17413 RxNorm Not Available Not Available Not Available Medications [...] MOUTH EVERY MORNING 05/06 completed -- on Janumet now Not Available Not Available Not Available [...] Details Last Updated DateTime 4 165.1 cm 85 /min 16 /min 97.9 [degF] 38.9 kg/m2 150653. 61 g [facility] 13:18:21 Date Recorded Systolic blood pressure Diastolic blood pressure Provider Name and Address Organization Details Last Updated DateTime 01/10/2024 144 mm[Hg] 80 mm[Hg] Tyler Renee MD [address] [place] [address] [address], [place], [address], [facility] 01/10/2024 13:40:42 Date Recorded Body height Heart rate Respiratory rate Body temperature Body weight Body mass index (BMI) Systolic blood pressure Diastolic blood pressure Provider Name and Address Organization Details Last Updated DateTime 4 165.1 cm 92 /min 16 /min 97.5 [degF] 984504. 58 g 39.8 kg/m2 128 mm[Hg] 82 mm[Hg] [facility] 15:55:58 Date Recorded Body height Heart rate Respiratory rate Body temperature Body weight Body mass index (BMI) Systolic blood pressure Diastolic blood pressure Provider Name and Address Organization Details Last Updated DateTime 4 165.1 cm 91 /min 16 /min 97.4 [degF] 056082. 8 g 39.3 kg/m2 125 mm[Hg] 77 mm[Hg] [facility] 4 16:06:01 Date Recorded Body height Heart rate Respiratory rate Body temperature Body mass index (BMI) Body weight Systolic blood pressure Diastolic blood pressure Provider Name and Address Organization Details Last Updated DateTime 5 165.1 cm 83 /min 16 /min 97.3 [degF] 39.6 kg/m2 290333. 98 g 121 mm[Hg] 77 mm[Hg] Janiya Pruitt [facility] 15:41:34 Date Recorded Body height Heart rate Respiratory rate Body temperature Body mass index (BMI) Body weight Systolic blood pressure Diastolic blood pressure Provider Name and Address Organization Details Last Updated DateTime 165.1 cm 80 /min 16 /min 97.5 [degF] 40.8 kg/m2 888117. 13 g 153 mm[Hg] 72 mm[Hg] Janiya Pruitt [facility] 13:42:51 Social History Question Answer Notes LastModified by Organizat ion Details LastModified Time Tobacco Smoking Status Never Smoker Janiya Pruitt [facility] 05/10/2023 14:46:25 Do You Have An Advance [...] Information not available 05/10/2023 What Type Of Assembler Carbon Brushes Do You Use? None Information not available 05/10/2023 What Is Your Code Status? Full Code Information not available 05/10/2023 In The 14 Days Before Symptom Onset, Have You Had Close Contact With A Laboratory-confi rmed COVID-19 While That Case Was Ill? No [...] Each Week. Has Checks Coming In From [employer] In [place] And Has Land In [place] As Well Information not available 05/10/2023 Are [...] Or The Highest Degree You Have Received? KQ58631-1 BA In Education K-12 BA In Special Ed Information not available 05/10/2023 Have There Been Any Changes To Your Family Or Social Situation? Yes 1 1/2 Years Ago Moved From [place] Information not available 05/10/2023 What Is The [...] Anxious, Or Unable To Sleep At Night)? [id number] Information not available 05/10/2023 Do You Use [...] available 05/10/2023 14:41:16 Medical History Condition Response Kidney Stones Y Muscle, Joint, or Bone Problems Y Arthritis Y Cancer Y High Cholesterol Y Diabetes Y Diverticulitis Y Asthma Y Hypertension Y Gynecological History Statement/Question Response Date of Last Mammogram 05/05/2021 Obstetrics History GPAL:G 2 P 0 0 0 0 Immunizations Vaccine Type Date Status Note Provider Nam e and Address Organization Details Recorded Time Influenza, high-dose, trivalent, PF 4 completed Tyler Renee MD [address], [place], [address], [facility] 02/02/2024 16:43:50 RSV, recombinant, protein subunit RSVpreF, adjuvant reconstituted, 0.5 mL, PF 4 completed Tyler Renee MD [address], [place], [address], [facility] 04/16/2024 16:47:30 Pneumococcal conjugate PCV20, polysaccharide OYM199 conjugate, adjuvant, PF 4 completed Tyler Renee MD [address], [place], [address], [facility] 04/16/2024 16:47:49 Past Encounters Encounter ID Performer Location Encounter Start Date Encounter Closed Date Diagnosis/Indication Diagnosis SNOMED-CT Code Diagnosis ICD10 Code Diagnosis Note [id number] Tyler Renee MD [facility], [facility] [address] [place] [address] 05/10/2023 14:07:31 05/10/2023 16:55:46 Type 2 diabetes mellitus without complication 831566174 E11.9 Abdominal pain 51105246 R10.9 (h/o diverticul itis 2018, and bilateral ureteric stone in 1996 & 2022) Essential hypertension 50898032 I10 Hyperlipidemia 37119932 E78.5 Dyspnea on exertion 6084 5006 R06.09 Dry eyes 240392234 H04.1 23 -- dx'd w/ Sj gren's by Ophthalmol ogist/Opto metrist Dr Godfrey at [facility] [phone]; Fax Urinary incontinence 165 184769 R32 Xeroderma 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 Asthma 676406422 J45.90 9 Screening for osteoporosis 602469101 Z13.820 [id number] Tyler Renee MD [facility] [address] [place] [address] 06/07/2023 11:49:56 06/07/2023 14:21:47 Abdominal pain 87208973 R10.9 (h/o diverticul itis 2018, and bilateral ureteric stone in 1996 & 2023) - -- since mesh placement at [facility]; pt has chronic pelvic pain w/o relief (just above the pubic bone); pain persisted in spite of removing the mesh.-- no change since then (pt takes Hydrocodon e occasional ly).-- pain worsened since pt tried the ten's unit from Urogynecol ogist-- recheck lab(s) on 11/08/23 Type 2 jaciel betes mellitus without complication 352332185 E11.9 -- recheck lab(s) on 11/08/23 Essential hypertension 54508456 I10 -- controlled -- recheck lab(s) on 11/08/23 Hyperlipidemia 15000579 E78.5 -- excellent control-- recheck lab(s) on 11/08/23 Dyspnea on exertion 6084 5006 R06.09 -- recheck lab(s) on 11/08/23 Dry eyes 574637704 H04.1 23 -- dx'd w/ Sj gren's by Ophthalmol ogist/Opto metrist Dr Godfrey at [facility] ; Fax Urinary incontinence 165 963996 R32 -- UA complete w/ micro was not revealing except for trace Leukocyte esterace (05/11/23) Asthma 883864377 J45.90 9 -- no flares (have not used inhalers in the last 6 months) Xeroderma 16168015 E50.8 -- likely from Sjogren's Syndrome-- normal TFTs on 05/11/23 Musculoskeletal pain 279 829662 M79.10 (lower back, muscle aches & joint aches) Body mass index 40+ - severely obese 335430313 Z68.41 -- will advise weight loss-- pt's BMI today is 39.9 (ideal is between 20-25) Screening for osteoporosis 035810233 Z13.820 HIV screening 260026556 Z11.4 -- tested negative for HIV on 05/11/23 Active or passive immunization 838355956 Z23 -- had Tdap 2022 and High dose Flu shot at [facility] Dec 2022 Screening for malignant neoplasm of colon 824059170 Z12.11 -- last colonoscop y was in [place]-- pt is currently following w/ GI Dr Radha Spencer at [facility] Screening for malignant neoplasm of breast 943141684 Z12.31 -- pt had double prophylact ic Mastectomy for Lobular carcinoma in situ Gynecologi c examination 16565806 Z01.419 -- last saw Urogynecol ogist Dr Nishi reese around end of Mar 2023 who referred pt for pelvic pain. Hepatitis C screening 41 8144639 Z11.59 [id number] Dayday Goyal MD [facility], [facility] [address] [place] [address] 08/05/2023 08:41:41 08/05/2023 10:39:41 Localized eruption of skin 897139040 R21 ?? allergic reaction to metronidaz ole Colitis 84912942 K52.9 Nausea and vomiting 1692 1999 R11.2 [id number] Tyler Renee MD [facility], [facility] [address] [place] [address] 08/10/2023 09:44:13 08/10/2023 12:32:30 Localized eruption of skin 107006648 R21 -- markedly better-- see photo Diverticul itis of colon 366485435 K57.32 Thickening of mid Sigmoid colon w/ inflammato ry stranding suggestive of diverticul itis -- Inform pt to start on Augmentin (has welps to Metronidaz ole) and Radiologis t recommends she followup with Gastroente rologist to rule out colon cancer. Macrocytosis 343506972 D 75.89 1. ^MCV (macrocyto tis) -- normal RBC folate & TFTs (05/11/23) 2. Low normal Vit B12 -- start over-the-c ounter sublingual Vit B12 1,000 mcg) 1 tab every Morning (under tongue for 5 min then swallow). Desirable Vit B12 level is over 500 pg/ml Osteopenia 050375422 M85 .80 Type 2 jaciel betes mellitus without complication 960184200 E11.9 -- A1c level of 6.3 (05/11/23)-- recheck lab(s) on 11/08/23 [id number] Tyler Renee MD [facility], [employer] [facility] [address] [place] [address] 09/01/2023 13:57:40 09/01/2023 15:48:46 Abdominal pain 84456627 R10.9 -- abd swelling that started 3 days ago (Tuesday08/28/23) Hematochezia 788109723 K 92.1 -- pt advised to go to the Emergency Room now. Pt declines EMS transport but will want to drive home and have her daughter take her to [facility] Room where her GI Dr Dr Spencer works at. [id number] Tyler Renee MD [facility] [address] [place] [address] 09/15/2023 14:35:03 09/15/2023 17:10:59 Abdominal pain 84768571 R10.9 -- dx'd w/ colitis; stool study showed Sapovirus- - pt was treated w/ Zosyn IV ABx-- pt feeling much better Diarrhea 96100484 R19.7 -- normal soft formed BMs now CT of abdo men abnormal 9505931877 5846354 R93.5 [id number] Tyler Renee MD [facility], [employer] [facility] [address] [place] [address] 09/26/2023 14:02:51 09/26/2023 15:51:44 Sigmoiditis 252868783 K52.9 (8 cm length) -- unchanged from CT on 07/29/23-- pt was issued Cipro & Metronidaz ole on 08/01/23, pt had welps w/ 1 dose of Metronidaz ole, this was subsequent ly changed to Augmentin 875 BI on 08/05/23.-- pt had colonoscop y w/ Dr Radha Hurt on 09/05/23-- pt has appt w/ Dr Radha Hurt on 10/11/23 at [place] office Retroperit jewell lymphadenopathy 526593952 R59.0 (1.2 cm) Adenomatou s polyp of colon 237901431 D12.6 -- on colonoscop y done on 09/05/[address] Radha Hurt Solitary n odule of lung 190756154 R91.1 (3 mm RML nodule) -- repeat chest [facility] at [facility] 3 months from 09/22/23 Asthma 264664587 J45.90 9 -- no flares (have not used inhalers in the last 6 months) Type 2 jaciel betes mellitus without complication 960800927 E11.9 -- A1c level of 6.3 (05/11/23)-- recheck lab(s) on 11/08/23 Essential hypertension 83103935 I10 -- controlled -- recheck lab(s) on 11/08/23 Hyperlipidemia 74781059 E78.5 -- excellent controlCur rent ASCVD risk calculatio n is 26.0% (09/26/23) -- pt TC was 139, HDL 51, & LDL of 69 on 05/11/23; BP of 104/67 (09/26/23)- - recheck lab(s) on 11/08/23 Active or passive immunization 809892561 Z23 -- had Tdap 2022 and High dose Flu shot at [facility] Dec 2022 Advance di rective discussed with patient 870941081 Z71.89 [id number] Tyler Renee MD [facility] [address] [place] [address] 11/16/2023 15:32:31 11/16/2023 18:16:39 Multiple nodules of lung 013813730 R91.8 w/ retroperit jewell lymphadeno mike CT of abdo men abnormal 9286844461 2712953 R93.5 -- pt saw Gastroente rologist Dr Radha Hurt (10/11/23); pt reports that Dr Hurt wants her to f/u w/ Dr Violeta Hale-- pt also saw Oncologist Dr Aleksander Gonzales yesterday 11/16/23; & scheduled f/u appt w/ Dr Gonzales on 12/13/23 Gynecologi c examination 28945084 Z01.419 -- last saw Urogynecol ogist Dr Nishi Reese around end of Mar [address] Ria Walton for eval of pelvic pain. Multiple joint pain 356 8005 M25.50 -- pt reported that her spine has also been hurting a lot lately-- pt was told she has Sjogren by 2 different optometris t but labs ordered by Pulmonolog ist for Sjogrens came back normal [id number] Tyler Renee MD [facility] [address] [place] [address] 12/21/2023 09:06:27 12/21/2023 10:34:22 Upper respiratory infection 39328931 J06.9 Acute bronchitis 6242316 2 J20.9 Exacerbati on of intermittent asthma 326302926 J45.21 Essential hypertension 64254917 I10 -- controlled after changing Olmesartan -hctz 40/12.5 --> Lisinopril 20 mg + Lisinopril -hctz 20/12.5 [id number] Tyler Renee MD [facility], [facility] [address] [place] [address] 01/10/2024 11:36:48 01/10/2024 13:50:17 Upper respiratory infection 57269919 J06.9 -- resolved Exacerbati on of intermittent asthma 449126775 J45.21 Essential hypertension 85407588 I10 -- controlled after changing Olmesartan -hctz 40/12.5 --> Lisinopril 20 mg + Lisinopril -hctz 20/12.5 Low back pain 116328883 M54.50 [id number] Tyler Renee MD [facility], [facility] [address] [place] [address] 02/02/2024 14:58:05 02/02/2024 17:51:43 Cough 10089705 R05.9 Active or passive immunization 163735284 Z23 -- had Tdap 2022 and High dose Flu shot at [facility] Sept 2022 Essential hypertension 33819921 I10 -- controlled Exacerbati on of intermittent asthma 105540781 J45.21 -- pt have not been using her rescue inhaler recently as she has no SOB-- pt counseled Low back pain 190568496 M54.50 Pain of le ft knee joint 1186280273 72428 M25.562 (posterior ) [id number] Tyler Renee MD [facility], [facility] [address] [place] [address] 03/05/2024 15:16:39 03/05/2024 16:54:47 Acute exacerbation of chronic asthmatic bronchitis 432410571 J44.1 Colitis 00544340 K52.9 -- pt reported that GI Dr Radha Hurt told her she does not have Crohn's but have colitis [id number] Tyler Renee MD [facility] [address] [place] [address] 04/16/2024 14:40:07 04/16/2024 17:27:31 Crohn's disease 44196114 K50.90 -- GI Dr Radha Hurt issued pt Budesonide 3 mg capsules which pt will be starting today Type 2 jaciel betes mellitus without complication 794856090 E11.9 -- A1c level of 6.3 (05/11/23)-- recheck lab(s) within 7 days from 04/16/24 Adult [facility] th examination 472223185 Z00.00 Asthma 975681812 J45.90 9 -- no flares (have not used inhalers in the last 6 months) Essential hypertension 15298187 I10 -- controlled Low back pain 660917250 M54.50 Multiple n odules of lung 503550778 R91.8 w/ retroperit jewell lymphadeno mike Hyperlipidemia 68119461 E78.5 -- excellent controlCur rent ASCVD risk calculatio n is 26.0% (09/26/23) -- pt TC was 139, HDL 51, & LDL of 69 on 05/11/23; BP of 104/67 (09/26/23)- - recheck lab(s) on 11/08/23 Body mass index 30+ - obesity 414213633 Z68.39 -- advised weight loss; pt gained 2 # since her last visit-- pt's BMI today is 39.6 (ideal is between 20-25) Hepatitis C screening 41 9655521 Z11.59 Active or passive immunization 751057936 Z23 -- had Tdap 2022 and High dose Flu shot at [facility] Sept 2022 Screening for malignant neoplasm of colon 312266234 Z12.11 -- last colonoscop y was in [place]-- pt had colonoscop y w/ Dr Radha Hurt by 09/2023-- later pt had repeat colonoscop y by Dr Swapna Hale 12/09/23 Screening for malignant neoplasm of breast 078845776 Z12.31 -- pt had double prophylact ic Mastectomy for Lobular carcinoma in situ Gynecologi c examination 41491139 Z01.419 -- last saw Urogynecol ogist Dr Nishi Reese around end of Mar 2023 who referred pt to Dr Ria Walton for eval of pelvic pain.-- pt has appt w/ Dr Ria Walton on 04/25/24 at 11 am Osteopenia 296202261 M85 .80 10 year risk for major [...] -- repeat Bone density in 2 years. [id number] Tyler Renee MD [facility], [facility] [address] [place] [address] 05/09/2024 12:29:27 05/09/2024 14:13:09 Shoulder pain 51729681 M25.519 (Rt shoulder, Rt chest -- radiates to Rt scapula)-- Gallstone vs shoulder origin vs zoster sine herpete Upper abdominal pain 831 76136 R10.10 Increased belching 96577 005 R14.2 Health Concerns Section Related Observation LastModified by Organization Detai ls LastModified Time None Recorded Concern Status LastModified by Organization Details LastModified Time None Recorded Advance Directives Directive Y: Payers Encounter Date Sequence Insurance Name Policy Number Policy Marshall Covered Member ID Marshall Member ID Guarantor Name 01/10/2024 1 [place] Erna Nance [id number] Erna Nance 01/10/2024 2 [place] [id number] Erna Nance [id number] Erna Nance 02/02/2024 1 [place] Nance [id number] Erna Nance 02/02/2024 2 [place] [id number] Erna Nance [id number] Erna Nance 03/05/2024 1 [place] Nance [id number] Erna Nance 03/05/2024 2 [place] [id number] Erna Nance [id number] Erna Nance 04/16/2024 1 [place] Erna Nance [id number] 22 Erna Nance 04/16/2024 2 [place] [id number] Erna Nance [id number] Erna Nance 05/09/2024 1 [place] Er[place] Nance [id number] Erna Nance 05/09/2024 2 [place] [id number] Erna Nance [id number] Erna Nance Notes Date Note Type [...] equivalent symptoms, etc. Tyler Renee MD [address] [facility] [address], [place], [address], [facility] 01/10/2024 13:51:07 02/02/2024 text/html Pt comes in for incessant dry cough, and bilateral knee pain. Pt also requesting refill of Duloxetine for her LBP. Pt has no f/c, n/v, diarrhea, generalized bodyaches, increasing weakness, confusion, CP/chest discomfort, PEPPER/SOB, or wheezing. Tyler Renee MD [address], [place], [address], [facility] 02/02/2024 17:07:38 03/05/2024 text/html 1 week ago, pt w as working in the cold outside. The next day, pt had f/c, and increase coughing. Initially cough dry but now, she has green phlegm. Pt request refill:Benzonatate 200mg cap and Guaifenisn---Wants this to go to [facility] Dr. Isabel Vanegas prescribed Budesonide 3mg 3x a day butAsher Hurt said to take 1 pill per day for 60 days then go back to see him for f/u. Also her daughter just had a heartattack this morning (Zoe) -- very stressed. Tyler Renee MD [address] [facility] [address], [place], [address], [facility] 03/05/2024 16:55:38 04/16/2024 text/html Medicare Annual [...] equivalent symptoms, etc. Tyler Renee MD [address] [address], [place], [address], [facility] 04/16/2024 17:25:16 05/09/2024 text/html Pt p/w bilateral [...] equivalent symptoms, etc. Tyler Renee MD [address] [facility] [address], [place], [address], [facility] 05/09/2024 14:13:00 OBGyn Episode No OBEpisode recorded.
--- OUTSIDE RECORDS SUMMARY | 2024-07-27 16:14 | XMS_ITS | Patient Health Record ---
Author Organization [facility] Address [address] [place] [address] Care Team Providers Care Final Cleaner Name Role Phone Neo OCHOA, Eric Primary [...] Information Encounters Encounter Location Date Provider Diagnosis [facility] [address] [place] [address] 08/12/2023 [facility] [employer] [facility] No Information Insurance Providers Payer Name Payer Address Payer Phone Subscriber Number Group Number Insured Name Patient Relationship to Insured Coverage Start Date Coverage End Date [place] [address] [place], [place] [id number] Erna Nance Self - patient is the insured [facility] Medicare Supplement [address] [place], [place] [id number] Erna Nance Self - patient is the [...]
--- OUTSIDE RECORDS SUMMARY | 2024-07-27 16:14 | XMS_ITS | CCD ---
Author Name Interface, [id number] lity Address [place] [address] Organization [facility] Address [place] [address] Reason for Visit Functional Status Date Name [...] MG daily 009 active 009 Mometasone Nasal [place] 50 mcg/actuation By inhalation MCG as directed 009 active 009 Olmesartan Oral PO 1.0 TABLET (S) daily 009 active Social History Date Name Value Sex Female
--- OUTSIDE RECORDS SUMMARY | 2024-07-27 16:14 | XMS_ITS | Encounter Summary ---
Author Organization [facility] Address [address] [place] [address] Care Team Providers Care Web Application Tester Name Role Phone Tyler Larson MD Primary Care Provider [phone] Reason for Visit * Reason Onset Date Comments Med Question 03/22/2024 Encounter Details Date Type Department Care Team (Late st Contact Info) Description 03/22/2024 Telephone [facility] - ORNAMENTAL IRON WORKER [address] [facility] [address] [place] [address] Ria Walton MD [address] [facility] [address] [place] [address] Med Question Social History Tobacco [...] AM CDT Legal Sex Female 2:27 PM DEPUTY CHIEF COUNSEL Gender Identity Female 07/29/2021 10:25 AM CDT Sexual Orientation Straight 07/29/2021 10 :25 AM CDT documented as of this encounter Miscellaneous Notes * Telephone Encounter - Olivia Wallace RN - 03/22/2024 3:55 PM CST Returned patient's call. No answer. Left a message with return call back number. TY CHIEF COUNSEL * Telephone Encounter - Karoline Joseph - 03/22/2024 3:50 PM CST Patient states she is experiencing vaginal pain and is going to the bathroom frequently and states this is unusual for her. Please call back at [phone] TY CHIEF COUNSEL documented in this encounter Plan of Treatment Not on file documented as of this encounter Visit Diagnoses Not on filedocumented in this encounter Care Teams Web Application Tester Relationship Specialty Start Date End Date Tyler Larson MD [address] [address] PCP - General Internal Medicine 08/08/23 documented as of this encounter
--- OUTSIDE RECORDS SUMMARY | 2024-07-27 16:14 | XMS_ITS | Patient Health Record ---
Author Organization [facility] [employer] [facility] [place] ([address]) Address [address] [place] [address] Care Team Providers Care Automotive Teacher Name Role Phone Radha Jeffery Primary Care Provider Unavaila Adore Andrea Unavailable [phone] [employer], Provider Unavailable Unavailab le Allergies Allergen [...] never smoker Section Notes: recently moved to [facility] recently moved to [facility] recently moved to [facility] Problems Problem Type SNOMED Code ICD Code Onset Dates Problem Status W/U Status Risk Notes Problem Hyperlipidemia (65745378) Hyperlipidemia, unspecified (E78.5) Active confirmed Problem Chronic allergic conjunctivitis (50576359) Other chronic allergic conjunctivitis (H10.45) Active confirmed Problem Allergic rhinitis caused by pollen (disorder) (96336127) Allergic rhinitis due to pollen (J30.1) Active confirmed Problem Allergic rhinitis (62655795) Other allergic rhinitis (J30.89) Active confirmed Problem Chronic rhinitis (70353285) Chronic rhinitis (J31.0) Active confirmed Problem Uncomplicated mild persistent asthma (669858890) Mild persistent asthma, uncomplicated (J45.30) Active confirmed Problem Uncomplicated moderate persistent asthma (610970466) Moderate persistent asthma, uncomplicated (J45.40) Active confirmed Problem Uncomplicated severe persistent asthma (431584265) Severe persistent asthma, uncomplicated (J45.50) Active confirmed Problem Allergic rhinitis caused by animal hair and dander (267594908035496) Allergic rhinitis due to animal (cat) (dog) hair and dander (J30.81) Active confirmed Problem Obstructive sleep apnea syndrome (disorder) (25395642) Obstructive sleep apnea (adult) (pediatric) (G47.33) Active confirmed Problem Essential hypertension (00992016) Essential (primary) hypertension (I10) Active confirmed Problem COVID-19 (495619392) COVID-19 (U07.1) Active confirmed Encounters Encounter Location Date Provider Diagnosis [address] [place] [address] 09/17/2023 Provider Kobi Moderate persistent asthma, uncomplicated J45.40 Assessments Encounter Date Diagnosis (ICD Code) Assessment Notes Treatment Notes Treatment Clinical Notes Section Notes 09/17/2023 Moderate persistent asthma, uncomplicated (ICD-10 - J45.40) Plan Of Treatment No Information Insurance Providers Payer Name Payer Address Payer Phone Subscriber Number Group Number Insured Name Patient Relationship to Insured Coverage Start Date Coverage End Date [employer] (Medicare) Attention Claims [address] [place] [address] [id number] Erna Nance Self - patient is the insured [facility] [address] [place] [address] [id number] Erna Nance Self - patient is the insured Medical (General) History Medical History History ICD Code chemical exposure-hives Essential (primary) hypertension I10 Hyperlipidemia, unspecified E78.5 Surgical History Surgery Date(Month/Year) back surgery hysterectomy kidney stone reconstructive pelvic surgery cyctocele lymph node removal Left breast colonoscopy endoscopy Hospitalization History Reason Date(Month/Year) Kidney stones 03/2022 Diverticulitis 05/2022
--- OUTSIDE RECORDS SUMMARY | 2024-07-27 16:14 | XMS_ITS | Clinical Summary ---
Author Organization [facility] Address [address] [facility] [place] [address] Care Team Providers Care Clinical Team Manager Name Role Phone Tyler Larson MD Primary Care Provider [phone] Source Comments [facility],non-owned Affiliates and Associated Physician Practices is amultiple site organization consisting of ambulatory clinics and hospital sitesin [place], [place], [place] and [place]. This disclosure is being madepursuant to the Care Everywhere program and may not contain all information available regarding this patient. Last updated 17.[facility] Allergies Active Allergy Reactions Criticality Noted Date [...] tablet by mouth once daily Active Multiple Vitamins-Unit Receptionist als (WOMENS 50+ MULTI VITAMIN/MIN PO) Take [...] Active azelastine (Astelin) 0.1 % nasal spray Moodus 2 (two) sprays into each nostril once daily as needed 3 Active triamcinolone acetonide (Kenalog) 0.1 % ointmentIndica tions:LSC (lichen simplex chronicus) Use with the nystatin ointment to vulvar skin 2-3 times a week 30 g 4 4 Active Additional Information Patient not taking.Reported on 06/06/2024 nystatin (Mycostatin) 447915 UNIT/GM ointmentIndica tions:History of candidiasis,LS C (lichen simplex chronicus),Fun gal infection Use with the Triamcinolone ointment 0.1% to the vulvar skin 2-3 times a week, 30 g 4 4 Active Additional Information Patient not taking.Reported on 06/06/2024 nystatin (Mycostatin) 714121 UNIT/GM powderIndicati ons:History of candidiasis,LS C (lichen [...] (02/09/2023): Added automatically from request for surgery [id number] Bilateral breast cysts 03/14/2022 Diverticular disease 10/29/2021 [...] of breast 07/07/2021 Overview (07/07/2021): Converted from [facility] Xueyuancity: Description - BREAST CANCER Dyslipidemia 03/11/2021 02/09/2023 COPD (chronic obstructive pulmonary disease) 03/2021 Diverticulitis of intestine with abscess 021 Abdominal wall pain 01/24/2019 Overview (07/07/2021): Added automatically from request for surgery [id number] Obesity 12/25/2018 Mild intermittent asthma 03/14/2018 Complications [...] Description 06/27/2024 11:30 AM CDT Office Visit [facility] - CERTIFIED MEDICINE AIDE [address] [facility] [address] [place] [address] Ria Walton MD Abdominal wall pain (Primary Dx); 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 Travel 06/06/2024 10:30 AM APPRAISER ART Office Visit [facility] - Plastic Surgery [address] [facility] [place] [address] Valerio Jett MD Neuroma (Primary Dx); Abdominal [...] AM CDT Legal Sex Female 2:27 PM APPRAISER ART Gender Identity Female 07/29/2021 10:25 AM CDT Sexual Orientation Straight 07/29/2021 10 :25 AM CDT Last Filed Vital Signs Vital Sign Reading Time Taken Comments Blood Pressure 142/82 06/27/2024 11:05 AM CDT Pulse 82 06/06/2024 10:17 AM APPRAISER ART Temperature 36.4 C (97.5 F) 10/27/2023 8:10 AM CDT Respiratory Rate - - Oxygen Saturation 97% 06/06/2024 10:17 AM APPRAISER ART Inhaled Oxygen Concentration - - Weight 108.9 [...] - POCT INTERFACED (07/20/2021 10:31 AM CDT) [facility] Creatinine POCT 0.86 0.70 - 1.20 mg/dL 07/20/2021 10:42 AM CDT [facility] Blood BLOOD SPECIMEN / Unknown 07/20/2021 10:31 AM CDT 07/20/2021 10:42 AM CDT us Nishi Reese MD LAB - POINT OF CARE ORDERAB LES Final Result [facility] [address] [place] [address] from Last 3 Months or Most Recently Relevant to Health Maintenance Insurance MEDICARE [facility] MEDICARE MEDICARE Care Teams Clinical Team Manager Relationship Specialty Start Date End Date Tyler Larson MD [address] [place] [address] [address] [place] [id number] PCP - General Internal Medicine 08/08/23
--- OUTSIDE RECORDS SUMMARY | 2024-07-27 16:17 | XMS_ITS | CCD ---
Author Name Interface, [address] Address [place] [address] [facility] Address [place] breakthrough[place] [address] Reason for Visit Functional Status Medications Social History
--- OUTSIDE RECORDS SUMMARY | 2024-07-27 16:18 | XMS_ITS | CCD ---
Author Name Interface, [id number] lity Address [place] [address] Organization [facility] Address [place] [address] Reason for Visit Functional Status Date Name [...] MG daily 009 active 009 Mometasone Nasal [place] 50 mcg/actuation By inhalation MCG as directed 009 active 009 Olmesartan Oral PO 1.0 TABLET (S) daily 009 active Social History Date Name Value Sex Female
[2024-07-27 16:21] VITALS: BP 138/75; PULSE 83; RESP 16; TEMP 36.6; O2SAT 98
--- NOTE | 2024-07-27 16:30 | ED_ITS ---
HPI - Extremity Problem General Chief complaint: Extremity Problem,Nontraumatic Stated complaint: foot swelling Time Seen by Provider: 07/27/24 16:31 Source: patient and RN notes reviewed Mode of arrival: ambulatory Limitations: no limitations History of Present Illness HPI Narrative: 74-year-old female presents Express Care complaining of leg swelling injury to her left foot. Patient says she has noticed bilateral leg swelling over the last month that appears to get worse throughout the day and gets better when she elevates her feet. Patient says that she also noticed bruising around her left foot and ankle after accidentally striking her foot with her walker the other day. Patient denies any pain with ambulation. Patient says there is some tenderness to palpation all touch in the bruising. Patient does have a small abrasion on her left foot from striking her walker on her foot the other day. Patient's states tetanus up-to-date. Patient denies any chest pain or shortness of breath. Patient denies any numbness or tingling to her left foot. Related Data Home Medications ?Medication ?Instructions ?Recorded ?Confirmed ?Last Taken ?Type propylene glycol 0.6 % eye drops 1 drp EACH EYE TID PRN Eye 01/06/22 02/20/24 Unknown History (Systane Balance) Irritation albuterol sulfate 90 mcg/actuation 1 inh inhalation Q4H PRN Shortness 12/03/22 02/20/24 Unknown History aerosol inhaler (Ventolin HFA) Of Breath Or Wheezing aspirin 81 mg tablet,delayed 81 mg PO DAILY 12/03/22 02/20/24 Unknown History release fluticasone furoate 200 1 inh inhalation DAILY 12/03/22 02/20/24 Unknown History mcg-vilanterol 25 mcg/dose inhalation powder (Breo Ellipta) [id number]-txenf extract 5 1 cap PO DAILY 12/03/22 02/20/24 Unknown History mg-6 mg-150 mg capsule (Fruit and Vegetable Daily) multivitamin 1 tablet PO DAILY 12/03/22 02/20/24 Unknown History cyclosporine 0.05 % eye drops in a 1 drp EACH EYE Q12H 03/16/23 02/20/24 Unknown History dropperette (Restasis) artificial tears(hypromellose) 0.3 1 drp EACH EYE QID PRN 04/07/23 02/20/24 Unknown History % eye gel (Systane Gel) loteprednol etabonate 0.38 % eye 1 drp EACH EYE TID 04/07/23 02/20/24 Unknown History gel drops moxifloxacin 0.5 % viscous eye 1 drp EACH EYE BID 04/07/23 02/20/24 Unknown History drops propylene glycol 0.6 % eye drops 1 drp EACH EYE DAILY PRN 04/07/23 02/20/24 Unknown History (Systane Balance) lisinopril 20 mg tablet 20 mg PO DAILY 01/09/24 02/20/24 Unknown History lisinopril 20 1 tablet PO DAILY 01/09/24 02/20/24 Unknown History mg-hydrochlorothiazide 12.5 mg tablet Allergies Allergy/AdvReac Type Severity Reaction Status Date / Time coffee (Coffea arabica) Allergy Intermediate SMELLING Verified 07/21/24 09:30 IT CAUSES Hives & VOMITING diltiazem (From Cardizem) Allergy Unknown Hives, Verified 07/21/24 09:30 stomach ache gabapentin Allergy STOMACH Verified 07/21/24 09:30 UPSET, RASH, CONFUSION meloxicam Allergy ITCHING, Verified 07/21/24 09:30 CONFUSION, NAUSEA montelukast Allergy Confusion Verified 07/21/24 09:30 erythromycin base AdvReac Unknown ABD PAIN, Verified 07/21/24 09:30 NAUSEA minocycline (From Dynacin) AdvReac Unknown Stomach Verified 07/21/24 09:30 ache metronidazole AdvReac Hives Verified 07/21/24 09:30 scopolamine AdvReac N/V Verified 07/21/24 09:30 msg Allergy Unknown SKIN BREAK Uncoded 07/21/24 09:30 OUT AT WRISTS orris root AdvReac Hives Uncoded 07/21/24 09:30 Review of Systems Review of Systems: CONSTITUTIONAL: Denies fever, chills, or sweats. EYES: Denies visual changes, redness, or discharge. ENT: Denies rhinorrhea, congestion, sore throat, or otalgia. CARDIOVASCULAR: Denies chest pain, palpitations, dizziness, lightheadedness or edema. RESPIRATORY: Denies cough or dyspnea. GASTROINTESTINAL: Denies abdominal pain, nausea, vomiting, or diarrhea. GENITOURINARY: Denies dysuria or hematuria. SKIN: Denies rash or itching. MUSCULOSKELETAL: Denies back pain, joint pain, or myalgia. Left foot injury in bilateral leg swelling. NEUROLOGIC: Denies headache, numbness, or weakness. PSYCHIATRIC: Denies anxiety or depression. All other systems reviewed are negative, except as documented in HPI. 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 Obstructive sleep apnea Mild sleep apnea on sleep study in January 2022. Gastroesophageal reflux disease Allergies Asthma Hypertension Arthritis Vaginal delivery x2 Endometriosis Surgical History Surgical History Status post excision of lipoma History of lithotripsy History of removal of cyst Removal of benign cyst and lipoma from numerous sites. History of bilateral mastectomy June 1995. For lobular carcinoma in-situ. History of cervical spinal surgery History of nephrolithotomy with removal of calculi (1996) History of pelvic surgery Cystocele repair in June 2005. Posterior repair with pubovaginal sling with mesh in February 2011. History of breast reconstruction (1997) History of tonsillectomy (09/1996) History of hysterectomy (1989) For benign disease (endometriosis). Family History Family History Father Asthma Diabetes mellitus Hypertension Heart problem Alzheimer's dementia Mother Hypertension Grandparent Brain cancer Sibling Alcoholism Son Asthma Social History Social History Social History: The patient lives in her own home in [place] with a dog. 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 Lifelong nonsmoker. No alcohol or illicit substance abuse. Surrogate medical decision maker: Meaghan Trevino, daughter. Code status: Full code. Smoking status: Never smoker Alcohol intake: never Substance use: never Do You Feel Safe in your Home?: Yes Lack of Transportation: No Lack of Food: Never True Current Housing: I Have Housing Concerned About Future Housing: No Difficulty Paying Gas/Electric Bills: No Difficulty Paying for Meds: No Currently Unemployed: No Education: Bachelor's Degree Difficulty w/ Childcare or Family Care: No Living arrangements: alone Occupation/Education: occupation Spiritual care concerns: No Agree to blood products: Yes Comments At the time of my signature, I reviewed and agree with the nursing past medical, surgical, social, and family history. There is no relevant family history pert inent to the patient complaint. Exam Narrative: GENERAL: This is a well-nourished, well-developed adult, in no apparent distress. They are non ill-appearing, nontoxic appearing. Patient is obese HEAD: normocephalic, atraumatic. EYES: Sclera clear/white. Vision is grossly intact. EARS: External ears normal Hearing grossly intact. NOSE: External nose normal THROAT: Mucous membranes moist NECK: Neck supple, non-tender without lymphadenopathy, masses or thyromegaly. CARDIOVASCULAR: Regular rate and rhythm RESPIRATORY: Respiratory rate normal, respiratory effort nonlabored, no respiratory distress SKIN: warm, Dry, intact with no suspicious lesions or rash, good texture and turgor. NEURO: awake, alert, and oriented to person, place and time. There were no obvious focal neurologic abnormalities. EXTREMITIES: No joint tenderness, effusion. Bilateral lower extremity edema that is below the knee. Edema is trace, nonpitting. Left ankle/foot: The left ankle and dorsal surface of the foot is swollen with bruising present. Tenderness to palpation throughout the bruising. There is a small abrasion to the dorsal lateral side of the foot. No surrounding cellulitis or discharge to the wound. No obvious deformity to left ankle or foot. Patient is able to dorsiflex and plantar flex without pain. Normal range of motion. Sensation is intact distal injury. Pedal pulse 2 +and palpable. Capillary refill less than 2 seconds. BACK: Normal range of motion Course Course Emergency Course: Patient is aware of diagnosis, understands and agrees to treatment plan. Anticipatory guidance given. Patient agrees to follow-up as directed and is aware of reasons to seek care at the emergency department. Portions of this record may have been created with voice recognition software Level of Care: Express Care Visit Vital Signs Vital signs: Vital Signs Temperature 97.8 F 07/27/24 16:21 Pulse Rate 83 07/27/24 16:21 Respiratory Rate 16 07/27/24 16:21 Blood Pressure 138/75 07/27/24 16:21 Pulse Oximetry 98 07/27/24 16:21 Oxygen Delivery Room Air 07/27/24 16:21 Temperature 97.8 F 07/27/24 16:21 Pulse Rate 83 07/27/24 16:21 Respiratory Rate 16 07/27/24 16:21 Blood Pressure 138/75 07/27/24 16:21 Pulse Oximetry 98 07/27/24 16:21 Oxygen Delivery Room Air 07/27/24 16:21 Reviewed MDM - Extremity (Nontraumatic) MDM Narrative Medical decision making narrative: X-ray negative for any acute findings or fractures. Likely soft tissue injury from striking her walker to her left foot. Patient also likely has dependent edema which could be related to her amlodipine or venous insufficiency. Patient denies any cardiac history, patient denies any shortness of breath with exertion orthopnea Patient is given Saurabh wrap. Recommend patient to wear compression stockings to help with her dependent edema. Discussed physical exam findings. Advised supportive measures and signs/symptoms to go to the ER. Pt is appropriate for outpt treatment and f/u. Differential Diagnosis Differential diagnosis: Likely other (Ankle fracture, venous insufficiency, medication side effect, heart failure) Critical Care Time Critical Care Time Critical Care Time: No Discharge Plan Discharge Clinical Impression: Leg edema Injury of ankle, left Qualifiers: Encounter type: initial encounter Qualified Code(s): S99.912A - Unspecified injury of left ankle, initial encounter Patient Disposition: Home Condition: Stable Instructions: Ankle Sprain (ED), Leg Edema (ED) Additional Instructions: Your x-ray was negative for any acute findings or fracture. Rest and elevate the leg; bear weight as tolerated Apply ice 15-20 minute intervals several times a day Keep it wrapped with SAURABH or use a soft ankle splint Tylenol 1000mg every 8 hours as needed Follow up with your primary care provider as needed in 1-2 weeks. Follow-up with orthopedist if your pain in your foot persists after 10 days of conservative therapy. Please follow-up with your cash management associate in 3 days for further evaluation and management of your leg edema. Please ask your cash management associate about your amlodipine which could be causing your leg swelling. Recommend wearing compression stockings throughout the day to help with leg swelling. Please go to the ER if he develops difficulty breathing, shortness of breath, or any other concerns. Patient Language: [place] Prescriptions: No Action amoxicillin 875 mg tablet 875 mg PO Q12H 10 Days Qty: 20 0RF cyclosporine [Restasis] 0.05 % dropperette 1 drp EACH EYE Q12H moxifloxacin 0.5 % drops, viscous 1 drp EACH EYE BID loteprednol etabonate 0.38 % drops,gel 1 drp EACH EYE TID Systane Gel 0.3 % gel 1 drp EACH EYE QID PRN Systane Balance 0.6 % drops 1 drp EACH EYE DAILY PRN Systane Balance 0.6 % drops 1 drp EACH EYE TID PRN (Reason: Eye Irritation) lisinopril-hydrochlorothiazide 20-12.5 mg tablet 1 tablet PO DAILY lisinopril 20 mg tablet 20 mg PO DAILY multivitamin Tablet 1 tablet PO DAILY aspirin 81 mg Tablet,Delayed Release (Dr/Ec) 81 mg PO DAILY fluticasone furoate-vilanterol [Breo Ellipta] 200-25 mcg/dose Blister With Device 1 inh INHALATION DAILY albuterol sulfate [Ventolin HFA] 90 mcg/actuation HFA aerosol inhaler 1 inh inhalation Q4H PRN (Reason: Shortness Of Breath Or Wheezing) Fruit and Vegetable Daily 5-6-150 mg Capsule 1 cap PO DAILY hydrocodone-acetaminophen 5-325 mg tablet 1 - 2 tablet PO Q6H PRN (Reason: pain) Qty: 12 0RF fluticasone propionate [Allergy Relief (fluticasone)] 50 mcg/actuation spray,suspension 1 spray intranasal DAILY PRN (Reason: Shortness Of Breath Or Wheezing) Qty: 16 0RF Rx Instructions: administer into each nostril albuterol sulfate 1.25 mg/3 mL solution for nebulization 1.25 mg inhalation Q4-6H PRN (Reason: shortness of breath or wheezing) Qty: 90 1RF nystatin 100,000 unit/gram powder 1 applic topical TID Qty: 60 0RF amlodipine [Norvasc] 10 mg tablet 10 mg PO QAM Qty: 90 1RF rosuvastatin 20 mg tablet 20 mg PO DAILY Qty: 90 1RF Janumet 50-500 mg tablet 1 tablet PO QAM Qty: 90 1RF glipizide 5 mg tablet extended release 24hr 5 mg PO QAM Qty: 90 1RF Follow-up/Referrals: Neo,MD Reyes (Khengwai) [Primary Care Provider] - Evan De Leon MD [Physician] - Blayne Aguero DO [Physician] - Time of Disposition: 16:59
== END 2024-07-27 17:08 | disposition home or self-care (01) ==
PROVIDERS: PCP Internal Medicine
DX: S99.912A Unspecified injury of left ankle, initial encounter (principal); R60.0 Localized edema; E11.9 Type 2 diabetes mellitus without complications; I10 Essential (primary) hypertension; W22.8XXA Striking against or struck by other objects, initial encounter
CPT/HCPCS: 73610; 73630; 99213; G0463

== ENCOUNTER 2024-10-04 10:00 | Emergency (ER) | payer MEDICARE, SELFPAY ==
--- NOTE | 2024-10-04 10:06 | ED.FEMALEGU ---
HPI - Female Genitourinary General Chief complaint: Urogenital-Female Stated complaint: UTI Time Seen by Provider: 10/04/24 10:15 Source: patient Mode of arrival: ambulatory Limitations: no limitations History of Present Illness HPI Narrative: Erna is a 74-year-old female patient presenting to the clinic today with complaints of a possible UTI. She reports she is having burning with urination, frequency, lower abdominal discomfort/bladder pain, and low back pain. She reports her symptoms started yesterday. States she did have a bout of this last week for few days and push fluids and drink cranberry juice and her symptoms resolved. She has no known fever but did have chills last night. Does report some associated nausea but no vomiting. Related Data Home Medications ?Medication ?Instructions ?Recorded ?Confirmed ?Last Taken ?Type propylene glycol 0.6 % eye drops 1 drp EACH EYE TID PRN Eye 01/06/22 08/07/24 Unknown History (Systane Balance) Irritation albuterol sulfate 90 mcg/actuation 1 inh inhalation Q4H PRN Shortness 12/03/22 08/07/24 Unknown History aerosol inhaler (Ventolin HFA) Of Breath Or Wheezing aspirin 81 mg tablet,delayed 81 mg PO DAILY 12/03/22 08/07/24 Unknown History release smnythor-rcpwjf-bajjw extract 5 1 cap PO DAILY 12/03/22 08/07/24 Unknown History mg-6 mg-150 mg capsule (Fruit and Vegetable Daily) multivitamin 1 tablet PO DAILY 12/03/22 08/07/24 Unknown History cyclosporine 0.05 % eye drops in a 1 drp EACH EYE Q12H 03/16/23 08/07/24 Unknown History dropperette (Restasis) artificial tears(hypromellose) 0.3 1 drp EACH EYE QID PRN 04/07/23 08/07/24 Unknown History % eye gel (Systane Gel) loteprednol etabonate 0.38 % eye 1 drp EACH EYE TID 04/07/23 08/07/24 Unknown History gel drops moxifloxacin 0.5 % viscous eye 1 drp EACH EYE BID 04/07/23 08/07/24 Unknown History drops propylene glycol 0.6 % eye drops 1 drp EACH EYE DAILY PRN 04/07/23 08/07/24 Unknown History (Systane Balance) lisinopril 20 mg tablet 20 mg PO DAILY 01/09/24 08/07/24 Unknown History lisinopril 20 1 tablet PO DAILY 01/09/24 08/07/24 Unknown History mg-hydrochlorothiazide 12.5 mg tablet fluticasone furoate 200 1 inh inhalation DAILY PRN 08/07/24 08/07/24 Unknown History mcg-vilanterol 25 mcg/dose inhalation powder (Breo Ellipta) meloxicam 15 mg tablet mg 10/04/24 Unknown History Allergies Allergy/AdvReac Type Severity Reaction Status Date / Time coffee (Coffea arabica) Allergy Intermediate SMELLING Verified 10/04/24 10:06 IT CAUSES Hives & VOMITING diltiazem (From Cardizem) Allergy Unknown Hives, Verified 10/04/24 10:06 stomach ache gabapentin Allergy STOMACH Verified 10/04/24 10:06 UPSET, RASH, CONFUSION meloxicam Allergy ITCHING, Verified 10/04/24 10:06 CONFUSION, NAUSEA montelukast Allergy Confusion Verified 10/04/24 10:06 erythromycin base AdvReac Unknown ABD PAIN, Verified 10/04/24 10:06 NAUSEA minocycline (From Dynacin) AdvReac Unknown Stomach Verified 10/04/24 10:06 ache metronidazole AdvReac Hives Verified 10/04/24 10:06 scopolamine AdvReac N/V Verified 10/04/24 10:06 msg Allergy Unknown SKIN BREAK Uncoded 10/04/24 10:06 OUT AT WRISTS orris root AdvReac Hives Uncoded 10/04/24 10:06 Review of Systems Review of Systems: Pertinent positives per HPI. Patient denies any fever, chills, rash, headache, visual changes, dizziness, cough, runny nose, sore throat, shortness of breath, chest pain, palpitations, nausea, vomiting, diarrhea, constipation, abdominal pain, or any urinary issues. 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 Obstructive sleep apnea Mild sleep apnea on sleep study in January 2022. Gastroesophageal reflux disease Allergies Asthma Hypertension Arthritis Vaginal delivery x2 Endometriosis Surgical History Surgical History Status post excision of lipoma History of lithotripsy History of removal of cyst Removal of benign cyst and lipoma from numerous sites. History of bilateral mastectomy June 1995. For lobular carcinoma in-situ. History of cervical spinal surgery History of nephrolithotomy with removal of calculi (1996) History of pelvic surgery Cystocele repair in June 2005. Posterior repair with pubovaginal sling with mesh in February 2011. History of breast reconstruction (1997) History of tonsillectomy (09/1996) History of hysterectomy (1989) For benign disease (endometriosis). Family History Family History Father Asthma Diabetes mellitus Hypertension Heart problem Alzheimer's dementia Mother Hypertension Grandparent Brain cancer Sibling Alcoholism Son Asthma Social History Social History Social History: The patient lives in her own home in [place] with a dog. 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 Lifelong nonsmoker. No alcohol or illicit substance abuse. Surrogate medical decision maker: Meaghan Trevino, daughter. Code status: Full code. Smoking status: Never smoker Alcohol intake: never Substance use: never Do You Feel Safe in your Home?: Yes Lack of Transportation: No Lack of Food: Never True Current Housing: I Have Housing Concerned About Future Housing: No Difficulty Paying Gas/Electric Bills: No Difficulty Paying for Meds: No Currently Unemployed: No Education: Bachelor's Degree Difficulty w/ Childcare or Family Care: No Living arrangements: alone Occupation/Education: occupation Spiritual care concerns: No Agree to blood products: Yes Comments At the time of my signature, I reviewed and agree with the nursing past medical, surgical, social, and family history. There is no relevant family history pertinent to the patient complaint. Exam Narrative: General: Well-developed, morbidly obese, in no apparent distress. Head: Normocephalic, atraumatic. Cardio: Regular rate and rhythm, s1 and s2 normal, no murmur appreciated. Resp: Clear to auscultation bilaterally, no rhonchi, rales, wheezing or rubs. Abdomen: Soft, pliable, bowel sounds present in all quadrants, suprapubic tender to palpation, no organomegly, no CVAT tenderness. Course Course Emergency Course: Portions of this record may have been created with voice recognition software. Level of Care: Express Care Visit Vital Signs Vital signs: Vital Signs Temperature 36.1 C L 10/04/24 10:10 Pulse Rate 75 10/04/24 10:10 Respiratory Rate 16 10/04/24 10:10 Blood Pressure 143/77 H 10/04/24 10:10 Pulse Oximetry 100 10/04/24 10:10 Temperature 36.1 C L 10/04/24 10:10 Pulse Rate 75 10/04/24 10:10 Respiratory Rate 16 10/04/24 10:10 Blood Pressure 143/77 H 10/04/24 10:10 Pulse Oximetry 100 10/04/24 10:10 Vital signs reviewed MDM - Female Genitourinary MDM Narrative Medical decision making narrative: At the time of visit patient is resting comfortably on the exam table. Patient appears to be nontoxic. Labs: Urinalysis positive for leukocytes, nitrates, blood, and protein. We will send urine for culture. Plan: I suspect patient likely has a complicated UTI. She is having chills, nausea, low back pain, and lower abdominal discomfort with bladder pain. Probable early pyelonephritis. Prescription for cephalexin was sent to the pharmacy. Supportive measures were discussed with the patient and they voiced understanding discharge instructions and agrees to treatment plan. Return precautions reviewed Lab Data Labs: Lab Results 10/04/24 Range/Units 10:15 POC Urine Color Yellow POC Urine Clarity Cloudy POC Urine pH 5.5 POC Ur Specif [place] 1.030 POC Urine Protein 2+ (Negative) POC Ur Glucose (UA) Negative (Negative) POC Urine Ketones Negative (Negative) POC Urine Blood 1+ (Negative) POC Urine Nitrite Positive (Negative) POC Urine Bilirubin Negative (Negative) POC Urine Urobilinogen 0.2 POC U Leukocyte Esteras 1+ (Negative) Discharge Plan Discharge Clinical Impression: Complicated urinary tract infection Patient Disposition: Home Condition: Stable Instructions: Antibiotic Form, Urinary Tract Infection in Older Adults (ED) Additional Instructions: Urinalysis positive for leukocytes, nitrates, protein, and blood. We will send urine for culture. Take Keflex as prescribed Increase fluids and stay well hydrated Wipe front to back. May use wet wipes. Avoid tub baths If sexually active- pee before and after intercourse. Wear cotton panties Avoid tight clothing up against the genitals Follow up with your PCP in 1 week if symptoms persist. Patient Language: Romanian Prescriptions: New cephalexin 500 mg capsule 500 mg PO Q12H 7 Days Qty: 14 0RF No Action meloxicam 15 mg tablet cyclosporine [Restasis] 0.05 % dropperette 1 drp EACH EYE Q12H moxifloxacin 0.5 % drops, viscous 1 drp EACH EYE BID loteprednol etabonate 0.38 % drops,gel 1 drp EACH EYE TID Systane Gel 0.3 % gel 1 drp EACH EYE QID PRN Systane Balance 0.6 % drops 1 drp EACH EYE DAILY PRN Systane Balance 0.6 % drops 1 drp EACH EYE TID PRN (Reason: Eye Irritation) lisinopril-hydrochlorothiazide 20-12.5 mg tablet 1 tablet PO DAILY lisinopril 20 mg tablet 20 mg PO DAILY multivitamin Tablet 1 tablet PO DAILY aspirin 81 mg Tablet,Delayed Release (Dr/Ec) 81 mg PO DAILY albuterol sulfate [Ventolin HFA] 90 mcg/actuation HFA aerosol inhaler 1 inh inhalation Q4H PRN (Reason: Shortness Of Breath Or Wheezing) Fruit and Vegetable Daily 5-6-150 mg Capsule 1 cap PO DAILY fluticasone furoate-vilanterol [Breo Ellipta] 200-25 mcg/dose blister with device 1 inh INHALATION DAILY PRN fluticasone propionate [Allergy Relief (fluticasone)] 50 mcg/actuation spray,suspension 1 spray intranasal DAILY PRN (Reason: Shortness Of Breath Or Wheezing) Qty: 16 0RF Rx Instructions: administer into each nostril albuterol sulfate 1.25 mg/3 mL solution for nebulization 1.25 mg inhalation Q4-6H PRN (Reason: shortness of breath or wheezing) Qty: 90 1RF nystatin 100,000 unit/gram powder 1 applic topical TID Qty: 60 0RF amlodipine [Norvasc] 10 mg tablet 10 mg PO QAM Qty: 90 1RF rosuvastatin 20 mg tablet 20 mg PO DAILY Qty: 90 1RF Janumet 50-500 mg tablet 1 tablet PO QAM Qty: 90 1RF glipizide 5 mg tablet extended release 24hr 5 mg PO QAM Qty: 90 1RF Follow-up/Referrals: Neo,MD Reyes (Khengwai) [Primary Care Provider] - Time of Disposition: 10:25 Quality NIHSS Nursing Documentation ED NIHSS nursing documentation: reviewed/agree
[2024-10-04 10:10] VITALS: BP 143/77; PULSE 75; RESP 16; TEMP 36.1; O2SAT 100
--- OUTSIDE RECORDS SUMMARY | 2024-10-04 10:10 | XMS_ITS | Referral Summary ---
Author Organization [facility] Address Formerly [facility] [place] [address] Care Team Providers Care Collaborative Physician Name Role Phone Tyler Larson MD Primary Care Provider [phone] Allergies Active Allergy Reactions Criticality Noted Date [...] (03/15/2022): Added automatically from request for surgery [id number] Social History Tobacco Use Types Packs/Day Years [...] CDT Respiratory Rate 15 04/22/2022 8:50 AM BUSINESS ECONOMIST Oxygen Saturation 96% 02/02/2024 8:34 AM CDT Inhaled Oxygen Concentration - - Weight 107.5 kg (237 lb) 02/02/2024 8:34 AM CDT Height 167.6 cm (5' 6) 02/02/2024 8:34 AM CDT Body Mass Index [...] of: encounter for screening for osteoporosis Postmenopausal Pan Puller/Model: ClickTale A (S/N [id number]) CLINICAL INFORMATION: Current height: 66 inches Maximum [...] Angel Morton M.D. MF: WESLY Report ID: [id number] Reading Location: [id number] Procedure Note Angel Morton MD - 06/13/2023 EXAM DESCRIPTION: DEXA AXIAL SKELETON BONE DENSITY 1 OR MORE SITES REASON FOR STUDY: 73 y/o year old F with given history of: encounterfor screening for osteoporosis Postmenopausal Pan Puller/Model: Hologic Horizon A (S/N [id number]) CLINICAL INFORMATION: Current height: 66 inches Maximum [...] Angel Morton M.D. MF: WESLY Report ID: [id number] Reading Location: [place] [address] Tyler Larson MD IMJose DXA PROCEDURES Final Result from Last 3 Months or Most Recently Relevant to Health Maintenance Insurance MEDICARE [facility] MEDICARE SUPPLEMENT MEDICARE [facility] MEDICARE SUPPLEMENT Care Teams Collaborative Physician Relationship Specialty Start Date End Date Tyler Larson MD [address] [facility] [address] [place] [address] PCP - General Internal Medicine 05/11/23
--- OUTSIDE RECORDS SUMMARY | 2024-10-04 10:10 | XMS_ITS | CCD ---
Author Name Interface, [address] Address [place] [address] [facility] Address [place] [address] Allergies and Adverse Reactions Reason for Visit Functional Status Medications Problems Social History
--- OUTSIDE RECORDS SUMMARY | 2024-10-04 10:10 | XMS_ITS | Encounter Summary ---
Author Organization [facility] Address [address] [place] [address] Care Team Providers Care Director Hematology Name Role Phone Tyler Larson MD Primary Care Provider [phone] Reason for Visit * Reason Onset Date Comments Reschedule Appointment 04/20/2024 Encounter Details Date Type Department Care Team (Late st Contact Info) Description 04/20/2024 Telephone [facility] [address] [facility] [address] [place] [address] Ria Walton MD [address] [facility] [address] [place] [address] Reschedule Appointment Social History Tobacco [...] AM CDT Legal Sex Female 2: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 LOGY PROFESSOR documented in this encounter Plan of Treatment Not on file documented as of this encounter Visit Diagnoses Not on filedocumented in this encounter Care Teams Director Hematology Relationship Specialty Start Date End Date Tyler Larson MD [address] [facility] [address] [place] [address] PCP - General Internal Medicine 08/08/23 documented as of this encounter
--- OUTSIDE RECORDS SUMMARY | 2024-10-04 10:10 | XMS_ITS | Clinical Summary ---
Author Organization [facility] Address [address] [facility] [place] [address] Care Team Providers Care Reservations Manager Name Role Phone Tyler Larson MD Primary Care Provider [phone] Source Comments [facility],non-owned Affiliates and Associated Physician Practices is amultiple site organization consisting of ambulatory clinics and hospital sitesin [place], [place], [place] and [place]. This disclosure is being madepursuant to the Care Everywhere program and may not contain all information available regarding this patient. Last updated 17.[facility] Allergies Active Allergy Reactions Criticality Noted [...] tablet by mouth once daily Active Multiple Vitamins-[place] als (WOMENS 50+ MULTI VITAMIN/MIN PO) Take [...] Active azelastine (Astelin) 0.1 % nasal spray [place] 2 (two) sprays into each nostril once daily as needed 3 Active triamcinolone acetonide (Kenalog) 0.1 % ointmentIndica tions:LSC (lichen simplex chronicus) Use with the nystatin ointment to vulvar skin 2-3 times a week 30 g 4 4 Active Additional Information Patient not taking.Reported on 06/06/2024 nystatin (Mycostatin) [id number] UNIT/GM ointmentIndica tions:History of candidiasis,LS C (lichen simplex chronicus),Fun gal infection Use with the Triamcinolone ointment 0.1% to the vulvar skin 2-3 times a week, 30 g 4 4 Active Additional Information Patient not taking.Reported on 06/06/2024 nystatin (Mycostatin) [id number] UNIT/GM powderIndicati ons:History of candidiasis,LS C (lichen [...] (02/09/2023): Added automatically from request for surgery [id number] Bilateral breast cysts 03/14/2022 Diverticular disease 10/29/2021 [...] of breast 07/07/2021 Overview (07/07/2021): Converted from [employer]: Description - BREAST CANCER Dyslipidemia 03/11/2021 02/09/2023 COPD (chronic obstructive pulmonary disease) 03/2021 Diverticulitis of intestine with abscess 021 Abdominal wall pain 01/24/2019 Overview (07/07/2021): Added automatically from request for surgery [id number] Obesity 12/25/2018 Mild intermittent asthma 03/14/2018 Complications [...] Centricity: Description - UNSPECIFIED VITAMIN D DEFICIENCY Family History Medical History Relation Name Comments [...] AM CDT Legal Sex Female 2:27 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 Gender Identity Female 07/29/2021 10:25 AM CDT Sexual Orientation Straight 07/29/2021 10 :25 AM CDT Last Filed Vital Signs Vital Sign Reading Time Taken Comments Blood Pressure 142/82 06/27/2024 11:05 AM CDT Pulse 82 06/06/2024 10:17 AM SUPERVISOR KNITTING Temperature 36.4 C (97.5 F) 10/27/2023 8:10 AM CDT Respiratory Rate - - Oxygen Saturation 97% 06/06/2024 10:17 AM SUPERVISOR KNITTING Inhaled Oxygen Concentration - - Weight 108.9 kg (240 lb) 06/27/2024 11:05 AM CDT Height 170.2 cm (5' 7) 06/27/2024 11:05 AM CDT Body Mass Index 37.59 06/27/2024 11:05 AM CDT Plan of Treatment Health Maintenance Due Date Last Done Comments COLOGUARD (AGES 45-75) - COLON CA SCREENING [address] COLONOGRAPHY - COLON CA SCREENING [...] EXAM WITH MONOFILAMENT 07/07/2021 COVID-19 VACCINE ( season) 2023 09/04/2021, 03/12/2021, 05/26/2020, Additional history exists DIABETES-HGB A1C 03/03/2024 09/02/2023, , 04/15/2021, Additional history exists DEPRESSION SCREENING 04/04/2024 10/27/2023, 02/10/20 23 DIABETES - URINE PROTEIN SCREENING 04/04/2024 04/15/2021, 04/15/2021 INFLUENZA VACCINE (Season Ended) 2024 12/24/2020, 12/25/2019, 12/19/2018, Additional history exists DIABETES-SERUM CREATININE 03/17/20252023, 09/22/2023, 09/22/2023, Additional history exists COLON MONITORING 09/04/2033 09/05/2023 COLONOSCOPY - COLON CA SCREENING 09/04/2033 09/05/2023 [...] - POCT INTERFACED (07/20/2021 10:31 AM CDT) [facility] Creatinine POCT 0.86 0.70 - 1.20 mg/dL 07/20/2021 10:42 AM CDT [facility] Blood BLOOD SPECIMEN / Unknown 07/20/2021 10:31 AM CDT 07/20/2021 10:42 AM CDT Nishi Reese MD LAB - POINT OF CARE ORDERAB LES Final Result [facility] [address] [place], [place] [id number] from Last 3 Months or Most Recently Relevant to Health Maintenance Insurance MEDICARE [facility] MEDICARE MEDICARE Care Teams Reservations Manager Relationship Specialty Start Date End Date Tyler Larson MD [address] [facility] [address] [place] [address] PCP - General Internal Medicine 08/08/23
--- OUTSIDE RECORDS SUMMARY | 2024-10-04 10:10 | XMS_ITS | Clinical Summary ---
Author Organization [facility] Address [facility] [place] [address] Care Team Providers Care Passenger Car Conductor Name Role Phone Tyler Larson MD Primary Care Provider [phone] Allergies Active Allergy Reactions Criticality Noted Date [...] Encounters Date Type Department Care Team Description 09/27/2024 Results Follow-Up [facility], [address] [place] [address] Ryan Hurt MD ELASTASE, PANCREATIC (EL-1), FECAL, QUALITATIVE/SEMI-QU ANTITATIVE 09/17/2024 2:25 PM CDT - 09/17/2024 11:59 PM CDT Hospital Encounter [facility] [place] [address] Tanya Calvo MD Discharge Disposition: Home or Self Care (Routine Discharge) 09/17/2024 2:25 PM CDT - 09/17/2024 11:59 PM CDT Hospital Encounter [facility] [place] [address] Tanya Calvo MD Discharge Disposition: Home or Self Care (Routine Discharge) 09/17/2024 [place] [address] Tanya Calvo MD 09/17/2024 Travel 09/16/2024 2:42 PM CDT - 09/16/2024 11:59 [place] [address] Ryan Hurt MD Discharge Disposition: Home or Self Care (Routine Discharge) 09/11/2024 Scan HEALTH INFO SRVCS Scanned, [facility] 08/06/[address] [place] [id number] Ryan Hurt MD Medication 07/31/2024 Telephone [facility] [address] [facility] [address] [place] [phone] Ryan Hurt MD Referral 07/25/2024 1:00 PM CDT Office Visit [address] [place] [phone] Ryan Hurt MD Follow Up (Discuss results ) 07/25/2024 Travel from Last 3 Months Family History Medical History Relation Comments Alzheimers Father Hypertension Mother Relation Status Comments Father Mother Social History Tobacco Use Types Packs/Day Years Used Date Smoking Tobacco: Never Passive Smoke Exposure: Never Smokeless Tobacco: Never Tobacco Cessation:Counseling Given: No Alcohol Use Standard Drinks/Week Comments Not Currently 0 (1 standard drink = 0.6 oz pur e alcohol) [facility] Utilities Answer Date Recorded In the past 12 months has [facility] [employer], or water [employer] threatened to shut off services in your [...] any time in the past 12 [facility], were you homeless or living in a skilled nursing (including now)? No 09/02/2023 Comments No Sex and Gender Information Value Date Recorded Sex Assigned at Female 05/10/2024 8:49 AM ACID CONDENSER Legal Sex Female 3:23 PM ACID CONDENSER Gender Identity Female 04/27/2021 11:54 AM ACID CONDENSER Sexual Orientation Straight 04/27/2021 11 :54 AM ACID CONDENSER Last Filed Vital Signs Vital Sign Reading Time Taken Comments Blood Pressure 136/68 07/25/2024 12:57 PM CDT Pulse 83 07/25/2024 12:57 PM CDT Temperature 36.6 C (97.9 F) 07/25/2024 12:57 PM CDT Respiratory Rate 16 02/28/2024 3:34 PM ACID CONDENSER Oxygen Saturation 97% 07/25/2024 12:57 PM CDT Inhaled Oxygen Concentration - - Weight 115.2 kg (254 lb) 07/25/2024 12:57 PM CDT Height 167.6 cm (5' 6) 07/25/2024 12:57 PM CDT Body Mass Index [...] Colonoscopy (10 Years) 11/23/2033 11/24/2023, 11/24/2023, 09/05/2023 Dexa Scan (General) Completed 06/13/2023, 06/13/2023, 05/04/2021, Additional history exists Pneumococcal Vaccine: 50+ Years Completed 01/18/2024, 01/18/2018, 01/05/2017 RSV Immunization or 60+ Years Completed 01/18/2024 PHQ-2 (Physician [place]) Completed 07/25/2024 Hepatitis C Completed 09/17/2024, 08/2023, 02/07/2024, Additional history exists Meningococcal B Vaccine Aged Out No l [...] perform ADLs independently Lifestyle No Mallorie Valencia, wirer helper Procedure Name Priority Date/Time Associated Diagnosis Comments XR SHOULDER RT MIN 2V Routine 09/17/2024 3:10 PM CDT Shoulder pain XR SHOULDER LT MIN 2V Routine 09/17/2024 3:10 PM CDT Shoulder pain HIV 1 ANTIGEN(S), WITH HIV-1 AND HIV-2 ANTIBODIES Routine 09/17/2024 2:38 PM CDT Screening examination for poliomyelitis Atrophic arthritis (CMS/HCC HHS/HCC) HCV RNA,PCR QUANT. Routine 09/17/2024 2: 38 PM CDT Screening examination for poliomyelitis Atrophic arthritis (CMS/HCC HHS/HCC) HEPATITIS B SURFACE AG, EIA Routine 09/17/2024 2:38 PM CDT Screening examination for poliomyelitis Atrophic arthritis (CMS/HCC HHS/HCC) HEPATITIS C ANTIBODY Routine 09/17/2024 2:38 PM CDT Screening examination for poliomyelitis Atrophic arthritis (CMS/HCC HHS/HCC) HEPATITIS B , DNA, QUANT Routine 09/17/2024 2:38 PM CDT Screening examination for poliomyelitis Atrophic arthritis (CMS/HCC HHS/HCC) HEPATITIS B CORE ANTIBODY Routine 09/17/2024 2:38 PM CDT Screening examination for poliomyelitis Atrophic arthritis (CMS/HCC HHS/HCC) HEPATITIS B SURFACE ANTIBODY Routine 09/17/2024 2:38 PM CDT Screening examination for poliomyelitis Atrophic arthritis (CMS/HCC HHS/HCC) ANTINUCLEAR ANTIBODY WI RFX Routine 09/17/2024 2:38 PM CDT Fatigue Arthritis Encounter for therapeutic drug monitoring MAGNESIUM Routine 09/17/2024 2:38 PM CDT Fatigue Arthritis Encounter for therapeutic drug monitoring THYROXINE, FREE (FT4) Routine 09/17/2024 2:38 PM CDT Fatigue Arthritis Encounter for therapeutic drug monitoring THYROID STIM HORMONE TSH Routine 09/17/2024 2:38 PM CDT Fatigue Arthritis Encounter for therapeutic drug monitoring CYCLIC CITRULLINATED PEPTIDE (CCP)ANTIBODY(IGG) Routine 09/17/2024 2:38 PM CDT Fatigue Arthritis Encounter for therapeutic drug monitoring RHEUMATOID FACTOR, QUANT Routine 09/17/2024 2:38 PM CDT Fatigue Arthritis Encounter for therapeutic drug monitoring VITAMIN B1 THIAMINE Routine 09/17/2024 2 :38 PM CDT Fatigue Arthritis Encounter for therapeutic drug monitoring VITAMIN B6 Routine 09/17/2024 2:38 PM CDT Fatigue Arthritis Encounter for therapeutic drug monitoring ELASTASE, PANCREATIC (EL-1), FECAL, QUALITATIVE/SEMI-SAMMY TITATIVE Routine 09/17/2024 9:00 AM CDT 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 Ordered By: TANYA CALVO Interpreted By: Flavio Burch MD, 09/18/2024 12:38 PM Narrative 09/18/2024 12:38 PM CDT [facility] [address] [place], [place] [address] Examination: XR SHOULDER RT MIN 2V Exam time: 09/17/2024 2:42 PM Clinical history: Right shoulder pain Comparison: None Technique: AP and transscapular views right shoulder Findings: No soft tissue abnormality. No fracture or dislocation. No focal lytic bone destructive lesion. Glenohumeral joint is unremarkable. Chronic degenerative osteoarthritis right AC joint. Procedure Note Flavio Burch MD - 09/18/[address] [address] Examination: XR SHOULDER RT MIN 2V Exam time: 09/17/2024 2:42 PM Clinical history: Right shoulder pain Comparison: None Technique: AP and transscapular views right shoulder Findings: No soft tissue abnormality. No fracture or dislocation. No focallytic bone destructive lesion. Glenohumeral joint is unremarkable. Chronicdegenerative osteoarthritis right AC joint. IMPRESSION: 1) Chronic degenerative osteoarthritis right AC joint. Ordered By: TANYA CALVO Interpreted By: Flavio Burch MD, 09/18/2024 12:38 PM Tanya Calvo MD GENERAL IMAGING Final Result * XR SHOULDER LT MIN 2V (09/17/2024 3:10 PM CDT) Anatomical Region Laterality Modality Shoulder Radiographic Sharri ging 09/18/2024 12:3 7 PM CDT Impressions 09/18/2024 12:38 PM CDT IMPRESSION: 1) Chronic degenerative osteoarthritis left AC joint. No acute osseous abnormality. Ordered By: TANYA CALVO Interpreted By: Flavio Burch MD, 09/18/2024 12:37 PM Narrative 09/18/2024 12:38 PM CDT [address] [address] Examination: XR SHOULDER LT MIN 2V Exam time: 09/17/2024 2:42 PM Clinical history: Shoulder pain Comparison: None Technique: AP and transscapular views Findings: No acute soft tissue abnormality. No evidence of fracture or focal lytic bone destructive lesion. Glenohumeral joint is unremarkable. Chronic degenerative osteoarthritis left AC joint. Procedure Note Flavio Burch MD - 09/18/2024 [facility] [address] [place], [place] [address] Examination: XR SHOULDER LT MIN 2V Exam time: 09/17/2024 2:42 PM Clinical history: Shoulder pain Comparison: None Technique: AP and transscapular views Findings: No acute soft tissue abnormality. No evidence of fracture orfocal lytic bone destructive lesion. Glenohumeral joint is unremarkable.Chronic degenerative osteoarthritis left AC joint. IMPRESSION: 1) Chronic degenerative osteoarthritis left AC joint. No acute osseousabnormality. Ordered By: TANYA CALVO Interpreted By: Flavio Burch MD, 09/18/2024 12:37 PM Tanya Calvo MD GENERAL IMAGING Final Result * HIV 1 ANTIGEN(S), WITH HIV-1 AND HIV-2 ANTIBODIES (09/17/2024 2:38 PM CDT) HIV 1/2 AB+ HIV1 P24 AG NON-REACTI VE NON-REACTI VE 09/17/2024 4:33 PM CDT [facility] 09/17/2024 2:38 PM CDT Tanya Calvo MD LABORATORY Final Result [facility] [address] [place] [address], [place] [phone] * ANTINUCLEAR ANTIBODY WI RFX (AMANDA) (09/17/2024 2:38 PM CDT) AMANDA 0.3 09/18/2024 12:18 PM CDT [facility] Comment: NEGATIVE: <0.7 RATIO AMANDA PROFILE AND TITER NOT PERFORMED THE AMANDA SCREEN TESTS FOR THE FOLLOWING ANTIBODIES BY EIA: SSA1 (RO), SSB1 (LA), STERN, SCL70, JO1, CENTROMERE, GREASE AND TALLOW PUMPER HISTONE MUST BE ORDERED SEPARATELY DNA (DS) ANTIBODY 0.6 IU/ML 025 12:18 PM CDT [facility] Comment: NEGATIVE: <10 IU/mL EQUIVOCAL: 10 to 15 IU/mL POSITIVE: >15 IU/mL THIS QUANTITATIVE ASSAY IS CALIBRATED TO THE [employer]'S WO/80 STANDARD. THE LEVEL OF dsDNA AUTOANTIBODY GERERALLY CORRELATES WITH THE LEVEL OF DISEASE ACTIVITY IN SYSTEMIC LUPUS ERYTHMATOSUS 09/17/2024 2:38 PM CDT us Tanya Calvo MD LABORATORY Final Result [facility] [address] [place] [address], [place] [phone] * RHEUMATOID FACTOR, QUANT (09/17/2024 2:38 PM CDT) RHEUMATOID FACTOR <10 <15 IU/ML 09/17/2024 3:21 PM CDT [facility] 09/17/2024 2:38 PM CDT us Tanya Calvo MD LABORATORY Final Result [facility] [address] [place] [address], [place] [phone] * CYCLIC CITRULLINATED PEPTIDE (CCP)ANTIBODY(IGG) (09/17/2024 2:38 PM CDT) CITRULLINE PEPTIDE ANTIBODY <16 <20 Units 09/20/2024 9:46 PM CDT [facility] Comment: Negative: <20 Weak Positive: 20 - 39 Moderate Positive: 40 - 59 Strong Positive: >59 Test Performed by Lana Toribio, [facility], [address] [place] [address] Bo Hernandez M.D., Ph.D., Director of Laboratories , CLIA [id number] 09/17/2024 2:38 PM CDT us Tanya Calvo MD LABORATORY Final Result Performing Organization Address City/[facility]/ZIP Co de Phone Number [employer] , [place] [phone] * HCV RNA,PCR QUANT. (09/17/2024 2:38 PM CDT) HEPATITIS C RNA PCR QNT <15 IU/mL 09/20/2024 7:45 PM CDT [facility] Comment: HCV RNA Not Detected HEP C RNA PCR QNT LOG <1.18 log IU/mL 09/20/2024 7:45 PM CDT [facility] Comment: HCV RNA Not Detected Reference Range: Not Detected IU/mL Not Detected Log IU/mL For additional information please refer to http://education.[employer]/faq/SOE08z1 (This link is being provided for informational/ educational purposes only.) Test Performed by [facility], [employer] [facility] [place], [address] [place] [address] Bo Hernandez M.D., Ph.D., Director of Laboratories , CLIA [id number] 09/17/2024 2:38 PM CDT us Tanya Calvo MD LABORATORY Final Result Performing Organization Address [facility]/ZIP Co de Phone Number [employer] [address] , [place] [phone] * HEPATITIS C ANTIBODY (09/17/2024 2:38 PM CDT) HEPATITIS C AB NON-REACTI VE NON-REACTI VE 09/17/2024 3:57 PM CDT [facility] 09/17/2024 2:38 PM CDT us Tanya Calvo MD LABORATORY Final Result [facility] [address] [place] [address], [place] [phone] * HEPATITIS B SURFACE AG, EIA (09/17/2024 2:38 PM CDT) HEPATITIS B SURFACE AG NON-REACTI VE NON-REACTI VE 09/17/2024 3:28 PM CDT [facility] 09/17/2024 2:38 PM CDT us Tanya Calvo MD LABORATORY Final Result [facility] [address] [place] [address], [place] [phone] * HEPATITIS B SURFACE ANTIBODY (09/17/2024 2:38 PM CDT) HEP B SURFACE AB NON-REACTI VE 09/17/2024 6:03 PM CDT [facility] 09/17/2024 2:38 PM CDT us Tanya Calvo MD LABORATORY Final Result [facility] [address] [place] [address], [place] [phone] * HEPATITIS B , DNA, QUANT (09/17/2024 2:38 PM CDT) HEPATITIS B DNA IU/ML Not Detected IU/mL 09/21/2024 10:37 AM CDT [employer] [facility] HEPATITIS B DNA COPIES/ML Not Detected Log IU/mL 09/21/2024 10:37 AM CDT [employer] [facility] GAYLE HERMOSILLO Comment: Reference Range: Not Detected IU/mL Not Detected Log IU/mL The analytical performance characteristics of this assay have been determined by [employer]. The modifications have not been cleared or approved by the U.S. Food and Drug Administration. This assay has been validated pursuant to the CLIA regulations and is used for clinical purposes. Test Performed by [facility], [employer] [facility], [address] [place] [address] Bo Hernandez M.D., Ph.D., Director of Laboratories , CLIA [id number] 09/17/2024 2:38 PM CDT us Tanya Calvo MD LABORATORY Final Result [employer] [address] [address], [place] [phone] * HEPATITIS B CORE ANTIBODY (09/17/2024 2:38 PM CDT) [facility] HEP B CORE TOTAL AB NON-REACTI VE NON-REACTI VE 09/17/2024 3:58 PM CDT [facility] 09/17/2024 2:38 PM CDT us Tanya Calvo MD LABORATORY Final Result [facility] [address] [place] [address], [place] [phone] * THYROXINE, FREE (FT4) (09/17/2024 2:38 PM CDT) Pathologist [facility] FREE T4 1.10 0.76 - 1.46 NG/DL 09/17/2024 3:21 PM CDT [facility] 09/17/2024 2:38 PM CDT Tanya Calvo MD LABORATORY Final Result Performing Organization Address City/[facility]/ZIP Co de Phone Number [facility] [address] [place] [address], [place] [phone] * VITAMIN B6 (09/17/2024 2:38 PM CDT) VITAMIN B6 S/P/B 3.5 2.1 - 21.7 ng/mL 09/24/2024 4:54 AM CDT [facility] Comment: Vitamin supplementation within 24 hours prior to blood draw may affect the accuracy of the results. This test was developed and its analytical performance characteristics have been determined by [employer] [place], [place]. It has not been cleared or approved by the U.S. Food and Drug Administration. This assay has been validated pursuant to the CLIA regulations and is used for clinical purposes. Test Performed by [facility], [employer] [place], [address] [place] [address] Bo Hernandez M.D., Ph.D., Director of Laboratories , CLIA [id number] 09/17/2024 2:38 PM CDT Tanya Calvo MD LABORATORY Final Result Performing Organization Address City/[facility]/ZIP Co de Phone Number [facility] [address] [place] [address], [place] [phone] * VITAMIN B1 THIAMINE (09/17/2024 2:38 PM CDT) VITAMIN B1 S/P/B 13 8 - 30 nmol/L 09/23/2024 11:50 AM CDT [facility] Comment: Vitamin supplementation within 24 hours prior to blood draw may affect the accuracy of the results. This test was developed and its analytical performance characteristics have been determined by [employer] [place], [place]. It has not been cleared or approved by the U.S. Food and Drug Administration. This assay has been validated pursuant to the CLIA regulations and is used for clinical purposes. Test Performed by [facility], [employer] [facility], [address] [place] [address] Bo Hernandez M.D., Ph.D., Director of Laboratories , CLIA [id number] 09/17/2024 2:38 PM CDT us Tanya Calvo MD LABORATORY Final Result [employer] [address] , [place] [phone] * THYROID STIM HORMONE, TSH (09/17/2024 2:38 PM CDT) TSH 1.690 0.358 - 3.74 uIU/ML 09/17/2024 3:21 PM CDT [facility] Comment: HIGH DOSES OF BIOTIN MAY INTERFERE WITH THIS TEST RESULT. CORRELATION TO CLINICAL HISTORY AND PRESENTATION RECOMMENDED. 09/17/2024 2:38 PM CDT us Tanya Calvo MD LABORATORY Final Result [facility] [address] [place] [address], [place] [phone] * MAGNESIUM (09/17/2024 2:38 PM CDT) MAGNESIUM 1.9 1.8 - 2.4 MG/DL 09/17/2024 3:21 PM CDT [facility] 09/17/2024 2:38 PM CDT Tanya Calvo MD LABORATORY Final Result [facility] [address] [place] [address], [place] [phone] * ELASTASE, PANCREATIC (EL-1), FECAL, QUALITATIVE/SEMI-QUANTITATIVE (09/17/2024 9:00 AM CDT) PANCREATIC ELASTASE-1 >800 >200 mcg/g 09/27/2024 3:12 AM CDT [facility] Comment: E-1 mcg/g feces Interpretation <100 Severe exocrine pancreatic insufficiency 100-200 Mild to moderate exocrine pancreatic insufficiency >200 Normal Test performed by [employer] ([place]) [id number] [place], [place] [id number] Wire Spooler: Annemarie Nava MD,PHD,MARY ANNE Test Reported by [facility], [employer] [facility], [address] [place] [address] Bo Hernandez M.D., Ph.D., Director of Laboratories , [facility] [id number] STOOL SPECIMEN / Unknown 09/17/2024 9:00 AM CDT Ryan Hurt MD BODY FLUIDS AND STOOLS ORDERABLE S Final Result [facility] [address] [place] [address], [place] [phone] * BONE DENSITY/DEXA (05/04/2021 10:28 AM ACID CONDENSER) Anatomical Region Laterality Modality Bone Mammography 05/04/2021 12:4 7 PM ACID CONDENSER Impressions 05/04/2021 12:48 PM ACID CONDENSER =====IMPRESSION:===== Lumbar spine bone density: Normal Bilateral femoral necks bone density: Normal Bilateral total proximal femurs bone density: Normal Ordered By: NATALY ALBRIGHT Interpreted By: Ronan Levin MD, 05/04/2021 12:47 PM Narrative 05/04/2021 12:48 PM ACID CONDENSER Examination: Bone Density Axial Exam date/time: 05/04/2021 [...] femurs bone density: Normal Ordered By: NATALY ALBRIGHT Interpreted By: Ronan Levin MD, 05/04/2021 12:47 PM aNtaly Albright PA-Kirill DEXA Final Resu lt from Last 3 Months or Most Recently Relevant to Health Maintenance Insurance MEDICARE [facility] Advance Directives * Full Code (Latest Code Status on File) Date Activated Date Inactivated Comments 09/02/2023 12:00 AM 09/06/2023 4:39 PM Care Teams Passenger Car Conductor Relationship Specialty Start Date End Date Tyler Larson MD [address] [place] [address] PCP - General INTERNAL MEDICINE 09/02/23
--- OUTSIDE RECORDS SUMMARY | 2024-10-04 10:10 | XMS_ITS ---
Author Organization [employer] [place] ([address]) Address [address] [place] [address] Care Team Providers Care Assistant At Surgery Name Role Phone Radha Jeffery Primary Care Provider Unavaila Adore Andrea Unavailable [phone] [employer], Provider Unavailable Unavailab le Allergies Allergen (clinical drug ingredient) Drug/Non Drug Allergy documented on EMR Reaction Allergy Type Onset Date Status PHENOL TOPICAL (uncoded) other reaction Allergy Active Erythromycin other reaction Drug Allergy [facility] Encounter Medications Medication SIG (Take, Route, Frequency, Duration) Notes Start Date End Date Status amLODIPine Besylate 10 MG 1 tab(s) orally once a day Active ALBUTEROL (EQV-PROVENTIL HFA) 90 MCG/INH 2 PUFF(S) INHALED Q4-6 HOURS, PRN AND PER THE ASTHMA ACTION PLAN; Duration: 30 DAY(S) *Please review for potential replacement [...] 137 MCG/INH 2 SPRAY(S), EACH NOSTRIL INTRANASALLY BID; Duration: 30 DAY(S) *Please review for potential replacement for e-prescription and drug interaction check* Active Olmesartan Medoxomil 40 MG 1 tab(s) orally once a day Active glipiZIDE 5 MG 1 tab(s) orally once a day Active Encounters Encounter Location Date Provider Diagnosis [address] [address] 09/17/2023 Provider Kobi Moderate persistent asthma, uncomplicated J45.40 Assessments Encounter Date Diagnosis (ICD Code) Assessment Notes Treatment Notes Treatment Clinical Notes Section Notes 09/17/2023 Moderate persistent asthma, uncomplicated (ICD-10 - J45.40) Plan Of Treatment Medication Medication Name Sig Start Date Stop Date Notes ALBUTEROL (EQV-PROVENTIL HFA) 90 MCG/INH 2 PUFF(S) INHALED Q4-6 HOURS, PRN AND PER THE ASTHMA ACTION PLAN; Duration: 30 DAY(S) *Please review for potential replacement for e-prescription and drug interaction check* Breo Ellipta 200 MCG-25 MCG/INH 1 PUFF(S) INHALED ONCE A DAY prn *Please review and pick correct strength-[facility]ulation from [facility]. If intended option is not shown, discontinue and re-order from Quick Search* ASTELIN 137 MCG/INH 2 SPRAY(S), EACH NOSTRIL INTRANASALLY BID; Duration: 30 DAY(S) *Please review for potential replacement for e-prescription and drug interaction check* Progress Notes * Erna NANCE WDOB:1950 (74 yo F)Acc No.[id number]:09/17/2023 Patient: Erna TREVIZO W Provider: Marcia Epperson :1950 A ge:73 Y S ex:Female Date:09/17/2023 [id number] Pcp:Radha Jeffery Subjective: * Chief Complaints: * 1 . [facility] Conversion Encounter. * Medical History: * Medications: [...] Procedure Codes: * Electronic signature of Mary MONOTYA-Migration on 10/04/2024 at 10:09 AM CDT Sign off status: Pending * Provider: Marcia mao Migration Date: 0 09/17/2023 Generated for Stephenie quezada/Ruby/Vladimir on: 10/04/2024 10:09 AM CDT
--- OUTSIDE RECORDS SUMMARY | 2024-10-04 10:10 | XMS_ITS | CCD ---
Author Name Interface, [id number] Address [place] [address] [facility] Address [place] [address] Allergies and Adverse Reactions Medication/Group Name Reaction Severity Date lidocaine 05/26/2008 hydrocodone bitartrate/acetaminophen 05/26/2008 hydrocodone bitartrate/acetaminophen 05/26/2008 acetaminophen 05/26/2008 acetaminophen 05/26/2008 lidocaine 05/26/2008 Calcium Channel Blocking Agent Diltiazem Analogues 05/26/2008 doxycycline hyclate 05/26/19 09 Opioids - Morphine Analogues 05/26/2008 Opioids - Morphine Analogues 05/26/2008 minocycline HCl 05/26/2008 erythromycin base 05/26/2008 Tetracyclines 05/26/2008 Tetracyclines 05/26/2008 Tetracyclines 05/26/2008 loracarbef 05/26/2008 Macrolide Antibiotics 2008 diltiazem HCl 05/26/2008 doxycycline monohydrate 05/06 Oxacephems 05/26/2008 Reason for Visit Functional Status Date Name [...] MG daily 009 active 009 Mometasone Nasal Lancing 50 mcg/actuation By inhalation MCG as directed 009 active 009 Olmesartan Oral PO 1.0 TABLET (S) daily 009 active Problems Diagnosis Status Date of Diagnosis Resolution Date Primary malignant neoplasm o f female breast (disorder) Active 03/2006 Social History Date Name Value Sex Female
--- OUTSIDE RECORDS SUMMARY | 2024-10-04 10:10 | XMS_ITS | Encounter Summary ---
Author Organization [facility] Address [address] [facility] [place] [address] Care Team Providers Care Photogrammetric Technician Name Role Phone Tyler Larson MD Primary Care Provider [phone] Reason for Visit * Reason Onset Date Comments Med Question 03/22/2024 Encounter Details Date Type Department Care Team (Late st Contact Info) Description 03/22/2024 Telephone [facility] - HEALTH SERVICE WORKER [address] [facility] [address] [place] [address] Ria Walton MD [address] [facility] [address] [place] [address] Med Question Social History Tobacco [...] AM CDT Legal Sex Female 2:27 PM SLATE CUTTER Gender Identity Female 07/29/2021 10:25 AM CDT Sexual Orientation Straight 07/29/2021 10 :25 AM CDT documented as of this encounter Miscellaneous Notes * Telephone Encounter - Olivia Wallace RN - 03/22/2024 3:55 PM CST Returned patient's call. No answer. Left a message with return call back number. E CUTTER * Telephone Encounter - Karoline Joseph - 03/22/2024 3:50 PM CST Patient states she is experiencing vaginal pain and is going to the bathroom frequently and states this is unusual for her. Please call back at [phone] E CUTTER documented in this encounter Plan of Treatment Not on file documented as of this encounter Visit Diagnoses Not on filedocumented in this encounter Care Teams Photogrammetric Technician Relationship Specialty Start Date End Date Tyler Larson MD [address] [address] PCP - General Internal Medicine 08/08/23 documented as of this encounter
--- OUTSIDE RECORDS SUMMARY | 2024-10-04 10:10 | XMS_ITS | Encounter Summary ---
Author Organization [facility] Address [address] [facility] [place] [address] Care Team Providers Care Director Of Career Services Name Role Phone Laura Waterman MD Primary Care Provider Tyler Larson MD Primary Care Provider [phone] Encounter Details Date Type Department Care Team (Late st Contact Info) Description 10/19/2022 Lab Requisition [facility] - DermPath Lab [address] [facility], [place] [address] Chata Gonzalez MD [address] [facility] [address] [place] [address] Social History Tobacco Use Types Packs/Day Years Used Date Smoking Tobacco: Never Smokeless Tobacco: Never Alcohol Use Standard Drinks/Week Comments Not Currently 0 (1 standard drink = 0.6 oz pur e alcohol) Comments No Sex and Gender Information Value Date Recorded Sex Assigned at Female 07/29/2021 10:25 AM CDT Legal Sex Female 2:27 PM THERMITE WELDER Gender Identity Female 07/29/2021 10:25 AM CDT Sexual Orientation Straight 07/29/2021 10 :25 AM CDT documented as of this encounter Plan of Treatment Not on file documented as of this encounter Procedures Procedure Name Priority Date/Time Associated Diagnosis Comments DERMATOPATHOLOGY Routine 10/19/2022 1:33 PM CDT documented in this encounter Results * DERMATOPATHOLOGY (10/19/2022 1:33 PM CDT) Case Report Dermatopathology Report Case: [id number] Authorizing Provider: Chata Gonzalez MD Collected: 10/19/2022 01:33 PM Ordering Location: [facility] DermPath Lab Received: 10/19/2022 04:15 PM Pathologist: Ty Bautista MD Specimen: Skin, left forehead 3 2:11 PM CDT DERMATOPATHOLOGY LABORATORY Final Diagnosis Specimen A. SKIN, left forehead: PIGMENTED SEBORRHEIC KERATOSIS (L82.1) 3 2:11 PM CDT DERMATOPATHOLOGY LABORATORY at 1411 CDT Clinical History BROWN MACULE R/O AK VS [...] characteristic determined by the Dermatopathology Laboratory at [facility], directed by Dr. Zakia Bautista. These tests need not be, and therefore are not, approved by the [place] Food and Drug Administration. The tests are used for clinical purposes. Billing Codes Specimen Charges Stain Charges 45867 1 3 2:11 PM CDT DERMATOPATHOLOGY LABORATORY Embedded Images 3 2:11 PM CDT DERMATOPATHOLOGY LABORATORY Pathology/Cytolo gy TISSUE SPECIMEN FROM SKIN / Unknown 10/19/2022 1:33 PM CDT 10/19/2022 4:15 PM CDT Chata Gonzalez MD LAB - PATHOLOGY/CYTOLOGY ORD ERABLES Final Result DERMATOPATHOLOGY LABORATORY [facility] - Department of Dermatology [facility] Medicine [address] [place] [address], [address] [phone] documented in this encounter Visit Diagnoses Not on filedocumented in this encounter Care Teams Director Of Career Services Relationship Specialty Start Date End Date Laura Waterman MD [address] [place] [id number] PCP - General Internal Medicine 07/02/21 08/07/23 Tyler Larson MD [address] [facility] [address] [place] [address] PCP - General Internal Medicine 08/08/23 documented as of this encounter
--- OUTSIDE RECORDS SUMMARY | 2024-10-04 10:10 | XMS_ITS | Clinical Summary ---
Author Organization [facility] Address [address] [place] [id number] Care Team Providers Care Steeler Name Role Phone Tyler Larson MD Primary Care Provider [phone] Allergies Active Allergy Reactions Criticality Noted Date [...] (03/15/2022): Added automatically from request for surgery [id number] Surgical History Surgery Date Site/Laterality Comments MASTECTOMY [...] CDT Respiratory Rate 15 04/22/2022 8:50 AM SCIENCE EDUCATION PROFESSOR Oxygen Saturation 96% 02/02/2024 8:34 AM CDT [...] 2023 09/04/2021, 03/12/2021, 05/26/2020, Additional history exists Influenza Vaccine (#1) 2024 4, 12/24/2020, 12/25/2019, Additional history exists Osteoporosis Screening-Bone Density Scan 06/12/2025 06/13/2023, 05/04/2021, 01/05/2019, Additional history exists Pneumococcal vaccine 65+ Completed 018, 01/14/2018, 01/05/2017 Procedures Procedure Name Priority Date/Time Associated Diagnosis [...] of: encounter for screening for osteoporosis [facility] 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 MF: WESLY Report ID: [id number] Reading Location: [id number] Tyler Larson MD IMG DXA PROCEDURES Final Result from Last 3 Months or Most Recently Relevant to Health Maintenance Insurance MEDICARE [facility] MEDICARE SUPPLEMENT MEDICARE [facility] MEDICARE SUPPLEMENT Care Teams Steeler Relationship Specialty Start Date End Date Tyler Larson MD [address] [facility] [address] [place] [address] PCP - General Internal Medicine 05/11/23
--- OUTSIDE RECORDS SUMMARY | 2024-10-04 10:11 | XMS_ITS ---
Author Organization [facility] Address [address] [place] [address] Care Team Providers Care Spa Manager Name Role Phone Neo OCHOA, Eric Primary Care Provider Matthew STEEL FASHION BUYER, ILAN Alejo Allergies Allergen (clinical drug ingredient) Drug/Non Drug [...] diverticulitis Encounters Encounter Location Date Provider Diagnosis [facility] [address] [place] [address] 08/12/2023 ILAN STEEL Plan Of Treatment No Information Progress Notes * Erna NANCEDOB:1950 ( 74 yo F)Acc No.[id number]:08/12/2023 Progress Notes Patient: Erna TREVIZO Appointment Provider: Wilner Steel CNP :1950 A ge:73 Y S ex:Female Date:08/12/2023 Address:[address] [place], [place] [id number] Pcp:Eric Larson MD Subjective: * Chief Complaints: * 1 . Diverticulitis. * HPI: C onstitutional: Previous testin07/29/23 CT scan showed wall thickening [...] sigmoid colon. Internal hemorrhoids. * Medical History: A rthritis, Asthma, Hypertension, Kidney stones, Sleep apnea, Breast cancer, chronic obstructive pulmonary disease (COPD), Fatty liver, gastroesophageal reflux disease (GERD), Hyperlipidemia, type II diabetes. * Surgical History: k idney stone , abscess drainage from diverticulitis , cystocele repair , tonsillectomy , mastectomy left , hysterectomy , back surgery . * Family History: F ather: , DM, HD,. M other: , HD. brother passed of lymphoma. * Social History: T obacco Use: D o you smoke?: Never. D rugs/Alcohol: D o you drink alcohol?: No. * Allergies: D iltiazem: hives, Erythromycin: hives, Gabapentin: SOB, Minocycline: hives, Sulfa Antibiotics: anaphylaxis, Doxycycline: hives, Magnesium Salicylate: hives, Meloxicam: nausea and vomiting, Ethyl Alcohol: hives. Objective: * Vitals: Assessment: Plan: * Treatment: * * Electronic signature of BUCKY STEEL NP, MSN MOLD CLEANER-BC on 10/04/2024 at 11:10 AM EDT Sign off status: Pending * Appointment Provider: Wilner Steel CNP Date: 08/12/2023 Generated for Printing/Faxing/eTransmitting on: 0 10/04/2024 11:10 AM EDT History and Physical Notes * HPI (History [...]
--- OUTSIDE RECORDS SUMMARY | 2024-10-04 10:11 | XMS_ITS | Clinical Summary ---
Author Organization [facility] Address [address] [place] [address] Phone Care Team Providers Care Cultural Centre Manager Name Role Phone Tyler Larson MD Primary Care Provider [phone] Ryan Hurt MD Unavailable Aleksander Gonzales DO Unavailable [phone] Allergies Active Allergy Reactions Criticality Noted Date Comments Acetaminophen Other (see Comments) 03/11/2021 Acrylate Copolymer Rash,Unknown Low 02/13/2021 Chlorine Rash,Unknown Low 08/07/2013 Coffee Flavoring Agent (Non-Screening) Other (see Comments) 09/03/2023 Diltiazem Hives,Other (see Comments) High 11/27/2008 DILTIAZEM HCL: HIVES/STOMACH ACHE ONLY IF SHE'S BEEN ON IT FOR MORE THAN 2 WKS - Converted from Centricity With prolonged use Doxycycline Hives,Other (see Comments) Medium 06/01/2013 With prolonged use Dust Mite Extract Other (see Comments),Unknown Low 07/02/2021 mite extract Nigerien house dust mite allergenic extract / house dust mite allergenic extract Erythromycin Other (see Comments),Hives,Ra sh High 08/03/2007 [...] Tablet Take 1 Tablet by mouth daily. 03/20/20 21 Active rosuvastatin (CRESTOR) 20 MG Tablet Take 1 Tablet by mouth daily. 01/11/20 17 Active aspirin EC 81 MG Tablet Delayed Response Take 1 Tablet by mouth daily. Active glipiZIDE (GLUCOTROL) 5 MG Tablet Take 1 Tablet by mouth daily. 10/21/19 22 Active Janumet 50-500 MG Tablet Take 1 Tablet by mouth daily. 04/21/19 18 Active Restasis 0.05 % Emulsion Place 1 Drop in affected eye(s). 08/24/19 24 Active albuterol 108 (90 Base) MCG/ACT Aerosol Solution take 2 Puffs by inhalation. Active Cholecalcifero l (Vitamin D3) 125 mcg Capsule Take 125 mcg by mouth. Active Cyanocobalamin (VITAMIN B-12) 100 MCG Tablet Take 50 mcg by mouth. Active Fluticasone Furoate-Vilant cesia (BREO ELLIPTA) 200-25 MCG/ACT AEROSOL POWDER, BREATH ACTIVATED take 1 Puff by inhalation. 11/28/19 21 Active azelastine (ASTELIN) 0.1 % Solution 2 Sprays by Nasal route. 06/20/19 23 Active Multi Vitamin/Minera ls Tablet Take 1 Tablet by mouth daily. Active triamcinolone (KENALOG) 0.1 % Ointment Use with the nystatin ointment to vulvar skin 2-3 times a week 10/27/19 24 Active lisinopril (PRINIVIL, ZESTRIL) 20 MG Tablet Take 20 mg by mouth daily. Active lisinopril-hyd roCHLOROthiazi de (PRINZIDE, ZESTORETIC) 20-12.5 MG Tablet Take 1 Tablet by mouth daily. Active montelukast (SINGULAIR) 10 MG Tablet Take 10 mg by mouth nightly. Active acetaminophen (TYLENOL) 500 MG Tablet Take 1,000 mg by mouth. 04/22/19 23 025 Discontin ued(Med List Clean Up) nystatin (MYCOSTATIN) 131336 UNIT/GM Ointment Use with the Triamcinolone ointment 0.1% to the vulvar skin 2-3 times a week, 10/27/19 24 025 Discontin ued(Med List Clean Up) Active Problems No known active problems Encounters Date Type Department Care Team Description 09/18/2024 Telephone [facility] [address] [address] Aleksander Gonzales DO Canopy Call / Ct report 09/11/2024 10:30 AM CDT Office Visit [facility] [address] [address] Aleksander Gonzales DO Lung nodule (Primary Dx) 09/11/2024 Travel 09/04/2024 11:00 AM CDT Ancillary Procedure [facility] [address] [address] Lung nodule 09/04/2024 Travel from Last 3 Months Immunizations Immunization Administration Dates Next Due Covid-19, [...] Reading Time Taken Comments Blood Pressure 128/78 09/11/2024 10:15 AM CDT Pulse 78 09/11/2024 10:15 AM CDT Temperature 36.5 C (97.7 F) 09/11/2024 10:15 AM CDT Respiratory Rate 18 09/11/2024 10:1 5 AM CDT Oxygen Saturation 98% 09/11/2024 10: 15 AM CDT Inhaled Oxygen Concentration - - Weight 114.6 kg (252 lb 9.6 oz) 025 10:15 AM CDT Height 165.1 cm (5' 5) 09/11/2024 10:1 5 AM CDT Body Mass Index 42.03 09/11/2024 10:15 AM CDT Plan of Treatment Upcoming Encounters Date Type Department Care Team (Late st Contact Info) Description 09/03/2025 11:00 AM CDT Ancillary Procedure [facility] [address] [phone] 09/10/2025 10:30 AM CDT Office Visit [facility] [address] [phone] Aleksander Gonzales, [address] [place] [phone] Health Maintenance Due Date Last Done Comments Mammogram Unilateral 1950 TdaP Immunization 1950 Cologuard 1996 Immunochemical Fecal Occult Blood 1996 Zoster Immunization (1 of 2) 2001 SARS-COV-2 Immunization ( season) 2023 09/04/2021, 03/12/2021, 05/26/2020, Additional history exists DEXA Bone Density 06/12/2025 06/13/2023, , 01/05/2019 Colonoscopy 11/23/2033 11/24/2023, 09/05/2023 Colorectal Cancer Screening 11/23/2033 Hepatitis C Virus (HCV) Screening Completed 12/27/2017 Influenza Immunization Completed , 12/24/2020, 12/25/2019, Additional history exists Pneumococcal Immunization (50+ years) Completed 02/14/2024, 01/18/2024, 01/18/2018, Additional history exists Respiratory Syncytial Virus (RSV) Immunization (Adult) Completed 02/14/2024, 01/18/2024 Hepatitis B Immunization Aged Out No longer eligible based on patient's age to complete this topic Human Papillomavirus (HPV) Immunization Aged Out No longer eligible based on patient's age to complete this topic Meningococcal Immunization (ACWY) Aged Out No longer eligible based on patient's age to complete this topic Rotavirus Immunization Aged Out No lo nger eligible based on patient's age to complete this topic Procedures Procedure Name Priority Date/Time Associated Diagnosis Comments CT CHEST W/O CONTRAST Routine 09/04/2024 10:55 AM CDT Lung nodule from Last 3 Months Results * CT CHEST W/O CONTRAST (09/04/2024 10:55 AM CDT) Anatomical Region Laterality Modality Chest N/A Computed Tomogra phy Narrative 09/04/2024 11:31 AM CDT EXAMINATION: CT CHEST W/O CONTRAST 09/04/2024 INDICATIONS: Solitary pulmonary nodule pulmonary nodule, six-month follow up. COMPARISON: CT chest 03/05/2024 TECHNIQUE: Noncontrast helical imaging was performed through the chest. A dose lowering technique was used for this procedure, which may include, but is not limited to, dose reduction technique(s), automated exposure control techniques, use of iterative reconstruction techniques, and ALARA (as low as reasonably achievable) or ALARA/IMAGE Gently techniques. FINDINGS: Cardiovascular: Atherosclerotic disease is seen within the thoracic aorta without evidence of aneurysm. Fyua-lx-ronfbuql coronary artery calcification is seen. The heart size is within normal limits. Pleura: No significant pleural effusion is seen. Small pericardial fluid is again seen similar to previous. There is additional lobulated fluid along the anterior right heart border which could represent unusual pericardial cysts. This is also similar to the previous. Lymphatics: Small less than 1 cm lymph nodes are present. No significant adenopathy is seen. Lungs: Mild scarring is seen within the lung apices. There is borderline bronchial wall thickening. Mild atelectatic changes are seen. Tiny pulmonary nodules are redemonstrated and appear unchanged. These are likely benign. No suspicious pulmonary nodules are appreciated. Upper abdomen: Mildly prominent lymph nodes are seen within the tyree hepatis, portacaval and peripancreatic region similar to the previous. Musculoskeletal: Scoliosis and degenerative changes. IMPRESSION 1. Tiny pulmonary nodules unchanged since previous most consistent with benign etiology. No suspicious pulmonary nodules. 2. Very small pericardial fluid. There is additional lobulated fluid along the anterolateral right heart border which is uncertain etiology. This could represent a pericardial cyst and does not appear significantly changed. Recommend attention on follow-up. 3. Prominent bilateral axillary lymph nodes demonstrate fatty miranda and are likely benign. There is also prominent upper abdominal lymph nodes which are unchanged and nonspecific but also likely benign. Electronically signed by: XU GILBERT MD, Staff Radiologist Date of Signature: 09/04/2024 11:31:39 Procedure Note Xu Gilbert MD - 09/04/2024 EXAMINATION: CT CHEST W/O CONTRAST 09/04/2024 INDICATIONS: Solitary pulmonary nodule pulmonary nodule, six-month follow up. COMPARISON: CT chest 03/05/2024 TECHNIQUE: Noncontrast helical imaging was performed through the chest. A dose lowering technique was used for this procedure, which may include,but is not limited to, dose reduction technique(s), automated exposurecontrol techniques, use of iterative reconstruction techniques, and ALARA(as low as reasonably achievable) or ALARA/IMAGE Gently techniques. FINDINGS: Cardiovascular: Atherosclerotic disease is seen within the thoracic aortawithout evidence of aneurysm. Bwda-au-gybwcfth coronary arterycalcification is seen. The heart size is within normal limits. Pleura: No significant pleural effusion is seen. Small pericardial fluidis again seen similar to previous. There is additional lobulated fluidalong the anterior right heart border which could represent unusualpericardial cysts. This is also similar to the previous. Lymphatics: Small less than 1 cm lymph nodes are present. No significantadenopathy is seen. Lungs: Mild scarring is seen within the lung apices. There is borderlinebronchial wall thickening. Mild atelectatic changes are seen. Tinypulmonary nodules are redemonstrated and appear unchanged. These arelikely benign. No suspicious pulmonary nodules are appreciated. Upper abdomen: Mildly prominent lymph nodes are seen within the portahepatis, portacaval and peripancreatic region similar to the previous. Musculoskeletal: Scoliosis and degenerative changes. IMPRESSION 1. Tiny pulmonary nodules unchanged since previous most consistent withbenign etiology. No suspicious pulmonary nodules. 2. Very small pericardial fluid. There is additional lobulated fluidalong the anterolateral right heart border which is uncertain etiology.This could represent a pericardial cyst and does not appear significantlychanged. Recommend attention on follow-up. 3. Prominent bilateral axillary lymph nodes demonstrate fatty miranda and arelikely benign. There is also prominent upper abdominal lymph nodes whichare unchanged and nonspecific but also likely benign. Electronically signed by: XU GILBERT MD, Staff Radiologist Date of Signature: 09/04/2024 11:31:39 us Blanca James CERTIFIED PROSTHETIST, SOX ANALYST IMG CT ORDERABLES Fin al Result from Last 3 Months Insurance [facility] MEDICARE Care Teams Cultural Centre Manager Relationship Specialty Start Date End Date Tyler Larson MD [address] [facility] [address] [place] [address] PCP - General Internal Medicine 10/17/23 Ryan Hurt MD [address] [facility] [address] [place] [address] Referring Provider Internal Medicine 10/17/23 Aleksander Gonzales DO [address] [place] [address] Consulting Physician Oncology 10/17/23
--- OUTSIDE RECORDS SUMMARY | 2024-10-04 10:11 | XMS_ITS | Patient Health Record ---
Author Organization [facility] Address [address] [place] [address] Care Team Providers Care Psychiatry Instructor Name Role Phone Neo OCHOA, Eric Primary Care Provider Matthew STEEL CALCINE FURNACE TENDER, ILAN Unavailable Allergies Allergen (clinical drug ingredient) Drug/Non Drug [...] (substance) Sulfa Antibiotics anaphylaxis Drug Allergy Active Reason For Referral No Information Plan Of Treatment No Information Insurance Providers Payer Name Payer Address Payer Phone Subscriber Number Group Number Insured Name Patient Relationship to Insured Coverage Start Date Coverage End Date [place] [address] [place], [place] [id number] Erna Nance Self - patient is the insured [facility] Medicare Supplement [address] [place], [place] [id number] Erna Nance Self - patient is the insured Medical (General) History Medical History History ICD Code Arthritis asthma hypertension kidney stones sleep apnea breast cancer chronic obstructive pulmonary disease (C OPD) fatty liver gastroesophageal reflux disease (GERD) hyperlipidemia type II diabetes Surgical History Surgery Date(Month/Year) kidney stone abscess drainage from diverticulitis cystocele repair tonsillectomy mastectomy left hysterectomy back surgery
--- OUTSIDE RECORDS SUMMARY | 2024-10-04 10:11 | XMS_ITS | Patient Health Record ---
Author Organization [facility] [employer] [place] ([address]) Address [address] [place] [address] Care Team Providers Care Floatlight Powder Mixer Name Role Phone Radha Jeffery Primary Care Provider Adore Low Unavailable [phone] Allergies Allergen (clinical drug ingredient) Drug/Non Drug [...] never smoker Section Notes: recently moved to [facility] recently moved to [facility] recently moved to [facility] Problems Problem Type SNOMED Code ICD Code Onset Dates Problem Status W/U Status Risk Notes Problem Hyperlipidemia (47017368) Hyperlipidemia, unspecified (E78.5) Active confirmed Problem Chronic allergic conjunctivitis (99969819) Other chronic allergic conjunctivitis (H10.45) Active confirmed Problem Allergic rhinitis caused by pollen (disorder) (30385449) Allergic rhinitis due to pollen (J30.1) Active confirmed Problem Allergic rhinitis (28041453) Other allergic rhinitis (J30.89) Active confirmed Problem Chronic rhinitis (13486484) Chronic rhinitis (J31.0) Active confirmed Problem Uncomplicated mild persistent asthma (093973363) Mild persistent asthma, uncomplicated (J45.30) Active confirmed Problem Uncomplicated moderate persistent asthma (545549814) Moderate persistent asthma, uncomplicated (J45.40) Active confirmed Problem Uncomplicated severe persistent asthma (119872775) Severe persistent asthma, uncomplicated (J45.50) Active confirmed Problem Allergic rhinitis caused by animal hair and dander (281826806930119) Allergic rhinitis due to animal (cat) (dog) hair and dander (J30.81) Active confirmed Problem Obstructive sleep apnea syndrome (disorder) (09699457) Obstructive sleep apnea (adult) (pediatric) (G47.33) Active confirmed Problem Essential hypertension (72172980) Essential (primary) hypertension (I10) Active confirmed Problem COVID-19 (726900374) COVID-19 (U07.1) Active confirmed Plan Of Treatment No Information Insurance Providers Payer Name Payer Address Payer Phone Subscriber Number Group Number Insured Name Patient Relationship to Insured Coverage Start Date Coverage End Date [employer] (Medicare) Attention Claims [address] [place] [address] [id number] Erna Nance Self - patient is the insured [facility] [address] [place] [address] [id number] Erna Nance Self - patient is the insured Medical (General) History Medical History History ICD Code chemical exposure-hives Essential (primary) hypertension I10 Hyperlipidemia, unspecified E78.5 Surgical History Surgery Date(Month/Year) back surgery hysterectomy kidney stone reconstructive pelvic surgery cyctocele lymph node removal Left breast colonoscopy endoscopy Hospitalization History Reason Date(Month/Year) Kidney stones 03/2022 Diverticulitis 05/2022
--- OUTSIDE RECORDS SUMMARY | 2024-10-04 10:11 | XMS_ITS | Clinical Summary ---
Author Organization [email or web address] Address [address] [facility] [place] [address] Care Team Providers Care Ticket Seller Name Role Phone Laura Waterman MD Primary Care Provider [phone] Allergies Active Allergy Reactions Criticality Noted Date [...] breakfast. Active fluticasone propionate (Aller-Amari) 50 mcg/spray [place], Suspension nasal inhaler Administer 2 Sprays in [...] 1 if needed. 4 Tablet 2 Active [id number] dml-KyRl-YSm-a sb-C (MOVIPREP) 100-7.5-2.691 gram solution Take 1 [...] (01/19/2022): Added automatically from request for surgery [id number] Added automatically from request for surgery [id number] Obesity 12/25/2018 Mild intermittent asthma 03/14/2018 Menopausal [...] Encounters Date Type Department Care Team Description 08/23/2024 External Device Data [facility] ABSTRACTION Provider, Abstract 08/23/2024 External Device Data [facility]STRACTION Provider, Abstract [...] 11:20 AM CDT Height 166.4 cm (5' 5.5) 01/19/2022 11:20 AM CD T Body Mass [...] 11/13/2002 DIABETES ANNUAL FOOT EXAM 11/19/2020 11/20/2019 COVID-19 Vaccine (2 - 2023-2 5 season) 2023 04/25/2020 DIABETES HBA1C Q 6 MONTHS 03/03/2024 09/02/2023, 02/2020 INFLUENZA VACCINE (#1) 2024 0, 12/19/2018, 01/14/2018, Additional history exists OSTEOPOROSIS SCREENING 06/12/2028 4, 06/13/2023, 05/04/2021, Additional history exists COLORECTAL SCREENING 09/04/2033 09/05/2023 Colorectal Cancer Screening 09/04/2033 PNEUMOCOCCAL VACCINE 50+ YEARS Completed 01/14/2018 , 01/05/2017 Insurance MEDICARE PART A AND B [employer] SUPP Care Teams Ticket Seller Relationship Specialty Start Date End Date Laura Waterman MD [address] [place] [address] [phone] PCP - General Family Practice 02/13/21
--- OUTSIDE RECORDS SUMMARY | 2024-10-04 10:14 | XMS_ITS | CCD ---
Author Name Interface, [id number] Address [place] [address] [facility] Address [place] [address] Allergies and Adverse Reactions Medication/Group Name Reaction [...] MG daily 009 active 009 Mometasone Nasal [place] 50 mcg/actuation By inhalation MCG as directed 009 active 009 Olmesartan Oral PO 1.0 TABLET (S) daily 009 active Problems Diagnosis Status Date of Diagnosis Resolution Date Primary malignant neoplasm o f female breast (disorder) Active 03/2006 Social History Date Name Value Sex Female
--- OUTSIDE RECORDS SUMMARY | 2024-10-04 10:14 | XMS_ITS | CCD ---
Author Name Interface, [address] Address [place] [address] [facility] Address [address] [place] [address] Allergies and Adverse Reactions Reason for Visit Functional Status Medications Problems Social History
[2024-10-04 10:18] LABS: EDUAAPPEAR Cloudy; EDUABILI Negative (Negative); EDUABLOOD 1+ (Negative); EDUACOLOR1 Yellow; EDUAGLUCOSE Negative (Negative); EDUAKETONE Negative (Negative); EDUALEUKO 1+ (Negative); EDUANITRATE Positive (Negative); EDUAPH 5.5; EDUAPROTEIN 2+ (Negative); EDUASPGRAVITY 1.030; EDUAUROBILI 0.2
== END 2024-10-04 10:28 | disposition home or self-care (01) ==
PROVIDERS: Emergency Provider Nurse Practitioner Family; PCP Internal Medicine
DX: N39.0 Urinary tract infection, site not specified (principal); E11.9 Type 2 diabetes mellitus without complications; Z79.84 Long term (current) use of oral hypoglycemic drugs; K21.9 Gastro-esophageal reflux disease without esophagitis; I10 Essential (primary) hypertension; J45.909 Unspecified asthma, uncomplicated; N80.9 Endometriosis, unspecified; Z85.3 Personal history of malignant neoplasm of breast; Z90.13 Acquired absence of bilateral breasts and nipples; M19.90 Unspecified osteoarthritis, unspecified site; Z79.82 Long term (current) use of aspirin
CPT/HCPCS: 81003; 87086; 87186; 99213; G0463